=== PATIENT | female | born 1950 | race Caucasian/White ===

== ENCOUNTER → 2016-08-18 | Outpatient (CLI) | payer MEDICARE ==
--- NOTE | 2016-08-18 13:22 | US ---
EXAMINATION TYPE: US carotid duplex BILAT DATE OF EXAM: 08/18/2016 1:12 PM COMPARISON: NONE CLINICAL HISTORY: E78.2 HYPERLIPIDEMIA,R41.3 MEMORY LOSS. Hyperlipidemia, memory changes EXAM MEASUREMENTS: RIGHT: Peak Systolic Velocity (PSV) cm/sec ----- Right CCA: 65.1 ----- Right ICA: 117.4 ----- Right ECA: 113.5 ICA/CCA ratio: 1.8 RIGHT: End Diastole cm/sec ----- Right CCA: 23.2 ----- Right ICA: 37.1 ----- Right ECA: 22.8 LEFT: Peak Systolic Velocity (PSV) cm/sec ----- Left CCA: 85.5 ----- Left ICA: 127.7 ----- Left ECA: 71.1 ICA/CCA ratio: 1.5 LEFT: End Diastole cm/sec ----- Left CCA: 29.3 ----- Left ICA: 38.3 ----- Left ECA: 17.2 VERTEBRALS (direction of flow): Right Vertebral: Antegrade Left Vertebral: Antegrade IMPRESSION: Heterogeneous plaque bilateral bulbs and tortuous bilateral ICA's. No hemodynamically s ignificant stenosis at this time. Criteria for Assigning % of Stenosis / Diameter reduction (Estimation based on the indirect measurements of the internal carotid artery velocities (ICA PSV). 1. Normal (no stenosis)=ICA PSV < 125 cm/s: ratio < 2.0: ICA EDV<40 cm/s. 2. Less than 50% stenosis=ICA PSV < 125 cm/s: ratio < 2.0: ICA EDV<40 cm/s. 3. 50 to 69% stenosis=ICA PSV of 125 to 230 cm/s: ration 2.0 ? 4.0: ICA EDV 40-100 cm/s. 4. Greater than 70% stenosis to near occlusion= ICA PSV > 230 cm/s: ratio > 4.0: ICA EDV > 100 cm/s. 5. Near occlusion= ICA PSV velocities may be low or undetectable: variable ratio and ICA EDV. 6. Total occlusion=unable to detect flow.
== END | disposition home or self-care (01) ==
LOC: RADUSWWP 12:52
PROVIDERS: ATTEND Family Medicine
DX: I65.23 Occlusion and stenosis of bilateral carotid arteries (principal); I77.1 Stricture of artery; E78.2 Mixed hyperlipidemia
CPT/HCPCS: 93880

== ENCOUNTER → 2016-09-11 | Outpatient (CLI) | payer MEDICARE ==
--- NOTE | 2016-09-12 11:12 | MM ---
Reason for exam: screening (asymptomatic). Baseline mammogram. History: Patient is postmenopausal and is nulliparous. Took estrogen for 15 years beginning at age 44. Physical Findings: A clinical breast exam by your physician is recommended on an annual basis and results should be correlated with mammographic findings. MG 3D Screening Mammo W/Cad Bilateral CC and MLO view(s) were taken. Prior study comparison: September 08, 2015, bilateral MG screening mammo w CAD. August 24, 2014, bilateral MG screening mammo w CAD. August 21, 2013, bilateral digital screening mammo w/CAD. There are scattered fibroglandular densities. There is no discrete abnormality. ASSESSMENT: Negative, BI-RAD 1 RECOMMENDATION: Routine screening mammogram of both breasts in 1 year.
== END | disposition home or self-care (01) ==
LOC: RADMAMWWP 10:49
PROVIDERS: ATTEND Family Medicine
DX: Z12.31 Encounter for screening mammogram for malignant neoplasm of breast (principal)
CPT/HCPCS: 77063; G0202

== ENCOUNTER → 2016-12-07 | Outpatient (CLI) | payer MEDICARE ==
[~2016-12-07] MED LIST: REGADENOSON 0.4 MG/5 ML SYRINGE IV ONE
--- NOTE | 2016-12-07 12:26 | NM ---
EXAMINATION TYPE: NM stress Lexiscan cardiolite DATE OF EXAM: 12/07/2016 COMPARISON: NONE HISTORY: Chest pain. TECHNIQUE: After the intravenous administration of 10.44 mCi Tc 99m Sestamibi - Cardiolite resting S PECT images acquired 45 minutes post injection. The patient received 0.4mg Lexiscan, 26.8 mCi Tc 99m Sestamibi - Stress images obtained [address] injection FINDINGS: There is a fixed defect in the inferior wall and apex. There is no convincing inducible isc hemic change. There is hypokinesia of the inferior wall. Ejection fraction is calculated at 64%. IMPRESSION: 1. EVIDENCE OF A PREVIOUS INFERIOR WALL AND APICAL ID. 2. NO CONVINCING INDUCIBLE ISCHEMIC CHANGE. 3. HYPOKINESIA OF THE INFERIOR WALL.
--- NOTE | 2016-12-07 12:26 | EST ---
DATE OF SERVICE: 12/07/2016 AGE: 66Y SEX: F HT: 5'2" WT: 182 lbs. Protocol Dennis: Other: Lexiscan Cardiolite Stage: Dur. of Exercise: *Heart Rate Blood Pressure *Rest: 74 Rest: 137/71 * *Max. Achieved: 95 Maximum BP: 152/77 85% PMHR: 138 100% PMHR: 153 *METS: INDICATIONS: Chest pain. MEDICATIONS: Patient was given Lexiscan injection over a period of 15 seconds. Peak heart rate of 95 was achieved. Maximum blood pressure of 152/77 mmHg was noted. Resting EKG shows normal sinus rhythm with normal ME interval and QRS duration and normal ST-T waves. No ST segment depression suggestive of ischemia is noted. Nuclear study will follow.
== END | disposition home or self-care (01) ==
LOC: RADNMMAIN 08:42
PROVIDERS: ATTEND Family Medicine
DX: R07.89 Other chest pain (principal)
CPT/HCPCS: 93017; 78452; A9500; J2785

== ENCOUNTER → 2017-02-22 | Day surgery (SDC) | payer MEDICARE ==
[2017-02-15 10:54] VITALS: BMI 32.9
[~2017-02-22] MED LIST changes: +ALPRAZolam 0.25 MG TAB PO PRN; +ALPRAZolam 0.5 MG TAB PO PRN; +ASPIRIN 81 MG ONE; +ATORVASTATIN 40 MG TAB PO SCH; +ATORVASTATIN 80 MG TAB PO STA; +CALCIUM CARBONATE PO SCH; +FOLIC ACID 1 MG TAB PO SCH; +HEPARIN SODIUM 1,000 UN/ML (10ML VL) ONE; +HYDROCHLOROTHIAZIDE 25 MG TAB PO SCH; +HYDROcodone/APAP 5-325MG 1 EACH TAB PO PRN; +IOHEXOL 350 MG/ML 125ML BOTTLE INJ ONE; +ISOSORBIDE MONONITRATE ER 30 MG TAB.ER.24H PO SCH; +LEVOTHYROXINE SODIUM 150 MCG PO SCH; +LIDOCAINE 2% INJ 20 MG/ML (20 ML MDV) ONE; +LIDOCAINE 2% INJ 20 MG/ML SQ ONE; +LISINOPRIL 2.5 MG TAB PO SCH; +METOPROLOL TARTRATE 25 MG TAB PO SCH; +NABUMETONE PO SCH; +NAPROXEN 250 MG TAB PO PRN; +NITROGLYCERIN SL TABS 0.4 MG TAB SUBLINGUAL PRN; +NON-FORMULARY DRUG (Aspirin [Adult Low Dose Aspirin Ec] 81 MG) PO SCH; +NON-FORMULARY DRUG (Biotin [Biotin] 5,000 MCG) PO SCH; -REGADENOSON 0.4 MG/5 ML SYRINGE IV ONE; +RX INFO: IV CONTRAST WAS GIVEN 1 EACH MISC MISCELLANE PRN; +SODIUM CHLORIDE 0.9% 1,000 ML IV SCH; +SODIUM CHLORIDE 0.9% 1,000 ML in EMPTY BAG 1 BAG IV ONE; +VERAPAMIL 2.5 MG/ML 2 ML AMP ONE; +VERAPAMIL SYRINGE (5 MG/10 ML) INTRAARTER ONE; +VITAMIN D3 PO SCH; +[UNRECOGNIZED DRUG - OTHER] PO SCH; +[UNRECOGNIZED DRUG - OTHER] PO SCH; +[UNRECOGNIZED DRUG - OTHER] PO SCH; +diphenhydrAMINE 50 MG/ML 1 ML VIAL IVP ONE; +diphenhydrAMINE 50 MG/ML 1 ML VIAL ONE; +fentaNYL (PF) 50 MCG/ML 2 ML AMP IV ONE; +fentaNYL (PF) 50 MCG/ML 2 ML AMP ONE
[2017-02-22 07:00] VITALS: RESP 18
[2017-02-22 08:55] VITALS: TEMP 98
[2017-02-22 14:50] VITALS: BP 142/70; PULSE 82
--- NOTE | 2017-02-22 20:28 | CC ---
CARDIAC CATHETERIZATION REPORT Dear Dr. Luther: I had the pleasure of performing cardiac catheterization on Mrs. Ellis at [facility] on February 22. A full copy procedure note will be forwarded to you. In brief, she was found to have calcified coronary artery with chronically occluded distal right coronary artery with mild disease in the proximal LAD. At this time I will maximize her medical therapy and she will be re-evaluated regarding the need to undergo percutaneous revascularization of the right coronary artery. I will keep you updated on her progress and thank you again for allow me to participate in her care. Please feel free to call for any questions. Sincerely yours, [email or web address] / IJN: [id number] /
--- NOTE | 2017-02-22 20:28 | CC ---
CARDIAC CATHETERIZATION REPORT Mrs. Ellis is a 66-year-old female with a history of hypertension, hyperlipidemia, who has been complaining of progressive dyspnea and episodes of chest discomfort, underwent a stress test that revealed evidence of inferior wall defect and hypokinesis of the same segment. In view of that recommendation made regarding cardiac catheterization. The procedures, risks, and complications were discussed with the patient who is in full understanding and agreement. PROCEDURE: Patient was brought to the labeling specialist in a fasting state after receiving fentanyl and Benadryl and achieving moderate conscious sedation state. Using Xylocaine anesthesia and Seldinger technique a 6-Japanese sheath was introduced in the right radial artery. Selective right and left coronary angiography reports was performed using 5-Japanese 3 and half bend right and left Flavio catheters. Multiple views of the coronary arteries including hemiaxial views were obtained. Following that, a 5-Japanese tight pigtail catheter was introduced into the left ventricle and a 30 degree CORADO view of the left ventricle was obtained. Following that catheter and sheath was removed. Hemostasis was obtained with deployment of Tracelet. Of note, the patient received intraarterial verapamil as well as 4000 units of intravenous heparin. FLUOROSCOPY: There was severe calcification involving the proximal left anterior descending artery as well as the right coronary artery. 1. Left main this is a large-sized vessel bifurcating left circumflex left main artery. Left main coronary artery is without any significant obstructive disease. 2. Left anterior descending artery: This is a large-sized vessel reaching towards the apex with a wrap around apex segment giving rise to a moderate-sized diagonal branch. The left anterior descending artery proximally has a 20% plaque. The rest of the vessel has no high-degree stenosis. 3. Left circumflex: This is a nondominant vessel giving rise to three obtuse marginal branches. The second one is largest in caliber. The left circumflex as well as branches has no evidence of obstructive coronary artery disease. 4. Right coronary artery: This is a dominant vessel, large in caliber bifurcating distally into PDA and posterior lateral segment and branches, heavily calcified in proximal and mid segment. The right coronary artery in the mid segment has a 95% stenosis. In the mid distal segment, this is subtotally occluded with minimal antegrade flow. 5. Collaterals: There is good collaterals from the left anterior descending artery with septal security management specialist to right PDA and PLV. 6. Left ventriculogram: Performed in 30 degree CORADO view and revealed basal inferior wall hypokinesis. Ejection fraction 50%. There was no significant mitral regurgitation. 7. Hemodynamics: There was no gradient across the aortic valve. The left ventricle end-diastolic pressure was 24-28 mmHg. CONCLUSION: 1. Calcified coronary artery. 2. Severe stenosis involving the mid right coronary with a chronic occlusion of the distal right coronary artery. 3. Mild disease in the proximal LAD. 4. Collaterals from the left coronary system toward the right coronary artery. 5. Minimally impaired left ventricular systolic function.. RECOMMENDATION: In view of finding anatomy, I have recommended to continue medical therapy. Patient will be evaluated regarding possible percutaneous revascularization for chronically occluded distal right coronary artery. Those findings and recommendations were discussed with the patient and her family who is in full understanding and agreement. ADRIEL / DARCY: [id number] /
== END | disposition home or self-care (01) ==
LOC: CATHCVL 06:12
PROVIDERS: ATTEND Internal Medicine Interventional Cardiology
DX: I25.10 Atherosclerotic heart disease of native coronary artery without angina pectoris (principal); I25.82 Chronic total occlusion of coronary artery; I25.84 Coronary atherosclerosis due to calcified coronary lesion; I10 Essential (primary) hypertension; Z87.891 Personal history of nicotine dependence; E78.2 Mixed hyperlipidemia; Z79.82 Long term (current) use of aspirin; Z79.1 Long term (current) use of non-steroidal anti-inflammatories (NSAID); Z79.899 Other long term (current) drug therapy; Z88.1 Allergy status to other antibiotic agents; Z88.5 Allergy status to narcotic agent
CPT/HCPCS: 93458; 99152; J2001; J1200; J3010; J1644; Q9967

== ENCOUNTER → 2017-05-07 | Outpatient (CLI) | payer MEDICARE ==
--- NOTE | 2017-05-07 13:23 | XR ---
EXAMINATION TYPE: XR chest 2V DATE OF EXAM: 05/07/2017 COMPARISON: None HISTORY: 66-year-old female cough for 3 months. [id number] TECHNIQUE: Frontal and lateral views FINDINGS: Heart upper limits of normal in size. Mild elongation of the aorta. Strandy atelectasis in the lower lungs. No consolidation or pleural effusion. IMPRESSION: No acute cardiopulmonary process.
--- NOTE | 2017-05-07 13:31 | XR ---
EXAMINATION TYPE: XR hand complete LT DATE OF EXAM: 05/07/2017 COMPARISON: NONE HISTORY: 66 year old with swelling, bruising, and pain. [id number]. TECHNIQUE: 3 views FINDINGS: There appears to be borderline widening of the scapholunate interval. End-stage degenerative change a t the radioscaphoid joint as well as the lunocapitate articulation. Advanced degenerative change at t he first CMC joint as well scattered osteolytic changes throughout the hand. No acute fracture, sublu xation, or dislocation. No marginal erosions or soft tissue calcification seen. Large 8 mm posterior loose body at the carpus. IMPRESSION: 1. 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 2. Additional moderate to advanced osteoarthritic changes throughout the hand.
== END | disposition home or self-care (01) ==
LOC: RADXRYALE 09:35
PROVIDERS: ATTEND Physician Assistant Medical
DX: M19.042 Primary osteoarthritis, left hand (principal); M19.032 Primary osteoarthritis, left wrist; J44.9 Chronic obstructive pulmonary disease, unspecified
CPT/HCPCS: 71020

== ENCOUNTER → 2017-09-12 | Outpatient (CLI) | payer MEDICARE ==
--- NOTE | 2017-09-14 07:24 | MM ---
Reason for exam: screening (asymptomatic). Last mammogram was performed 1 year ago. History: Patient is postmenopausal and is nulliparous. Took estrogen for 15 years beginning at age 44. Physical Findings: A clinical breast exam by your physician is recommended on an annual basis and results should be correlated with mammographic findings. MG 3D Screening Mammo W/Cad Bilateral CC and MLO view(s) were taken. Prior study comparison: September 11, 2016, bilateral MG 3d screening mammo w/cad. September 08, 2015, bilateral MG screening mammo w CAD. There are scattered fibroglandular densities. No significant changes when compared with prior studies. ASSESSMENT: Negative, BI-RAD 1 RECOMMENDATION: Routine screening mammogram of both breasts in 1 year.
== END | disposition home or self-care (01) ==
LOC: RADMAMWWP 11:05
PROVIDERS: ATTEND Family Medicine
DX: Z12.31 Encounter for screening mammogram for malignant neoplasm of breast (principal)
CPT/HCPCS: 77063; 77067

== ENCOUNTER → 2018-02-14 | Outpatient (CLI) | payer MEDICARE ==
--- NOTE | 2018-02-14 23:19 | CTL ---
EXAMINATION TYPE: CT Low Dose Lung DATE OF EXAM ORDERED: 02/14/2018 HISTORY: 67-year-old female personal hx of tobacco use. Lung cancer screening CT DLP: [address] CTDI: 2.14 mGy Automated exposure control for dose reduction was used. SCREENING VISIT: Baseline COMPARISON: None TECHNIQUE: Low dose computed tomography scan was performed through the chest at 1 mm thick sections a nd reconstructed images in the coronal/sagittal plane at 1 mm thick sections. Additional coronal MIP reconstructions performed. CT DIAGNOSTIC QUALITY: Satisfactory FINDINGS: Heart is normal size without pericardial effusion. Coronary vessel calcifications are present. Aorta normal caliber with mild active cardiac arch calcifications and conventional arch vessel branch ing anatomy. No thoracic lymphadenopathy. Moderate diffuse bronchial wall thickening. - 3 mm right middle lobe pulmonary nodule axial image 154. Strandy areas of atelectasis or scarring in the lower lungs. No consolidation or pleural effusion. Tiny hiatal hernia. Visualized upper abdomen shows mild diverticulosis at the splenic flexure. A coup le subcentimeter hypodensities in the liver too small fractured CT characterization, likely cysts. Bones: Moderate endplate spondylosis and degenerative disc disease upper to mid thoracic spine. No os seous destructive process. IMPRESSION: 1. LungRADS 2 - benign; solitary 3 mm pulmonary nodule at baseline. 2. Moderate diffuse bronchial wall thickening suggests bronchitis or chronic asthma. 3. CAD, tiny hiatal hernia, and diverticulosis seen at the splenic flexure. RECOMMENDATION: 1. Continue annual low-dose lung cancer screening CT. 2. Smoking cessation. FOLLOW UP CT CHEST RECOMMENDATION: [address] LUNG RAD: Lung-Rad 2 Benign Appearance or Behavior
== END | disposition home or self-care (01) ==
LOC: RADCTMAIN 15:47
PROVIDERS: ATTEND Family Medicine
DX: Z12.2 Encounter for screening for malignant neoplasm of respiratory organs (principal); R91.1 Solitary pulmonary nodule; I25.10 Atherosclerotic heart disease of native coronary artery without angina pectoris; J98.09 Other diseases of bronchus, not elsewhere classified; K44.9 Diaphragmatic hernia without obstruction or gangrene; J44.9 Chronic obstructive pulmonary disease, unspecified; Z87.891 Personal history of nicotine dependence

== ENCOUNTER → 2018-05-20 | Outpatient (CLI) | payer MEDICARE ==
--- NOTE | 2018-05-22 12:47 | P.ARTDOP ---
Arterial Doppler LOWER EXTREMITY ARTERIAL DOPPLER: DATE OF SERVICE: 05/20/2018 Reason for study: Pain right hip. Doppler waveforms: Multiphasic bilaterally throughout. Pulse volume recording: Normal configuration. Pressure gradients: None. Ankle-brachial indices: Greater than 1 bilaterally. Toe pressures: 96 on the right, 98 on the left Impression: Normal study.
== END | disposition home or self-care (01) ==
LOC: RADUSWWP 12:36
PROVIDERS: ATTEND Family Medicine
DX: M25.551 Pain in right hip (principal); R60.9 Edema, unspecified
CPT/HCPCS: 93922

== ENCOUNTER → 2018-09-16 | Outpatient (CLI) | payer MEDICARE ==
--- NOTE | 2018-09-17 09:07 | MM ---
Reason for exam: screening (asymptomatic). Last mammogram was performed 1 year ago. History: Patient is postmenopausal and is nulliparous. Took estrogen for 15 years beginning at age 44. Physical Findings: A clinical breast exam by your physician is recommended on an annual basis and results should be correlated with mammographic findings. MG 3D Screening Mammo W/Cad Bilateral CC and MLO view(s) were taken. Prior study comparison: September 12, 2017, bilateral MG 3d screening mammo w/cad. September 11, 2016, bilateral MG 3d screening mammo w/cad. The breast tissue is heterogeneously dense. This may lower the sensitivity of mammography. No significant changes when compared with prior studies. ASSESSMENT: Benign, BI-RAD 2 RECOMMENDATION: Routine screening mammogram of both breasts in 1 year.
== END | disposition home or self-care (01) ==
LOC: RADMAMWWP 14:38
PROVIDERS: ATTEND Family Medicine
DX: Z12.31 Encounter for screening mammogram for malignant neoplasm of breast (principal)
CPT/HCPCS: 77063; 77067

== ENCOUNTER → 2019-01-31 | Outpatient (CLI) | payer MEDICARE ==
--- NOTE | 2019-02-01 09:56 | XR ---
EXAMINATION TYPE: XR cervical spine comp DATE OF EXAM: 01/31/2019 CLINICAL HISTORY: pain COMPARISON: NONE TECHNIQUE: Frontal, lateral, oblique, swimmers, and open mouth view of the cervical spine are obtaine d. FINDINGS: The cervical spine is visualized in its entirety from C1 thru the top of T1 level. It is s atisfactory in alignment without evidence of acute fracture or dislocation. The pre-vertebral soft t issue appears within normal limits. Severe multilevel degenerative disc space narrowing and spondylos is extending from C3-4 through C6-7. The C1-C2 articulation is unremarkable on the open mouth view. N eural foraminal encroachment identified at C4-5 C5-6 and C6-7 bilaterally. IMPRESSION: No acute fracture or dislocation is seen in the cervical spine. Severe multilevel degene rative disc disease.
== END | disposition home or self-care (01) ==
LOC: RADXRYALE 15:58
PROVIDERS: ATTEND Family Medicine
DX: M50.31 Other cervical disc degeneration, high cervical region (principal); R20.2 Paresthesia of skin
CPT/HCPCS: 72050

== ENCOUNTER → 2019-02-14 | Outpatient (CLI) | payer MEDICARE ==
--- NOTE | 2019-02-14 20:22 | MR ---
EXAMINATION TYPE: MR cervical spine wo con DATE OF EXAM: 02/14/2019 COMPARISON: None HISTORY: 68-year-old female neck pain, cervicalgia. TECHNIQUE: Multiplanar, multisequence images of the cervical spine were acquired. FINDINGS: No craniocervical junction abnormality, predental space widening, or prevertebral soft tissue swellin g. Reversal of the normal cervical lordosis as seen previously with moderate to advanced disposition deg enerative change particularly at C4-C7 levels with disc height loss, disc desiccation, and disc osteo phyte complex formation. Corresponding ligamentum flavum thickening and multilevel hypertrophic facet and uncovertebral joint arthropathy. Some of these hypertrophic changes are greatest at C7-T1 with increased, now grade 2 anterolisthesis at this level. Similar grade 1 retrolisthesis at C4-C5. At C2-C3, hypertrophic facet arthropathy without significant canal or foraminal stenosis. At C3-C4, hypertrophic facet and uncovertebral joint arthropathy, right greater the left. Changes res ult in moderate to severe right and mild left neural foraminal stenosis without significant spinal ca nal stenosis. At C4-C5, hypertrophic facet and uncovertebral joint arthropathy with grade 1 retrolisthesis, ligamen merary flavum thickening, and disc osteophyte complex. Changes result in moderate to severe focal spinal canal stenosis with AP canal dimension of 5 mm in abutment with slight flattening of both the dorsal and ventral cord, increased from 11/15/2012. There is severe left and moderate right neural foraminal stenosis. At C5-C6, disc osteophyte complex with hypertrophic facet and uncovertebral joint arthropathy. Limita tions and thickening is present. There is overall moderate spinal canal stenosis with abutment of bot h the dorsal and ventral cord, increased from prior exam. There is severe bilateral neuroforaminal st enosis. At C6/C7, discussed by complex with uncovertebral joint and facet degenerative change. Changes result in moderate to severe left and moderate right neuroforaminal stenosis with mild overall narrowing of the spinal canal. At C7-T1, severe hypertrophic facet arthropathy with increased, now grade 2 anterolisthesis. Difficul t to assess the neuroforamen at this level, there is at least a moderate, possibly saphenous near for aminal stenosis on both sides. Additional degenerative disc disease visualized upper thoracic spine with small posterior disc protru sions. Normal signal intensity of the cervical spinal cord. No prevertebral or paravertebral soft tissue abnormality seen. IMPRESSION: 1. Moderate to advanced spondylotic change, progressed from 2013. There is an increased, now grade 2 anterolisthesis at C7-T1 and similar grade 1 retrolisthesis at C4-C5. 2. Overall moderate to severe spinal canal stenosis increased at C4-C5 with abutment and flattening o f both the dorsal and ventral cord. Moderate overall spinal canal stenosis at C5-C6 and mild at C6-C7 . 3. No myelopathic cord signal change. 4. Variable neuroforaminal stenoses as outlined above, moderate and severe at some levels.
== END | disposition home or self-care (01) ==
LOC: RADMRIMAIN 11:48
PROVIDERS: ATTEND Family Medicine
DX: M48.02 Spinal stenosis, cervical region (principal); M47.812 Spondylosis without myelopathy or radiculopathy, cervical region
CPT/HCPCS: 72141

== ENCOUNTER → 2019-02-22 | Outpatient (CLI) | payer MEDICARE ==
--- NOTE | 2019-02-22 12:53 | CTL ---
EXAMINATION TYPE: CT Low Dose Lung DATE OF EXAM ORDERED: 02/22/2019 HISTORY: . Lung cancer screening CT DLP: 81.[address] CTDI: 2.8 mGy Automated exposure control for dose reduction was used. SCREENING VISIT: Subsequent follow-up COMPARISON: 02/14/2018 TECHNIQUE: Low dose computed tomography scan was performed through the chest at 1 mm thick sections a nd reconstructed images in the coronal plane at [address] DIAGNOSTIC QUALITY: Satisfactory FINDINGS: LUNG NODULES: Present, detailed below: A 0.2 cm nodular density appears stable in periphery of the right middle lobe. Series 12 image 165. T his was present previously. There is a very subtle area of pneumonitis within the anterior left apex. Series 12 image 48. Subtle area of pneumonitis is in the lingula within the anterior lateral left lung. Series 12 image 139. LUNGS: COPD: Severity: None Fibrosis: Severity: None Lymph nodes: None Other findings: None RIGHT PLEURAL SPACE: Effusion: None Calcification: None Thickening: None Pneumothorax: None LEFT PLEURAL SPACE: Effusion: None Calcification: None Thickening: None Pneumothorax: None HEART: Heart Size: Normal Coronary calcification: Moderate Pericardial effusion: None OTHER FINDINGS: Upper abdomen: Normal Bony thorax: Normal Supraclavicular region: Normal Other: Ascending thoracic aorta at the level the main pulmonary artery measures 3.2 cm. The main pul monary artery at the bifurcation measures 2.3 cm. IMPRESSION: Benign findings FOLLOW UP CT CHEST RECOMMENDATION: Screening low-dose CT per protocol, low dose screening in one year . CT LUNG RAD: Lung rad 2
== END | disposition home or self-care (01) ==
LOC: RADCTMAIN 11:17
PROVIDERS: ATTEND Family Medicine
DX: Z12.2 Encounter for screening for malignant neoplasm of respiratory organs (principal); Z87.891 Personal history of nicotine dependence

== ENCOUNTER → 2019-02-28 | Outpatient (CLI) | payer MEDICARE ==
--- NOTE | 2019-03-01 15:22 | ECHOF ---
Referral Reason:R06.02 [facility] I519 heart disease MEASUREMENTS -------- HEIGHT: 157.5 cm WEIGHT: 70.8 kg BP: IVSd: 1.0 cm (0.6 - 1.1) LVIDd: 2.7 cm (3.9 - 5.3) LVPWd: 1.1 cm (0.6 - 1.1) IVSs: 1.4 cm LVIDs: 1.6 cm LVPWs: 1.4 cm LAESV Index (A-L): 11.85 ml/m Ao Diam: 2.4 cm (2.0 - 3.7) LA Diam: 1.9 cm (2.7 - 3.8) MV EXCURSION: 12.039 mm (> 18.000) MV EF SLOPE: 121 mm/s (70 - 150) EPSS: 0.8 cm MV E Raghu: 0.61 m/s MV DecT: 268 ms MV A Raghu: 0.87 m/s MV E/A Ratio: 0.70 AR PHT: 201 ms RAP: 5.00 mmHg RVSP: 32.02 mmHg FINDINGS -------- Sinus rhythm. This was a technically good study. The left ventricular size is normal. There is mild concentric left ventricular hypertrophy. Overa ll left ventricular systolic function is normal with, an EF between 60 - 65 %. The diastolic fillin g pattern is normal for the age of the patient 9.07. The right ventricle is normal in size. Normal LA size by volume 22+/-6 ml/m2. The right atrial size is normal. Interatrial and interventricular septum intact. The aortic valve is trileaflet and appears structurally normal. Trace amount of aortic regurgitatio n. The mitral valve is normal. Mild mitral regurgitation is present. The tricuspid valve appears structurally normal. Trace tricuspid regurgitation present. Right tere tricular systolic pressure is normal at < 35 mmHg. There is no pulmonic regurgitation present. The aortic root size is normal. Normal inferior vena cava with normal inspiratory collapse consistent with estimated right atrial pre ssure of 5 mmHg. There is no pericardial effusion. CONCLUSIONS -------- 1. Sinus rhythm. 2. This was a technically good study. 3. The left ventricular size is normal. 4. There is mild concentric left ventricular hypertrophy. 5. Overall left ventricular systolic function is normal with, an EF between 60 - 65 %. 6. The diastolic filling pattern is normal for the age of the patient 9.07 7. The right ventricle is normal in size. 8. Normal LA size by volume 22+/-6 ml/m2. 9. The right atrial size is normal. 10. Interatrial and interventricular septum intact. 11. The aortic valve is trileaflet and appears structurally normal. 12. Trace amount of aortic regurgitation. 13. The mitral valve is normal. 14. Mild mitral regurgitation is present. 15. The tricuspid valve appears structurally normal. 16. Trace tricuspid regurgitation present. 17. Right ventricular systolic pressure is normal at < 35 mmHg. 18. There is no pulmonic regurgitation present. 19. The aortic root size is normal. 20. Normal inferior vena cava with normal inspiratory collapse consistent with estimated right atrial pressure of 5 mmHg. 21. There is no pericardial effusion. MOLD [employer]ARD WORKER: Nicolle Jacob RDCS
== END | disposition home or self-care (01) ==
LOC: RADECHMAIN 12:57
PROVIDERS: ATTEND Family Medicine
DX: I51.7 Cardiomegaly (principal); I34.0 Nonrheumatic mitral (valve) insufficiency
CPT/HCPCS: 93306

== ENCOUNTER → 2020-01-02 | Outpatient (CLI) | payer MEDICARE ==
--- NOTE | 2020-01-05 09:33 | MM ---
Reason for exam: screening (asymptomatic). Last mammogram was performed 1 year and 4 months ago. History: Patient is postmenopausal and is nulliparous. Took estrogen for 15 years beginning at age 44. Physical Findings: A clinical breast exam by your physician is recommended on an annual basis and results should be correlated with mammographic findings. MG 3D Screening Mammo W/Cad Bilateral CC and MLO view(s) were taken. Prior study comparison: September 16, 2018, bilateral MG 3d screening mammo w/cad. September 12, 2017, bilateral MG 3d screening mammo w/cad. The breast tissue is heterogeneously dense. This may lower the sensitivity of mammography. No significant changes when compared with prior studies. ASSESSMENT: Negative, BI-RAD 1 RECOMMENDATION: Routine screening mammogram of both breasts in 1 year.
== END | disposition home or self-care (01) ==
LOC: RADMAMWWP 15:45
PROVIDERS: ATTEND Family Medicine
DX: Z12.31 Encounter for screening mammogram for malignant neoplasm of breast (principal)
CPT/HCPCS: 77063; 77067

== ENCOUNTER → 2020-06-23 | Outpatient (CLI) | payer MEDICARE ==
[2020-06-23 12:22] VITALS: BP 130/78; PULSE 76; RESP 18; TEMP 97.6
--- NOTE | 2020-06-23 13:01 | P.CONS ---
History of Present Illness - Reason for Consult Consult date: 06/23/20 - Chief Complaint Neck and arms pain - History of Present Illness This is a 69-year-old lady with history of neck pain with radiation to the upper extremity down to both hands with tingling in both hands. The patient describes her neck pain as tight in quality and her hands pain as burning in quality. The pain wakes her up at night. She also feels weakness in both arms to the extent that she has difficulty completing her daily activities. She denies any bowel or bladder dysfunction. His any weight loss recently. The patient was referred to us by Dr. Langford for a trial of interventional pain procedures. Past Medical History Past Medical History: COPD, Hyperlipidemia, Hypertension, Musculoskeletal Disorder, Osteoarthritis (OA), Thyroid Disorder Additional Past Medical History / Comment(s): lupus History of Any Multi-Drug Resistant Organisms: None Reported Past Surgical History: Hysterectomy, Joint Replacement Additional Past Surgical History / Comment(s): rene knee replacements, rene. cataracts, right hip replaced & then revised-multiple surgeries Past Anesthesia/Blood Transfusion Reactions: No Reported Reaction Past Psychological History: No Psychological Hx Reported Smoking Status: Former smoker Past Alcohol Use History: None Reported Additional Past Alcohol Use History / Comment(s): started smoking age 17, 1ppd quit 2012 Past Drug Use History: None Reported - Past Family History Mother Family Medical History: No Reported History Medications and Allergies Home Medications Medication Instructions Recorded Confirmed Type Albuterol Sulfate [Proair Hfa] 1 - 2 puff INHALATION Q6HR PRN 02/15/17 06/17/20 History Aspirin [Adult Low Dose Aspirin EC] 81 mg PO DAILY 02/15/17 06/17/20 History Biotin 5,000 mcg PO DAILY 02/15/17 06/17/20 History Calcium Carbonate/Vitamin D3 1 each PO DAILY 02/15/17 06/17/20 History [Calcium 600-Vit D3 200 Tablet] Folic Acid 1 mg PO DAILY 02/15/17 06/17/20 History Glucosam/Tc-Msm1/C/Chavez/Bosw 1 each PO DAILY 02/15/17 06/17/20 History [Glucosamine-Chondroitin Tablet] Kelp 1 each PO DAILY 02/15/17 06/17/20 History Levothyroxine Sodium 150 mcg PO DAILY 02/15/17 06/17/20 History Nabumetone [Relafen] 500 mg PO BID 02/15/17 06/17/20 History Naproxen Sodium [Aleve] 220 mg PO DAILY PRN 02/15/17 06/17/20 History Sinus Congestion Med 1 tab PO DAILY 02/15/17 06/17/20 History Vitamin B Complex With C 1 tab PO DAILY 02/15/17 06/17/20 History hydroCHLOROthiazide 25 mg PO DAILY 02/15/17 06/17/20 History Isosorbide Mononitrate ER [Imdur] 30 mg PO DAILY #90 tab 02/22/17 06/17/20 Rx Metoprolol Tartrate [Lopressor] 25 mg PO BID #180 tablet 02/22/17 06/17/20 Rx Nitroglycerin Sl Tabs [Nitrostat] 0.4 mg SUBLINGUAL Q5M PRN #25 tab 02/22/17 06/17/20 Rx Ascorbic Acid [Vitamin C] 1,000 mg PO DAILY 06/17/20 06/17/20 History Atorvastatin Calcium [Lipitor] 80 mg PO DAILY 06/17/20 06/17/20 History Bumetanide [BUMEX] 4 mg PO DAILY 06/17/20 06/17/20 History Cholecalciferol [Vitamin D3 (25 5,000 unit PO DAILY 06/17/20 06/17/20 History Mcg = 1000 Iu)] Montelukast [Singulair] 10 mg PO DAILY 06/17/20 06/17/20 History Multivitamins, Thera [Multivitamin 1 tab PO DAILY 06/17/20 06/17/20 History (formulary)] Potassium Chloride [Klor-Con 10] 10 meq PO DAILY 06/17/20 06/17/20 History Ranolazine [Ranexa] 500 mg PO BID 06/17/20 06/17/20 History Allergies Allergy/AdvReac Type Severity Reaction Status Date / Time cephalexin [From Keflex] Allergy Rash/Hives Unverified 06/17/20 11:42 codeine Allergy Hallucinati Unverified 06/17/20 11:42 ons ketorolac [From Toradol] Allergy Hallucinati Unverified 06/17/20 11:42 ons morphine AdvReac Hallucinati Verified 06/17/20 11:42 ons Physical Exam Vitals: Vital Signs Temp Pulse Resp BP Pulse Ox 06/23/20 12:19 97.6 F 76 18 130/78 98 - Constitutional General appearance: obese - EENT Eyes: PERRLA - Neurologic Neuro exam of the upper extremities showed absent triceps reflex bilaterally and absent brachial radialis reflex bilaterally. Decreased but symmetrical biceps reflex bilaterally. Decreased muscle strength for hand home care giver to 4 out of 5 and 3 out of 5 for elbow flexion and extension and 5 out of 5 for deltoid abduction bilaterally. Decreased range of motion of the cervical spine mildly for all movements. Positive tenderness in the cervical paravertebral musculature and the trapezius muscles bilaterally down to the upper end of the shoulder blade on the right side Neurologic: CNII-XII intact - Psychiatric Psychiatric: A&O x's 3, appropriate affect, intact judgment & insight Results Results: Cervical spine MRI without IV contrast was done on 04/16/2020 and showed multilevel degenerative changes, disc osteophyte complex at C4 5 level moderately impresses the ventral cord, severe neuroforaminal stenosis bilaterally at C4 5 and C5 6 levels and moderate to severe neural foraminal stenosis bilaterally at C6 7 and on the left at C7-T1. Assessment and Plan Plan: This is a 69-year-old lady with the following diagnoses: Cervical radiculopathy Severe cervical neuro foraminal stenosis "Mild spinal cord compression Coronary artery disease Anticoagulant treatment with aspirin only The patient may benefit from a trial of cervical epidural steroid injection at the C7-T1 level under fluoroscopic guidance. She understands that she has significant changes in the cervical spine and she might need surgery eventually. I thank Dr. Langford for the referral
== END | disposition home or self-care (01) ==
LOC: PNWHC3 12:01
PROVIDERS: ATTEND Anesthesiology
DX: M48.02 Spinal stenosis, cervical region (principal); M54.12 Radiculopathy, cervical region; I25.10 Atherosclerotic heart disease of native coronary artery without angina pectoris; G95.20 Unspecified cord compression; I10 Essential (primary) hypertension; E78.5 Hyperlipidemia, unspecified; M19.90 Unspecified osteoarthritis, unspecified site; E07.9 Disorder of thyroid, unspecified; Z79.01 Long term (current) use of anticoagulants; Z79.82 Long term (current) use of aspirin; Z88.5 Allergy status to narcotic agent; Z88.1 Allergy status to other antibiotic agents; Z79.891 Long term (current) use of opiate analgesic; Z79.899 Other long term (current) drug therapy; Z79.890 Hormone replacement therapy
CPT/HCPCS: 99211

== ENCOUNTER 2020-07-29 09:10 | Day surgery (SDC) | payer MEDICARE ==
[2020-07-28 11:28] VITALS: BMI 23.4
[~2020-07-29 09:10] MED LIST changes: -ALPRAZolam 0.25 MG TAB PO PRN; -ALPRAZolam 0.5 MG TAB PO PRN; -ASPIRIN 81 MG ONE; -ATORVASTATIN 40 MG TAB PO SCH; -ATORVASTATIN 80 MG TAB PO STA; -CALCIUM CARBONATE PO SCH; -FOLIC ACID 1 MG TAB PO SCH; -HEPARIN SODIUM 1,000 UN/ML (10ML VL) ONE; -HYDROCHLOROTHIAZIDE 25 MG TAB PO SCH; -HYDROcodone/APAP 5-325MG 1 EACH TAB PO PRN; -IOHEXOL 350 MG/ML 125ML BOTTLE INJ ONE; -ISOSORBIDE MONONITRATE ER 30 MG TAB.ER.24H PO SCH; +LACTATED RINGERS 1,000 ML IV SCH; -LEVOTHYROXINE SODIUM 150 MCG PO SCH; -LIDOCAINE 2% INJ 20 MG/ML (20 ML MDV) ONE; -LIDOCAINE 2% INJ 20 MG/ML SQ ONE; -LISINOPRIL 2.5 MG TAB PO SCH; -METOPROLOL TARTRATE 25 MG TAB PO SCH; -NABUMETONE PO SCH; -NAPROXEN 250 MG TAB PO PRN; -NITROGLYCERIN SL TABS 0.4 MG TAB SUBLINGUAL PRN; -NON-FORMULARY DRUG (Aspirin [Adult Low Dose Aspirin Ec] 81 MG) PO SCH; -NON-FORMULARY DRUG (Biotin [Biotin] 5,000 MCG) PO SCH; -RX INFO: IV CONTRAST WAS GIVEN 1 EACH MISC MISCELLANE PRN; -SODIUM CHLORIDE 0.9% 1,000 ML IV SCH; -SODIUM CHLORIDE 0.9% 1,000 ML in EMPTY BAG 1 BAG IV ONE; -VERAPAMIL 2.5 MG/ML 2 ML AMP ONE; -VERAPAMIL SYRINGE (5 MG/10 ML) INTRAARTER ONE; -VITAMIN D3 PO SCH; -[UNRECOGNIZED DRUG - OTHER] PO SCH; -[UNRECOGNIZED DRUG - OTHER] PO SCH; -[UNRECOGNIZED DRUG - OTHER] PO SCH; -diphenhydrAMINE 50 MG/ML 1 ML VIAL IVP ONE; -diphenhydrAMINE 50 MG/ML 1 ML VIAL ONE; -fentaNYL (PF) 50 MCG/ML 2 ML AMP IV ONE; -fentaNYL (PF) 50 MCG/ML 2 ML AMP ONE
[2020-07-29 09:47] VITALS: RESP 16; TEMP 97.9
[2020-07-29] MEDS ORDERED: LIDOCAINE 1% (10MG/ML) FOR IV START INTRADERMA ONE (09:47)
[2020-07-29 10:02] LABS: Glucose,Whole Blood 88 mg/dL (75-99)
[2020-07-29] MEDS ORDERED: MIDAZOLAM 2 MG/2 ML VIAL ONE (10:05)
[2020-07-29] MEDS ORDERED: DEXAMETHASONE SOD PHOSPHATE 10 MG/ML 1 ML VIAL ONE (10:05)
[2020-07-29] MEDS ORDERED: fentaNYL (PF) 50 MCG/ML 2 ML AMP ONE (10:05)
[2020-07-29] MEDS ORDERED: IOPAMIDOL M200 10 ML VIAL ONE (10:05)
--- NOTE | 2020-07-29 10:22 | P.PCN ---
Date of Procedure: 07/29/20 Procedure(s) Performed: . PROCEDURE 1. Cervical epidural steroid injection under fluoroscopic guidance, C7-T1 (fluoroscopy images available in the radiology department ) 2. Cervical epidurogram. PREOPERATIVE DIAGNOSIS: 1- Cervical Degenerative Disc Diseases 2- Cervical radiculopathy., 3-cervical foraminal stenosis POSTOPERATIVE DIAGNOSIS: : 1- Cervical Degenerative Disc Diseases , 2- Cervical radiculopathy. 3-,cervical foraminal stenosis ANESTHESIA: Local anesthesia with lidocaine 1 % , and moderate sedation, with Versed 1 mg and Fentanyl 50 mcg. EBL 0 PROCEDURE INDICATION: The patient with neck pain and radiculitis unresponsive to conservative treatment consents for procedure. PROCEDURE DESCRIPTION / TECHNIQUE: The patient was seen and identified in the preoperative area. Risks, benefits, complications, including but not limited to infections ,bleeding , allergic reactions to the medications ,and not complete pain releife, and alternatives were discussed with the patient, the patient agreed to proceed with the procedure and signed the consent. Patient was taken to the OR and time out was completed. The patient was placed in the prone position on the procedure table. A pillow was placed under the patients chest to increase the cervical interlaminar space. The cervical area was prepped and draped in the usual sterile fashion. Vital signs were closely monitored during the procedure. Conscious sedation was used during the procedure to decrease patients anxiety. Using anterior-posterior fluoroscopy, the C7-T1 interlaminar space was identified and the skin over this site was marked and then infiltrated with 1% lidocaine subcutaneously. Subsequently, a 20-gauge 3-1/2-inch Tuohy epidural needle was inserted and advanced toward the epidural space by means of the ``hanging-drop technique and guided by AP and lateral fluoroscopy. The correct needle position in the epidural space was verified with the injection of 2 mL of the water soluble contrast dye Isovue-200 and observing an excellent epidurogram with the epidural spread of the dye, after negative aspiration for blood and CSF and in the absence of paresthesias. Again after negative aspiration, mixture containing 20 mg Dexamethasone and 2 ml of preservative- free normal saline injected and a washout of epidurogram was seen. Needle was withdrawn intact, skin was cleansed, and bandages were applied. Complications= none. Disposition= patient was placed in supine position and transferred to the recovery room area in stable condition and there was no evidence of upper or lower extremity motor or sensory deficit after the procedure patient was discharged from recovery room after discharge criteria met and home discharge instructions was given by the staff and patient will follow with the pain clinic in 2-4 weeks
[2020-07-29] MEDS ORDERED: IV FLUID CONTINUATION 1,000 ML IV ONE (10:30)
[2020-07-29 10:55] VITALS: BP 122/74; PULSE 77
--- NOTE | 2020-07-29 11:12 | FL ---
Fluoroscopy INDICATION: Pain FINDINGS: Fluoroscopy time: 2 seconds. Images obtained: 1. IMPRESSIONS: 1. Documentation of fluoroscopy.
== END 2020-07-29 11:02 | disposition home or self-care (01) ==
LOC: ORPAIN 09:10
PROVIDERS: ATTEND Specialist
DX: M50.10 Cervical disc disorder with radiculopathy, unspecified cervical region (principal); M48.02 Spinal stenosis, cervical region; Z88.5 Allergy status to narcotic agent; Z88.8 Allergy status to other drugs, medicaments and biological substances; Z88.1 Allergy status to other antibiotic agents; Z79.82 Long term (current) use of aspirin
CPT/HCPCS: 62321; J2250; J1100; J3010; Q9966

== ENCOUNTER → 2020-09-01 | Outpatient (CLI) | payer MEDICARE ==
[2020-09-01 13:47] VITALS: BP 129/77; PULSE 80; RESP 18; TEMP 97.9
--- NOTE | 2020-09-01 13:47 | P.PN ---
Subjective Progress Note Date: 09/01/20 This is a follow-up visit for this 70 years old female with a chronic history of severe neck pain, he is diagnosed with cervical radiculopathy cervical foraminal stenosis from cervical degenerative disc disease, status post cervical epidural steroid injection done several weeks ago, she gets excellent pain relief for 2 weeks, currently she is complaining of severe neck pain with radiation to the upper extremity bilaterally associated with some numbness and tingling sensation, the pain is constant and increases with any activity interference with her quality of life Objective - Vital Signs Vital signs: Intake & Output 08/31/20 09/01/20 09/01/20 18:59 06:59 18:59 Weight 77.111 kg - Exam Physical Examinations : -Constitutiona : Cooperative , not in acute distress . -HEENT : nech : supple , no Lymphadenopathy , normal thyroid size . : eyes : no ptosis , no icterus, no photophobia . - neurologic : Cranial nerve II to XII intact , no focal neurological deffecit . -psychatric : alert , oriented X 3 , appropriate affect , intact judgment and insight . -Lymphatic : no Lymphadenopathy . - musculoskeltal : Cervical Spine motor stregnth in the deltoid and biceps, 5/5 right side , 4/5 Left side motor stregnth biceps and the wrist extensors 5/5 right side ,4/5 left side . motor stregnth in the triceps muscle . normal Right side , normal Left side deep tendon reflexes normal at the biceps , normal at Brachioradialis , normal at triceps. cervical facet loading test: Positive Bilaterally Spurling test= positive Right , positive left. Neck distraction test= positive Right , positive left. Kerry sign= positive right, positive left . Assessment and Plan Plan: Assessment and plan=1-cervical radiculopathy 2-cervical degenerative disc disease. 3-cervical foraminal stenosis. Patient could benefit from repeat cervical epidural steroid injection under fluoroscopy guidance at C7-T1 - PQRS measures = - Patient's medications are documented in the chart. -Tobacco use is negative and counseling.Given. -Patient's has not received pneumococcal vaccine. -Advanced care planning discussed, patient not eligible. -Opiate contract not signed. -Pain positive and follow-up visit/procedure is scheduled. -Patient's blood pressure measured [129/77 ] , and documented in the record ,and patient will follow up with the primary care. -Patient's weight was measured and body mass index [ 31.1 ] above the normal limits and counseling was done. and patient instructed to follow-up with the primary care physician. -Patient was not identified as an unhealthy alcohol user Time with Patient: Less than 30
== END ==
LOC: PNWHC3 13:11
PROVIDERS: ATTEND Specialist
DX: M50.10 Cervical disc disorder with radiculopathy, unspecified cervical region (principal); M48.02 Spinal stenosis, cervical region
CPT/HCPCS: 99211

== ENCOUNTER 2020-09-21 13:15 | Day surgery (SDC) | payer MEDICARE ==
[2020-09-17 11:54] VITALS: BMI 31.1
[2020-09-21 13:38] VITALS: RESP 18; TEMP 98.1
[2020-09-21] MEDS ORDERED: LACTATED RINGERS 1,000 ML IV ONE (13:38)
[2020-09-21] MEDS ORDERED: fentaNYL (PF) 50 MCG/ML 2 ML AMP ONE (13:42)
[2020-09-21] MEDS ORDERED: DEXAMETHASONE SOD PHOSPHATE 10 MG/ML 1 ML VIAL ONE (13:42)
[2020-09-21] MEDS ORDERED: IOPAMIDOL M200 10 ML VIAL ONE (13:42)
[2020-09-21] MEDS ORDERED: MIDAZOLAM 2 MG/2 ML VIAL ONE (13:42)
--- NOTE | 2020-09-21 13:56 | P.PCN ---
Date of Procedure: 09/21/20 Description of Procedure: PROCEDURE 1. Cervical epidural steroid injection under fluoroscopic guidance, C7-T1 (fluoroscopy images available in the radiology department ) 2. Cervical epidurogram. PREOPERATIVE DIAGNOSIS: 1- Cervical Degenerative Disc Diseases 2- Cervical radiculopathy., 3-cervical foraminal stenosis POSTOPERATIVE DIAGNOSIS: : 1- Cervical Degenerative Disc Diseases , 2- Cervical radiculopathy. 3-,cervical foraminal stenosis ANESTHESIA: Local anesthesia with lidocaine 1 % , and moderate sedation, with Versed 1 mg and Fentanyl 50 mcg. sedation time 10 minutes EBL 0 PROCEDURE INDICATION: The patient with neck pain and radiculitis unresponsive to conservative treatment consents for procedure. PROCEDURE DESCRIPTION / TECHNIQUE: The patient was seen and identified in the preoperative area. Risks, benefits, complications, including but not limited to infections ,bleeding , allergic reactions to the medications ,and not complete pain releife, and alternatives were discussed with the patient, the patient agreed to proceed with the procedure and signed the consent. Patient was taken to the OR and time out was completed. The patient was placed in the prone position on the procedure table. A pillow was placed under the patients chest to increase the cervical interlaminar space. The cervical area was prepped and draped in the usual sterile fashion. Vital signs were closely monitored during the procedure. Conscious sedation was used during the procedure to decrease patients anxiety. Using anterior-posterior fluoroscopy, the C7-T1 interlaminar space was identified and the skin over this site was marked and then infiltrated with 1% lidocaine subcutaneously. Subsequently, a 20-gauge 3-1/2-inch Tuohy epidural needle was inserted and advanced toward the epidural space by means of the ALEKSANDER technique and guided by AP and lateral fluoroscopy. The correct needle position in the epidural space was verified with the injection of 2 mL of the water soluble contrast dye Isovue-200 and observing an excellent epidurogram with the epidural spread of the dye, after negative aspiration for blood and CSF and in the absence of paresthesias. Again after negative aspiration, mixture containing 10 mg Dexamethasone and 3 ml of preservative-free normal saline injected and a washout of epidurogram was seen. Needle was withdrawn intact, skin was cleansed, and bandages were applied. Complications= none. Disposition= patient was placed in supine position and transferred to the recovery room area in stable condition and there was no evidence of upper or lower extremity motor or sensory deficit after the procedure patient was discharged from recovery room after discharge criteria met and home discharge instructions was given by the staff and patient will follow with the pain clinic in 2-4 weeks
[2020-09-21 14:18] VITALS: BP 128/75; PULSE 79
[2020-09-21] MEDS ORDERED: IV FLUID CONTINUATION 1,000 ML IV ONE (14:18)
--- NOTE | 2020-09-21 14:19 | FL ---
Fluoroscopy INDICATION: Pain FINDINGS: Fluoroscopy time: 9 seconds. Images obtained: 2. IMPRESSIONS: 1. Documentation of fluoroscopy.
== END 2020-09-21 14:32 | disposition home or self-care (01) ==
LOC: ORPAIN 13:15
PROVIDERS: ATTEND Anesthesiology
DX: M50.10 Cervical disc disorder with radiculopathy, unspecified cervical region (principal); M48.02 Spinal stenosis, cervical region
CPT/HCPCS: 62321; J2250; J1100; J3010; Q9966; 99152

== ENCOUNTER → 2020-10-18 | Outpatient (CLI) | payer MEDICARE ==
[2020-10-18 10:57] VITALS: BP 110/68; PULSE 74; RESP 18; TEMP 97.9
--- NOTE | 2020-10-18 11:26 | P.PN ---
Subjective Progress Note Date: 10/18/20 This is follows visit for this 70 years old female with a chronic history of severe neck pain with radiation to the upper extremity, associated with some numbness and tingling sensation, upper extremity she's diagnosed with cervical radiculopathy and cervical foraminal stenosis, cervical degenerative disc disease, status post cervical epidural steroid injections 2, she reported that she get short-term benefit after each injection, and also patient complaining of severe low back pain which is radiated to the lower extremity bilaterally, nontumorous the right side and also patient had some weakness in her right lower extremity started after hip replacement surgery, and she had multiple interventions on her right hip after the surgery, and get her low back pain is constant and increases with any activity interfere with the quality of life, she denies any fever or night sweats she denies any change in the bowel movement or urination Objective - Vital Signs Vital signs: Vital Signs Temp 97.9 F 10/18/20 10:43 Pulse 74 10/18/20 10:43 Resp 18 10/18/20 10:43 BP 110/68 10/18/20 10:43 Pulse Ox 94 L 10/18/20 10:43 - Exam Physical Examinations : -Constitutiona : Cooperative , not in acute distress . -HEENT : nech : supple , no Lymphadenopathy , normal thyroid size . : eyes : no ptosis , no icterus, no photophobia . - neurologic : Cranial nerve II to XII intact , no focal neurological deffecit . -psychatric : alert , oriented X 3 , appropriate affect , intact judgment and insight . -Lymphatic : no Lymphadenopathy . - musculoskeltal : Cervical Spine motor stregnth in the deltoid and biceps, normal right side , normal Left side motor stregnth biceps and the wrist extensors normal right side ,normal left side . motor stregnth in the triceps muscle . normal Right side , normal Left side deep tendon reflexes normal at the biceps , normal at Brachioradialis , normal at triceps. cervical facet loading test: Positive Bilaterally Spurling test= positive Right , positive left. Neck distraction test= positive Right , positive left. Kerry sign= positive right, positive left . Lumber spine moter stegnth lower extremities ,thigh and legs 3/5 Right side , 5/5 Left side lumber facet Loading Test =positive Right , positive Left Range of motion of the lumbar spine Flexion 30 degrees, extension 10 degrees strait leg raising test = positive at 30 degree on the right side and is positive at 60 on the left side Fabere test= positive Right , and positive LT . tenderness over the Sacroiliac joint on the Right , and Left sides MRI of the cervical spine multilevel cervical foraminal stenosis multilevel cervical degenerative disc disease and severe neuroforaminal stenosis at C4 5 and C5 6 Right of the lumbar spine multilevel lumbar degenerative disc disease and multilevel lumbar facet arthropathy Assessment and Plan Plan: Assessment and plan=1-cervical radiculopathy. 2-cervical foraminal stenosis. 3-cervical degenerative disc disease. 4-lumbar degenerative disc disease. 5-lumbar spondylosis with lumbar facet arthropathy. Patient will be scheduled to have a third cervical epidural steroid injection, I explained to the patient if she continued to have severe neck pain dating maybe she needs surgical interventions on her cervical spine, she reported that she is refused to have surgery Future patient could benefit from diagnostic medial branch block lumbar area - PQRS measures = - Patient's medications are documented in the chart. -Tobacco use is negative and counseling.Given. -Patient's has not received pneumococcal vaccine. -Advanced care planning discussed, patient not eligible. -Opiate contract not signed. -Pain positive and follow-up visit/procedure is scheduled. -Patient's blood pressure measured [ 110/68 ] , and documented in the record ,and patient will follow up with the primary care. -Patient's weight was measured and body mass index [30.7 ] above th e,normal limits and counseling was done. and patient instructed to follow-up with the primary care physician. -Patient was not identified as an unhealthy alcohol user Time with Patient: Less than 30
== END ==
LOC: PNWHC3 09:50
PROVIDERS: ATTEND Specialist
DX: M50.10 Cervical disc disorder with radiculopathy, unspecified cervical region (principal); M48.02 Spinal stenosis, cervical region; M51.36 Other intervertebral disc degeneration, lumbar region; M47.816 Spondylosis without myelopathy or radiculopathy, lumbar region; Z87.891 Personal history of nicotine dependence
CPT/HCPCS: 99211

== ENCOUNTER 2020-11-16 12:24 | Day surgery (SDC) | payer MEDICARE ==
[2020-11-11 16:27] VITALS: BMI 30.7
[2020-11-16 12:44] VITALS: TEMP 97.5
[2020-11-16] MEDS ORDERED: DEXAMETHASONE SOD PHOSPHATE 10 MG/ML 1 ML VIAL ONE (13:19)
[2020-11-16] MEDS ORDERED: IOPAMIDOL M200 10 ML VIAL ONE (13:19)
[2020-11-16] MEDS ORDERED: MIDAZOLAM 2 MG/2 ML VIAL ONE (13:19)
[2020-11-16] MEDS ORDERED: fentaNYL (PF) 50 MCG/ML 2 ML AMP ONE (13:19)
--- NOTE | 2020-11-16 13:33 | P.PCN ---
Date of Procedure: 11/16/20 Procedure(s) Performed: PROCEDURE 1. Cervical epidural steroid injection under fluoroscopic guidance, C7-T1 (fluoroscopy images available in the radiology department ) 2. Cervical epidurogram. PREOPERATIVE DIAGNOSIS: 1- Cervical Degenerative Disc Diseases 2- Cervical radiculopathy., 3-cervical foraminal stenosis POSTOPERATIVE DIAGNOSIS: : 1- Cervical Degenerative Disc Diseases , 2- Cervical radiculopathy. 3-,cervical foraminal stenosis ANESTHESIA: Local anesthesia with lidocaine 1 % , and moderate sedation, with Versed 1 mg and Fentanyl 50 mcg. EBL 0 PROCEDURE INDICATION: The patient with neck pain and radiculitis unresponsive to conservative treatment consents for procedure. PROCEDURE DESCRIPTION / TECHNIQUE: The patient was seen and identified in the preoperative area. Risks, benefits, complications, including but not limited to infections ,bleeding , allergic reactions to the medications ,and not complete pain releife, and alternatives were discussed with the patient, the patient agreed to proceed with the procedure and signed the consent. Patient was taken to the OR and time out was completed.The patient was placed in the prone position on the procedure table. A pillow was placed under the patients chest to increase the cervical interlaminar space. The cervical area was prepped and draped in the usual sterile fashion. Vital signs were closely monitored during the procedure. Conscious sedation was used during the procedure to decrease patients anxiety. Using anterior-posterior fluoroscopy, the C7-T1 interlaminar space was identified and the skin over this site was marked and then infiltrated with 1% lidocaine subcutaneously. Subsequently, a 20-gauge 3-1/2-inch Tuohy epidural needle was inserted and advanced toward the epidural space by means of the ``hanging-drop technique and guided by AP and lateral fluoroscopy. The correct needle position in the epidural space was verified with the injection of 2 mL of the water soluble contrast dye Isovue-200 and observing an excellent epidurogram with the epidural spread of the dye, after negative aspiration for blood and CSF and in the absence of paresthesias. Again after negative aspiration, mixture containing 15 mg Dexamethasone and 2 ml of preservative- free normal saline injected and a washout of epidurogram was seen. Needle was withdrawn intact, skin was cleansed, and bandages were applied. Complications= none. Disposition= patient was placed in supine position and transferred to the recovery room area in stable condition and there was no evidence of upper or lower extremity motor or sensory deficit after the procedure patient was discharged from recovery room after discharge criteria met and home discharge instructions was given by the staff and patient will follow with the pain clinic in 2-4 weeks
[2020-11-16] MEDS ORDERED: IV FLUID CONTINUATION 1,000 ML IV ONE (13:38)
[2020-11-16 13:44] VITALS: RESP 16
[2020-11-16 13:56] VITALS: BP 127/68; PULSE 73
--- NOTE | 2020-11-16 14:52 | FL ---
EXAMINATION TYPE: FL guided pain mgmt statistic DATE OF EXAM: 11/16/2020 CLINICAL HISTORY: Neck pain. TECHNIQUE: Fluoroscopy. COMPARISON: None. FINDINGS: Fluoroscopic guidance was provided during pain relief procedure performed by Dr. Santiago . A total of 2 seconds of fluoroscopic time was utilized during the procedure and 1 spot images are acquired. A single image acquired shows needle localization near cervicothoracic junction level. IMPRESSION: As Above.
== END 2020-11-16 14:12 | disposition home or self-care (01) ==
LOC: ORPAIN 12:24
PROVIDERS: ATTEND Specialist
DX: M50.10 Cervical disc disorder with radiculopathy, unspecified cervical region (principal); M48.02 Spinal stenosis, cervical region; Z88.1 Allergy status to other antibiotic agents; Z88.5 Allergy status to narcotic agent; Z91.09 Other allergy status, other than to drugs and biological substances; Z79.82 Long term (current) use of aspirin
CPT/HCPCS: 62321; J2250; J1100; J3010; Q9966; 99152

== ENCOUNTER → 2020-12-13 | Outpatient (CLI) | payer MEDICARE ==
[2020-12-13 11:03] VITALS: BP 130/77; PULSE 73; RESP 18; TEMP 97.9
--- NOTE | 2020-12-13 11:22 | P.PN ---
Subjective Progress Note Date: 12/13/20 This is follows visit for this 70 years old female with a chronic history of severe neck pain with radiation to the upper extremity, associated with some numbness and tingling sensation, upper extremity she's diagnosed with cervical radiculopathy and cervical foraminal stenosis, cervical degenerative disc disease, cervical facet arthropathy, status post cervical epidural steroid injections 3, she reported that her neck pain improved after the injections, currently patient complaining of severe low back pain which is radiated to the lower extremity bilaterally, with radiation to the buttock, a low back pain is constant and increases with any activity interfere with the quality of life, she denies any fever or night sweats she denies any change in the bowel movement or urination Physical Examinations : -Constitutiona : Cooperative , not in acute distress . -HEENT : nech : supple , no Lymphadenopathy , normal thyroid size . : eyes : no ptosis , no icterus, no photophobia . - neurologic : Cranial nerve II to XII intact , no focal neurological deffecit . -psychatric : alert , oriented X 3 , appropriate affect , intact judgment and insight . -Lymphatic : no Lymphadenopathy . - musculoskeltal : Cervical Spine motor stregnth in the deltoid and biceps, normal right side , normal Left side motor stregnth biceps and the wrist extensors normal right side ,normal left side . motor stregnth in the triceps muscle . normal Right side , normal Left side deep tendon reflexes normal at the biceps , normal at Brachioradialis , normal at triceps. cervical facet loading test: Positive Bilaterally Spurling test= positive Right , positive left. Neck distraction test= positive Right , positive left. Kerry sign= positive right, positive left . Lumber spine moter stegnth lower extremities ,thigh and legs 3/5 Right side , 5/5 Left side lumber facet Loading Test =positive Right , positive Left Range of motion of the lumbar spine Flexion 30 degrees, extension 10 degrees strait leg raising test = positive at 30 degree on the right side and is positive at 60 on the left side Fabere test= positive Right , and positive LT . tenderness over the Sacroiliac joint on the Right , and Left sides MRI of the cervical spine multilevel cervical foraminal stenosis multilevel cervical degenerative disc disease and severe neuroforaminal stenosis at C4 5 and C5 6 Right of the lumbar spine multilevel lumbar degenerative disc disease and multilevel lumbar facet arthropathy My own the lumbar spine multilevel lumbar degenerative disc disease and multilevel lumbar facet arthropathy arthropathy Assessment and plan=1-cervical radiculopathy. 2-cervical foraminal stenosis. 3-cervical degenerative disc disease. 4-lumbar degenerative disc disease. 5-lumbar spondylosis with lumbar facet arthropathy. patient could benefit from diagnostic medial branch block lumbar area at L3,L4 ,L5 ( l4-5 ,l5-S1 ) bilaterally - PQRS measures = - Patient's medications are documented in the chart. -Tobacco use is negative and counseling.Given. -Patient's has not received pneumococcal vaccine. -Advanced care planning discussed, patient not eligible. -Opiate contract not signed. -Pain positive and follow-up visit/procedure is scheduled. -Patient's blood pressure measured [ 130/77 ] , and documented in the record ,and patient will follow up with the primary care. -Patient's weight was measured and body mass index [30.7 ] above the,normal limits and counseling was done. and patient instructed to follow-up with the primary care physician. -Patient was not identified as an unhealthy alcohol user Objective - Vital Signs Vital signs: Vital Signs Temp 97.9 F 12/13/20 10:58 Pulse 73 12/13/20 10:58 Resp 18 12/13/20 10:58 BP 130/77 12/13/20 10:58 Pulse Ox 94 L 12/13/20 10:58
== END ==
LOC: PNWHC3 10:20
PROVIDERS: ATTEND Specialist
DX: M50.10 Cervical disc disorder with radiculopathy, unspecified cervical region (principal); M48.02 Spinal stenosis, cervical region; M51.36 Other intervertebral disc degeneration, lumbar region; M47.816 Spondylosis without myelopathy or radiculopathy, lumbar region; Z91.048 Other nonmedicinal substance allergy status; Z88.1 Allergy status to other antibiotic agents; Z88.5 Allergy status to narcotic agent; Z91.040 Latex allergy status; Z88.6 Allergy status to analgesic agent
CPT/HCPCS: 99211

== ENCOUNTER → 2021-01-03 | Outpatient (CLI) | payer MEDICARE ==
--- NOTE | 2021-01-04 09:24 | MM ---
Reason for exam: screening (asymptomatic). Last mammogram was performed 1 year ago. History: Patient is postmenopausal and is nulliparous. Took hormonal contraceptives for 10 years. Took estrogen for 15 years beginning at age 44. Physical Findings: A clinical breast exam by your physician is recommended on an annual basis and results should be correlated with mammographic findings. MG 3D Screening Mammo W/Cad Bilateral CC and MLO view(s) were taken. Prior study comparison: January 02, 2020, bilateral MG 3d screening mammo w/cad. September 16, 2018, bilateral MG 3d screening mammo w/cad. There are scattered fibroglandular densities. ASSESSMENT: Negative, BI-RAD 1 RECOMMENDATION: Routine screening mammogram of both breasts in 1 year.
== END | disposition home or self-care (01) ==
LOC: RADMAMWWP 14:48
PROVIDERS: ATTEND Family Medicine
DX: Z12.31 Encounter for screening mammogram for malignant neoplasm of breast (principal); Z78.0 Asymptomatic menopausal state; Z79.3 Long term (current) use of hormonal contraceptives
CPT/HCPCS: 77063; 77067

== ENCOUNTER → 2021-01-24 | Outpatient (CLI) | payer MEDICARE ==
--- NOTE | 2021-01-24 10:21 | P.PAINPG ---
Subjective Progress Note Date: 01/24/21 This is follows visit for this 70 years old female with a chronic history of severe neck pain with radiation to the upper extremity, associated with some numbness and tingling sensation, upper extremity she's diagnosed with cervical radiculopathy and cervical foraminal stenosis, cervical degenerative disc disease, cervical facet arthropathy, status post cervical epidural steroid injections 3, she reported that her neck pain improved after the injections, currently patient complaining of severe low back pain which is radiated to the lower extremity bilaterally, with radiation to the buttock, a low back pain is constant and increases with any activity interfere with the quality of life, she denies any fever or night sweats she denies any change in the bowel movement or urination. Our plan last visit was to schedule her for bilateral L4-5 and L5-S1 MBB. Here for followup today. Unfortunately her procedure was denied. She is actively participating in PT, doing an HEP, takes Tylenol for pain as needed. Recently had a fall that was said to be related to her low back pain. She took a step outside and fell and landed on her right low back. She had this worked up and there is no fractures. At this point she feels frustrated with her pain and she is exhausted all conservative therapy and would like to proceed with procedure. Physical Examinations : -Constitutiona : Cooperative , not in acute distress . -HEENT : nech : supple , no Lymphadenopathy , normal thyroid size . : eyes : no ptosis , no icterus, no photophobia . - neurologic : Cranial nerve II to XII intact , no focal neurological deffecit . -psychatric : alert , oriented X 3 , appropriate affect , intact judgment and insight . -Lymphatic : no Lymphadenopathy . - musculoskeltal : Cervical Spine motor stregnth in the deltoid and biceps, normal right side , normal Left side motor stregnth biceps and the wrist extensors normal right side ,normal left side . motor stregnth in the triceps muscle . normal Right side , normal Left side deep tendon reflexes normal at the biceps , normal at Brachioradialis , normal at triceps. cervical facet loading test: Positive Bilaterally Spurling test= positive Right , positive left. Neck distraction test= positive Right , positive left. Kerry sign= positive right, positive left . Lumber spine moter stegnth lower extremities ,thigh and legs 3/5 Right side , 5/5 Left side lumber facet Loading Test =positive Right , positive Left Range of motion of the lumbar spine Flexion 30 degrees, extension 10 degrees strait leg raising test = positive at 30 degree on the right side and is positive at 60 on the left side Fabere test= positive Right , and positive LT . tenderness over the Sacroiliac joint on the Right , and Left sides MRI of the cervical spine multilevel cervical foraminal stenosis multilevel cervical degenerative disc disease and severe neuroforaminal stenosis at C4 5 and C5 6 Right of the lumbar spine multilevel lumbar degenerative disc disease and multilevel lumbar facet arthropathy My own the lumbar spine multilevel lumbar degenerative disc disease and multilevel lumbar facet arthropathy arthropathy Assessment and plan=1-cervical radiculopathy. 2-cervical foraminal stenosis. 3-cervical degenerative disc disease. 4-lumbar degenerative disc disease. 5-lumbar spondylosis with lumbar facet arthropathy. Schedule bilateral MBB L4-5 L5-S1. I do believe She would benefit from this as she is exhausted all conservative therapy including on opioid analgesics, home exercise program, and physical therapy. I have spent 25 minutes on patient care today. The time was used to review the medical records including relevant urine studies and prescription history, review of the available imaging, evaluation and examination of the patient, coordination of care with the medical staff and if applicable referring physicians, as well as creation of the medical record. - PQRS measures = - Patient's medications are documented in the chart. -Tobacco use is negative and counseling.Given. -Patient's has not received pneumococcal vaccine. -Advanced care planning discussed, patient not eligible. -Opiate contract not signed. -Pain positive and follow-up visit/procedure is scheduled. -Patient's blood pressure measured [ 130/77 ] , and documented in the record ,and patient will follow up with the primary care. -Patient's weight was measured and body mass index [30.7 ] above the,normal limits and counseling was done. and patient instructed to follow-up with the primary care physician. -Patient was not identified as an unhealthy alcohol user PQRS Measure Charge Sheet PQRS Narrative: Smoking Status Former smoker Pain Intensity [Back] 5 Scale Used Numeric (1 - 10) Hx Alcohol Use (MH) No Home Medications: Ambulatory Orders Albuterol Sulfate [Proair Hfa] 1 - 2 puff INHALATION Q6HR PRN 02/15/17 Aspirin [Adult Low Dose Aspirin EC] 81 mg PO DAILY 02/15/17 Biotin 5,000 mcg PO DAILY 02/15/17 Calcium Carbonate/Vitamin D3 [Calcium 600-Vit D3 5 Mcg (200 Iu)] 2 each PO DAILY 02/15/17 Folic Acid 1 mg PO DAILY 02/15/17 Glucosam/Tc-Msm1/C/Chavez/Bosw [Glucosamine-Chondroitin Tablet] 1 each PO DAILY 02/15/17 Kelp 600 mcg PO DAILY 02/15/17 Levothyroxine Sodium 150 mcg PO DAILY 02/15/17 Sinus Congestion Med 2 tab PO DAILY PRN 02/15/17 Vitamin B Complex With C 1 tab PO DAILY 02/15/17 hydroCHLOROthiazide 25 mg PO DAILY 02/15/17 Isosorbide Mononitrate ER [Imdur] 30 mg PO DAILY #90 tab 02/22/17 Metoprolol Tartrate [Lopressor] 25 mg PO BID #180 tablet 02/22/17 Nitroglycerin Sl Tabs [Nitrostat] 0.4 mg SUBLINGUAL Q5M PRN #25 tab 02/22/17 Ascorbic Acid [Vitamin C] 1,000 mg PO DAILY 06/17/20 Atorvastatin Calcium [Lipitor] 80 mg PO DAILY 06/17/20 Bumetanide [BUMEX] 4 mg PO QAM 06/17/20 Cholecalciferol [Vitamin D3 (25 Mcg = 1000 Iu)] 5,000 unit PO DAILY 06/17/20 Montelukast [Singulair] 10 mg PO DAILY 06/17/20 Multivitamins, Thera [Multivitamin (formulary)] 1 tab PO DAILY 06/17/20 Potassium Chloride [Klor-Con 10] 10 meq PO DAILY 06/17/20 Ferrous Sulfate [Feosol] 325 mg PO DAILY 07/13/20 Acetaminophen [Tylenol Extra Strength] 1,000 mg PO BID 09/17/20 Ascorbic Acid [Vitamin C] 1,000 mg PO DAILY 11/11/20 Gabapentin [Neurontin] 100 mg PO BID 11/11/20 Ranolazine [Ranexa] 500 mg PO BID 11/11/20 Controlled Substance Measures - Controlled Substance Measures Is patient prescribed a controlled substance at discharge?: No
[2021-01-24 10:31] VITALS: BP 106/66; PULSE 74; RESP 18; TEMP 97.9
== END ==
LOC: PNWHC3 09:57
PROVIDERS: ATTEND Anesthesiology
DX: M50.121 Cervical disc disorder at C4-C5 level with radiculopathy (principal); M50.122 Cervical disc disorder at C5-C6 level with radiculopathy; M48.02 Spinal stenosis, cervical region; M51.36 Other intervertebral disc degeneration, lumbar region; M47.816 Spondylosis without myelopathy or radiculopathy, lumbar region; Z87.891 Personal history of nicotine dependence; Z88.5 Allergy status to narcotic agent; Z91.040 Latex allergy status; Z91.048 Other nonmedicinal substance allergy status; Z88.1 Allergy status to other antibiotic agents; Z88.6 Allergy status to analgesic agent
CPT/HCPCS: 99211

== ENCOUNTER 2021-03-04 11:51 | Day surgery (SDC) | payer MEDICARE ==
[2021-03-03 10:23] VITALS: BMI 31.4
[2021-03-04] MEDS ORDERED: LIDOCAINE 1% (10MG/ML) FOR IV START INTRADERMA ONE (12:06)
[2021-03-04] MEDS ORDERED: methylPREDNISolone ACETATE 40 MG/ML 1 ML VIAL ONE (12:23)
[2021-03-04] MEDS ORDERED: ROPIVACAINE 5MG/ML 20ML VIAL ONE (12:23)
[2021-03-04] MEDS ORDERED: MIDAZOLAM 2 MG/2 ML VIAL ONE (12:23)
[2021-03-04] MEDS ORDERED: fentaNYL (PF) 50 MCG/ML 2 ML AMP ONE (12:23)
[2021-03-04 12:24] VITALS: TEMP 96.6
--- NOTE | 2021-03-04 12:42 | P.PCN ---
Date of Procedure: 03/04/21 Procedure(s) Performed: PREOPERATIVE DIAGNOSIS : 1- Lumbar spondylosis with Facet Arthropathy without myelopathy . 2- Lumber degenerative disc disease. POSTOPERATIVE DIAGNOSIS: 1- Lumbar spondylosis with Facet Arthropathy without myelopathy . 2- Lumber degenerative disc disease. PROCEDURE: Diagnostic bilateral L3 , L4 , and L5 medial branch block under fluoroscopy guidance(fluoroscopy images available in the radiology Department ) ( To target the facet joint between Bilateral L4-5 , and L5-S1 )#1 St ANESTHESIA: Monitored anesthesia care ,as per anesthesia department. EBL: Minimal COMPLICATION: None PROCEDURE INDICATION: Chronic low back pain secondary to Facet arthropathy unresponsive to conservative treatment. PROCEDURE DESCRIPTION: the patient was seen and identified in the preop holding area , risks and benefits and possible complications of the procedure and alternative were discussed with the patient, and the patient agreed to proceed with the procedure and signed the consent and vital signs monitored during the procedure and fluoroscopy was used to maximize the benefit and accuracy of the needle placement, and sedation was given to decrease patient anxiety, patient was taken to the procedure room and placed in prone position vital signs monitored in the back prepped with chlorhexidine X3 then under strict sterile technique using a right oblique fluoroscopy ,the junction of the transverse process and the superior articulating process of the right L3 , L4 , and L5 vertebra which corresponding to the fluoroscopy image of the eye of the Iggy dog on the block side for the medial branches and subsequently , after local infiltration of skin and subcu tissuies with Ropivacaine 0.5 % , one mL at each level ,then 22-gauge Quincke-type needles , 3 needle was used , each one of them placed at the junction of the base of the transverse process and the superior articular process at the appropriate level, and the needle was advanced until the periosteum contacted, needle placement confirmed with AP oblique and lateral view and after appropriate needle placement confirmed, and after negative aspiration for heme and CSF and there was no paresthesia 1-1/2 mL of Ropivacaine 0.5% mixed with 20 mg Depo-Medrol , then half mL injected at each level after negative aspiration the needle subsequently removed and the same procedure repeated for the left side at left side at L3 , L4 and L5 levels. At the end of the procedure and the needles removed and a bandage applied after the skin was cleaned the cleaning solution patient taken to recovery room in stable condition and monitors in the recovery room for 20-30 minutes and discharged home in stable condition after discharge criteria met and patient will follow up with the pain clinic in 2-4 weeks
[2021-03-04] MEDS ORDERED: IV FLUID CONTINUATION 1,000 ML IV ONE (12:44)
--- NOTE | 2021-03-04 12:48 | FL ---
EXAMINATION TYPE: FL guided pain mgmt statistic DATE OF EXAM: 03/04/2021 HISTORY: Fluoroscopy time 27 seconds of fluoroscopy provided. IMPRESSION: 1. Fluoroscopy time.
[2021-03-04] MEDS ORDERED: ACETAMINOPHEN TAB 325 MG TAB ONE (12:52)
[2021-03-04] MEDS ORDERED: ACETAMINOPHEN TAB 325 MG TAB PO ONE (12:55)
[2021-03-04 13:05] VITALS: BP 120/71; PULSE 72; RESP 16
== END 2021-03-04 13:30 | disposition home or self-care (01) ==
LOC: ORPAIN 11:51
PROVIDERS: ATTEND Specialist
DX: M47.816 Spondylosis without myelopathy or radiculopathy, lumbar region (principal); G89.29 Other chronic pain
CPT/HCPCS: 64493; 64494; J2250; J1030; J3010; J2795

== ENCOUNTER → 2021-05-11 | Outpatient (CLI) | payer MEDICARE ==
[2021-05-11 10:19] VITALS: BP 115/66; PULSE 79; RESP 18; TEMP 97.6
--- NOTE | 2021-05-11 10:37 | P.PN ---
Subjective Progress Note Date: 05/11/21 Bella is a 70-year-old female presented to clinic today for follow-up appointment. March 04 she had her diagnostic lumbar medial branch block at bilateral L4 5 and L5-S1. Since that procedure she is reporting greater than 90% pain relief for over 2 months. This reduction in pain allowed her to in crease her daily activities and have improved sleep. Her pain is since returned reporting pain in her lower back with radiation into her buttocks bilaterally. Pain increases with activity. Pain is relieved with rest and interventions. She rates her pain today is 7 out of 10 on a 0-to-10 scale. She was also asking about repeating this procedure for her cervical spine. She has had injections in the past that has offered her significant relief and would like to move forward with this when possible. Denies any saddle anesthesia, bowel or bladder dysfunction, or any other red flag symptoms today. Objective - Exam Physical Examinations : -Constitutiona : Cooperative , not in acute distress . -HEENT : nech : supple , no Lymphadenopathy , normal thyroid size . : eyes : no ptosis , no icterus, no photophobia . - neurologic : Cranial nerve II to XII intact , no focal neurological deffecit . -psychatric : alert , oriented X 3 , appropriate affect , intact judgment and insight . -Lymphatic : no Lymphadenopathy . - musculoskeltal : Cervical Spine motor stregnth in the deltoid and biceps, normal right side , normal Left side motor stregnth biceps and the wrist extensors normal right side ,normal left side . motor stregnth in the triceps muscle . normal Right side , normal Left side deep tendon reflexes normal at the biceps , normal at Brachioradialis , normal at triceps. cervical facet loading test: Positive Bilaterally Spurling test= positive Right , positive left. Neck distraction test= positive Right , positive left. Kerry sign= negative bilaterally Lumber spine moter stegnth lower extremities ,thigh and legs 5/5 Right side , 5/5 Left side deep tendon reflexes : normal Knee Jerk , normal ankle Jerk lumber facet Loading Test =positive Right , positive Left Range of motion of the lumbar spine Flexion 30 degrees, extension 10 degrees strait leg raising test = positive at 40 degree Fabere test= positive Right , and positive LT . Sever tenderness over the Sacroiliac joint on the Right , and Left sides Gaenslen test= positive right ,and positive left . Seated flexion test= positive right ,and positive Left . Distraction test= positive bilaterally Sacroiliac compression test= positive bilaterally Assessment and Plan Assessment: Assessment and plan Assessment: Lumbar degenerative disc disease Lumbar spondylosis with facet arthropathy without myelopathy Cervical degenerative disc disease Cervical spondylosis with facet arthropathy without myelopathy Sacroiliac joint dysfunction Plan: Repeat lumbar medial branch block bilaterally L4 5 and L5-S1. If patient has repeat significant pain reduction move forward with radiofrequency ablation at L4 5 and L5-S1 bilaterally In the future consider cervical medial branch blocks of 2 including radiofrequency ablation for cervical spine Dr. Santiago was available by phone for consultation during his visit. I have spent 28 minutes on patient care today. The time was used to review the medical records including relevant urine studies and Prescription history (MAPs), review of the available imaging, evaluation and examination of the patient, coordination of care with the medical staff and if applicable referring physicians, as well as creation of the medical record. - PQRS measures = - Patient's medications are documented in the chart. -Tobacco use is negative -Patient's has not received pneumococcal vaccine. -Advanced care planning discussed, patient not eligible. -Opiate contract at signed. -Pain positive and follow-up visit/procedure is scheduled. -Patient's blood pressure measured 152/75 , and documented in the record ,and patient will follow up with the primary care. -Patient was not identified as an unhealthy alcohol user Time with Patient: Less than 30
== END ==
LOC: PNWHC3 10:00
PROVIDERS: ATTEND Student in an Organized Health Care Education/Training Program
DX: M51.36 Other intervertebral disc degeneration, lumbar region (principal); M47.816 Spondylosis without myelopathy or radiculopathy, lumbar region; M50.30 Other cervical disc degeneration, unspecified cervical region; M47.22 Other spondylosis with radiculopathy, cervical region; M53.3 Sacrococcygeal disorders, not elsewhere classified; Z88.5 Allergy status to narcotic agent; Z88.1 Allergy status to other antibiotic agents; Z91.040 Latex allergy status; Z88.6 Allergy status to analgesic agent; Z91.048 Other nonmedicinal substance allergy status; Z87.891 Personal history of nicotine dependence
CPT/HCPCS: 99211

== ENCOUNTER → 2021-06-22 | Day surgery (SDC) | payer MEDICARE ==
[2021-06-16 09:00] VITALS: BMI 30.2
[~2021-06-22] MED LIST changes: +ALPRAZolam 0.25 MG TAB PO PRN; +ALPRAZolam 0.5 MG TAB PO PRN; +ASPIRIN 325 MG TAB PO ONE; +ASPIRIN 81 MG PO SCH; +ATORVASTATIN 80 MG TAB PO SCH; +HEPARIN SODIUM 1,000 UN/ML (10ML VL) ONE; +HEPARIN SODIUM,PORCINE 10,000 UNIT in SODIUM CHLORIDE 0.9% 1,000 ML IRRIGATION PRN; +HEPARIN SODIUM,PORCINE 2,500 UNIT in SODIUM CHLORIDE 0.9% 250 ML IRRIGATION PRN; +IOPAMIDOL-370 125ML BTL INJ ONE; +ISOSORBIDE MONONITRATE ER 60 MG TAB.ER.24H PO SCH; -LACTATED RINGERS 1,000 ML IV SCH; +LEVOTHYROXINE 75 MCG TAB PO SCH; +LIDOCAINE 1% INJ 10MG/ML (20 ML MDV) ONE; +LIDOCAINE 1% INJ 10MG/ML (20 ML MDV) SQ ONE; +METOPROLOL TARTRATE 25 MG TAB PO SCH; +NITROGLYCERIN SL TABS 0.4 MG TAB SUBLINGUAL PRN; +RANOLAZINE 500 MG TAB.ER.12H PO SCH; +RX INFO: IV CONTRAST WAS GIVEN 1 EACH MISC MISCELLANE PRN; +SODIUM CHLORIDE 0.9% 1,000 ML IV ONE; +SODIUM CHLORIDE 0.9% 1,000 ML IV SCH; +SODIUM CHLORIDE 0.9% 1,000 ML in EMPTY BAG 1 BAG IV SCH; +VERAPAMIL 2.5 MG/ML 2 ML AMP ONE; +fentaNYL (PF) 50 MCG/ML 2 ML AMP IV ONE; +fentaNYL (PF) 50 MCG/ML 2 ML AMP ONE
[2021-06-22 06:51] VITALS: TEMP 98.5
[2021-06-22 10:09] VITALS: RESP 14
[2021-06-22 12:36] VITALS: BP 140/90; PULSE 89
--- NOTE | 2021-06-22 13:20 | CC ---
CARDIAC CATHETERIZATION REPORT Mrs. Ellis is a 70-year-old female with known history of hypertension, hyperlipidemia, history of coronary artery disease who has been complaining of progressive symptoms of exertional chest discomfort. In view of that, recommendation was made regarding cardiac catheterization. The procedure as well as the risks and complications were discussed with the patient who is in full understanding and agreement. PROCEDURE DESCRIPTION: Patient was brought to laboratory technology teacher in a fasting semi-sedated state after receiving fentanyl and Benadryl and achieving moderate conscious state, attempts to cannulate the right radial artery were unsuccessful. At that time, using Xylocaine anesthesia and Seldinger technique, a 6-Burmese sheath was introduced in the right femoral artery. Selective right and left coronary angiography performed using 6-Burmese 4 bend right and left Flavio catheter. Multiple views of the coronary artery including hemiaxial views were obtained. Following that, a 6-Burmese tight pigtail catheter was introduced into the left ventricle. The left ventricular end-diastolic pressure was calculated. Following that, catheter and sheath were removed. Hemostasis was obtained with deployment of an Angio-Seal. There was no immediate complication. Patient is returned to her room in stable condition. There was no immediate complication. FINDINGS: FLUOROSCOPY: There was severe calcification involving all the coronary arteries. CORONARY ANGIOGRAM: LEFT MAIN: This is a large-sized vessel bifurcating into left circumflex, left anterior descending artery, left main coronary artery has no evidence of high-grade stenosis. LEFT ANTERIOR DESCENDING ARTERY: This is a large-sized vessel reaching towards the apex with a wraparound apex segment giving rise to a large diagonal branch in the mid segment. The left anterior descending artery proximally has 20% to 30% plaque that had no evidence of high-grade stenosis. LEFT CIRCUMFLEX: This is a nondominant large-sized vessel giving rise to a large obtuse marginal branch. The left circumflex as well as branches have no evidence of obstructive coronary artery disease. RIGHT CORONARY ARTERY: This vessel is heavily calcified, has a 95% stenosis proximally and distal segment is totally occluded with no significant antegrade flow. COLLATERALS: There is collaterals from the left coronary system toward the right PDA and the right PLV. HEMODYNAMICS: There was no gradient across the aortic valve. The left ventricular end-diastolic pressure was 14-16 mmHg. CONCLUSION: 1. Calcified coronary arteries. 2. Chronic occluded distal right coronary artery with significant disease in the mid right coronary artery in a calcified segment and no significant changes compared to 2017. 3. Mild disease in the proximal LAD. RECOMMENDATIONS: In view of findings and anatomy, I recommend continued medical therapy and patient will be evaluated. If she has persistent symptoms, then I would recommend to proceed with attempt at recanalization of chronic total occlusion. Those findings and recommendations were discussed with the patient and her family, and they are in full understanding and agreement. Duration of the sedation is 28 minutes. ADRIEL / GIOVANNAN: [id number] /
== END | disposition home or self-care (01) ==
LOC: CATHCVL 05:54
PROVIDERS: ATTEND Internal Medicine Interventional Cardiology
DX: I25.10 Atherosclerotic heart disease of native coronary artery without angina pectoris (principal); I25.84 Coronary atherosclerosis due to calcified coronary lesion; I10 Essential (primary) hypertension; I25.82 Chronic total occlusion of coronary artery; R94.39 Abnormal result of other cardiovascular function study; E78.2 Mixed hyperlipidemia; Z20.822 Contact with and (suspected) exposure to COVID-19; E78.00 Pure hypercholesterolemia, unspecified; E78.5 Hyperlipidemia, unspecified; Z90.710 Acquired absence of both cervix and uterus; Z98.49 Cataract extraction status, unspecified eye; Z96.659 Presence of unspecified artificial knee joint; Z82.49 Family history of ischemic heart disease and other diseases of the circulatory system; Z87.891 Personal history of nicotine dependence; Z79.890 Hormone replacement therapy; Z79.82 Long term (current) use of aspirin; Z79.899 Other long term (current) drug therapy; Z88.1 Allergy status to other antibiotic agents; Z88.5 Allergy status to narcotic agent
CPT/HCPCS: 93458; 87635; C1894; C1769; J2001; J3010; Q9967

== ENCOUNTER 2021-07-01 11:16 | Day surgery (SDC) | payer MEDICARE ==
[2021-06-27 10:48] VITALS: BMI 31.1
[~2021-07-01 11:16] MED LIST changes: -ALPRAZolam 0.25 MG TAB PO PRN; -ALPRAZolam 0.5 MG TAB PO PRN; -ASPIRIN 325 MG TAB PO ONE; -ASPIRIN 81 MG PO SCH; -ATORVASTATIN 80 MG TAB PO SCH; -HEPARIN SODIUM 1,000 UN/ML (10ML VL) ONE; -HEPARIN SODIUM,PORCINE 10,000 UNIT in SODIUM CHLORIDE 0.9% 1,000 ML IRRIGATION PRN; -HEPARIN SODIUM,PORCINE 2,500 UNIT in SODIUM CHLORIDE 0.9% 250 ML IRRIGATION PRN; -IOPAMIDOL-370 125ML BTL INJ ONE; -ISOSORBIDE MONONITRATE ER 60 MG TAB.ER.24H PO SCH; +LACTATED RINGERS 1,000 ML IV SCH; -LEVOTHYROXINE 75 MCG TAB PO SCH; -LIDOCAINE 1% INJ 10MG/ML (20 ML MDV) ONE; -LIDOCAINE 1% INJ 10MG/ML (20 ML MDV) SQ ONE; -METOPROLOL TARTRATE 25 MG TAB PO SCH; -NITROGLYCERIN SL TABS 0.4 MG TAB SUBLINGUAL PRN; -RANOLAZINE 500 MG TAB.ER.12H PO SCH; -RX INFO: IV CONTRAST WAS GIVEN 1 EACH MISC MISCELLANE PRN; -SODIUM CHLORIDE 0.9% 1,000 ML IV ONE; -SODIUM CHLORIDE 0.9% 1,000 ML IV SCH; -SODIUM CHLORIDE 0.9% 1,000 ML in EMPTY BAG 1 BAG IV SCH; -VERAPAMIL 2.5 MG/ML 2 ML AMP ONE; -fentaNYL (PF) 50 MCG/ML 2 ML AMP IV ONE; -fentaNYL (PF) 50 MCG/ML 2 ML AMP ONE
[2021-07-01 11:40] VITALS: TEMP 96.6
[2021-07-01] MEDS ORDERED: MIDAZOLAM 2 MG/2 ML VIAL ONE (11:51)
[2021-07-01] MEDS ORDERED: fentaNYL (PF) 50 MCG/ML 2 ML AMP ONE (11:51)
[2021-07-01] MEDS ORDERED: methylPREDNISolone ACETATE 40 MG/ML 1 ML VIAL ONE (11:51)
[2021-07-01] MEDS ORDERED: ROPIVACAINE 5MG/ML 20ML VIAL ONE (11:51)
--- NOTE | 2021-07-01 12:11 | P.PCN ---
Date of Procedure: 07/01/21 Procedure(s) Performed: PREOPERATIVE DIAGNOSIS : 1- Lumbar spondylosis with Facet Arthropathy without myelopathy . 2- Lumber degenerative disc disease. POSTOPERATIVE DIAGNOSIS: 1- Lumbar spondylosis with Facet Arthropathy without myelopathy . 2- Lumber degenerative disc disease. PROCEDURE: Diagnostic bilateral L3 , L4 , and L5 medial branch block under fluoroscopy guidance(fluoroscopy images available in the radiology Department ) ( To target the facet joint between Bilateral L4-5 , and L5-S1 )# 2nd ANESTHESIA: Monitored anesthesia care ,as per anesthesia department. EBL: Minimal COMPLICATION: None PROCEDURE INDICATION: Chronic low back pain secondary to Facet arthropathy unresponsive to conservative treatment. PROCEDURE DESCRIPTION: the patient was seen and identified in the preop holding area , risks and benefits and possible complications of the procedure and alternative were discussed with the patient, and the patient agreed to proceed with the procedure and signed the consent and vital signs monitored during the procedure and fluoroscopy was used to maximize the benefit and accuracy of the needle placement, and sedation was given to decrease patient anxiety, patient was taken to the procedure room and placed in prone position vital signs monitored in the back prepped with chlorhexidine X3 then under strict sterile technique using a right oblique fluoroscopy ,the junction of the transverse process and the superior articulating process of the right L3 , L4 , and L5 vertebra which corresponding to the fluoroscopy image of the eye of the Iggy dog on the block side for the medial branches and subsequently , after local infiltration of skin and subcu tissuies with Ropivacaine 0.5 % , one mL at each level ,then 22-gauge Quincke-type needles , 3 needle was used , each one of them placed at the junction of the base of the transverse process and the superior articular process at the appropriate level, and the needle was advanced until the periosteum contacted, needle placement confirmed with AP oblique and lateral view and after appropriate needle placement confirmed, and after negative aspiration for heme and CSF and there was no paresthesia 1-1/2 mL of Ropivacaine 0.5% mixed with 20 mg Depo-Medrol , then half mL injected at each level after negative aspiration the needle subsequently removed and the same procedure repeated for the left side at left side at L3 , L4 and L5 levels. At the end of the procedure and the needles removed and a bandage applied after the skin was cleaned the cleaning solution patient taken to recovery room in stable condition and monitors in the recovery room for 20-30 minutes and discharged home in stable condition after discharge criteria met and patient will follow up with the pain clinic in 2-4 weeks
[2021-07-01] MEDS ORDERED: IV FLUID CONTINUATION 1,000 ML IV ONE (12:19)
[2021-07-01 12:23] VITALS: PULSE 69
[2021-07-01 12:39] VITALS: BP 129/77; RESP 18
--- NOTE | 2021-07-01 14:32 | FL ---
Fluoroscopy INDICATION: Pain FINDINGS: Fluoroscopy time: 7 seconds. Images obtained: 4. IMPRESSIONS: 1. Documentation of fluoroscopy.
== END 2021-07-01 13:18 | disposition home or self-care (01) ==
LOC: ORPAIN 11:16
PROVIDERS: ATTEND Specialist
DX: M47.816 Spondylosis without myelopathy or radiculopathy, lumbar region (principal)
CPT/HCPCS: 64493; 64494; J2250; J1030; J3010; J2795

== ENCOUNTER → 2021-07-25 | Outpatient (CLI) | payer MEDICARE ==
[2021-07-25 11:48] VITALS: BP 143/71; PULSE 80; RESP 18; TEMP 98.4
--- NOTE | 2021-07-25 11:53 | P.PN ---
Subjective Progress Note Date: 07/25/21 Principal diagnosis: A 70 yr old female with a history of severe and chronic low back pain secondary to lumbar degenerative disc diseases and lumbar spondylosis with facet arthropathy presents today for evaluation status post bilateral facet block of the medial branches L4-L5 to L5-S1 #2. Patient states she experiences 30% pain relief in her lower lumbar spine first 3 days and then had a series of 3 falls at her home thereafter. Pain level is currently at 7/10 in intensity dull and achy in the lower lumbar spine with occasional shooting pain to the right buttock and right lower extremity greater than the left . Pain is provoked by twisting bending and lifting. Pain is alleviated with medications, topicals, injections, physical therapy in the past, home exercise stretching program, use of a cane for ambulation, repositioning and rest. Interventional pain procedures completed include LOR, Facet block/ Medial Branches bilateral L4-L5, L5-S1 #2 Patient is currently on Tylenol OTC, lidocaine cream and Aspercreme Patient denies any side effects of the medication(s), denies excessive drowsiness or sleepiness, denies suicidal ideation and reports that the current pain medication is helping to control the pain and improve activities of daily living. Patient denies any motor or sensory deficits. Patient denies any fever or night sweats, denies any change in the bowel movements or urination. Physical Examination: -Constitutional: Cooperative. Not in acute distress . -HEENT: Neck is supple. No lymphadenopathy. No thyromegaly. Normal thyroid size. Eyes: No ptosis , no icterus, no photophobia. ENT: No auditory deficits. Normal oropharynx. No Thrush. - Respiratory: Chest clear to auscultations bilaterally. No wheezing. No rhonchi. - Cardiovascular: Regular rate and rhythm. S1 / S2 , no S3 , no S4. - Gastrointestinal: Abdomen soft no tenderness. Bowel sounds positive in all four quadrants. No organomegaly. - Genitourinary: Deferred. - Neurologic: Cranial nerve II to XII intact. No focal neurological deficits. - Psychatric: Alert & oriented x 3. Matching mood & appropriate affect. Judgment and insight intact. - Lymphatic: No Lymphadenopathy. - Musculoskeletal: Cervical spine: Muscle bulk/ tone/ strength in the bilateral upper extremities normal. Facet loading test cervical area positive. Lumbar spine: Motor bulk/ tone/ strength lower extremities , thigh and legs : 5/5 Deep tendon reflexes : Normal Knee Jerk. Normal Ankle Jerk . Vertebral body tenderness over the L4 and L5 Lumbar Facet Loading Test positive over the L4-L5 and L5-S1 facets with a jump reflex Straight Leg Raise: positive at 30 degree right side/ left side Nikunj test: positive right side / left side Range of motion: Flexion of the lumbar spine 60 degrees Range of motion: Extension of the lumbar spine <20 degrees Severe tenderness over the Sacroiliac joint: right side / left side Assessment and plan: Chronic low back pain secondary to lumbar degenerative disc disease , lumbar spondylosis with facet arthropathy without myelopathy Recommendation of bilateral RFA of the L4-L5 and L5-S1 Discontinue aspirin 5 days prior to procedure Risks, benefits of procedure discussed and patient verbalized understanding All patient questions answered MAPS reviewed and it was appropriate. I have spent 31 minutes on patient care today. Dr Santiago was available by phone for the evaluation of this patient. The time was used to review the medical records including relevant urine studies and Prescription history (MAPs), review of the available imaging, evaluation and examination of the patient, coordination of care with the medical staff and if applicable referring physicians, as well as creation of the medical record Objective - Vital Signs Vital signs: Vital Signs Temp 98.4 F 07/25/21 11:42 Pulse 80 07/25/21 11:42 Resp 18 07/25/21 11:42 BP 143/71 07/25/21 11:42 Pulse Ox 93 L 07/25/21 11:42 PQRS Measure Charge Sheet Mode of Arrival: Cane - Pain Location Lower Back Non-Pharmacological Interventions: Heat, Home Exercise, Ice, Inactivity, Physical Therapy, Sitting, Stretching Pharmacological Interventions: Block, Epidural, PRN Medication, Topical Medication PQRS Narrative: Smoking Status Former smoker Blood Pressure 143/71 Pain Intensity [Lower Back] 7 Scale Used Numeric (1 - 10) Hx Alcohol Use (MH) No Home Medications: Ambulatory Orders Albuterol Sulfate [Proair Hfa] 1 - 2 puff INHALATION Q6HR PRN 02/15/17 Aspirin [Adult Low Dose Aspirin EC] 81 mg PO DAILY 02/15/17 Biotin [Biotin Disolve] 5,000 mcg PO DAILY 02/15/17 Calcium Carbonate/Vitamin D3 [Calcium 600-Vit D3 5 Mcg (200 Iu)] 2 each PO DAILY 02/15/17 Folic Acid 1 mg PO DAILY 02/15/17 Glucosam/Tc-Msm1/C/Chavez/Bosw [Glucosamine-Chondroitin Tablet] 1 each PO DAILY 02/15/17 Kelp 600 mcg PO DAILY 02/15/17 Levothyroxine Sodium 150 mcg PO QAM 02/15/17 Sinus Congestion Med 2 tab PO DAILY PRN 02/15/17 Vitamin B Complex With C 1 tab PO DAILY 02/15/17 hydroCHLOROthiazide 25 mg PO QAM 02/15/17 Metoprolol Tartrate [Lopressor] 25 mg PO BID #180 tablet 02/22/17 Nitroglycerin Sl Tabs [Nitrostat] 0.4 mg SUBLINGUAL Q5M PRN #25 tab 02/22/17 Ascorbic Acid [Vitamin C] 1,000 mg PO DAILY 06/17/20 Atorvastatin Calcium [Lipitor] 80 mg PO DAILY 06/17/20 Bumetanide [BUMEX] 4 mg PO QAM 06/17/20 Cholecalciferol [Vitamin D3 (25 Mcg = 1000 Iu)] 5,000 unit PO DAILY 06/17/20 Multivitamins, Thera [Multivitamin (formulary)] 1 tab PO DAILY 06/17/20 Potassium Chloride [Klor-Con 10] 10 meq PO QAM 06/17/20 Ferrous Sulfate [Feosol] 325 mg PO DAILY 07/13/20 Acetaminophen [Tylenol Extra Strength] 1,000 mg PO BID 09/17/20 Gabapentin [Neurontin] 100 mg PO BID 11/11/20 Ranolazine [Ranexa] 500 mg PO BID 11/11/20 Isosorbide Mononitrate ER [Imdur] 60 mg PO QAM 06/16/21 Fexofenadine HCl 180 mg PO DAILY 07/21/21
== END ==
LOC: PNWHC3 11:03
PROVIDERS: ATTEND Physician Assistant Medical
DX: M51.36 Other intervertebral disc degeneration, lumbar region (principal); M47.816 Spondylosis without myelopathy or radiculopathy, lumbar region; G89.29 Other chronic pain; Z87.891 Personal history of nicotine dependence; Z91.048 Other nonmedicinal substance allergy status; Z88.1 Allergy status to other antibiotic agents; Z88.5 Allergy status to narcotic agent; Z88.6 Allergy status to analgesic agent; Z91.040 Latex allergy status
CPT/HCPCS: 99211

== ENCOUNTER → 2021-08-25 | Outpatient (CLI) | payer MEDICARE ==
--- NOTE | 2021-08-25 14:14 | P.PN ---
Subjective Progress Note Date: 08/25/21 Principal diagnosis: A 70 yr old female with a history of severe and chronic low back pain secondary to lumbar degenerative disc diseases and lumbar spondylosis with facet arthropathy presents today for evaluation status post bilateral facet block of the medial branches L4-L5, L5-S1 #2. Patient states she experienced 80% pain relief in her lower lumbar spine but had a series of 5 falls at/ around her home thereafter at which she inadvertently described her overall pain relief level at 30%. Pain level has waxed and waned in intensity but is currently at 7/10, dull, achy in the lower lumbar spine with occasional shooting pain to the right buttock and right lower extremity greater than the left . Pain is provoked by twisting bending and lifting. Pain is alleviated with medication Tylenol ES, topical BioFreeze gel, injections, physical therapy over a year ago but will r estart again this month, home exercise stretching program, use of a cane for ambulation, repositioning and rest. Interventional pain procedures completed include LOR, Facet block/ Medial Branches bilateral L4-L5, L5-S1 #2 Patient is currently on Tylenol OTC, lidocaine cream and Aspercreme Patient denies any side effects of the medication(s), denies excessive drowsiness or sleepiness, denies suicidal ideation and reports that the current pain medication is helping to control the pain and improve activities of daily living. Patient denies any motor or sensory deficits. Patient denies any fever or night sweats, denies any change in the bowel movements or urination. Physical Examination: -Constitutional: Cooperative. Not in acute distress . -HEENT: Neck is supple. No lymphadenopathy. No thyromegaly. Normal thyroid size. Eyes: No ptosis , no icterus, no photophobia. ENT: No auditory deficits. Normal oropharynx. No Thrush. - Respiratory: Chest clear to auscultations bilaterally. No wheezing. No rhonchi. - Cardiovascular: Regular rate and rhythm. S1 / S2 , no S3 , no S4. - Gastrointestinal: Abdomen soft no tenderness. Bowel sounds positive in all four quadrants. No organomegaly. - Genitourinary: Deferred. - Neurologic: Cranial nerve II to XII intact. No focal neurological deficits. - Psychatric: Alert & oriented x 3. Matching mood & appropriate affect. Judgment and insight intact. - Lymphatic: No Lymphadenopathy. - Musculoskeletal: Cervical spine: Muscle bulk/ tone/ strength in the bilateral upper extremities normal. Facet loading test cervical area positive. Lumbar spine: Motor bulk/ tone/ strength lower extremities , thigh and legs : 5/5 Deep tendon reflexes : Normal Knee Jerk. Normal Ankle Jerk . Vertebral body tenderness over the L4 and L5 Lumbar Facet Loading Test positive over the L4-L5 and L5-S1 facets with a jump reflex Straight Leg Raise: positive at 30 degree right side/ left side Nikunj test: positive right side / left side Range of motion: Flexion of the lumbar spine 60 degrees Range of motion: Extension of the lumbar spine <20 degrees Severe tenderness over the Sacroiliac joint: right side / left side Assessment and plan: Chronic low back pain secondary to lumbar degenerative disc disease , lumbar spondylosis with facet arthropathy without myelopathy Recommendation of bilateral RFA of the L4-L5 and L5-S1 Discontinue aspirin 5 days prior to procedure. Denies medical history of Diabetes. Risks, benefits of procedure discussed and patient verbalized understanding All patient questions answered MAPS reviewed and it was appropriate. I have spent 31 minutes on patient care today. Dr Santiago was available by phone for the evaluation of this patient. The time was used to review the medic al records including relevant urine studies and Prescription history (MAPs), review of the available imaging, evaluation and examination of the patient, coordination of care with the medical staff and if applicable referring physicians, as well as creation of the medical record PQRS Measure Charge Sheet PQRS Narrative: Smoking Status Former smoker Hx Alcohol Use (MH) No Home Medications: Ambulatory Orders Albuterol Sulfate [Proair Hfa] 1 - 2 puff INHALATION Q6HR PRN 02/15/17 Aspirin [Adult Low Dose Aspirin EC] 81 mg PO DAILY 02/15/17 Biotin [Biotin Disolve] 5,000 mcg PO DAILY 02/15/17 Calcium Carbonate/Vitamin D3 [Calcium 600-Vit D3 5 Mcg (200 Iu)] 2 each PO DAILY 02/15/17 Folic Acid 1 mg PO DAILY 02/15/17 Glucosam/Tc-Msm1/C/Chavez/Bosw [Glucosamine-Chondroitin Tablet] 1 each PO DAILY 02/15/17 Kelp 600 mcg PO DAILY 02/15/17 Levothyroxine Sodium 150 mcg PO QAM 02/15/17 Sinus Congestion Med 2 tab PO DAILY PRN 02/15/17 Vitamin B Complex With C 1 tab PO DAILY 02/15/17 hydroCHLOROthiazide 25 mg PO QAM 02/15/17 Metoprolol Tartrate [Lopressor] 25 mg PO BID #180 tablet 02/22/17 Nitroglycerin Sl Tabs [Nitrostat] 0.4 mg SUBLINGUAL Q5M PRN #25 tab 02/22/17 Ascorbic Acid [Vitamin C] 1,000 mg PO DAILY 06/17/20 Atorvastatin Calcium [Lipitor] 80 mg PO DAILY 06/17/20 Bumetanide [BUMEX] 4 mg PO QAM 06/17/20 Cholecalciferol [Vitamin D3 (25 Mcg = 1000 Iu)] 5,000 unit PO DAILY 06/17/20 Multivitamins, Thera [Multivitamin (formulary)] 1 tab PO DAILY 06/17/20 Potassium Chloride [Klor-Con 10] 10 meq PO QAM 06/17/20 Ferrous Sulfate [Feosol] 325 mg PO DAILY 07/13/20 Acetaminophen [Tylenol Extra Strength] 1,000 mg PO BID 09/17/20 Gabapentin [Neurontin] 100 mg PO BID 11/11/20 Ranolazine [Ranexa] 500 mg PO BID 11/11/20 Isosorbide Mononitrate ER [Imdur] 60 mg PO QAM 06/16/21 Fexofenadine HCl 180 mg PO DAILY 07/21/21
[2021-08-25 16:48] VITALS: BP 130/75; PULSE 66; RESP 18
== END ==
LOC: PNWHC3 13:36
PROVIDERS: ATTEND Physician Assistant Medical
DX: M51.36 Other intervertebral disc degeneration, lumbar region (principal); M47.816 Spondylosis without myelopathy or radiculopathy, lumbar region; G89.29 Other chronic pain; Z87.891 Personal history of nicotine dependence; Z91.048 Other nonmedicinal substance allergy status; Z88.1 Allergy status to other antibiotic agents; Z88.5 Allergy status to narcotic agent; Z91.040 Latex allergy status
CPT/HCPCS: 99211

== ENCOUNTER → 2022-01-05 | Outpatient (CLI) | payer MEDICARE ==
--- NOTE | 2022-01-06 08:44 | MM ---
Reason for Exam: Screening (asymptomatic). Last screening mammogram was performed 12 month(s) ago. Patient History: Menarche at age 10. Patient has no children. Left ovary removed at age 44. Right ovary removed at age 44. Hysterectomy at age 44. Postmenopausal. Estrogen, starting at age 44 for 15 years. Patient used Hormonal Contraceptives for 10 years. Risk Values: Adela 5 year model risk: 2.1%. NCI Lifetime model risk: 5.6%. Prior Study Comparison: 09/16/2018 Bilateral Screening Mammogram, [facility]. 01/02/2020 Bilateral Screening Mammogram, [facility]. 01/03/2021 Bilateral Screening Mammogram, [facility]. Tissue Density: The breast tissue is heterogeneously dense. This may lower the sensitivity of mammography. Findings: Analyzed By CAD. There is no suspicious group of microcalcifications or new suspicious mass in either breast. Overall Assessment: Negative, BI-RAD 1 Management: Screening Mammogram of both breasts in 1 year. A clinical breast exam by your physician is recommended on an annual basis and results should be correlated with mammographic findings. Electronically signed and approved by: Rajiv Chacon D.O.
== END | disposition home or self-care (01) ==
LOC: RADMAMWWP 12:34
PROVIDERS: ATTEND Family Medicine
DX: Z12.31 Encounter for screening mammogram for malignant neoplasm of breast (principal); Z78.0 Asymptomatic menopausal state
CPT/HCPCS: 77063; 77067

== ENCOUNTER 2022-01-13 11:01 | Day surgery (SDC) | payer MEDICARE ==
[~2022-01-13 11:01] MED LIST changes: +LIDOCAINE 1% (10MG/ML) FOR IV START INTRADERMA PRN
[2022-01-13 11:28] VITALS: TEMP 97.7
[2022-01-13] MEDS ORDERED: MIDAZOLAM 2 MG/2 ML VIAL ONE (12:15)
[2022-01-13] MEDS ORDERED: ROPIVACAINE 5MG/ML 20ML VIAL ONE (12:15)
[2022-01-13] MEDS ORDERED: fentaNYL (PF) 50 MCG/ML 2 ML AMP ONE (12:15)
[2022-01-13] MEDS ORDERED: methylPREDNISolone ACETATE 40 MG/ML 1 ML VIAL ONE (12:15)
--- NOTE | 2022-01-13 12:41 | P.PCN ---
Date of Procedure: 01/13/22 Procedure(s) Performed: PREOPERATIVE DIAGNOSIS: 1-Lumbar Spondylosis with Facet Arthropathy without myelopathy. 2- Lumber degenerative disc disease. POSTOPERATIVE DIAGNOSIS: 1- Lumbar Spondylosis with Facet Arthropathy without myelopathy. 2- Lumber degenerative disc disease. PROCEDURES : Bilateral Radiofrequency thermocoagulation, L3 , L4 , and L5 medial branch, with fluoroscopic guidance (fluoroscopy images available in the radiology department) ( to denervate the facet joint at bilateral L4-5 ,and L5-S1 levels ). ANESTHESIA: Monitored anesthesia care as per anesthesia department . EBL: Minimal PROCEDURE INDICATION: The patient with low back pain secondary to lumbar facet arthropathy who had more than 50% relief of her pain with previous diagnostic lumbar medial branch block with bupivacaine. PROCEDURE DESCRIPTION / TECHNIQUE: The patient was seen and identified in the preoperative area. Risks, benefits, complications, including but not limited to risk of infection ,bleeding , allergic reactions to the medications and no complete pain releife , and alternatives were discussed with the patient, the patient agreed to proceed with the procedure and signed the consent. IV was started. Vital signs remained stable throughout the procedure. Patient was taken to the OR and time out was completed. The patient was placed in the prone position on the procedure table. The lumber area was prepped and draped in the usual sterile fashion. . Vital signs were closely monitored during the procedure .IV sedation was used during the procedure to decrease patients anxiety. Using AP and then oblique fluoroscopy, the ``eye of the Iggy dog cor responding to the connection between the superior and transverse articular processes of right L3, L4, and L5 were identified, marked, and localized with 1% lidocaine. Subsequently, a [id number] radiofrequency cannula with a 10- mm active tip was advanced guided by fluoroscopy to each of the``eyes of the Iggy dog at right L3, L4, and L5. Each site then underwent sensory testing at 50 Hz and 0 to 1 volt and motor testing at 2.5 Hz and 0 to 3 volt with local stimulation, but no radicular symptoms down the legs. Thereafter each sites underwent radiofrequency thermocoagulation at 80 degrees celsius for 90 seconds after injecting 0.5 ml of PF Ropivacaine 1ml, then after the thermocoagulation done , 1 ml of the block solution containing Depo-Medrol 20 mg and 3 ml of Ropivacaine 0.5% was injected at the right L3 , L4 , and L5 , levels after negative aspiration of CSF and blood and with no paresthesias. Cannulas were retracted while injecting lidocaine 1% until the needle is out. The same procedure was repeated at the level of Left L3, L4, and L5 levels. At the end of the procedure, the skin was cleansed and bandages were applied. COMPLICATIONS: No acute complications. DISPOSITION / PLANS: The patient was placed in a supine position and transferred to the recovery area in a stable condition for observation and was discharged from the recovery room after meeting discharge criteria. Home discharge instructions given to the patient by the staff. The patient was reexamined prior to discharge. The patient will schedule a follow up in the clinic in 2-4 weeks.
[2022-01-13] MEDS ORDERED: IV FLUID CONTINUATION 1,000 ML IV ONE (12:46)
[2022-01-13 12:49] VITALS: RESP 18
[2022-01-13] MEDS ORDERED: ACETAMINOPHEN TAB 500 MG TAB PO ONE (13:00)
[2022-01-13] MEDS ORDERED: ACETAMINOPHEN TAB 500 MG TAB ONE (13:03)
[2022-01-13 13:06] VITALS: BP 120/75; PULSE 69
--- NOTE | 2022-01-13 14:30 | FL ---
Fluoroscopy INDICATION: Pain FINDINGS: Fluoroscopy time: 25 seconds. Images obtained: 6. IMPRESSIONS: 1. Documentation of fluoroscopy.
== END 2022-01-13 13:25 | disposition home or self-care (01) ==
LOC: ORPAIN 11:01
PROVIDERS: ATTEND Specialist
DX: M47.816 Spondylosis without myelopathy or radiculopathy, lumbar region (principal); M51.36 Other intervertebral disc degeneration, lumbar region; I10 Essential (primary) hypertension; J44.9 Chronic obstructive pulmonary disease, unspecified; E03.9 Hypothyroidism, unspecified; M10.9 Gout, unspecified; M19.90 Unspecified osteoarthritis, unspecified site; M32.9 Systemic lupus erythematosus, unspecified; I45.9 Conduction disorder, unspecified; Z88.6 Allergy status to analgesic agent; Z88.5 Allergy status to narcotic agent; Z88.1 Allergy status to other antibiotic agents; Z91.040 Latex allergy status; Z91.09 Other allergy status, other than to drugs and biological substances; Z88.3 Allergy status to other anti-infective agents; Z79.899 Other long term (current) drug therapy; Z79.82 Long term (current) use of aspirin; Z79.890 Hormone replacement therapy; Z87.891 Personal history of nicotine dependence
CPT/HCPCS: 64635; 64636 ×2; J2250; J1030; J3010; J2795

== ENCOUNTER → 2022-03-02 | Outpatient (CLI) | payer MEDICARE ==
--- NOTE | 2022-03-03 08:48 | XR ---
EXAMINATION TYPE: XR tibia fibula RT DATE OF EXAM: 03/02/2022 COMPARISON: None HISTORY: Fall, pain TECHNIQUE: 2 view right tibia and fibula FINDINGS: Right knee prosthesis is present. No acute fractures or dislocations are evident. Degenerat watson changes are noted at the ankle. There may be some soft tissue swelling at the ankle. Follow up exams can be performed as clinically indicated. IMPRESSION: 1. No acute osseous abnormality left tibia and fibula. 2. There may be some soft tissue swelling at the ankle.
== END | disposition home or self-care (01) ==
LOC: RADXRYALE 16:12
PROVIDERS: ATTEND Family Medicine
DX: M79.661 Pain in right lower leg (principal); W01.10XA Fall on same level from slipping, tripping and stumbling with subsequent striking against unspecified object, initial encounter

== ENCOUNTER 2022-04-13 11:44 | Day surgery (SDC) | payer MEDICARE ==
[2022-03-16 11:46] VITALS: BMI 29.9
[2022-04-13] MEDS ORDERED: LACTATED RINGERS 1,000 ML IV ONE (12:15)
[2022-04-13] MEDS ORDERED: LIDOCAINE 1% (10MG/ML) FOR IV START INTRADERMA ONE (12:15)
[2022-04-13 12:19] VITALS: RESP 16; TEMP 97.6
[2022-04-13] MEDS ORDERED: MIDAZOLAM 2 MG/2 ML VIAL ONE (12:46)
[2022-04-13] MEDS ORDERED: methylPREDNISolone ACETATE 40 MG/ML 1 ML VIAL ONE (12:46)
[2022-04-13] MEDS ORDERED: fentaNYL (PF) 50 MCG/ML 2 ML AMP ONE (12:46)
[2022-04-13] MEDS ORDERED: ROPIVACAINE 5 MG/ML 20 ML AMPULE ONE (12:46)
--- NOTE | 2022-04-13 13:07 | P.PCN ---
Date of Procedure: 04/13/22 Procedure(s) Performed: PREOPERATIVE DIAGNOSIS: 1-Cervical Spondylosis with Facet Arthropathy.without myelopathy. 2-cervical degenerative disc disease POSTOPERATIVE DIAGNOSIS: Same as preoperative diagnosis. PROCEDURES: Diagnostic Right C5 , C6 , C7 medial branch blocks, with fluorosc opic guidance (fluoroscopy images available in radiology department ) ( to target the facet joint at Right C5- 6 , C6-7 ) ANESTHESIA: moderate sedation with Versed 1 mg , and fentanyl 50 g sedation time started 1249 , inished 1302 EBL: Minimal PROCEDURE INDICATION: The patient with neck pain secondary to cervical arthropathy unresponsive to more conservative treatments. PROCEDURE DESCRIPTION / TECHNIQUE: The patient was seen and identified in the preoperative area. Risks, benefits, complications, and alternatives were discussed with the patient, the patient agreed to proceed with the procedure and signed the consent. IV was started. Vital signs remained stable throughout the procedure. Patient was taken to the OR and time out was completed. The patient was placed in the lateral position on the procedure table. . The cervical area was prepped and draped in the usual sterile fashion. Critical pause was taken. Vital signs were closely monitored during the procedure. Conscious sedation was used during the procedure to decrease patients anxiety. Using cross-table lateral fluoroscopy, the centroid of the trapezoid of right C3, C4 , C5 and C6, was identified, marked, and localized with 1% lidocaine 1 ml at each level for skin and Sub Q infiltrations . Subsequently, a 25 G 3 spinal needle was advanced guided by fluoroscopy to the centroid of the trapezoid of Right C5, C6, C7 . Otho tip position was confirmed at the centroid of the trapezoids of Right C5 ,C6 , C7 with anteroposterior fluoroscopy. Subsequently, 1.5 ml of preservative-free Ropivacaine 0.5% mixed with Depo-Medrol 20 mg and half ml of the mixture was injected after negative aspiration for blood and CSF. Otho was then removed intact COMPLICATIONS: No acute complications. DISPOSITION / PLANS: The patient was placed in a supine position and transferred to the recovery area in a stable condition for observation and was discharged from the recovery room after meeting discharge criteria. Home discharge instructions given to the patient by the staff. The patient was reexamined prior to discharge. The patient will schedule a follow up in the clinic in 2-4 weeks.
[2022-04-13] MEDS ORDERED: IV FLUID CONTINUATION 1,000 ML IV ONE (13:10)
[2022-04-13 13:22] VITALS: BP 136/68; PULSE 86
[2022-04-13] MEDS ORDERED: LACTATED RINGERS 1,000 ML IV SCH (13:23)
[2022-04-13] MEDS ORDERED: LIDOCAINE 1% (10MG/ML) FOR IV START INTRADERMA PRN (13:23)
--- NOTE | 2022-04-13 15:46 | FL ---
EXAMINATION TYPE: FL guided pain mgmt statistic DATE OF EXAM: 04/13/2022 FLUOROSCOPY Fluoroscopy time of 31 seconds was used during cervical spine pain intervention procedure. 2 image/s document/s the procedure.
== END 2022-04-13 13:51 | disposition home or self-care (01) ==
LOC: ORPAIN 11:44
PROVIDERS: ATTEND Specialist
DX: M47.812 Spondylosis without myelopathy or radiculopathy, cervical region (principal); M50.322 Other cervical disc degeneration at C5-C6 level
CPT/HCPCS: 64490; 64491; 99152; J2250; J1030; J3010; J2795

== ENCOUNTER → 2022-05-03 | Outpatient (CLI) | payer MEDICARE ==
[2022-05-03 11:04] VITALS: BP 90/49; PULSE 70; RESP 18; TEMP 97.7
--- NOTE | 2022-05-03 14:41 | P.PAINPG ---
PQRS Measure Charge Sheet Comment: A 71 yr old female with a history of severe and chronic neck pain secondary to cervical DDD and spondylosis with facet arthropathy without myelopathy presents today for evaluation s/p R MBB C5-C6, C6-C7. Pt states she experienced 100% pain relief x 10 days s/p procedure. Pain level is currently at 8/10 in intensity, constant, localized in the R neck, nagging/ sharp in character w shooting towards the RUE. Pain is provoked by rotation, hyperextension. Pain is alleviated with PT x 8 wks in 2020, use of a cane for ambulation, heat, medications (Tyl), repositioning and rest. Interventional pain procedures completed include R MBB C5-7 x1, CESIs Patient is currently on Tylenol OTC Patient denies any side effects of the medication(s), denies excessive drowsiness or sleepiness, denies suicidal ideation and reports that the current pain medication is helping to control the pain and improve activities of daily living. Patient denies any motor or sensory deficits. Patient denies any fever or night sweats, denies any change in the bowel movements or urination. Physical Examination: -Constitutional: Cooperative. Not in acute distress . - Neurologic: Cranial nerve II to XII intact. No focal neurological deficits. - Psychatric: Alert & oriented x 3. Matching mood & appropriate affect. Judgment and insight intact. - Musculoskeletal: Cervical spine: Muscle bulk/ tone/ strength in the bilateral upper extremities normal Vertebral body tenderness to palpation over Spurling test positive Distraction test positive Facet loading test positive over R C5-C6, C6-C7 facets Thoracic spine Muscle bulk / tone/ strength in the bilateral paraspinal muscles normal Vertebral body tender to palpation over Facet loading test positive Lumbar spine: Motor bulk/ tone/ strength lower extremities , thigh and legs : 5/5 Deep tendon reflexes : Normal Knee Jerk. Normal Ankle Jerk . Vertebral body tenderness to palpation over Lumbar Facet Loading Test positive Straight Leg Raise: positive at 30 degrees right side/ left side Gaenslen's Test positive Sacral spine : Severe tenderness over the Sacroiliac joint: right side / left side Range of motion: Flexion of the lumbar spine <60 degrees Range of motion: Extension of the lumbar spine <20 degrees Gaenslen's Test positive Nikunj test: positive right side / left side Thigh Thrust Test Sacral Thrust Test Assessment and plan: Chronic neck pain secondary to cervical degenerative disc disease, spondylosis with facet arthropathy without myelopathy Recommendation of R MBB C5-C6, C6-C7 #2. May need a series of injections, up until RFA, for optimal pain relief. Risks, benefits of procedure discussed and pt verbalized understanding. Admits to anticoagulant use or medical history of diabetes. Protocol for discontinuation/ continuation of medications kimberly procedure discussed. All patient questions answered I have spent less than 30 minutes on patient care today. Dr Santiago was available by phone for the evaluation of this patient. The time was used to review the medical records including relevant urine studies and Prescription history (MAPs), review of the available imaging, evaluation and examination of the patient, coordination of care with the medical staff and if applicable referring physicians, as well as creation of the medical record PQRS Narrative: Smoking Status Former smoker Hx Alcohol Use (MH) No Home Medications: Ambulatory Orders Albuterol Sulfate [Proair Hfa] 1 - 2 puff INHALATION Q6HR PRN 02/15/17 Aspirin [Adult Low Dose Aspirin EC] 81 mg PO DAILY 02/15/17 Biotin [Biotin Disolve] 5,000 mcg PO DAILY 02/15/17 Calcium Carbonate/Vitamin D3 [Calcium 600-Vit D3 5 Mcg (200 Iu)] 2 each PO DAILY 02/15/17 Folic Acid 1 mg PO DAILY 02/15/17 Glucosam/Tc-Msm1/C/Chavez/Bosw [Glucosamine-Chondroitin Tablet] 1 each PO DAILY 02/15/17 Kelp 600 mcg PO DAILY 02/15/17 Levothyroxine Sodium 150 mcg PO QAM 02/15/17 Sinus Congestion Med 2 tab PO BID 02/15/17 Vitamin B Complex With C 1 tab PO DAILY 02/15/17 hydroCHLOROthiazide 25 mg PO BID 02/15/17 Metoprolol Tartrate [Lopressor] 25 mg PO BID #180 tablet 02/22/17 Ascorbic Acid [Vitamin C] 1,000 mg PO DAILY 06/17/20 Atorvastatin Calcium [Lipitor] 80 mg PO DAILY 06/17/20 Bumetanide [BUMEX] 2 mg PO BID 06/17/20 Cholecalciferol [Vitamin D3 (25 Mcg = 1000 Iu)] 5,000 unit PO DAILY 06/17/20 Multivitamins, Thera [Multivitamin (formulary)] 1 tab PO DAILY 06/17/20 Potassium Chloride [Klor-Con 10] 10 meq PO QAM 06/17/20 Ferrous Sulfate [Feosol] 325 mg PO DAILY 07/13/20 Acetaminophen [Tylenol Extra Strength] 1,000 mg PO BID 09/17/20 Gabapentin [Neurontin] 100 mg PO BID 11/11/20 Ranolazine [Ranexa] 500 mg PO BID 11/11/20 Isosorbide Mononitrate ER [Imdur] 30 mg PO BID 06/16/21 Fexofenadine HCl 180 mg PO DAILY 07/21/21 Fluticasone Nasal [place] [Flonase Nasal [place]] 2 spray EA NOSTRIL DAILY 01/12/22 amLODIPine [Norvasc] 5 mg PO DAILY 01/12/22 hydrALAZINE HCL [Apresoline] 25 mg PO BID 01/12/22 Sulfamethoxazole/Trimethoprim [Bactrim DS 800-160 mg] 1 each PO BID 03/16/22 Controlled Substance Measures - Controlled Substance Measures Is patient prescribed a controlled substance at discharge?: No
== END ==
LOC: PNWHC3 10:27
PROVIDERS: ATTEND Specialist
DX: M47.812 Spondylosis without myelopathy or radiculopathy, cervical region (principal); M50.30 Other cervical disc degeneration, unspecified cervical region; G89.29 Other chronic pain; Z79.01 Long term (current) use of anticoagulants; E11.9 Type 2 diabetes mellitus without complications; Z79.84 Long term (current) use of oral hypoglycemic drugs; Z91.048 Other nonmedicinal substance allergy status; Z88.1 Allergy status to other antibiotic agents; Z88.5 Allergy status to narcotic agent; Z91.040 Latex allergy status; Z88.6 Allergy status to analgesic agent
CPT/HCPCS: 99211

== ENCOUNTER 2022-06-16 11:14 | Day surgery (SDC) | payer MEDICARE ==
[~2022-06-16 11:14] MED LIST changes: -LIDOCAINE 1% (10MG/ML) FOR IV START INTRADERMA PRN
[2022-06-16 12:18] VITALS: TEMP 97.9
[2022-06-16] MEDS ORDERED: MIDAZOLAM 2 MG/2 ML VIAL ONE (13:09)
[2022-06-16] MEDS ORDERED: fentaNYL (PF) 50 MCG/ML 2 ML AMP ONE (13:09)
[2022-06-16] MEDS ORDERED: ROPIVACAINE 5 MG/ML 20 ML AMPULE ONE (13:09)
[2022-06-16] MEDS ORDERED: DEXAMETHASONE SOD PHOSPHATE 10 MG/ML 1 ML VIAL ONE (13:09)
--- NOTE | 2022-06-16 13:26 | P.PCN ---
Date of Procedure: 06/16/22 Surgeon: Nikki Brooks Pathology: none sent Condition: stable Disposition: PACU Description of Procedure: PREOPERATIVE DIAGNOSIS: Cervical Spondylosis with Facet Arthropathy.without myelopathy POSTOPERATIVE DIAGNOSIS: Cervical Spondylosis Facet Arthropathy. Without myelopathy PROCEDURES: Diagnostic right medial branchs block with fluoroscopic guidance for levels C5, C6, and C7 ANESTHESIA: Local with 1% lidocaine; IV sedation by the anesthesia Department EBL: Minimal PROCEDURE INDICATION: The patient with neck pain secondary to cervical arthropathy unresponsive to more conservative treatments. PROCEDURE DESCRIPTION / TECHNIQUE: The patient was seen and identified in the preoperative area. Risks, benefits, complications, and alternatives were discussed with the patient, the patient agreed to proceed with the procedure and signed the consent. IV was started. Vital signs remained stable throughout the procedure. Patient was taken to the OR and time out was completed. The patient was placed in the supine position on the procedure table. . The cervical area was prepped with chloraprep and draped in the usual sterile fashion. Critical pause was taken. Vital signs were closely monitored during the procedure. Conscious sedation was used during the procedure to decrease patients anxiety. Using cross-table lateral fluoroscopy, the centers of the trapezoid of C5, C6, and the superior articular process of C7 were identified, marked, and localized with 1% lidocaine 1 ml at each level for skin and Sub Q infiltrations . Subsequently, a 25 G 3.5 inch spinal needle was advanced guided by fluoroscopy to the target points mentioned above. Subsequently, 3 ml of preservative-free Ropivacaine 0.5% mixed with Dexamethasone 10 mg and half ml of the mixture was injected at each level after negative aspiration for blood and CSF. Mcgrath were then removed intact . COMPLICATIONS: No acute complications. COMMENTS: The patient had significant pain relief after the first medial branch block for the same levels and also lasted for 2-3 weeks as she states. DISPOSITION / PLANS: The patient was placed in a supine position and transferred to the recovery area in a stable condition for observation and was discharged from the recovery room after meeting discharge criteria. Home discharge instructions given to the patient by the staff. The patient was reexamined prior to discharge. The patient will schedule a follow up in the clinic in 2-4 weeks.
[2022-06-16] MEDS ORDERED: IV FLUID CONTINUATION 1,000 ML IV ONE (13:34)
--- NOTE | 2022-06-16 13:40 | FL ---
Intraoperative/procedural fluoroscopic services were provided for cervical facet block. Total fluoros copy time is 5 seconds with a total of 2 submitted images to PACS. Please see the operative note for further details.
[2022-06-16 13:52] VITALS: BP 116/65; PULSE 89; RESP 16
== END 2022-06-16 14:10 | disposition home or self-care (01) ==
LOC: ORPAIN 11:14
PROVIDERS: ATTEND Anesthesiology
DX: M47.812 Spondylosis without myelopathy or radiculopathy, cervical region (principal); I10 Essential (primary) hypertension; M10.9 Gout, unspecified; M32.9 Systemic lupus erythematosus, unspecified; Z91.048 Other nonmedicinal substance allergy status; Z91.040 Latex allergy status; Z88.6 Allergy status to analgesic agent; Z88.5 Allergy status to narcotic agent; F17.210 Nicotine dependence, cigarettes, uncomplicated; E78.5 Hyperlipidemia, unspecified; J44.9 Chronic obstructive pulmonary disease, unspecified; M19.90 Unspecified osteoarthritis, unspecified site; Z79.82 Long term (current) use of aspirin; Z79.899 Other long term (current) drug therapy; Z79.890 Hormone replacement therapy
CPT/HCPCS: 64490; 64491; J2250; J1100; J3010; J2795

== ENCOUNTER → 2022-06-21 | Outpatient (CLI) | payer MEDICARE ==
--- NOTE | 2022-06-21 14:44 | XR ---
EXAMINATION TYPE: XR thoracic spine complete DATE OF EXAM: 06/21/2022 COMPARISON: None HISTORY: Thoracic pain TECHNIQUE: 2 view thoracic spine FINDINGS: Vertebral body heights appear preserved. Mild disc space narrowing in the upper thoracic sp ine is present. There is some mid thoracic scoliosis. Are 12 thoracic type vertebral bodies. The pedi cles are intact. IMPRESSION: 1. No acute osseous abnormalities thoracic spine
--- NOTE | 2022-06-21 14:52 | XR ---
EXAMINATION TYPE: XR ribs RT w pa chest xray DATE OF EXAM: 06/21/2022 COMPARISON: None HISTORY: Pain TECHNIQUE: 2 view right RIBS examined with a supplemental chest FINDINGS: On an oblique view a posterior lateral right fourth rib fractures evident. No pneumothorax is evident. No additional displaced fractures are evident. There may be a lateral sixth rib fracture present IMPRESSION: 1. Fourth, and possibly 6th, posterolateral right rib fractures
== END | disposition home or self-care (01) ==
LOC: RADXRYALE 14:17
PROVIDERS: ATTEND Physician Assistant Medical
DX: S22.41XA Multiple fractures of ribs, right side, initial encounter for closed fracture (principal); R07.89 Other chest pain; M54.6 Pain in thoracic spine; W01.0XXA Fall on same level from slipping, tripping and stumbling without subsequent striking against object, initial encounter
CPT/HCPCS: 72072

== ENCOUNTER → 2022-07-05 | Outpatient (CLI) | payer MEDICARE ==
[2022-07-05 14:37] VITALS: BP 107/57; PULSE 74; RESP 74; TEMP 98.1
--- NOTE | 2022-07-05 15:08 | P.PAINPG ---
PQRS Measure Charge Sheet Comment: A 71 yr old female with a history of severe and chronic neck pain secondary to cervical DDD and spondylosis with facet arthropathy without myelopathy presents today for evaluation s/p R facet block of the medial branches C5-C6, C6-C7 #2. Pt states she experienced 95% pain relief x 1 day s/p procedure. Pain level is provoked at 6 /10 in intensity, constant, localized in the R cervical spine, sharp in character w shooting towards the R shoulder and RUE. Pain is provoked by lifting, rotation. Pain is alleviated with PT in 2020, home exercises, heat, ice, medications (Tyl ES), use of a cane for ambulation, repositioning and rest. Interventional pain procedures completed include R MBB C5-C7 x1 Patient is currently on Tylenol ES Patient denies any side effects of the medication(s), denies excessive drowsiness or sleepiness, denies suicidal ideation and reports that the current pain medication is helping to control the pain and improve activities of daily living. Patient denies any motor or sensory deficits. Patient denies any fever or night sweats, denies any change in the bowel movements or urination. Physical Examination: -Constitutional: Cooperative. Not in acute distress . - Neurologic: Cranial nerve II to XII intact. No focal neurological deficits. - Psychatric: Alert & oriented x 3. Matching mood & appropriate affect. Judgment and insight intact. - Musculoskeletal: Cervical spine: Muscle bulk/ tone/ strength in the bilateral upper extremities normal Vertebral body tenderness to palpation over Spurling test positive Distraction test positive Facet loading test positive TTP over R C5-C6, C6-C7 facets Thoracic spine Muscle bulk / tone/ strength in the bilateral paraspinal muscles normal Vertebral body tender to palpation over Facet loading test positive Lumbar spine: Motor bulk/ tone/ strength lower extremities , thigh and legs : 5/5 Deep tendon reflexes : Normal Knee Jerk. Normal Ankle Jerk . Vertebral body tenderness to palpation over Lumbar Facet Loading Test positive Straight Leg Raise: positive at 30 degrees right side/ left side Gaenslen's Test positive Sacral spine : Severe tenderness over the Sacroiliac joint: right side / left side Range of motion: Flexion of the lumbar spine <60 degrees Range of motion: Extension of the lumbar spine <20 degrees Gaenslen's Test positive Nikunj test: positive right side / left side Thigh Thrust Test Sacral Thrust Test Assessment and plan: Chronic neck pain secondary to cervical DDD, spondylosis with facet arthropathy without myelopathy Recommendation of R RFA C5-C6, C6-C7. Pt exhibited sufficient and substantial pain relief w prior procedures. Risks, benefits of procedure discussed and pt verbalized understanding. Admits anticoagulant use or medical history of diabetes. Protocol for discontinuation/ continuation of medications kimberly procedure discussed. All patient questions answered I have spent less than 30 minutes on patient care today. Dr Santiago was available by phone for the evaluation of this patient. The time was used to review the medical records including relevant urine studies and Prescription h istory (MAPs), review of the available imaging, evaluation and examination of the patient, coordination of care with the medical staff and if applicable referring physicians, as well as creation of the medical record PQRS Narrative: Smoking Status Former smoker Hx Alcohol Use (MH) No Home Medications: Ambulatory Orders Albuterol Sulfate [Proair Hfa] 1 - 2 puff INHALATION Q6HR PRN 02/15/17 Aspirin [Adult Low Dose Aspirin EC] 81 mg PO DAILY 02/15/17 Biotin [Biotin Disolve] 5,000 mcg PO DAILY 02/15/17 Calcium Carbonate/Vitamin D3 [Calcium 600-Vit D3 5 Mcg (200 Iu)] 2 each PO DAILY 02/15/17 Folic Acid 1 mg PO DAILY 02/15/17 Glucosam/Tc-Msm1/C/Chavez/Bosw [Glucosamine-Chondroitin Tablet] 1 each PO DAILY 02/15/17 Kelp 600 mcg PO DAILY 02/15/17 Levothyroxine Sodium 150 mcg PO MOTUWETHFRSA 02/15/17 Sinus Congestion Med 2 tab PO BID 02/15/17 Vitamin B Complex With C 1 tab PO DAILY 02/15/17 hydroCHLOROthiazide 25 mg PO DAILY 02/15/17 Metoprolol Tartrate [Lopressor] 25 mg PO BID #180 tablet 02/22/17 Ascorbic Acid [Vitamin C] 1,000 mg PO DAILY 06/17/20 Atorvastatin Calcium [Lipitor] 80 mg PO DAILY 06/17/20 Bumetanide [BUMEX] 2 mg PO BID 06/17/20 Cholecalciferol [Vitamin D3 (25 Mcg = 1000 Iu)] 5,000 unit PO DAILY 06/17/20 Multivitamins, Thera [Multivitamin (formulary)] 1 tab PO DAILY 06/17/20 Potassium Chloride [Klor-Con 10] 10 meq PO QAM 06/17/20 Ferrous Sulfate [Feosol] 325 mg PO DAILY 07/13/20 Acetaminophen [Tylenol Extra Strength] 1,000 mg PO BID 09/17/20 Gabapentin [Neurontin] 100 mg PO BID 11/11/20 Ranolazine [Ranexa] 500 mg PO BID 11/11/20 Isosorbide Mononitrate ER [Imdur] 30 mg PO DAILY 06/16/21 Fexofenadine HCl 180 mg PO DAILY 07/21/21 Fluticasone Nasal [place] [Flonase Nasal [place]] 2 spray EA NOSTRIL DAILY 01/12/22 amLODIPine [Norvasc] 5 mg PO DAILY 01/12/22 hydrALAZINE HCL [Apresoline] 25 mg PO BID 01/12/22 Controlled Substance Measures - Controlled Substance Measures Is patient prescribed a controlled substance at discharge?: No
== END ==
LOC: PNWHC3 10:20
PROVIDERS: ATTEND Specialist
DX: M47.812 Spondylosis without myelopathy or radiculopathy, cervical region (principal); G89.29 Other chronic pain; M50.30 Other cervical disc degeneration, unspecified cervical region; Z79.82 Long term (current) use of aspirin; Z87.891 Personal history of nicotine dependence; Z91.048 Other nonmedicinal substance allergy status; Z88.1 Allergy status to other antibiotic agents; Z88.5 Allergy status to narcotic agent; Z91.040 Latex allergy status; Z88.6 Allergy status to analgesic agent
CPT/HCPCS: 99211

== ENCOUNTER 2022-09-01 12:35 | Day surgery (SDC) | payer MEDICARE ==
[2022-08-15 11:06] VITALS: BMI 29.9
[2022-09-01 13:11] VITALS: TEMP 97.8
[2022-09-01] MEDS ORDERED: DEXAMETHASONE SOD PHOSPHATE 10 MG/ML 1 ML VIAL ONE (13:27)
[2022-09-01] MEDS ORDERED: MIDAZOLAM 2 MG/2 ML VIAL ONE (13:27)
[2022-09-01] MEDS ORDERED: ROPIVACAINE 5 MG/ML 20 ML AMPULE ONE (13:27)
[2022-09-01] MEDS ORDERED: fentaNYL (PF) 50 MCG/ML 2 ML AMP ONE (13:27)
--- NOTE | 2022-09-01 14:00 | P.PCN ---
Date of Procedure: 09/01/22 Surgeon: Nikki Brooks Pathology: none sent Condition: stable Disposition: PACU Description of Procedure: PREOPERATIVE DIAGNOSIS: Cervical spondylosis with Facet Arthropathy without myelopathy. POSTOPERATIVE DIAGNOSIS: Cervical spondylosis with Facet Arthropathy without myelopathy. PROCEDURES: Right Radiofrequency thermocoagulation, C5, C6, and C7 medial branch with Fluroscopy [place] ANESTHESIA: Local with 1% lidocaine; IV sedation with fentanyl and Versed by the anesthesia Department. EBL: Minimal PROCEDURE INDICATION: The patient with neck pain secondary to cervical arthropathy who had more than 50% relief of her pain with previous diagnostic cervical medial branch block. Of note the patient has bruising on the right shoulder from previous fall a few days ago. PROCEDURE DESCRIPTION / TECHNIQUE: The patient was seen and identified in the preoperative area. Risks, benefits, complications, and alternatives were discussed with the patient, the patient agreed to proceed with the procedure and signed the consent. IV was started. Vital signs remained stable throughout the procedure. Patient was taken to the OR and time out was completed. The patient was placed in the prone position on the procedure table. A pillow was placed under the patients chest to increase the cervical interlaminar space. The cervical area was prepped and draped in the usual sterile fashion. Critical pause was taken. Vital signs were closely monitored during the procedure. Conscious sedation was used during the procedure to decrease patients anxiety. Using cross-table lateral fluoroscopy, the center of the trapezoid-shaped cervical pillars of C5,C6, and the superior articular process of C7were identified, marked, and localized with 1% lidocaine. Subsequently, a 20 -yv radiofrequency cannula with a 10-mm active tip was advanced guided by fluoroscopy to the target points mentioned above. . Each site then underwent motor testing at 2 Hz and 0 to 3 volt with local stimulation, but no radicular symptoms down the arm. I then injected 1 ml of lidocaine 1% in each needle. Thereafter C5,C6,O5mptfd underwent radiofrequency thermocoagulation at 80 degrees celsius for 90 seconds . After thermocoagulation was done, 1 ml of the block solution containing Dexamethasone 10 mg and 2 mL of preservative-free ropivacaine was injected at the C5,C6,C7 levels after negative aspiration of CSF and blood and with no paresthesias. Cannulas were retracted. Skin was cleansed and bandages were applied. COMPLICATIONS: No acute complications. COMMENTS: A copy of needle placement was saved to the C-arm machine at the radiology department. DISPOSITION / PLANS: The patient was placed in a supine position and transferred to the recovery area in a stable condition for observati
[2022-09-01] MEDS ORDERED: IV FLUID CONTINUATION 650 ML IV ONE (14:08)
--- NOTE | 2022-09-01 14:10 | FL ---
Intraoperative/procedural fluoroscopic services were provided for radiofrequency FB cervical. Total f luoroscopy time is 25 seconds with a total of 3 submitted images to PACS. Total DAP 0.04887. Please s ee the operative note for further details.
[2022-09-01 15:01] VITALS: BP 116/76; PULSE 76; RESP 20
== END 2022-09-01 14:55 | disposition home or self-care (01) ==
LOC: ORPAIN 12:35
PROVIDERS: ATTEND Anesthesiology
DX: M47.812 Spondylosis without myelopathy or radiculopathy, cervical region (principal); I10 Essential (primary) hypertension; E78.5 Hyperlipidemia, unspecified; J44.9 Chronic obstructive pulmonary disease, unspecified; E03.9 Hypothyroidism, unspecified; Z88.5 Allergy status to narcotic agent; Z91.040 Latex allergy status; Z88.6 Allergy status to analgesic agent; Z87.891 Personal history of nicotine dependence; Z79.890 Hormone replacement therapy; Z79.84 Long term (current) use of oral hypoglycemic drugs; Z79.899 Other long term (current) drug therapy
CPT/HCPCS: 64633; 64634

== ENCOUNTER → 2022-09-21 | Outpatient (CLI) | payer MEDICARE ==
[2022-09-21 10:51] VITALS: BP 102/69; PULSE 71; RESP 18; TEMP 98.1
--- NOTE | 2022-09-21 10:53 | P.PN ---
Subjective Progress Note Date: 09/21/22 A 71 yr old female with a history of severe and chronic neck and low back pain secondary to cervical lumbar degenerative disc diseases and lumbar spondylosis with facet arthropathy presents today for evaluation s/p RFA Right C5-6 C6-7. Pt states she experienced 95% pain relief s/p procedure. SHE is complaining of neck pain on the top of the cervical spine and also she is complaining of some numbness and tingling sensation in the upper extremity mostly on the right upper extremity. Pain is provoked by rotation, hyperextension and lifting. Pain is alleviated with mediations (Tylenol ES), heat, injections, PT one year ago, use of a cane for ambulation, sitting, repositioning and rest. Interventional pain procedures completed include BL RFA L3-L5, CESIs C7-T1 x 2 RFA right C56, C67 Patient is currently on Tylenol ES Patient denies any side effects of the medication(s), denies excessive drowsiness or sleepiness, denies suicidal ideation and reports that the current pain medication is helping to control the pain and improve activities of daily living. Patient denies any motor or sensory deficits. Patient denies any fever or night sweats, denies any change in the bowel movements or urination. Physical Examination: -Constitutional: Cooperative. Not in acute distress . - Neurologic: Cranial nerve II to XII intact. No focal neurological deficits. - Psychatric: Alert & oriented x 3. Matching mood & appropriate affect. Judgment and insight intact. - Musculoskeletal: Cervical spine: Muscle bulk/ tone/ strength in the bilateral upper extremities normal Vertebral body tenderness to palpation over Spurling test positive Distraction test positive Facet loading test positive over R C5-C6, C6-C7 w jump reflex upon palpation Thoracic spine Muscle bulk / tone/ strength in the bilateral paraspinal muscles normal Vertebral body tender to palpation over Facet loading test positive Lumbar spine: Motor bulk/ tone/ strength lower extremities , thigh and legs : 5/5 Deep tendon reflexes : Normal Knee Jerk. Normal Ankle Jerk . Vertebral body tenderness to palpation over Lumbar Facet Loading Test positive Straight Leg Raise: positive at 30 degrees right side/ left side Gaenslen's Test positive Sacral spine : Severe tenderness over the Sacroiliac joint: right side / left side Range of motion: Flexion of the lumbar spine <60 degrees Range of motion: Extension of the lumbar spine <20 degrees Gaenslen's Test positive Chase's Test positive Nikunj test: positive right side / left side Thigh Thrust Test Sacral Thrust Test Imaging: MRI without contrat of the cervial spine from 04/16/20 multileveled degenerative disc disease and multilevel stenosis and multilevel facet joint arthropathy Assessment and plan: Cervical radiculopathy, cervical degenerative disc disease, cervical foraminal stenosis, cervical spondylosis and cervical facet arthropathy Status post RFA medial branch cervical area on the right side Description could benefit from cervical epidural steroid injection at C6 7 levels right paramedian approach. PQRS Narrative: Smoking Status Former smoker Hx Alcohol Use (MH) No Home Medications: Ambulatory Orders Albuterol Sulfate [Proair Hfa] 1 - 2 puff INHALATION Q6HR PRN 02/15/17 Aspirin [Adult Low Dose Aspirin EC] 81 mg PO DAILY 02/15/17 Biotin [Biotin Disolve] 5,000 mcg PO DAILY 02/15/17 Calcium Carbonate/Vitamin D3 [Calcium 600-Vit D3 5 Mcg (200 Iu)] 2 each PO DAILY 02/15/17 Folic Acid 1 mg PO DAILY 02/15/17 Glucosam/Tc-Msm1/C/[place]/Bosw [Glucosamine-Chondroitin Tablet] 1 each PO DAILY 02/15/17 Kelp 600 mcg PO DAILY 02/15/17 Levothyroxine Sodium 150 mcg PO QAM 02/15/17 Sinus Congestion Med 2 tab PO DAILY PRN 02/15/17 Vitamin B Complex With C 1 tab PO DAILY 02/15/17 hydroCHLOROthiazide 25 mg PO QAM 02/15/17 Metoprolol Tartrate [Lopressor] 25 mg PO BID #180 tablet 02/22/17 Ascorbic Acid [Vitamin C] 1,000 mg PO DAILY 06/17/20 Atorvastatin Calcium [Lipitor] 80 mg PO DAILY 06/17/20 Bumetanide [BUMEX] 2 mg PO BID 06/17/20 Cholecalciferol [Vitamin D3 (25 Mcg = 1000 Iu)] 5,000 unit PO DAILY 06/17/20 Multivitamins, Thera [Multivitamin (formulary)] 1 tab PO DAILY 06/17/20 Potassium Chloride [Klor-Con 10] 10 meq PO QAM 06/17/20 Ferrous Sulfate [Feosol] 325 mg PO DAILY 07/13/20 Acetaminophen [Tylenol Extra Strength] 1,000 mg PO BID 09/17/20 Gabapentin [Neurontin] 100 mg PO BID 11/11/20 Ranolazine [Ranexa] 500 mg PO BID 11/11/20 Isosorbide Mononitrate ER [Imdur] 30 mg PO BID 06/16/21 Fexofenadine HCl 180 mg PO DAILY 07/21/21 Fluticasone Nasal [place] [Flonase Nasal [place]] 2 spray EA NOSTRIL DAILY 01/12/22 amLODIPine [Norvasc] 5 mg PO DAILY 01/12/22 hydrALAZINE HCL [Apresoline] 25 mg PO BID 01/12/22 - Controlled Substance Measures Is patient prescribed a controlled substance at discharge?: No Objective - Vital Signs Vital signs: Intake & Output 09/20/22 09/21/22 09/21/22 18:59 06:59 18:59 Weight 64.41 kg
== END ==
LOC: PNWHC3 10:19
PROVIDERS: ATTEND Specialist
DX: M50.10 Cervical disc disorder with radiculopathy, unspecified cervical region (principal); M47.22 Other spondylosis with radiculopathy, cervical region; M48.02 Spinal stenosis, cervical region; Z87.891 Personal history of nicotine dependence; Z79.82 Long term (current) use of aspirin; Z91.048 Other nonmedicinal substance allergy status; Z88.1 Allergy status to other antibiotic agents; Z88.5 Allergy status to narcotic agent; Z91.040 Latex allergy status
CPT/HCPCS: 99211

== ENCOUNTER 2022-10-17 12:03 | Day surgery (SDC) | payer MEDICARE ==
[2022-10-17] MEDS ORDERED: IOPAMIDOL M200 10 ML VIAL ONE (12:30)
[2022-10-17] MEDS ORDERED: DEXAMETHASONE SOD PHOSPHATE 10 MG/ML 1 ML VIAL ONE (12:30)
[2022-10-17] MEDS ORDERED: MIDAZOLAM 2 MG/2 ML VIAL ONE (12:30)
[2022-10-17 12:31] VITALS: RESP 16; TEMP 99
--- NOTE | 2022-10-17 12:38 | P.PCN ---
Date of Procedure: 10/17/22 Operative Findings: PROCEDURE 1. Cervical epidural steroid injection under fluoroscopic guidance, C7-T1 2. Cervical epidurogram. PREOPERATIVE DIAGNOSIS: Cervical radiculopathy POSTOPERATIVE DIAGNOSIS: Cervical radiculopathy Imaging: Fluoroscopy was used, images where saved to the medical record ANESTHESIA: Medication Administered by: Nurse Sedation Type: Moderate sedation Sedation Supervision start time: 123 Sedation Supervision end time: 1237 PROCEDURE DESCRIPTION / TECHNIQUE: The patient was seen and identified in the preoperative area. Risks, benefits, and alternatives were discused with the patient and the patient has consented to the procedure. Risks of the procedure include potential for bleeding, infection, nerve damage, and incomplete pain relief were discussed with the patient. All questions were answered for the patient. Romero's exam is negative Patient was taken to the OR and time out was completed. The patient was placed in the prone position on the procedure table. A pillow was placed under the patients chest to increase the cervical interlaminar space. The cervical area was prepped and draped in the usual sterile fashion. Vital signs were closely monitored during the procedure. Using anterior-posterior fluoroscopy, the C7-T1 interlaminar space was identified and the skin over this site was marked and then infiltrated with 1% lidocaine subcutaneously. Subsequently, a 20-gauge 3-1/2-inch Tuohy epidural needle was inserted and advanced toward the epidural space by means of the [id number] technique and guided by AP and lateral fluoroscopy. The correct needle position in the epidural space was verified with the injection of 1 mL of the water soluble contrast dye Isovue-180 and observing an excellent epidurogram with the epidural spread of the dye, after negative aspiration for blood and CSF and in the absence of paresthesias. Again after negative aspiration, a mixture containing 10 mg Dexamethasone and 2 ml of preservative-free normal saline injected and a washout of epidurogram was seen. Needle was withdrawn intact, skin was cleansed, and bandages were applied. Complications: none. Disposition: patient was placed in supine position and transferred to the recovery room area in stable condition and there was no evidence of upper or lower extremity motor or sensory deficit after the procedure patient was discharged from recovery room after discharge criteria met and home discharge instructions was given by the staff and patient will follow with the pain as directed.
[2022-10-17] MEDS ORDERED: IV FLUID CONTINUATION 1,000 ML IV ONE (12:43)
--- NOTE | 2022-10-17 12:56 | FL ---
Intraoperative/procedural fluoroscopic services were provided. Total fluoroscopy time is 5 seconds wi th a total of 2 submitted images to PACS. Please see the operative/procedural note for further detail s. DAP: [phone]
[2022-10-17 13:00] VITALS: BP 105/63; PULSE 70
== END 2022-10-17 13:15 | disposition home or self-care (01) ==
LOC: ORPAIN 12:03
PROVIDERS: ATTEND Hospitalist
DX: M54.12 Radiculopathy, cervical region (principal); Z88.5 Allergy status to narcotic agent; Z91.048 Other nonmedicinal substance allergy status; Z91.040 Latex allergy status; Z88.8 Allergy status to other drugs, medicaments and biological substances
CPT/HCPCS: 62321; J2250; J1100; Q9966

== ENCOUNTER → 2023-01-01 | Outpatient (CLI) | payer MEDICARE ==
[2023-01-01 14:31] VITALS: BP 120/72; PULSE 97; RESP 16
--- NOTE | 2023-01-01 14:42 | P.PAINPG ---
PQRS Measure Charge Sheet Comment: A 71 yr old female with a history of severe and chronic neck and low back pain secondary to cervical lumbar degenerative disc diseases and lumbar spondylosis with facet arthropathy presents today for evaluation s/p OSMAR C7-T1. Pt states she experienced 80% pain relief x 6 wks s/p procedure. She is complaining of neck pain on the top of the cervical spine , 9/10 in intensity, constant, sharp w numbness and tingling sensation in the upper extremity mostly the RUE. Pain is provoked by rotation, hyperextension and lifting. Pain is alleviated with mediations (Tylenol ES), heat, injections, PT one year ago, physician guided exercises and stretches 2-3 times weekly since 2021, use of a cane for ambulation, sitting, repositioning and rest. Oswestry axial pain score of 18. Interventional pain procedures completed include BL RFA L3-L5, CESIs C7-T1 x 2, R RFA C4-C6 Patient is currently on Tylenol ES Patient denies any side effects of the medication(s), denies excessive drowsiness or sleepiness, denies suicidal ideation and reports that the current pain medication is helping to control the pain and improve activities of daily living. Patient denies any motor or sensory deficits. Patient denies any fever or night sweats, denies any change in the bowel movements or urination. Physical Examination: -Constitutional: Cooperative. Not in acute distress . - Neurologic: Cranial nerve II to XII intact. No focal neurological deficits. - Psychatric: Alert & oriented x 3. Matching mood & appropriate affect. Judgment and insight intact. - Musculoskeletal: Cervical spine: Muscle bulk/ tone/ strength in the bilateral upper extremities normal Vertebral body tenderness to palpation over C7 Spurling test positive Distraction test positive Facet loading test positive Thoracic spine Muscle bulk / tone/ strength in the bilateral paraspinal muscles normal Vertebral body tender to palpation over Facet loading test positive Lumbar spine: Motor bulk/ tone/ strength lower extremities , thigh and legs : 5/5 Deep tendon reflexes : Normal Knee Jerk. Normal Ankle Jerk . Vertebral body tenderness to palpation over Lumbar Facet Loading Test positive Straight Leg Raise: positive at 30 degrees right side/ left side Gaenslen's Test positive Sacral spine : Severe tenderness over the Sacroiliac joint: right side / left side Range of motion: Flexion of the lumbar spine <60 degrees Range of motion: Extension of the lumbar spine <20 degrees Gaenslen's Test positive Chase's Test positive Nikunj test: positive right side / left side Thigh Thrust Test Sacral Thrust Test Imaging: MRI without contrast of the cervical spine from 04/16/20 multileveled degenerative disc disease and multilevel stenosis and multilevel facet joint arthropathy Assessment and plan: Cervical radiculopathy, cervical DDD, cervical foraminal stenosis, cervical spondylosis and cervical facet arthropathy Recommendation of OSMAR C7-T1 levels R paramedian approach. Risks, benefits of procedure discussed and pt verbalized understanding. Protocol for discontinuation/ continuation of medications kimberly procedure discussed. All questions answered. PQRS Narrative: Smoking Status Former smoker Hx Alcohol Use (MH) No Home Medications: Ambulatory Orders Albuterol Sulfate [Proair Hfa] 1 - 2 puff INHALATION Q6HR PRN 02/15/17 Aspirin [Adult Low Dose Aspirin EC] 81 mg PO QAM 02/15/17 Biotin [Biotin Disolve] 5,000 mcg PO QAM 02/15/17 Folic Acid 1 mg PO QAM 02/15/17 Glucosam/Tc-Msm1/C/Chavez/Bosw [Glucosamine-Chondroitin Tablet] 1 each PO QAM 02/15/17 Kelp 600 mcg PO QAM 02/15/17 Levothyroxine Sodium 150 mcg PO MOTUWETHFRSA 02/15/17 Sinus Congestion Med 2 tab PO BID 02/15/17 Vitamin B Complex With C 1 tab PO QAM 02/15/17 hydroCHLOROthiazide 25 mg PO QAM 02/15/17 Metoprolol Tartrate [Lopressor] 25 mg PO BID #180 tablet 02/22/17 Ascorbic Acid [Vitamin C] 1,000 mg PO QAM 06/17/20 Atorvastatin Calcium [Lipitor] 80 mg PO QAM 06/17/20 Bumetanide [BUMEX] 2 mg PO BID 06/17/20 Cholecalciferol [Vitamin D3 (25 Mcg = 1000 Iu)] 5,000 unit PO QAM 06/17/20 Multivitamins, Thera [Multivitamin (formulary)] 1 tab PO QAM 06/17/20 Ferrous Sulfate [Feosol] 325 mg PO QAM 07/13/20 Acetaminophen [Tylenol Extra Strength] 1,000 mg PO BID PRN 09/17/20 Gabapentin [Neurontin] 100 mg PO BID 11/11/20 Ranolazine [Ranexa] 500 mg PO BID 11/11/20 Isosorbide Mononitrate ER [Imdur] 30 mg PO QAM 06/16/21 Fexofenadine HCl 180 mg PO QAM 07/21/21 Fluticasone Nasal Gilman [Flonase Nasal Gilman] 2 spray EA NOSTRIL QAM 01/12/22 amLODIPine [Norvasc] 5 mg PO QAM 01/12/22 hydrALAZINE HCL [Apresoline] 25 mg PO BID 01/12/22 Calcium Carbonate/Vitamin D3 [Calcium 600 mg-D3 10 Mcg (400 Iu)] 1 tab PO QAM 10/13/22 Controlled Substance Measures - Controlled Substance Measures Is patient prescribed a controlled substance at discharge?: No
== END ==
LOC: PNWHC3 13:51
PROVIDERS: ATTEND Specialist
DX: M50.323 Other cervical disc degeneration at C6-C7 level (principal); M48.02 Spinal stenosis, cervical region; M47.12 Other spondylosis with myelopathy, cervical region; M47.22 Other spondylosis with radiculopathy, cervical region; G89.29 Other chronic pain; Z87.891 Personal history of nicotine dependence; Z91.048 Other nonmedicinal substance allergy status; Z88.5 Allergy status to narcotic agent; Z91.040 Latex allergy status; Z88.6 Allergy status to analgesic agent; Z79.82 Long term (current) use of aspirin
CPT/HCPCS: 99211

== ENCOUNTER → 2023-01-16 | Day surgery (SDC) | payer MEDICARE ==
[~2023-01-16] MED LIST changes: +DEXAMETHASONE SOD PHOSPHATE 10 MG/ML 1 ML VIAL ONE; +IOPAMIDOL M200 10 ML VIAL ONE
[2023-01-16 12:29] VITALS: RESP 16; TEMP 98
--- NOTE | 2023-01-16 12:50 | P.PCN ---
Date of Procedure: 01/16/23 Procedure(s) Performed: . PROCEDURE 1. Cervical epidural steroid injection under fluoroscopic guidance, C7-T1 (fluoroscopy images available in the radiology department ) 2. Cervical epidurogram. PREOPERATIVE DIAGNOSIS: 1- Cervical Degenerative Disc Diseases 2- Cervical radiculopathy., 3-cervical spondylosis with cervical Facet arthropathy without myelopathy.4-cervical spinal stenosis POSTOPERATIVE DIAGNOSIS: : 1- Cervical Degenerative Disc Diseases , 2- Cervical radiculopathy. 3-,cervical spondylosis with cervical Facet arthropathy without myelopathy. 4-cervical spinal stenosis ANESTHESIA: Local anesthesia with lidocaine 1% 3 ml only EBL 0 PROCEDURE INDICATION: The patient with neck pain and radiculitis unresponsive to conservative treatment consents for procedure. PROCEDURE DESCRIPTION / TECHNIQUE: The patient was seen and identified in the preoperative area. Risks, benefits, complications, including but not limited to infections ,bleeding , allergic reactions to the medications ,and not complete pain releife, and alternatives were discussed with the patient, the patient agreed to proceed with the procedure and signed the consent. Patient was taken to the OR and time out was completed. The patient was placed in the prone position on the procedure table. A pillow was placed under the patients chest to increase the cervical interlaminar space. The cervical area was prepped and draped in the usual sterile fashion. Vital signs were closely monitored during the procedure. Using anterior-posterior fluoroscopy, the C7-T1 interlaminar space was identified and the skin over this site was marked and then infiltrated with 1% lidocaine subcutaneously. Subsequently, a 20-gauge 3-1/2-inch Tuohy epidural needle was inserted and advanced toward the epidural space by means of the ``hanging-drop technique and guided by AP and lateral fluoroscopy. The correct needle position in the epidural space was verified with the injection of 2 mL of the water soluble contrast dye Isovue-200 and observing an excellent epidurogram with the epidural spread of the dye, after negative aspiration for blood and CSF and in the absence of paresthesias. then, mixture containing 15 mg Dexamethasone and 2 ml of preservative-free normal saline injected and a washout of epidurogram was seen. Needle was withdrawn intact, skin was cleansed, and bandages were applied. Complications= none. Disposition= patient was placed in supine position and transferred to the recovery room area in stable condition and there was no evidence of upper or lower extremity motor or sensory deficit after the procedure patient was discharged from recovery room after discharge criteria met and home discharge instructions was given by the staff and patient will follow with the pain clinic in 2-4 weeks
[2023-01-16 13:04] VITALS: BP 128/82; PULSE 94
--- NOTE | 2023-01-16 17:54 | FL ---
Intraoperative/procedural fluoroscopic services were provided. Total fluoroscopy time is 5.9 seconds with a total of 1 submitted images to PACS. Please see the operative/procedural note for further deta ils. DAP: [id number] mGym2
== END ==
LOC: ORPAIN 11:35
PROVIDERS: ATTEND Specialist
DX: M47.22 Other spondylosis with radiculopathy, cervical region (principal); M50.13 Cervical disc disorder with radiculopathy, cervicothoracic region; M48.03 Spinal stenosis, cervicothoracic region; Z79.82 Long term (current) use of aspirin
CPT/HCPCS: 62321; J1100; Q9966

== ENCOUNTER 2023-02-12 01:19 | Observation (INO) | payer MEDICARE ==
--- NOTE | 2023-02-12 02:01 | ED ---
Fall HPI - General Chief Complaint: Fall Stated Complaint: Fall, hip injury Time Seen by Provider: 02/12/23 01:23 Source: patient, RN notes reviewed, old records reviewed Mode of arrival: ambulatory Limitations: no limitations - History of Present Illness Initial Comments: This is a 72-year-old female to the emergency department for evaluation. Patient had a slip and fall tripped and fell on her left hip complaining of severe left hip pain and inability to ambulate currently. Patient has no other complaints aside from severe left hip pain and back pain. Patient is having difficulty walking on her left leg secondary to severe pain. 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 Place Fall Occurred: home Loss of Consciousness: none Prolonged Down Time?: no Symptoms Prior to Fall: none Location - Extremities: Left: Thigh Severity scale (1-10): 10 Quality: sharp Context: tripped/slipped Associated Symptoms: denies - Related Data Home Medications Medication Instructions Recorded Confirmed Albuterol Sulfate [Proair Hfa] 1 - 2 puff INHALATION RT-Q6H PRN 02/15/17 02/12/23 Aspirin [Adult Low Dose Aspirin EC] 81 mg PO DAILY 02/15/17 02/12/23 Biotin [Biotin Disolve] 5,000 mcg PO DAILY 02/15/17 02/12/23 Folic Acid 1 mg PO DAILY 02/15/17 02/12/23 Glucosam/Tc-Msm1/C/Chavez/Bosw 1 tab PO DAILY 02/15/17 02/12/23 [Glucosamine-Chondroitin Tablet] Kelp 1 tab PO DAILY 02/15/17 02/12/23 Levothyroxine Sodium 150 mcg PO DAILY 02/15/17 02/12/23 Vitamin B Complex With C 1 tab PO DAILY 02/15/17 02/12/23 hydroCHLOROthiazide 25 mg PO DAILY 02/15/17 02/12/23 Ascorbic Acid [Vitamin C] 1,000 mg PO DAILY 06/17/20 02/12/23 Bumetanide [BUMEX] 2 mg PO DAILY 06/17/20 02/12/23 Cholecalciferol [Vitamin D3 (25 125 mcg PO DAILY 06/17/20 02/12/23 Mcg = 1000 Iu)] Multivitamins, Thera [Multivitamin 1 tab PO DAILY 06/17/20 02/12/23 (formulary)] Ferrous Sulfate [Feosol] 325 mg PO DAILY 07/13/20 02/12/23 Acetaminophen [Tylenol Extra 1,000 mg PO BID PRN 09/17/20 02/12/23 Strength] Isosorbide Mononitrate ER [Imdur] 30 mg PO BID 06/16/21 02/12/23 Fexofenadine HCl 180 mg PO DAILY 07/21/21 02/12/23 Fluticasone Nasal [place] [Flonase 2 spr EA NOSTRIL DAILY 01/12/22 02/12/23 Nasal [place]] amLODIPine [Norvasc] 5 mg PO DAILY 01/12/22 02/12/23 hydrALAZINE HCL [Apresoline] 25 mg PO BID 01/12/22 02/12/23 Calcium Carbonate/Vitamin D3 1 cap PO DAILY 10/13/22 02/12/23 [Calcium 600 mg-D3 10 Mcg (400 Iu)] Potassium Chloride 10 meq PO DAILY 01/10/23 02/12/23 Atorvastatin [Lipitor] 80 mg PO HS 02/12/23 02/12/23 Ranolazine [Ranexa] 1,000 mg PO BID 02/12/23 02/12/23 Previous Rx's Medication Instructions Recorded Metoprolol Tartrate [Lopressor] 25 mg PO BID #180 tablet 02/22/17 Acetaminophen Tab [Tylenol] 650 mg PO Q6HR PRN tab 02/14/23 Collagenase [Santyl Ointment] 1 applic TOPICAL DAILY each 02/14/23 Gabapentin [Neurontin] 100 mg PO BID #6 cap 02/14/23 Melatonin 3 mg PO HS PRN tab 02/14/23 bisacodyL [Dulcolax] 5 mg PO DAILY PRN tab 02/14/23 polyethylene glycoL 3350 [Miralax] 17 gm PO DAILY packet 02/14/23 Allergies Allergy/AdvReac Type Severity Reaction Status Date / Time adhesive Allergy skin peels Verified 02/12/23 07:48 cephalexin [From Keflex] Allergy Rash/Hives Verified 02/12/23 07:48 latex Allergy skin peels Verified 02/12/23 07:48 codeine AdvReac Hallucinati Verified 02/12/23 07:48 ons ketorolac [From Toradol] AdvReac Hallucinati Verified 02/12/23 07:48 ons morphine AdvReac Hallucinati Verified 02/12/23 07:48 ons Review of Systems ROS Statement: Those systems with pertinent positive or pertinent negative responses have been documented in the HPI. ROS Other: All systems not noted in ROS Statement are negative. Past Medical History Past Medical History: COPD, Hyperlipidemia, Hypertension, Osteoarthritis (OA), Skin Disorder, Thyroid Disorder Additional Past Medical History / Comment(s): Lupus, Gout, rashes from Lupus when flared up. fluid retention per pt.,. FELL BEGINNING OF FEB-NO INJURY History of Any Multi-Drug Resistant Organisms: MRSA Date of last positivie culture/infection: 2022 MDRO Source:: lower extremities Past Surgical History: Hysterectomy, Joint Replacement, Orthopedic Surgery Additional Past Surgical History / Comment(s): Bilateral knee replacements, bilateral cataract surgery, right hip replacement with revision - multiple surge reid, bilateral wrist carpal tunnel surgery, pain clinic procedures. Past Anesthesia/Blood Transfusion Reactions: No Reported Reaction Additional Past Anesthesia/Blood Transfusion Reaction / Comment(s): Pt has never had a blood transfusion. Past Psychological History: No Psychological Hx Reported Smoking Status: Former smoker Past Alcohol Use History: None Reported Past Drug Use History: None Reported - Past Family History Mother Family Medical History: Hypertension General Exam General appearance: alert, in no apparent distress Head exam: Present: atraumatic, normocephalic, normal inspection Eye exam: Present: normal appearance, PERRL, EOMI. Absent: scleral icterus, conjunctival injection, periorbital swelling ENT exam: Present: normal exam, mucous membranes moist Neck exam: Present: normal inspection. Absent: tenderness, meningismus, lymp hadenopathy Respiratory exam: Present: normal lung sounds bilaterally. Absent: respiratory distress, wheezes, rales, rhonchi, stridor Cardiovascular Exam: Present: regular rate, normal rhythm, normal heart sounds. Absent: systolic murmur, diastolic murmur, rubs, gallop, clicks GI/Abdominal exam: Present: soft, normal bowel sounds. Absent: distended, tenderness, guarding, rebound, rigid Extremities exam: Present: normal inspection, full ROM, normal capillary refill. Absent: tenderness, pedal edema, joint swelling, calf tenderness Back exam: Present: normal inspection Neurological exam: Present: alert, oriented X3, CN II-XII intact Psychiatric exam: Present: normal affect, normal mood Skin exam: Present: warm, dry, intact, normal color. Absent: rash Course Vital Signs 02/12/23 02/12/23 02/12/23 01:22 03:57 06:00 Temperature 98.9 F Pulse Rate 108 H 102 H 75 Pulse Rate [ Pulse Oximetery ] Respiratory 18 16 16 Rate Blood Pressure 142/68 131/71 135/68 Blood Pressure [Left Arm] O2 Sat by Pulse 98 96 96 Oximetry 02/12/23 02/12/23 02/12/23 07:00 07:03 07:44 Temperature 98.1 F 98.2 F Pulse Rate 97 Pulse Rate [ 113 H Pulse Oximetery ] Respiratory 16 20 Rate Blood Pressure 140/90 145/70 Blood Pressure 145/79 [Left Arm] O2 Sat by Pulse 95 94 L Oximetry 02/12/23 08:15 Temperature Pulse Rate Pulse Rate [ 113 H Pulse Oximetery ] Respiratory 20 Rate Blood Pressure Blood Pressure [Left Arm] O2 Sat by Pulse Oximetry - Reevaluation(s) Reevaluation #1: 02/12/23 02:27 Medical records reviewed Reevaluation #2: 02/12/23 06:23 Patient is unable to ambulate here in the ER with severe left hip pain, This prompted computed tomography scan of the left hip Patient's pain remains uncontrolled Reevaluation #3: 02/12/23 06:23 Patient informed results questions answered Patient states she is unable to ambulate unable to be discharged Reevaluation #4: 02/12/23 02:27 Was pt. sent in by a medical professional or institution (, PA, DIVE MASTER, urgent care, hospital, or correction...) When possible be specific @ -no Did you speak to anyone other than the patient for history (EMS, parent, family, police, friend...)? What history was obtained from this source @ -no Did you review nursing and triage notes (agree or disagree)? Why? @ -agree Are old charts reviewed (outside hosp., previous admission, EMS record, old EKG, old radiological studies, urgent care reports/EKG's, correction records)? Report findings @ -yes Differential Diagnosis (chest pain, altered mental status, abdominal pain women, abdominal pain men, vaginal bleeding, weakness, fever, dyspnea, syncope, headache, dizziness, GI bleed, back pain, seizure, CVA, palpatations, mental health, musculoskeletal)? @ -prior EKG interpreted by me (3pts min.). @ -yes X-rays interpreted by me (1pt min.). @ -yes CT interpreted by me (1pt min.). @ -yes U/S interpreted by me (1pt. min.). @ -no What testing was considered but not performed or refused? (CT, X-rays, U/S, labs)? Why? @ -none What meds were considered but not given or refused? Why? @ -none Did you discuss the management of the patient with other professionals (professionals i.e. DrAlysia, PA, DIVE MASTER, lab, RT, psych nurse, vp digital marketing social media and crm, actuarial clerk, teacher, recreation officer, case monitor)? Give summary @ -no Was smoking cessation discussed for >3mins.? @ -no Was critical care preformed (if so, how long)? @ -no Were there social determinants of health that impacted care today? How? (Homelessness, low income, unemployed, alcoholism, drug addiction, transport ation, low edu. Level, literacy, decrease access to med. care, fdc, rehab)? @ -none Was there de-escalation of care discussed even if they declined (Discuss DNR or withdrawal of care, Hospice)? DNR status @ -no What co-morbidities impacted this encounter? (DM, HTN, Smoking, COPD, CAD, Cancer, CVA, ARF, Chemo, Hep., AIDS, mental health diagnosis, sleep apnea, morbid obesity)? @ -none Was patient admitted / discharged? Hospital course, mention meds given and route, prescriptions, significant lab abnormalities, going to OR and other pertinent info. @ - 72 female to the emergency department status post fall fall with left hip injury left hip pain. Left hip contusion and hematoma. Patient be admitted for debility and pain control Admitted Undiagnosed new problem with uncertain prognosis? @ -no Drug Therapy requiring intensive monitoring for toxicity (Heparin, Nitro, Insulin, Cardizem)? @ -no Were any procedures done? @ -no Diagnosis/symptom? @ -Fall, left hip injury, left hip pain and contusion debility Acute, or Chronic, or Acute on Chronic? @ -Acute Uncomplicated (without systemic symptoms) or Complicated (systemic symptoms)? @ -Complicated Side effects of treatment? @ -no Exacerbation, Progression, or Severe Exacerbation? @ -exacerbation Poses a threat to life or bodily function? How? (Chest pain, [place], ME, pneumonia, PE, COPD, DKA, ARF, appy, cholecystitis, CVA, Diverticulitis, Homicidal, Suicidal, threat to staff... and all critical care pts) @ -yes fall with debility - Consultations Consultation #1: Spoke with tyler who agrees to admit this patient Medical Decision Making - Medical Decision Making 72 female to the emergency department status post fall fall with left hip injury left hip pain. Left hip contusion and hematoma. Patient be admitted for debility and pain control - Lab Data Result diagrams: 02/14/23 05:46 02/14/23 05:46 Lab Results 02/12/23 02/12/23 02/12/23 Range/Units 05:20 05:20 05:20 WBC 10.7 H (3.8-10.6) k/uL RBC 3.16 L (3.80-5.40) m/uL Hgb 9.9 L (11.4-16.0) gm/dL Hct 29.8 L (34.0-46.0) % MCV 94.4 (80.0-100.0) fL MCH 31.4 (25.0-35.0) pg MCHC 33.3 (31.0-37.0) g/dL RDW 14.0 (11.5-15.5) % Plt Count 721 H (150-450) k/uL MPV 7.4 Neutrophils % 77 % Lymphocytes % 13 % Monocytes % 6 % Eosinophils % 1 % Basophils % 0 % Neutrophils # 8.3 H (1.3-7.7) k/uL Lymphocytes # 1.4 (1.0-4.8) k/uL Monocytes # 0.7 (0-1.0) k/uL Eosinophils # 0.1 (0-0.7) k/uL Basophils # 0.0 (0-0.2) k/uL PT 10.3 (9.0-12.0) sec INR 1.0 (<1.2) APTT 24.3 (22.0-30.0) sec Sodium 131 L (137-145) mmol/L Potassium 4.1 (3.5-5.1) mmol/L Chloride 101 (98-107) mmol/L Carbon Dioxide 24 (22-30) mmol/L Anion Gap 6 mmol/L BUN 61 H (7-17) mg/dL Creatinine 1.98 H (0.52-1.04) mg/dL Est GFR (CKD-EPI)AfAm 28 (>60 ml/min/1.73 sqM) Est GFR (CKD-EPI)NonAf 25 (>60 ml/min/1.73 sqM) Glucose 109 H (74-99) mg/dL Calcium 7.9 L (8.4-10.2) mg/dL Phosphorus 5.1 H (2.5-4.5) mg/dL Magnesium 1.8 (1.6-2.3) mg/dL Iron (50-170) UG/DL TIBC (228-460) UG/DL % Saturation (12.00-45.00) Transferrin (204.0-354.0) mg/dL Ferritin (10.0-291.0) ng/mL Total Bilirubin 0.5 (0.2-1.3) mg/dL AST 55 H (14-36) U/L ALT 31 (4-34) U/L Alkaline Phosphatase 79 (38-126) U/L Troponin I (0.000-0.034) ng/mL Total Protein 5.2 L (6.3-8.2) g/dL Albumin 2.5 L (3.5-5.0) g/dL Globulin g/dL Albumin/Globulin Ratio Urine Color Urine Appearance (Clear) Urine pH (5.0-8.0) Ur Specific [place] (1.001-1.035) Urine Protein (Negative) Urine Glucose (UA) (Negative) Urine Ketones (Negative) Urine Blood (Negative) Urine Nitrite (Negative) Urine Bilirubin (Negative) Urine Urobilinogen (<2.0) mg/dL Ur Leukocyte Esterase (Negative) Urine RBC (0-5) /hpf Urine WBC (0-5) /hpf Ur Squamous Epith Cells (0-4) /hpf Urine Bacteria (None) /hpf Hyaline Casts (0-2) /lpf Urine Mucus (None) /hpf Coronavirus (PCR) (Not Detectd) 08/28/23 08/28/23 08/28/23 Range/Units 05:20 05:30 10:30 WBC (3.8-10.6) k/uL RBC (3.80-5.40) m/uL Hgb (11.4-16.0) gm/dL Hct (34.0-46.0) % MCV (80.0-100.0) fL MCH (25.0-35.0) pg MCHC (31.0-37.0) g/dL RDW (11.5-15.5) % Plt Count (150-450) k/uL MPV Neutrophils % % Lymphocytes % % Monocytes % % Eosinophils % % Basophils % % Neutrophils # (1.3-7.7) k/uL Lymphocytes # (1.0-4.8) k/uL Monocytes # (0-1.0) k/uL Eosinophils # (0-0.7) k/uL Basophils # (0-0.2) k/uL PT (9.0-12.0) sec INR (<1.2) APTT (22.0-30.0) sec Sodium (137-145) mmol/L Potassium (3.5-5.1) mmol/L Chloride (98-107) mmol/L Carbon Dioxide (22-30) mmol/L Anion Gap mmol/L BUN (7-17) mg/dL Creatinine (0.52-1.04) mg/dL Est GFR (CKD-EPI)AfAm (>60 ml/min/1.73 sqM) Est GFR (CKD-EPI)NonAf (>60 ml/min/1.73 sqM) Glucose (74-99) mg/dL Calcium (8.4-10.2) mg/dL Phosphorus (2.5-4.5) mg/dL Magnesium (1.6-2.3) mg/dL Iron 31 L (50-170) UG/DL TIBC 181 L (228-460) UG/DL % Saturation 17.13 (12.00-45.00) Transferrin 129.0 L (204.0-354.0) mg/dL Ferritin 544.0 H (10.0-291.0) ng/mL Total Bilirubin (0.2-1.3) mg/dL AST (14-36) U/L ALT (4-34) U/L Alkaline Phosphatase (38-126) U/L Troponin I 0.026 (0.000-0.034) ng/mL Total Protein (6.3-8.2) g/dL Albumin (3.5-5.0) g/dL Globulin g/dL Albumin/Globulin Ratio Urine Color Urine Appearance (Clear) Urine pH (5.0-8.0) Ur Specific [place] (1.001-1.035) Urine Protein (Negative) Urine Glucose (UA) (Negative) Urine Ketones (Negative) Urine Blood (Negative) Urine Nitrite (Negative) Urine Bilirubin (Negative) Urine Urobilinogen (<2.0) mg/dL Ur Leukocyte Esterase (Negative) Urine RBC (0-5) /hpf Urine WBC (0-5) /hpf Ur Squamous Epith Cells (0-4) /hpf Urine Bacteria (None) /hpf Hyaline Casts (0-2) /lpf Urine Mucus (None) /hpf Coronavirus (PCR) Not Detected (Not Detectd) 02/12/23 02/13/23 02/13/23 Range/Units 16:31 05:36 05:36 WBC 7.9 (3.8-10.6) k/uL RBC 2.73 L (3.80-5.40) m/uL Hgb 8.5 L (11.4-16.0) gm/dL Hct 26.0 L (34.0-46.0) % MCV 95.3 (80.0-100.0) fL MCH 31.2 (25.0-35.0) pg MCHC 32.8 (31.0-37.0) g/dL RDW 14.2 (11.5-15.5) % Plt Count 591 H (150-450) k/uL MPV 7.4 Neutrophils % 74 % Lymphocytes % 14 % Monocytes % 7 % Eosinophils % 3 % Basophils % 0 % Neutrophils # 5.8 (1.3-7.7) k/uL Lymphocytes # 1.1 (1.0-4.8) k/uL Monocytes # 0.6 (0-1.0) k/uL Eosinophils # 0.2 (0-0.7) k/uL Basophils # 0.0 (0-0.2) k/uL PT (9.0-12.0) sec INR (<1.2) APTT (22.0-30.0) sec Sodium 132 L (137-145) mmol/L Potassium 3.8 (3.5-5.1) mmol/L Chloride 103 (98-107) mmol/L Carbon Dioxide 23 (22-30) mmol/L Anion Gap 6 mmol/L BUN 56 H (7-17) mg/dL Creatinine 1.70 H (0.52-1.04) mg/dL Est GFR (CKD-EPI)AfAm 34 (>60 ml/min/1.73 sqM) Est GFR (CKD-EPI)NonAf 30 (>60 ml/min/1.73 sqM) Glucose 78 (74-99) mg/dL Calcium 7.9 L (8.4-10.2) mg/dL Phosphorus 4.1 (2.5-4.5) mg/dL Magnesium 1.9 (1.6-2.3) mg/dL Iron (50-170) UG/DL TIBC (228-460) UG/DL % Saturation (12.00-45.00) Transferrin (204.0-354.0) mg/dL Ferritin (10.0-291.0) ng/mL Total Bilirubin 0.5 (0.2-1.3) mg/dL AST 39 H (14-36) U/L ALT 28 (4-34) U/L Alkaline Phosphatase 80 (38-126) U/L Troponin I (0.000-0.034) ng/mL Total Protein 4.6 L (6.3-8.2) g/dL Albumin 2.2 L (3.5-5.0) g/dL Globulin 2.4 g/dL Albumin/Globulin Ratio 0.9 Urine Color Yellow Urine Appearance Slightly Cloudy H (Clear) Urine pH 5.5 (5.0-8.0) Ur Specific [place] 1.016 (1.001-1.035) Urine Protein 2+ H (Negative) Urine Glucose (UA) Negative (Negative) Urine Ketones Negative (Negative) Urine Blood Large (Negative) Urine Nitrite Negative (Negative) Urine Bilirubin Negative (Negative) Urine Urobilinogen <2.0 (<2.0) mg/dL Ur Leukocyte Esterase Large (Negative) Urine RBC 81 H (0-5) /hpf Urine WBC 52 H (0-5) /hpf Ur Squamous Epith Cells 1 (0-4) /hpf Urine Bacteria Occasional H (None) /hpf Hyaline Casts 41 H (0-2) /lpf Urine Mucus Rare H (None) /hpf Coronavirus (PCR) (Not Detectd) - Radiology Data Radiology results: report reviewed (Chest x-ray pelvis x-ray left hip x-ray after the computed tomography scan negative for acute medical injury but do show significant developing hematoma, right thigh), image reviewed Disposition Clinical Impression: Pre-syncope, Fall, Left hip pain, Contusion of hip, left, Debility Disposition: ADMITTED IP TO THIS HOSP Condition: Fair Is patient prescribed a controlled substance at d/c from ED?: No Time of Disposition: 06:00
--- NOTE | 2023-02-12 04:17 | XR ---
EXAMINATION TYPE: XR chest 1V DATE OF EXAM: 02/12/2023 COMPARISON: 06/21/2022 HISTORY: 72 [id number] female with pain after fall TECHNIQUE: Single frontal view of the chest is obtained. FINDINGS: Heart borderline in size. Hyperinflation. Interstitial prominence. No consolidation, pneumothorax, or pleural effusion is seen. There appears to be a old healed left posterior third rib fracture deformi ty. Present on the prior study as well. IMPRESSION: Borderline heart size. Possible underlying COPD. Old healed left posterior third rib fracture deformi ty. No acute process seen.
--- NOTE | 2023-02-12 04:19 | XR ---
EXAMINATION TYPE: XR Hip 2 views LT and AP Pelvis DATE OF EXAM: 02/12/2023 Comparison: Abdominal radiograph 11/30/2015 Clinical History: 72-year-old female with pain after fall Findings: Partially visualized perforation and constrained left hip total arthroplasty. There is osteopenia. Mi ld degenerative changes left hip. No acute fracture is seen. Impression: 1. Limited by the degree of osteopenia. There is mild degenerative change at the left hip. No displac ed fractures seen. 2. Partially visualized revision and constrained right hip total arthroplasty.
[2023-02-12] MEDS ORDERED: SODIUM CHLORIDE 0.9% 1,000 ML IV STA (04:45)
[2023-02-12] MEDS ORDERED: HYDROmorphone 1 MG/ML 1 ML SYRINGE IVP STA (04:46)
--- NOTE | 2023-02-12 05:25 | CT ---
EXAMINATION TYPE: CT hip LT wo con DATE OF EXAM: 02/12/2023 COMPARISON: Radiograph same day HISTORY: 72-year-old female with fall and pain TECHNIQUE: Contiguous axial scanning of the left hip without IV contrast. Coronal and sagittal recons tructions performed. CT DLP: 796 mGycm Automated exposure control for dose reduction was used. FINDINGS: Correlate for fluid overload state given the appearance of generalized anasarca change. More extensive edema within the subcutaneous tissues along the left hip and proximal thigh. Some of t his could represent bruising in the setting of injury. Small oil cyst calcifications are noted in the left gluteal fat. Osteopenia. There is mild degenerative change at the left hip. The left SI joint and left side of the sacrum appe ars intact. No pelvic or left hip fracture is seen IMPRESSION: 1. ALLOWING FOR THE OSTEOPENIA, NO LEFT-SIDED PELVIC OR LEFT HIP FRACTURE IS SEEN. MILD LEFT HIP OA. 2. GIVEN THE APPEARANCE OF GENERALIZED ANASARCA CHANGE, CORRELATE FOR FLUID OVERLOAD STATE. 3. MORE CONFLUENT SUBCUTANEOUS EDEMA ALONG THE LEFT HIP AND VISUALIZED LEFT THIGH. IN THE SETTING OF INJURY, THERE COULD BE SOME SUPERIMPOSED SOFT TISSUE BRUISING HERE.
[2023-02-12 06:00] LABS: Basophils % (A) 0 %; Eosinophils # (A) 0.1 k/uL (0-0.7); Eosinophils % (A) 1 %; HCT 29.8 % (34.0-46.0); HGB 9.9 gm/dL (11.4-16.0); Lymphocytes # (A) 1.4 k/uL (1.0-4.8); Lymphocytes % (A) 13 %; MCH 31.4 pg (25.0-35.0); MCHC 33.3 g/dL (31.0-37.0); MCV 94.4 fL (80.0-100.0); Mean Platelet Volume 7.4; Monocytes # (A) 0.7 k/uL (0-1.0); Monocytes % (A) 6 %; Neutrophils # (A) 8.3 k/uL (1.3-7.7); Neutrophils % (A) 77 %; Platelet Count 721 k/uL (150-450); RBC 3.16 m/uL (3.80-5.40); WBC 10.7 k/uL (3.8-10.6)
[2023-02-12 06:07] LABS: Partial Thromboplastin Time 24.3 sec (22.0-30.0); Prothrombin Time 10.3 sec (9.0-12.0)
[2023-02-12 06:16] LABS: ALT 31 U/L (4-34); AST 55 U/L (14-36); African American GFR (CKD) 28 (>60 ml/min/1.73 sqM); Albumin 2.5 g/dL (3.5-5.0); Alkaline Phosphatase 79 U/L (38-126); Anion Gap 6 mmol/L; Blood Urea Nitrogen 61 mg/dL (7-17); Calcium 7.9 mg/dL (8.4-10.2); Carbon Dioxide 24 mmol/L (22-30); Chloride 101 mmol/L (98-107); Glucose 109 mg/dL (74-99); Magnesium 1.8 mg/dL (1.6-2.3); Non-African American GFR(CKD) 25 (>60 ml/min/1.73 sqM); Phosphorus 5.1 mg/dL (2.5-4.5); Potassium 4.1 mmol/L (3.5-5.1); Sodium 131 mmol/L (137-145); Total Bilirubin 0.5 mg/dL (0.2-1.3); Total Protein 5.2 g/dL (6.3-8.2)
[2023-02-12] MEDS ORDERED: NALOXONE 0.4 MG/ML 1 ML VIAL IV PRN (06:18)
[2023-02-12] MEDS ORDERED: ONDANSETRON 4 MG/2 ML VIAL IVP PRN (06:18)
[2023-02-12] MEDS ORDERED: HYDROmorphone 1 MG/ML 1 ML SYRINGE IVP PRN (06:18)
[2023-02-12] MEDS ORDERED: SODIUM CHLORIDE 0.9% 1,000 ML IV SCH (06:30)
--- NOTE | 2023-02-12 12:57 | CT ---
EXAMINATION TYPE: CT brain wo con DATE OF EXAM: 02/12/2023 COMPARISON: None HISTORY: ams CT DLP: [address] of the brain was performed. The ventricles, basal cisterns and sulci overlying the cerebral convexities demonstrate mild enlargem ent. There is no evidence for intracranial hemorrhage or sulcal effacement. There is decreased attenuation about the periventricular white matter and deep white matter of both c erebral hemispheres, compatible with chronic small vessel ischemia. Differential diagnosis does inclu de demyelination. No mass effects are seen.No midline shift. Osseous calvarium is intact. If symptoms persist consider MRI. IMPRESSION: 1. Age related atrophic and chronic small vessel ischemic change without acute intracranial process s een at this time.
[2023-02-12] MEDS ORDERED: traMADol 50 MG TAB PO PRN (13:59)
--- NOTE | 2023-02-12 14:14 | P.CNOR ---
History of Present Illness - [facility] Consult date: 02/12/23 History of present illness: The patient is a 72-year-old female who presented to the emergency department yesterday after sustaining a slip and fall. She had severe left hip pain and presented to the ER for further evaluation. X-rays of the left hip revealed no acute fracture or dislocation and a CT was performed that also confirmed no fracture. The patient was admitted for further evaluation and care due to inability to ambulate and weakness. She does have a history of bilateral knee replacements by Dr. Baez and 2 previous right hip surgeries. Review of Systems Constitutional: Denies chills, Denies fatigue, Denies fever Cardiovascular: Denies shortness of breath Respiratory: Denies cough Gastrointestinal: Denies diarrhea, Denies nausea, Denies vomiting Musculoskeletal: left: hip stiffness, hip swelling, knee pain Past Medical History Past Medical History: COPD, Hyperlipidemia, Hypertension, Osteoarthritis (OA), Skin Disorder, Thyroid Disorder Additional Past Medical History / Comment(s): Lupus, Gout, rashes from Lupus when flared up. fluid retention per pt.,. Chronic neck/back pain receiving injections History of Any Multi-Drug Resistant Organisms: MRSA Year Discovered:: 2022 MDRO Source:: lower extremities Past Surgical History: Hysterectomy, Joint Replacement, Orthopedic Surgery Additional Past Surgical History / Comment(s): Bilateral knee replacements, bilateral cataract surgery, right hip replacement with revision - multiple surgeries, bilateral wrist carpal tunnel surgery, pain clinic procedures. Past Anesthesia/Blood Transfusion Reactions: No Reported Reaction Additional Past Anesthesia/Blood Transfusion Reaction / Comm: Pt has never had a blood transfusion. Past Psychological History: No Psychological Hx Reported Smoking Status: Former smoker Past Alcohol Use History: None Reported Past Drug Use History: None Reported - Past Family History Mother Family Medical History: Hypertension Medications and Allergies Home Medications Medication Instructions Recorded Confirmed Type Albuterol Sulfate [Proair Hfa] 1 - 2 puff INHALATION RT-Q6H PRN 02/15/17 02/12/23 History Aspirin [Adult Low Dose Aspirin EC] 81 mg PO DAILY 02/15/17 02/12/23 History Biotin [Biotin Disolve] 5,000 mcg PO DAILY 02/15/17 02/12/23 History Folic Acid 1 mg PO DAILY 02/15/17 02/12/23 History Glucosam/Tc-Msm1/C/Chavez/Bosw 1 tab PO DAILY 02/15/17 02/12/23 History [Glucosamine-Chondroitin Tablet] Kelp 1 tab PO DAILY 02/15/17 02/12/23 History Levothyroxine Sodium 150 mcg PO DAILY 02/15/17 02/12/23 History Sinus Congestion Med 2 tab PO BID PRN 02/15/17 02/12/23 History Vitamin B Complex With C 1 tab PO DAILY 02/15/17 02/12/23 History hydroCHLOROthiazide 25 mg PO DAILY 02/15/17 02/12/23 History Metoprolol Tartrate [Lopressor] 25 mg PO BID #180 tablet 02/22/17 02/12/23 Rx Ascorbic Acid [Vitamin C] 1,000 mg PO DAILY 06/17/20 02/12/23 History Bumetanide [BUMEX] 2 mg PO DAILY 06/17/20 02/12/23 History Cholecalciferol [Vitamin D3 (25 125 mcg PO DAILY 06/17/20 02/12/23 History Mcg = 1000 Iu)] Multivitamins, Thera [Multivitamin 1 tab PO DAILY 06/17/20 02/12/23 History (formulary)] Ferrous Sulfate [Feosol] 325 mg PO DAILY 07/13/20 02/12/23 History Acetaminophen [Tylenol Extra 1,000 mg PO BID PRN 09/17/20 02/12/23 History Strength] Gabapentin [Neurontin] 100 mg PO BID 11/11/20 02/12/23 History Isosorbide Mononitrate ER [Imdur] 30 mg PO BID 06/16/21 02/12/23 History Fexofenadine HCl 180 mg PO DAILY 07/21/21 02/12/23 History Fluticasone Nasal [place] [Flonase 2 spr EA NOSTRIL DAILY 01/12/22 02/12/23 History Nasal [place]] amLODIPine [Norvasc] 5 mg PO DAILY 01/12/22 02/12/23 History hydrALAZINE HCL [Apresoline] 25 mg PO BID 01/12/22 02/12/23 History Calcium Carbonate/Vitamin D3 1 cap PO DAILY 10/13/22 02/12/23 History [Calcium 600 mg-D3 10 Mcg (400 Iu)] Potassium Chloride 10 meq PO DAILY 01/10/23 02/12/23 History Amoxic-Pot Clav 875-125Mg 1 tab PO BID 02/12/23 02/12/23 History [Augmentin 875-125] Atorvastatin [Lipitor] 80 mg PO HS 02/12/23 02/12/23 History Ranolazine [Ranexa] 1,000 mg PO BID 02/12/23 02/12/23 History Allergies Allergy/AdvReac Type Severity Reaction Status Date / Time adhesive Allergy skin peels Verified 02/12/23 07:48 cephalexin [From Keflex] Allergy Rash/Hives Verified 02/12/23 07:48 latex Allergy skin peels Verified 02/12/23 07:48 codeine AdvReac Hallucinati Verified 02/12/23 07:48 ons ketorolac [From Toradol] AdvReac Hallucinati Verified 02/12/23 07:48 ons morphine AdvReac Hallucinati Verified 02/12/23 07:48 ons Physical Examination The patient is a 72 year old female that is no acute distress. She is alert and oriented x3. The patient's head is normocephalic and atraumatic. Exam of the cervical spine reveals no pain upon palpation or range of motion. Exam of the bilateral upper extremities reveal no obvious deformities or pain upon range of motion. Exam of the bilateral lower extremities reveals no pain upon palpation. No pain upon palpation to the left lateral hip. There is no pain upon l ogrolling but severe pain on internal and external rotation of the left hip at 90 degrees hip flexion. Bilateral calves are soft and nontender. Bilateral lower leg cellulitis that is resolving. Patient has good foot and ankle motion bilaterally. Neurological and circulatory status is intact. Results X-ray and CT of the left hip reveal no acute fracture and osteoarthritis is present. - Labs Labs: Abnormal Lab Results - Last 24 Hours (Table) 02/12/23 02/12/23 Range/Units 05:20 05:20 WBC 10.7 H (3.8-10.6) k/uL RBC 3.16 L (3.80-5.40) m/uL Hgb 9.9 L (11.4-16.0) gm/dL Hct 29.8 L (34.0-46.0) % Plt Count 721 H (150-450) k/uL Neutrophils # 8.3 H (1.3-7.7) k/uL Sodium 131 L (137-145) mmol/L BUN 61 H (7-17) mg/dL Creatinine 1.98 H (0.52-1.04) mg/dL Glucose 109 H (74-99) mg/dL Calcium 7.9 L (8.4-10.2) mg/dL Phosphorus 5.1 H (2.5-4.5) mg/dL AST 55 H (14-36) U/L Total Protein 5.2 L (6.3-8.2) g/dL Albumin 2.5 L (3.5-5.0) g/dL H & H 02/12/23 Range/Units 05:20 Hgb 9.9 L (11.4-16.0) gm/dL Hct 29.8 L (34.0-46.0) % Coagulation 02/12/23 Range/Units 05:20 INR 1.0 (<1.2) Result Diagrams: 02/13/23 05:36 02/13/23 05:36 Assessment and Plan (1) Fall Current Visit: Yes Status: Acute Code(s): W19.XXXA - UNSPECIFIED FALL, INITIAL ENCOUNTER SNOMED Code(s): 7401766 (2) Left hip pain Current Visit: Yes Status: Acute Code(s): M25.552 - PAIN IN LEFT HIP SNOMED Code(s): 63660908 (3) Contusion of hip, left Current Visit: Yes Status: Acute Code(s): S70.02XA - CONTUSION OF LEFT HIP, INITIAL ENCOUNTER SNOMED Code(s): 16938837 Plan: The clinical and diagnostic findings were discussed with the patient and a fam jose friend at the bedside. X-rays and CT were reviewed with Dr. Cancino. No surgical intervention is needed at this time. She will continue weightbearing as tolerated with a walker. PT and OT have been ordered. Continue pain control as needed. Orthopedics will sign off at this time if pain continues or worsens we would be happy to reassess the patient.
[2023-02-12] MEDS ORDERED: ACETAMINOPHEN TAB 325 MG TAB PO PRN (15:43)
[2023-02-12] MEDS ORDERED: MORPHINE SULFATE 4 MG/ML SYRINGE IVP PRN (15:43)
[2023-02-12] MEDS ORDERED: MELATONIN 3 MG TABLET PO PRN (15:43)
[2023-02-12] MEDS ORDERED: bisacodyL 5 MG TABLET.DR PO PRN (15:43)
[2023-02-12] MEDS ORDERED: [UNRECOGNIZED DRUG - OTHER] PO PRN (15:45)
--- NOTE | 2023-02-12 15:48 | P.HPIM ---
History of Present Illness H&P Date: 02/12/23 Patient is a 72-year-old female who presented to the ER after a slip and fall complaining of left hip pain. On arrival to the ER she underwent an extensive evaluation. Her initial vital signs showed tachycardia with pulse of 108. Initial laboratory analysis was remarkable for white blood cell count of 10.7, hemoglobin 9.9, platelets 721, sodium 131, BUN 61, creatinine 1.98, calcium 7.9, phosphorus 5.1. Chest x-ray showed no acute process. Hip x-ray was limited due to the degree of osteopenia. CT of the left hip showed no left sided pelvic or hip fracture but did demonstrate extensive edema in the subcutaneous tissue along the left hip and proximal thigh. She was admitted for pain control. Patient seen and examined at bedside. She states that she was cleaning the house and tripped and fell. Now having pain in left hip which is making it very difficult to walk. Typically uses a cane at home. She has been falling more frequently. No recent illness. No chest pain, having some mild SOB after the fall. She reports that she is unsure why she is on augmentin. She keeps falling asleep during our conversation, likely due to dilaidud. Staff called Dr. Luther office requesting last notes, for reason for augmenting and they were able to tell us that Bella was recently at [facility] and left [facility] she was worried about her with dementia being at home alone for her 6 day hospita stay as they have no kids at home to help. DRecords reviewed for [facility] and she was initially admitted for cellulitis and plantar wounds on her feet. She developed a GI bleed while in the hospital. Vital signs reviewed General: nontoxic, no distress, appears at stated age Derm: warm, dry Eyes: EOMI, no lid lag, anicteric sclera, pupils equal round reactive to light ENT: Nose and ears atraumatic, no thrush, no pharyngeal erythema Cardiovascular: S1S2 reg, no murmur, positive posterior tibial pulse bilateral, no edema, capillary refill less than 2 seconds Lungs: clear to auscultation bilateral, no rhonchi, no rales, no wheeze, no accessory muscle use Abdominal: soft, nontender to palpation, no guarding, no appreciable organomegaly, normal bowel sounds Ext: no gross muscle atrophy, muscle strength 5 out of 5 in upper extremities, muslce stength 3/5 in b/l LE, no contractures Neuro: CN II-XII grossly intact, light touch intact all 4 extremities, finger to nose within normal limits, Psych: Alert, oriented, appropriate affect Assessment/Plan: Intractable left hip pain. Toxic metabolic encephalopathy -Orthopedic surgery consultation -Pain control -PT and OT -Patient's confusion may be related to Dilaudid. Continue to monitor closely. - Well check on given patients confusion and primary care office's reporting of husbands Dementia-- case discussed at length with social work. Recent hospital stay with left lower external cellulitis and GI bleed -Follow CBC -No signs of active bleeding at this time. - no signs of infection on leg, hold augmentin Anemia Thrombocytosis - for CBC - check iron studies Hyponatremia BILLY on CKD stage III -May be related to Bumex -Follow basic metabolic profile - avoid additional nephrotoxic agents Chronic: HTN HLD Lupus Hypothyroidism Imaging: As per HPI Data Review: As per HPI The patient is placed in observation with an anticipated less than 2 midnight stay for evaluation of Intractable left hip pain after fall. Surrogate decision-maker: DVT prophylaxis: SCDs Discussed with: Patient, nursing, social work Anticipated discharge date: in 24-[address]:home vs SNF This dictation was prepared using [employer] voice recognition software. Though every attempt is made to correct errors during dictation some may still exist. This dictation was prepared using [employer] voice recognition software. Though every attempt is made to correct errors during dictation some may still exist. Past Medical History Past Medical History: COPD, Hyperlipidemia, Hypertension, Osteoarthritis (OA), Skin Disorder, Thyroid Disorder Additional Past Medical History / Comment(s): Lupus, Gout, rashes from Lupus when flared up. fluid retention per pt.,. Chronic neck/back pain receiving injections History of Any Multi-Drug Resistant Organisms: MRSA Date of last positivie culture/infection: 2022 MDRO Source:: lower extremities Past Surgical History: Hysterectomy, Joint Replacement, Orthopedic Surgery Additional Past Surgical History / Comment(s): Bilateral knee replacements, bilateral cataract surgery, right hip replacement with revision - multiple surgeries, bilateral wrist carpal tunnel surgery, pain clinic procedures. Past Anesthesia/Blood Transfusion Reactions: No Reported Reaction Additional Past Anesthesia/Blood Transfusion Reaction / Comment(s): Pt has never had a blood transfusion. Past Psychological History: No Psychological Hx Reported Smoking Status: Former smoker Past Alcohol Use History: None Reported Past Drug Use History: None Reported - Past Family History Mother Family Medical History: Hypertension Medications and Allergies Home Medications Medication Instructions Recorded Confirmed Type Albuterol Sulfate [Proair Hfa] 1 - 2 puff INHALATION RT-Q6H PRN 02/15/17 02/12/23 History Aspirin [Adult Low Dose Aspirin EC] 81 mg PO DAILY 02/15/17 02/12/23 History Biotin [Biotin Disolve] 5,000 mcg PO DAILY 02/15/17 02/12/23 History Folic Acid 1 mg PO DAILY 02/15/17 02/12/23 History Glucosam/Tc-Msm1/C/Chavez/Bosw 1 tab PO DAILY 02/15/17 02/12/23 History [Glucosamine-Chondroitin Tablet] Kelp 1 tab PO DAILY 02/15/17 02/12/23 History Levothyroxine Sodium 150 mcg PO DAILY 02/15/17 02/12/23 History Sinus Congestion Med 2 tab PO BID PRN 02/15/17 02/12/23 History Vitamin B Complex With C 1 tab PO DAILY 02/15/17 02/12/23 History hydroCHLOROthiazide 25 mg PO DAILY 02/15/17 02/12/23 History Metoprolol Tartrate [Lopressor] 25 mg PO BID #180 tablet 02/22/17 02/12/23 Rx Ascorbic Acid [Vitamin C] 1,000 mg PO DAILY 06/17/20 02/12/23 History Bumetanide [BUMEX] 2 mg PO DAILY 06/17/20 02/12/23 History Cholecalciferol [Vitamin D3 (25 125 mcg PO DAILY 06/17/20 02/12/23 History Mcg = 1000 Iu)] Multivitamins, Thera [Multivitamin 1 tab PO DAILY 06/17/20 02/12/23 History (formulary)] Ferrous Sulfate [Feosol] 325 mg PO DAILY 07/13/20 02/12/23 History Acetaminophen [Tylenol Extra 1,000 mg PO BID PRN 09/17/20 02/12/23 History Strength] Gabapentin [Neurontin] 100 mg PO BID 11/11/20 02/12/23 History Isosorbide Mononitrate ER [Imdur] 30 mg PO BID 06/16/21 02/12/23 History Fexofenadine HCl 180 mg PO DAILY 07/21/21 02/12/23 History Fluticasone Nasal [place] [Flonase 2 spr EA NOSTRIL DAILY 01/12/22 02/12/23 History Nasal [place]] amLODIPine [Norvasc] 5 mg PO DAILY 01/12/22 02/12/23 History hydrALAZINE HCL [Apresoline] 25 mg PO BID 01/12/22 02/12/23 History Calcium Carbonate/Vitamin D3 1 cap PO DAILY 10/13/22 02/12/23 History [Calcium 600 mg-D3 10 Mcg (400 Iu)] Potassium Chloride 10 meq PO DAILY 01/10/23 02/12/23 History Amoxic-Pot Clav 875-125Mg 1 tab PO BID 02/12/23 02/12/23 History [Augmentin 875-125] Atorvastatin [Lipitor] 80 mg PO HS 02/12/23 02/12/23 History Ranolazine [Ranexa] 1,000 mg PO BID 02/12/23 02/12/23 History Allergies Allergy/AdvReac Type Severity Reaction Status Date / Time adhesive Allergy skin peels Verified 02/12/23 07:48 cephalexin [From Keflex] Allergy Rash/Hives Verified 02/12/23 07:48 latex Allergy skin peels Verified 02/12/23 07:48 codeine AdvReac Hallucinati Verified 02/12/23 07:48 ons ketorolac [From Toradol] AdvReac Hallucinati Verified 02/12/23 07:48 ons morphine AdvReac Hallucinati Verified 02/12/23 07:48 ons Physical Exam Osteopathic Statement: *. No significant issues noted on an osteopathic structural exam other than those noted in the History and Physical/Consult. Vitals: Vital Signs Temp Pulse Resp BP Pulse Ox 02/12/23 07:44 98.2 F 97 20 145/70 94 L 02/12/23 07:03 140/90 02/12/23 06:00 75 16 135/68 96 02/12/23 03:57 102 H 16 131/71 96 02/12/23 01:22 98.9 F 108 H 18 142/68 98 Intake and Output 02/11/23 02/12/23 02/12/23 22:59 06:59 14:59 Other: Weight 63.503 kg Results CBC & Chem 7: 02/12/23 05:20 02/12/23 05:20 Labs: Abnormal Lab Results - Last 24 Hours (Table) 02/12/23 02/12/23 Range/Units 05:20 05:20 WBC 10.7 H (3.8-10.6) k/uL RBC 3.16 L (3.80-5.40) m/uL Hgb 9.9 L (11.4-16.0) gm/dL Hct 29.8 L (34.0-46.0) % Plt Count 721 H (150-450) k/uL Neutrophils # 8.3 H (1.3-7.7) k/uL Sodium 131 L (137-145) mmol/L BUN 61 H (7-17) mg/dL Creatinine 1.98 H (0.52-1.04) mg/dL Glucose 109 H (74-99) mg/dL Calcium 7.9 L (8.4-10.2) mg/dL Phosphorus 5.1 H (2.5-4.5) mg/dL AST 55 H (14-36) U/L Total Protein 5.2 L (6.3-8.2) g/dL Albumin 2.5 L (3.5-5.0) g/dL
[2023-02-12 17:14] LABS: Appearance,Urine Slightly Cloudy (Clear); Bilirubin,Urine Negative (Negative); Blood,Urine Large (Negative); Color,Urine Yellow; Glucose,Urine (UA) Negative (Negative); Ketones,Urine Negative (Negative); PH, Urine 5.5 (5.0-8.0); Protein,Urine 2+ (Negative); Specific Gravity,Urine 1.016 (1.001-1.035)
[2023-02-12 17:15] LABS: Leukocyte Esterase,Urine Large (Negative); Nitrite,Urine Negative (Negative); Urobilinogen,Urine <2.0 mg/dL (<2.0)
[2023-02-12 17:23] LABS: Bacteria,Urine Occasional /hpf; Hyaline Casts,Urine 41 /lpf (0-2); Mucus,Urine Rare /hpf; RBC,Urine 81 /hpf (0-5); Squamous Epithelial Cell,Urine 1 /hpf (0-4); WBC,Urine 52 /hpf (0-5)
[2023-02-12] MEDS: hydrALAZINE HCL 25 MG TAB PO SCH (20:59)
[2023-02-12] MEDS: ISOSORBIDE MONONITRATE ER 30 MG TAB.ER.24H PO SCH (20:59)
[2023-02-12] MEDS: METOPROLOL TARTRATE 25 MG TAB PO SCH (20:59)
[2023-02-12] MEDS: ATORVASTATIN 80 MG TAB PO SCH (20:59)
[2023-02-12] MEDS: GABAPENTIN 100 MG CAP PO SCH (20:59)
[2023-02-13 04:27] LABS: % Iron Saturation 17.13 (12.00-45.00)
[2023-02-13] MEDS: LEVOTHYROXINE 75 MCG TAB PO SCH (05:46)
[2023-02-13 06:13] LABS: Basophils % (A) 0 %; Eosinophils # (A) 0.2 k/uL (0-0.7); Eosinophils % (A) 3 %; HGB 8.5 gm/dL (11.4-16.0); Lymphocytes # (A) 1.1 k/uL (1.0-4.8); Lymphocytes % (A) 14 %; MCH 31.2 pg (25.0-35.0); MCHC 32.8 g/dL (31.0-37.0); MCV 95.3 fL (80.0-100.0); Mean Platelet Volume 7.4; Monocytes # (A) 0.6 k/uL (0-1.0); Monocytes % (A) 7 %; Neutrophils # (A) 5.8 k/uL (1.3-7.7); Neutrophils % (A) 74 %; Platelet Count 591 k/uL (150-450); RBC 2.73 m/uL (3.80-5.40); RDW 14.2 % (11.5-15.5); WBC 7.9 k/uL (3.8-10.6)
[2023-02-13 06:24] LABS: ALT 28 U/L (4-34); AST 39 U/L (14-36); African American GFR (CKD) 34 (>60 ml/min/1.73 sqM); Albumin 2.2 g/dL (3.5-5.0); Albumin/Globulin Ratio 0.9; Alkaline Phosphatase 80 U/L (38-126); Anion Gap 6 mmol/L; Blood Urea Nitrogen 56 mg/dL (7-17); Calcium 7.9 mg/dL (8.4-10.2); Carbon Dioxide 23 mmol/L (22-30); Chloride 103 mmol/L (98-107); Globulin 2.4 g/dL; Glucose 78 mg/dL (74-99); Magnesium 1.9 mg/dL (1.6-2.3); Non-African American GFR(CKD) 30 (>60 ml/min/1.73 sqM); Phosphorus 4.1 mg/dL (2.5-4.5); Potassium 3.8 mmol/L (3.5-5.1); Sodium 132 mmol/L (137-145); Total Bilirubin 0.5 mg/dL (0.2-1.3); Total Protein 4.6 g/dL (6.3-8.2)
[2023-02-13] MEDS: FLUTICASONE 50MCG/SPRAY NASAL 16GM EA NOSTRIL SCH (08:17)
[2023-02-13] MEDS: hydroCHLOROthiazide 25 MG TAB PO SCH (08:17)
[2023-02-13] MEDS: FOLIC ACID 1 MG TAB PO SCH (08:18)
[2023-02-13] MEDS: hydrALAZINE HCL 25 MG TAB PO SCH ×2 (08:18→21:50)
[2023-02-13] MEDS: GABAPENTIN 100 MG CAP PO SCH ×2 (08:18→21:50)
[2023-02-13] MEDS: ISOSORBIDE MONONITRATE ER 30 MG TAB.ER.24H PO SCH ×2 (08:18→21:50)
[2023-02-13] MEDS: ASPIRIN 81 MG PO SCH (08:18)
[2023-02-13] MEDS: BUMETANIDE 1 MG TAB PO SCH (08:18)
[2023-02-13] MEDS: LORATADINE 10 MG TAB PO SCH (08:18)
[2023-02-13] MEDS: METOPROLOL TARTRATE 25 MG TAB PO SCH ×2 (08:18→21:50)
[2023-02-13] MEDS: FERROUS SULFATE 325 MG TAB PO SCH (08:18)
[2023-02-13] MEDS: MULTIVITAMINS, THERA 1 EACH TAB PO SCH (08:18)
[2023-02-13] MEDS: amLODIPine 5 MG TAB PO SCH (08:18)
[2023-02-13] MEDS ORDERED: ASCORBIC ACID PO SCH (09:00)
[2023-02-13] MEDS ORDERED: VITAMIN B COMPLEX PO SCH (09:00)
[2023-02-13] MEDS: polyethylene glycoL 3350 17 GM POWD.PACK PO SCH (10:28)
--- NOTE | 2023-02-13 14:54 | P.PN ---
Subjective Progress Note Date: 02/13/23 (delayed charting seen at 0915) Patient is a 72-year-old female who presented to the ER after a slip and fall complaining of left hip pain. On arrival to the ER she underwent an extensive evaluation. Her initial vital signs showed tachycardia with pulse of 108. Initial laboratory analysis was remarkable for white blood cell count of 10.7, hemoglobin 9.9, platelets 721, sodium 131, BUN 61, creatinine 1.98, calcium 7.9, phosphorus 5.1. Chest x-ray showed no acute process. Hip x-ray was limited due to the degree of osteopenia. CT of the left hip showed no left sided pelvic or hip fracture but did demonstrate extensive edema in the subcutaneous tissue along the left hip and proximal thigh. She was admitted for pain control. She was seen by orthopedic surgery who felt that her presentation was consistent with a left hip contusion and they did not recommend any further orthopedic intervention. She was seen by physical and occupational therapy who felt that she would benefit from subacute rehab. She did have a 1 g drop in hemoglobin, and on review from recent hospitalization from [facility] she had developed a GI bleed but left AMA prior to diagnostic scopes being completed. Patient seen and examined at bedside. She complains of constipation. She denies any chest pain, shortness of breath, nausea, vomiting. She states her appetite is intact. Vital signs reviewed General: nontoxic, no distress, appears at stated age Cardiovascular: S1S2 reg, no murmur, positive posterior tibial pulse bilateral, Lungs: CTA bilateral, no rhonchi, no rales , no accessory muscle use Abdominal: soft, nontender to palpation, no guarding, no appreciable orga nomegaly Ext: no gross muscle atrophy, edema left hip, b/l ankle edema, no contractures Neuro: CN II-XI grossly intact, no focal neuro deficits Psych: Alert, oriented, appropriate affect Assessment/Plan: Intractable left hip pain, due to contusion left hip Toxic metabolic encephalopathy - ortho consult reviewed: weightbearing as tolerated with walker, ortho will sign off -Speech consult for cognition -Pain control -PT and OT recs- d/w therapy and they recommend rehab Anemia, worsening Recent hospital stay with left lower external cellulitis and GI bleed Thrombocytosis -Follow CBC, decreasing HgB but no signs of GI bleed. - repeat CBC in AM - Iron studies reviewed and does not appear to have iron deficiency - no signs of infection on leg, hold augmentin Constipation - miralax 17 g daily and dulcolax 5 mg as needed for constipation. Hyponatremia , due to fluid overload state BILLY on CKD stage III -continue bumex 2 mg daily -Follow basic metabolic profile - avoid additional nephrotoxic agents Chronic: HTN HLD Lupus Hypothyroidism Transition patient to inpatient status due to continued renal dysfunction and anemia without clear source of bleeding requiring further monitoring to ensure that patient does not have a deleterious outcome. Imaging: None new Data Review: Labs reviewed and remarkable for hemoglobin 8.5 (down from 9.9), platelet count 591, sodium 132, BUN 56, creatinine 1.7 Vitals reviewed patient afebrile for the last 24 hours. Heart rate 102, respirations 16, blood pressure 134/68, O2 sat 94% on room air DVT prophylaxis: SCDs Anticipated discharge date: Pending Clinical Course Anticipated discharge place: Pending Clinical Course This dictation was prepared using [employer] voice recognition software. Though every attempt is made to correct errors during dictation some may still exist. Objective - Vital Signs Vital signs: Vital Signs Temp 98.2 F 02/13/23 14:36 Pulse 102 H 02/13/23 14:36 Resp 16 02/13/23 14:36 BP 109/50 02/13/23 14:36 Pulse Ox 98 02/13/23 14:36 FiO2 Intake & Output 02/12/23 02/13/23 02/13/23 18:59 06:59 18:59 Output Total 250 58 Balance -250 -58 Weight 63.503 kg Output: Urine 250 Post Void Residual 58 Other: Voiding Method External Catheter Bedside Commode Bedside Commode # Voids 0 2 - Labs CBC & Chem 7: 02/13/23 05:36 02/13/23 05:36 Labs: Abnormal Lab Results - Last 24 Hours (Table) 02/12/23 02/12/23 02/13/23 Range/Units 05:30 16:31 05:36 RBC 2.73 L (3.80-5.40) m/uL Hgb 8.5 L (11.4-16.0) gm/dL Hct 26.0 L (34.0-46.0) % Plt Count 591 H (150-450) k/uL Sodium (137-145) mmol/L BUN (7-17) mg/dL Creatinine (0.52-1.04) mg/dL Calcium (8.4-10.2) mg/dL Iron 31 L (50-170) UG/DL TIBC 181 L (228-460) UG/DL Transferrin 129.0 L (204.0-354.0) mg/dL Ferritin 544.0 H (10.0-291.0) ng/mL AST (14-36) U/L Total Protein (6.3-8.2) g/dL Albumin (3.5-5.0) g/dL Urine Appearance Slightly Cloudy H (Clear) Urine Protein 2+ H (Negative) Urine RBC 81 H (0-5) /hpf Urine WBC 52 H (0-5) /hpf Urine Bacteria Occasional H (None) /hpf Hyaline Casts 41 H (0-2) /lpf Urine Mucus Rare H (None) /hpf 02/13/23 Range/Units 05:36 RBC (3.80-5.40) m/uL Hgb (11.4-16.0) gm/dL Hct (34.0-46.0) % Plt Count (150-450) k/uL Sodium 132 L (137-145) mmol/L BUN 56 H (7-17) mg/dL Creatinine 1.70 H (0.52-1.04) mg/dL Calcium 7.9 L (8.4-10.2) mg/dL Iron (50-170) UG/DL TIBC (228-460) UG/DL Transferrin (204.0-354.0) mg/dL Ferritin (10.0-291.0) ng/mL AST 39 H (14-36) U/L Total Protein 4.6 L (6.3-8.2) g/dL Albumin 2.2 L (3.5-5.0) g/dL Urine Appearance (Clear) Urine Protein (Negative) Urine RBC (0-5) /hpf Urine WBC (0-5) /hpf Urine Bacteria (None) /hpf Hyaline Casts (0-2) /lpf Urine Mucus (None) /hpf
[2023-02-13] MEDS: ATORVASTATIN 80 MG TAB PO SCH (21:50)
[2023-02-14] MEDS: LEVOTHYROXINE 75 MCG TAB PO SCH (06:12)
[2023-02-14 06:33] LABS: HCT 26.5 % (34.0-46.0); HGB 8.6 gm/dL (11.4-16.0); MCH 31.2 pg (25.0-35.0); MCHC 32.6 g/dL (31.0-37.0); MCV 95.8 fL (80.0-100.0); Mean Platelet Volume 7.5; Platelet Count 572 k/uL (150-450); RBC 2.76 m/uL (3.80-5.40); RDW 14.3 % (11.5-15.5); WBC 6.3 k/uL (3.8-10.6)
[2023-02-14 07:51] LABS: African American GFR (CKD) 39 (>60 ml/min/1.73 sqM); Anion Gap 5 mmol/L; Blood Urea Nitrogen 56 mg/dL (7-17); Calcium 7.9 mg/dL (8.4-10.2); Carbon Dioxide 26 mmol/L (22-30); Chloride 102 mmol/L (98-107); Glucose 89 mg/dL (74-99); Non-African American GFR(CKD) 34 (>60 ml/min/1.73 sqM); Sodium 133 mmol/L (137-145)
[2023-02-14 08:47] VITALS: BP 126/66; PULSE 98; RESP 16; TEMP 98.3
[2023-02-14] MEDS: GABAPENTIN 100 MG CAP PO SCH (09:19)
[2023-02-14] MEDS: BUMETANIDE 1 MG TAB PO SCH (09:19)
[2023-02-14] MEDS: amLODIPine 5 MG TAB PO SCH (09:19)
[2023-02-14] MEDS: FLUTICASONE 50MCG/SPRAY NASAL 16GM EA NOSTRIL SCH (09:19)
[2023-02-14] MEDS: MULTIVITAMINS, THERA 1 EACH TAB PO SCH (09:20)
[2023-02-14] MEDS: FOLIC ACID 1 MG TAB PO SCH (09:20)
[2023-02-14] MEDS: hydroCHLOROthiazide 25 MG TAB PO SCH (09:20)
[2023-02-14] MEDS: polyethylene glycoL 3350 17 GM POWD.PACK PO SCH (09:20)
[2023-02-14] MEDS: LORATADINE 10 MG TAB PO SCH (09:20)
[2023-02-14] MEDS: hydrALAZINE HCL 25 MG TAB PO SCH (09:20)
[2023-02-14] MEDS: ASPIRIN 81 MG PO SCH (09:20)
[2023-02-14] MEDS: ISOSORBIDE MONONITRATE ER 30 MG TAB.ER.24H PO SCH (09:20)
[2023-02-14] MEDS: FERROUS SULFATE 325 MG TAB PO SCH (09:20)
[2023-02-14] MEDS: METOPROLOL TARTRATE 25 MG TAB PO SCH (09:20)
--- NOTE | 2023-02-14 10:29 | P.CONS ---
History of Present Illness - Reason for Consult Consult date: 02/14/23 wound care - History of Present Illness This is a 72-year-old patient known to the wound care center with a nonhealing ulceration to the right lateral posterior lower leg. The D the ulceration was acquired was 10/30/2022. It is a full thickness without exposed support structures wound related to trauma. The wound measures approximately 3.5 x 2.5 x 1.5. That layer exposed exposed. No tunneling or undermining noted. A large amount of serous drainage noted. Granulation seen within the wound bed with small amount of slough and necrotic tissue. Patient has been utilizing Santyl to the site. Review Of Systems: Constitutional: No fever, no chills, no night sweats. No weight change. No weakness, fatigue or lethargy. No daytime sleepiness. Integumentary:reports wounds, no lesions. No rash or pruritus. No unusual bruising. No change in hair or nails. Physical exam: General Appearance: Alert, cooperative, no distress, appears stated age. Skin: See HPI all other Skin color, texture, tugor normal, no rashes or lesions. Neurologic: Alert oriented x3 Assessment: 1. Non-pressure ulceration with fat layer exposure to right lower extremity 2. Laceration without foreign-body to right lower extremity Plan: 1.Apply Santyl, saline moistened gauze, dry gauze, rolled gauze and secure with paper tape. Change daily. Patient will return to the wound care center next Sunday, February 21 at 9:15 Thank you for the consultation any questions this contact the wound care center DNP note has been reviewed and discussed with Dr. Jesus and the impression and plan of care has been directed as dictated. Past Medical History Past Medical History: COPD, Hyperlipidemia, Hypertension, Osteoarthritis (OA), Skin Disorder, Thyroid Disorder Additional Past Medical History / Comment(s): Lupus, Gout, rashes from Lupus when flared up. fluid retention per pt.,. Chronic neck/back pain receiving injections History of Any Multi-Drug Resistant Organisms: MRSA Year Discovered:: 2022 MDRO Source:: lower extremities Past Surgical History: Hysterectomy, Joint Replacement, Orthopedic Surgery Additional Past Surgical History / Comment(s): Bilateral knee replacements, bilateral cataract surgery, right hip replacement with revision - multiple surgeries, bilateral wrist carpal tunnel surgery, pain clinic procedures. Past Anesthesia/Blood Transfusion Reactions: No Reported Reaction Additional Past Anesthesia/Blood Transfusion Reaction / Comm: Pt has never had a blood transfusion. Past Psychological History: No Psychological Hx Reported Smoking Status: Former smoker Past Alcohol Use History: None Reported Past Drug Use History: None Reported - Past Family History Mother Family Medical History: Hypertension Medications and Allergies Home Medications Medication Instructions Recorded Confirmed Type Albuterol Sulfate [Proair Hfa] 1 - 2 puff INHALATION RT-Q6H PRN 02/15/17 02/12/23 History Aspirin [Adult Low Dose Aspirin EC] 81 mg PO DAILY 02/15/17 02/12/23 History Biotin [Biotin Disolve] 5,000 mcg PO DAILY 02/15/17 02/12/23 History Folic Acid 1 mg PO DAILY 02/15/17 02/12/23 History Glucosam/Tc-Msm1/C/Chavez/Bosw 1 tab PO DAILY 02/15/17 02/12/23 History [Glucosamine-Chondroitin Tablet] Kelp 1 tab PO DAILY 02/15/17 02/12/23 History Levothyroxine Sodium 150 mcg PO DAILY 02/15/17 02/12/23 History Sinus Congestion Med 2 tab PO BID PRN 02/15/17 02/12/23 History Vitamin B Complex With C 1 tab PO DAILY 02/15/17 02/12/23 History hydroCHLOROthiazide 25 mg PO DAILY 02/15/17 02/12/23 History Metoprolol Tartrate [Lopressor] 25 mg PO BID #180 tablet 02/22/17 02/12/23 Rx Ascorbic Acid [Vitamin C] 1,000 mg PO DAILY 06/17/20 02/12/23 History Bumetanide [BUMEX] 2 mg PO DAILY 06/17/20 02/12/23 History Cholecalciferol [Vitamin D3 (25 125 mcg PO DAILY 06/17/20 02/12/23 History Mcg = 1000 Iu)] Multivitamins, Thera [Multivitamin 1 tab PO DAILY 06/17/20 02/12/23 History (formulary)] Ferrous Sulfate [Feosol] 325 mg PO DAILY 07/13/20 02/12/23 History Acetaminophen [Tylenol Extra 1,000 mg PO BID PRN 09/17/20 02/12/23 History Strength] Gabapentin [Neurontin] 100 mg PO BID 11/11/20 02/12/23 History Isosorbide Mononitrate ER [Imdur] 30 mg PO BID 06/16/21 02/12/23 History Fexofenadine HCl 180 mg PO DAILY 07/21/21 02/12/23 History Fluticasone Nasal [place] [Flonase 2 spr EA NOSTRIL DAILY 01/12/22 02/12/23 History Nasal [place]] amLODIPine [Norvasc] 5 mg PO DAILY 01/12/22 02/12/23 History hydrALAZINE HCL [Apresoline] 25 mg PO BID 01/12/22 02/12/23 History Calcium Carbonate/Vitamin D3 1 cap PO DAILY 10/13/22 02/12/23 History [Calcium 600 mg-D3 10 Mcg (400 Iu)] Potassium Chloride 10 meq PO DAILY 01/10/23 02/12/23 History Amoxic-Pot Clav 875-125Mg 1 tab PO BID 02/12/23 02/12/23 History [Augmentin 875-125] Atorvastatin [Lipitor] 80 mg PO HS 02/12/23 02/12/23 History Ranolazine [Ranexa] 1,000 mg PO BID 02/12/23 02/12/23 History Allergies Allergy/AdvReac Type Severity Reaction Status Date / Time adhesive Allergy skin peels Verified 02/12/23 07:48 cephalexin [From Keflex] Allergy Rash/Hives Verified 02/12/23 07:48 latex Allergy skin peels Verified 02/12/23 07:48 codeine AdvReac Hallucinati Verified 02/12/23 07:48 ons ketorolac [From Toradol] AdvReac Hallucinati Verified 02/12/23 07:48 ons morphine AdvReac Hallucinati Verified 02/12/23 07:48 ons Physical Exam Vitals: Vital Signs Temp Pulse Resp BP Pulse Ox 02/14/23 07:00 98.3 F 98 16 126/66 97 02/14/23 01:15 97.3 F L 83 14 105/62 95 02/13/23 18:47 98.5 F 104 H 16 132/67 96 02/13/23 14:36 98.2 F 102 H 16 109/50 98 Intake and Output 02/13/23 02/14/23 02/14/23 22:59 06:59 14:59 Other: Voiding Method Bedside Commode # Voids 1 0 # Bowel Movements 1 Results CBC & Chem 7: 02/14/23 05:46 02/14/23 05:46 Labs: Abnormal Lab Results - Last 24 Hours (Table) 02/14/23 02/14/23 Range/Units 05:46 05:46 RBC 2.76 L (3.80-5.40) m/uL Hgb 8.6 L (11.4-16.0) gm/dL Hct 26.5 L (34.0-46.0) % Plt Count 572 H (150-450) k/uL Sodium 133 L (137-145) mmol/L BUN 56 H (7-17) mg/dL Creatinine 1.51 H (0.52-1.04) mg/dL Calcium 7.9 L (8.4-10.2) mg/dL Assessment and Plan (1) 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
[2023-02-14] MEDS ORDERED: COLLAGENASE 250 UNIT/GM OINTMENT 30 GM TUBE TOPICAL SCH (10:30)
--- NOTE | 2023-02-14 13:59 | P.PN ---
Subjective Progress Note Date: 02/14/23 (delayed charting seen at 0930) Patient is a 72-year-old female who presented to the ER after a slip and fall complaining of left hip pain. On arrival to the ER she underwent an extensive evaluation. Her initial vital signs showed tachycardia with pulse of 108. Initial laboratory analysis was remarkable for white blood cell count of 10.7, hemoglobin 9.9, platelets 721, sodium 131, BUN 61, creatinine 1.98, calcium 7.9, phosphorus 5.1. Chest x-ray showed no acute process. Hip x-ray was limited due to the degree of osteopenia. CT of the left hip showed no left sided pelvic or hip fracture but did demonstrate extensive edema in the subcutaneous tissue along the left hip and proximal thigh. She was admitted for pain control. She was seen by orthopedic surgery who felt that her presentation was consistent with a left hip contusion and they did not recommend any further orthopedic intervention. She was seen by physical and occupational therapy who felt that she would benefit from subacute rehab. She did have a 1 g drop in hemoglobin, and on review from recent hospitalization from [facility] she had developed a GI bleed but left AMA prior to diagnostic scopes being completed. Patient seen and examined at bedside. Still having significant left hip pain and weakness, feeling better than yesterday. No chest pain, no significant shortness of breath. Vital signs reviewed General: nontoxic, no distress, appears at stated age Cardiovascular: S1S2 reg, no murmur, positive posterior tibial pulse bilateral, Lungs: CTA bilateral, no rhonchi, no rales , no accessory muscle use Abdominal: soft, nontender to palpation, no guarding, no appreciable orga nomegaly Ext: no gross muscle atrophy, edema left hip, b/l LE pitting edema, necrotic ulceration noted right LE, no contractures Neuro: CN II-XI grossly intact, no focal neuro deficits Psych: Alert, oriented, appropriate affect Assessment/Plan: Intractable left hip pain, due to contusion left hip Toxic encephalopathy, due to dilaudid -Await speech recommendations -Pain control -PT and OT recs- d/w therapy and they recommend rehab Anemia, Stable Recent hospital stay with left lower external cellulitis and GI bleed Thrombocytosis - repeat CBC in AM - Iron studies reviewed and does not appear to have iron deficiency - no signs of infection on leg, hold augmentin Constipation - miralax 17 g daily and dulcolax 5 mg as needed for constipation. Hyponatremia , due to fluid overload state BILLY on CKD stage III -continue bumex 2 mg daily -Follow basic metabolic profile - avoid additional nephrotoxic agents Unstagable ulcer Right Calf - consult wound care Chronic: HTN HLD Lupus Hypothyroidism Transition patient to inpatient status due to continued renal dysfunction and anemia without clear source of bleeding requiring further monitoring to ensure that patient does not have a deleterious outcome. Imaging: None new Data Review: Plan was reviewed temperature 98.3, 98 respirations 16, blood pressure 126/60 patient afebrile for last 24 hours Reviewed remarkable for hemoglobin 8.6, platelets 572, sodium 133, BUN 56, creatinine 1.5 DVT prophylaxis: SCDs Anticipated discharge date: Pending Clinical Course Anticipated discharge place: Pending Clinical Course This dictation was prepared using [employer] voice recognition software. Though every attempt is made to correct errors during dictation some may still exist. Objective - Vital Signs Vital signs: Vital Signs Temp 98.3 F 02/14/23 07:00 Pulse 98 02/14/23 07:00 Resp 16 02/14/23 07:00 BP 126/66 02/14/23 07:00 Pulse Ox 97 02/14/23 07:00 FiO2 Intake & Output 02/13/23 02/14/23 02/14/23 18:59 06:59 18:59 Output Total 58 Balance -58 Output: Post Void Residual 58 Other: Voiding Method Bedside Commode Bedside Commode # Voids 2 0 # Bowel Movements 1 - Labs CBC & Chem 7: 02/14/23 05:46 02/14/23 05:46 Labs: Abnormal Lab Results - Last 24 Hours (Table) 02/14/23 02/14/23 Range/Units 05:46 05:46 RBC 2.76 L (3.80-5.40) m/uL Hgb 8.6 L (11.4-16.0) gm/dL Hct 26.5 L (34.0-46.0) % Plt Count 572 H (150-450) k/uL Sodium 133 L (137-145) mmol/L BUN 56 H (7-17) mg/dL Creatinine 1.51 H (0.52-1.04) mg/dL Calcium 7.9 L (8.4-10.2) mg/dL
--- NOTE | 2023-02-14 15:13 | P.DS ---
Providers Date of admission: 02/13/23 12:17 Expected date of discharge: 02/14/23 Attending physician: Jorge A Kerr MD Consults: 02/12/23 09:25 Consult Physician Routine Consulting Provider: Rachana Cancino Consult Reason/Comments: left hip pain after fall, ? hematoma Do you want consulting provider notified?: Yes Primary care physician: Robbie Luther Hospital Course: Discharge Diagnosis: Intractable left hip pain, due to contusion left hip Toxic encephalopathy, due to dilaudid Anemia, Stable Recent hospital stay with left lower external cellulitis and GI bleed Thrombocytosis Constipation Hyponatremia , due to fluid overload state BILLY on CKD stage III Unstagable ulcer Right Calf HTN HLD Lupus Hypothyroidism Hospital Course: Patient is a 72-year-old female who presented to the ER after a slip and fall complaining of left hip pain. On arrival to the ER she underwent an extensive evaluation. Her initial vital signs showed tachycardia with pulse of 108. Initial laboratory analysis was remarkable for white blood cell count of 10.7, hemoglobin 9.9, platelets 721, sodium 131, BUN 61, creatinine 1.98, calcium 7.9, phosphorus 5.1. Chest x-ray showed no acute process. Hip x-ray was limited due to the degree of osteopenia. CT of the left hip showed no left sided pelvic or hip fracture but did demonstrate extensive edema in the subcutaneous tissue along the left hip and proximal thigh. She was admitted for pain control. She was seen by orthopedic surgery who felt that her presentation was consistent with a left hip contusion and they did not recommend any further orthopedic intervention. She was seen by physical and occupational therapy who felt that she would benefit from subacute rehab. She did have a 1 g drop in hemoglobin, and on review from recent hospitalization from [facility] she had developed a GI bleed but left AMA prior to diagnostic scopes being complete d. She was monitored overnight and did have a 1 g drop in hemoglobin after receiving IV fluids. Her hemoglobin then stabilized. She had bowel movements with no signs of acute GI bleeding. Her renal function improved. She was eating and drinking well. She was found to have an ulcer on her leg and was seen by wound care who recommended Santyl treatment and follow-up. She was determined stable for discharge to residential facility. Follow-up: Wound care clinic, Santyl to necrotic leg wound, CBC and basic metabolic profile and 3-4 days. Monitor stools for GI bleed. For physical exam see progress note same date, A total of 32 minutes of time were spent preparing this complex discharge summary. Patient was discharged on 02/14/23. This dictation was prepared using [employer] voice recognition software. Though every attempt is made to correct errors during dictation some may still exist. Plan - Discharge Summary Discharge Rx Participant: No New Discharge Prescriptions: New bisacodyL [Dulcolax] 5 mg PO DAILY PRN tab PRN Reason: Constipation Melatonin 3 mg PO HS PRN tab PRN Reason: Insomnia polyethylene glycoL 3350 [Miralax] 17 gm PO DAILY packet Collagenase [Santyl Ointment] 1 applic TOPICAL DAILY each Acetaminophen Tab [Tylenol] 650 mg PO Q6HR PRN tab PRN Reason: Mild Pain Or Fever > 100.5 Continue hydroCHLOROthiazide 25 mg PO DAILY Glucosam/Tc-Msm1/C/[place]/Bosw [Glucosamine-Chondroitin Tablet] 1 tab PO DAILY Biotin [Biotin Disolve] 5,000 mcg PO DAILY Aspirin [Adult Low Dose Aspirin EC] 81 mg PO DAILY Levothyroxine Sodium 150 mcg PO DAILY Kelp 1 tab PO DAILY Folic Acid 1 mg PO DAILY Albuterol Sulfate [Proair Hfa] 1 - 2 puff INHALATION RT-Q6H PRN PRN Reason: Dyspnea Vitamin B Complex With C 1 tab PO DAILY Metoprolol Tartrate [Lopressor] 25 mg PO BID #180 tablet Bumetanide [BUMEX] 2 mg PO DAILY Cholecalciferol [Vitamin D3 (25 Mcg = 1000 Iu)] 125 mcg PO DAILY Ascorbic Acid [Vitamin C] 1,000 mg PO DAILY Multivitamins, Thera [Multivitamin (formulary)] 1 tab PO DAILY Ferrous Sulfate [Feosol] 325 mg PO DAILY Acetaminophen [Tylenol Extra Strength] 1,000 mg PO BID PRN PRN Reason: Pain Fexofenadine HCl 180 mg PO DAILY Calcium Carbonate/Vitamin D3 [Calcium 600 mg-D3 10 Mcg (400 Iu)] 1 cap PO DAILY Potassium Chloride 10 meq PO DAILY Atorvastatin [Lipitor] 80 mg PO HS Ranolazine [Ranexa] 1,000 mg PO BID Gabapentin [Neurontin] 100 mg PO BID #6 cap Isosorbide Mononitrate ER [Imdur] 30 mg PO BID hydrALAZINE HCL [Apresoline] 25 mg PO BID amLODIPine [Norvasc] 5 mg PO DAILY Fluticasone Nasal [place] [Flonase Nasal [place]] 2 spr EA NOSTRIL DAILY Discontinued Sinus Congestion Med 2 tab PO BID PRN PRN Reason: Congestion Amoxic-Pot Clav 875-125Mg [Augmentin 875-125] 1 tab PO BID Discharge Medication List Albuterol Sulfate [Proair Hfa] 1 - 2 puff INHALATION RT-Q6H PRN 02/15/17 [History] Aspirin [Adult Low Dose Aspirin EC] 81 mg PO DAILY 02/15/17 [History] Biotin [Biotin Disolve] 5,000 mcg PO DAILY 02/15/17 [History] Folic Acid 1 mg PO DAILY 02/15/17 [History] Glucosam/Tc-Msm1/C/[place]/Bosw [Glucosamine-Chondroitin Tablet] 1 tab PO DAILY 02/15/17 [History] Kelp 1 tab PO DAILY 02/15/17 [History] Levothyroxine Sodium 150 mcg PO DAILY 02/15/17 [History] Vitamin B Complex With C 1 tab PO DAILY 02/15/17 [History] hydroCHLOROthiazide 25 mg PO DAILY 02/15/17 [History] Metoprolol Tartrate [Lopressor] 25 mg PO BID #180 tablet 02/22/17 [Rx] Ascorbic Acid [Vitamin C] 1,000 mg PO DAILY 06/17/20 [History] Bumetanide [BUMEX] 2 mg PO DAILY 06/17/20 [History] Cholecalciferol [Vitamin D3 (25 Mcg = 1000 Iu)] 125 mcg PO DAILY 06/17/20 [History] Multivitamins, Thera [Multivitamin (formulary)] 1 tab PO DAILY 06/17/20 [History] Ferrous Sulfate [Feosol] 325 mg PO DAILY 07/13/20 [History] Acetaminophen [Tylenol Extra Strength] 1,000 mg PO BID PRN 09/17/20 [History] Isosorbide Mononitrate ER [Imdur] 30 mg PO BID 06/16/21 [History] Fexofenadine HCl 180 mg PO DAILY 07/21/21 [History] Fluticasone Nasal [place] [Flonase Nasal [place]] 2 spr EA NOSTRIL DAILY 01/12/22 [History] amLODIPine [Norvasc] 5 mg PO DAILY 01/12/22 [History] hydrALAZINE HCL [Apresoline] 25 mg PO BID 01/12/22 [History] Calcium Carbonate/Vitamin D3 [Calcium 600 mg-D3 10 Mcg (400 Iu)] 1 cap PO DAILY 10/13/22 [History] Potassium Chloride 10 meq PO DAILY 01/10/23 [History] Atorvastatin [Lipitor] 80 mg PO HS 02/12/23 [History] Ranolazine [Ranexa] 1,000 mg PO BID 02/12/23 [History] Acetaminophen Tab [Tylenol] 650 mg PO Q6HR PRN tab 02/14/23 [Rx] Collagenase [Santyl Ointment] 1 applic TOPICAL DAILY each 02/14/23 [Rx] Gabapentin [Neurontin] 100 mg PO BID #6 cap 02/14/23 [Rx] Melatonin 3 mg PO HS PRN tab 02/14/23 [Rx] bisacodyL [Dulcolax] 5 mg PO DAILY PRN tab 02/14/23 [Rx] polyethylene glycoL 3350 [Miralax] 17 gm PO DAILY packet 02/14/23 [Rx] Follow up Appointment(s)/Referral(s): [facility] [NON-STAFF] - 02/21/23 9:15 am Robbie Luther DO [Primary Care Provider] - 1-2 days Activity/Diet/Wound Care/Special Instructions: Activity: As tolerated with walker Fall Precautions Diet: Regular Wound Care: Santyl Daily to right lower extremity Special Instructions: CBC and basic metabolic profile and 3-4 days. Monitor stools for GI bleed. Discharge Disposition: TRANSFER TO SNF/ECF
== END 2023-02-14 16:24 ==
LOC: EC 01:19 → 6NMEDSUR 06:18 → INTOOBSV 02-13 12:17 → OBSVTOIN 02-13 12:17 → UNDODISIN 02-14 16:24
PROVIDERS: ADMIT Internal Medicine; ATTEND Internal Medicine
DX: S70.02XA Contusion of left hip, initial encounter (principal); W01.0XXA Fall on same level from slipping, tripping and stumbling without subsequent striking against object, initial encounter; L97.212 Non-pressure chronic ulcer of right calf with fat layer exposed; G92.8 Other toxic encephalopathy; R53.81 Other malaise; J44.9 Chronic obstructive pulmonary disease, unspecified; E78.5 Hyperlipidemia, unspecified; M54.9 Dorsalgia, unspecified; M54.2 Cervicalgia; G89.29 Other chronic pain; K92.2 Gastrointestinal hemorrhage, unspecified; D75.839 Thrombocytosis, unspecified; E87.1 Hypo-osmolality and hyponatremia; N17.9 Acute kidney failure, unspecified; I12.9 Hypertensive chronic kidney disease with stage 1 through stage 4 chronic kidney disease, or unspecified chronic kidney disease; N18.30 Chronic kidney disease, stage 3 unspecified; D63.1 Anemia in chronic kidney disease; M32.9 Systemic lupus erythematosus, unspecified; E03.9 Hypothyroidism, unspecified; K59.00 Constipation, unspecified; Z20.822 Contact with and (suspected) exposure to COVID-19; Z87.891 Personal history of nicotine dependence; Z79.890 Hormone replacement therapy; Z79.899 Other long term (current) drug therapy; Z88.1 Allergy status to other antibiotic agents; Z88.5 Allergy status to narcotic agent; Z88.6 Allergy status to analgesic agent
CPT/HCPCS: 96374; 99285; 36415; 97162; 97535; 97166; 92523; 80053 ×2; 80048; 82728; 83540; 83550; 83735 ×2; 84100 ×2; 84484; 85025 ×2; 85027; 85610; 85730; 81001; 87635; 73502; 71045; 70450; 73700; G0378 ×3; J1170; 96361

== ENCOUNTER → 2023-05-07 | Outpatient (CLI) | payer MEDICARE ==
--- NOTE | 2023-05-07 11:33 | XR ---
EXAMINATION TYPE: XR shoulder complete RT DATE OF EXAM: 05/07/2023 CLINICAL HISTORY: pain TECHNIQUE: Three views of the right shoulder are obtained. COMPARISON: None FINDINGS: There is no acute fracture/dislocation evident. The acromioclavicular and glenohumeral fadi int spaces appear within normal limits. The visualized ribs are intact and unremarkable. IMPRESSION: 1. There is no acute fracture or dislocation. ICD 10 NO FRACTURE, INITIAL EVALUATION
== END | disposition home or self-care (01) ==
LOC: RADXRYALE 11:18
PROVIDERS: ATTEND Family Medicine
DX: M79.621 Pain in right upper arm (principal); M25.511 Pain in right shoulder

== ENCOUNTER 2023-07-06 14:01 | Observation (INO) | payer MEDICARE ==
[2023-07-06 16:29] LABS: Basophils % (A) 0 %; Eosinophils # (A) 0.2 k/uL (0-0.7); Eosinophils % (A) 3 %; HCT 26.5 % (34.0-46.0); HGB 8.7 gm/dL (11.4-16.0); Lymphocytes % (A) 15 %; MCH 31.2 pg (25.0-35.0); MCV 94.7 fL (80.0-100.0); Mean Platelet Volume 7.3; Monocytes # (A) 0.5 k/uL (0-1.0); Monocytes % (A) 7 %; Neutrophils # (A) 4.9 k/uL (1.3-7.7); Neutrophils % (A) 72 %; Platelet Count 316 k/uL (150-450); RDW 14.6 % (11.5-15.5); WBC 6.8 k/uL (3.8-10.6)
[2023-07-06 16:55] LABS: ALT 21 U/L (4-34); AST 27 U/L (14-36); African American GFR (CKD) 45 (>60 ml/min/1.73 sqM); Albumin 3.4 g/dL (3.5-5.0); Alkaline Phosphatase 91 U/L (38-126); Anion Gap 4 mmol/L; Blood Urea Nitrogen 25 mg/dL (7-17); Calcium 8.9 mg/dL (8.4-10.2); Carbon Dioxide 30 mmol/L (22-30); Chloride 108 mmol/L (98-107); Glucose 98 mg/dL (74-99); Non-African American GFR(CKD) 39 (>60 ml/min/1.73 sqM); Potassium 4.3 mmol/L (3.5-5.1); Sodium 142 mmol/L (137-145); Total Bilirubin 0.5 mg/dL (0.2-1.3); Total Protein 6.5 g/dL (6.3-8.2)
[2023-07-06 17:07] LABS: NT-Pro-B-Type Natriuretic Pept 4110 pg/mL
[2023-07-06 17:14] LABS: C Reactive Protein 2.5 mg/dL (<1.0)
[2023-07-06] MEDS ORDERED: CLINDAMYCIN 600 MG in DEXTROSE 5% IN WATER 50 ML IVPB STA ×2 (18:08)
[2023-07-06] MEDS ORDERED: NALOXONE 0.4 MG/ML 1 ML VIAL IV PRN (18:15)
--- NOTE | 2023-07-06 18:15 | ED ---
Skin/Abscess/FB HPI - General Chief complaint: Skin/Abscess/Foreign Body Stated complaint: Both Legs edema Time Seen by Provider: 07/06/23 15:30 Source: patient, EMS Mode of arrival: EMS - History of Present Illness Initial comments: 72-year-old female with past medical history of lymphedema presents to the emergency department with lower extremity wounds. She states that she was managed in the lymphedema clinic at [facility] up until a month ago. She was supposed to switch over to visiting nurses however the referral was never processed. Patient had dressings that were placed on her legs at her last wound care appointment and states that she did not take them off for the entire month. Her lower extremity started to ache and itch and therefore she took them off last night. She found him to be extremely red with multiple fluid-filled blisters. She denies any fevers. No shortness of breath. No recent antibiotic use. He does take diuretics and has been taking them as directed. No other alleviating, precipitating or modifying factors - Related Data Home Medications Medication Instructions Recorded Confirmed Albuterol Sulfate [Proair Hfa] 1 - 2 puff INHALATION RT-Q6H PRN 02/15/17 07/06/23 Aspirin [Adult Low Dose Aspirin EC] 81 mg PO DAILY 02/15/17 07/06/23 Biotin [Biotin Disolve] 5,000 mcg PO DAILY 02/15/17 07/06/23 Folic Acid 1 mg PO DAILY 02/15/17 07/06/23 Glucosam/Tc-Msm1/C/Chavez/Bosw 1 tab PO DAILY 02/15/17 07/06/23 [Glucosamine-Chondroitin Tablet] Kelp 1 tab PO DAILY 02/15/17 07/06/23 Levothyroxine Sodium 150 mcg PO DAILY 02/15/17 07/06/23 Vitamin B Complex With C 1 tab PO DAILY 02/15/17 07/06/23 hydroCHLOROthiazide 25 mg PO DAILY 02/15/17 07/06/23 Ascorbic Acid [Vitamin C] 1,000 mg PO DAILY 06/17/20 07/06/23 Bumetanide [BUMEX] 2 mg PO BID 06/17/20 07/06/23 Cholecalciferol [Vitamin D3 (25 125 mcg PO DAILY 06/17/20 07/06/23 Mcg = 1000 Iu)] Multivitamins, Thera [Multivitamin 1 tab PO DAILY 06/17/20 07/06/23 (formulary)] Ferrous Sulfate [Feosol] 325 mg PO DAILY 07/13/20 07/06/23 Acetaminophen [Tylenol Extra 1,000 mg PO BID PRN 09/17/20 07/06/23 Strength] Fexofenadine HCl 180 mg PO DAILY 07/21/21 07/06/23 Fluticasone Nasal [place] [Flonase 1 spr EA NOSTRIL DAILY 01/12/22 07/06/23 Nasal [place]] amLODIPine [Norvasc] 5 mg PO DAILY 01/12/22 07/06/23 hydrALAZINE HCL [Apresoline] 25 mg PO BID 01/12/22 07/06/23 Potassium Chloride 10 meq PO DAILY 01/10/23 07/06/23 Atorvastatin [Lipitor] 80 mg PO HS 02/12/23 07/06/23 Calcium 1200mg W/Vitamin D 1 tab PO DAILY 07/06/23 07/06/23 Isosorbide Mononitrate ER [Imdur] 60 mg PO DAILY 07/06/23 07/06/23 Ranolazine [Ranexa] 500 mg PO BID 07/06/23 07/06/23 Sinus Congestion(Unknown-Otc) 2 tab PO DAILY PRN 07/06/23 07/06/23 lisinopriL [Zestril] 5 mg PO DAILY 07/06/23 07/06/23 Previous Rx's Medication Instructions Recorded Metoprolol Tartrate [Lopressor] 25 mg PO BID #180 tablet 02/22/17 Gabapentin [Neurontin] 100 mg PO BID #6 cap 02/14/23 Allergies Allergy/AdvReac Type Severity Reaction Status Date / Time adhesive Allergy skin peels Verified 07/06/23 17:56 cephalexin [From Keflex] Allergy Rash/Hives Verified 07/06/23 17:56 latex Allergy skin peels Verified 07/06/23 17:56 codeine AdvReac Hallucinati Verified 07/06/23 17:56 ons ketorolac [From Toradol] AdvReac Hallucinati Verified 07/06/23 17:56 ons morphine AdvReac Hallucinati Verified 07/06/23 17:56 ons Review of Systems ROS Statement: Those systems with pertinent positive or pertinent negative responses have been documented in the HPI. ROS Other: All systems not noted in ROS Statement are negative. Past Medical History Past Medical History: COPD, Hyperlipidemia, Hypertension, Osteoarthritis (OA), Skin Disorder, Thyroid Disorder Additional Past Medical History / Comment(s): Lupus, Gout, rashes from Lupus when flared up. fluid retention per pt.,. FELL BEGINNING OF FEB-NO INJURY History of Any Multi-Drug Resistant Organisms: MRSA Date of last positivie culture/infection: 2022 MDRO Source:: lower extremities Past Surgical History: Hysterectomy, Joint Replacement, Orthopedic Surgery Additional Past Surgical History / Comment(s): Bilateral knee replacements, bilateral cataract surgery, right hip replacement with revision - multiple surgeries, bilateral wrist carpal tunnel surgery, pain clinic procedures. Past Anesthesia/Blood Transfusion Reactions: No Reported Reaction Additional Past Anesthesia/Blood Transfusion Reaction / Comment(s): Pt has never had a blood transfusion. Past Psychological History: No Psychological Hx Reported Smoking Status: Former smoker Past Alcohol Use History: None Reported Past Drug Use History: None Reported - Past Family History Mother Family Medical History: Hypertension Course Vital Signs 07/06/23 07/06/23 17:01 19:10 Temperature 97.8 F Pulse Rate 85 85 Respiratory 19 19 Rate Blood Pressure 115/67 123/69 O2 Sat by Pulse 94 L 97 Oximetry Medical Decision Making - Medical Decision Making Was pt. sent in by a medical professional or institution (JANE Blank, VISCOSE CELLAR WORKER, urgent care, hospital, or fpc...) When possible be specific @ -No Did you speak to anyone other than the patient for history (EMS, parent, family, police, friend...)? What history was obtained from this source @ -No Did you review nursing and triage notes (agree or disagree)? Why? @ -I reviewed and agree with nursing and triage notes Were old charts reviewed (outside hosp., previous admission, EMS record, old EKG, old radiological studies, urgent care reports/EKG's, fpc records)? Report findings @ -No old charts were reviewed Differential Diagnosis (chest pain, altered mental status, abdominal pain women, abdominal pain men, vaginal bleeding, weakness, fever, dyspnea, syncope, headache, dizziness, GI bleed, back pain, seizure, CVA, palpatations, mental health, musculoskeletal)? @ -not applicable EKG interpreted by me (3pts min.). @ -As above X-rays interpreted by me (1pt min.). @ -None done CT interpreted by me (1pt min.). @ -None done U/S interpreted by me (1pt. min.). @ -None done What testing was considered but not performed or refused? (CT, X-rays, U/S, labs)? Why? @ -None What meds were considered but not given or refused? Why? @ -None Did you discuss the management of the patient with other professionals (professionals i.e. , PA, VISCOSE CELLAR WORKER, lab, RT, psych nurse, social service agency director, consulting services associate, teacher, home lending officer, case picker)? Give summary @ -No Was smoking cessation discussed for >3mins.? @ -No Was critical care preformed (if so, how long)? @ -No Were there social determinants of health that impacted care today? How? ( Homelessness, low income, unemployed, alcoholism, drug addiction, transportation, low edu. Level, literacy, decrease access to med. care, halfway, rehab)? @ -No Was there de-escalation of care discussed even if they declined (Discuss DNR or withdrawal of care, Hospice)? DNR status @ -No What co-morbidities impacted this encounter? (DM, HTN, Smoking, COPD, CAD, Cancer, CVA, ARF, Chemo, Hep., AIDS, mental health diagnosis, sleep apnea, morbid obesity)? @ -None Was patient admitted / discharged? Hospital course, mention meds given and route, prescriptions, significant lab abnormalities, going to OR and other pertinent info. @ -Upon arrival patient was placed into the hallway. Thorough history and physical exam was performed. Patient's bilateral wounds are weeping. Concern for infection. IV is established laboratory studies were conducted. I did talk to case management. Patient is unable to get home care until referral is sent and recommendations are given in regards to lower extremity dressings. We did attempt to call the lymphedema clinic however they are closed. The quickest way to obtain wound care for the patient would be to admit overnight and have Dr. Fletcher evaluate the patient to discuss wound care treatment. Once his recommendations have been formed, they can be sent over to the visiting nurses. Visiting nurses at this time will be able to start a case on the patient. I did give the patient also clindamycin. She was agreeable to admission. Spoke with Dr. Lemons who agreed to admission. Undiagnosed new problem with uncertain prognosis? @ -No Drug Therapy requiring intensive monitoring for toxicity (Heparin, Nitro, Insulin, Cardizem)? @ -No Were any procedures done? @ -No Diagnosis/symptom? @ -default Acute, or Chronic, or Acute on Chronic? @ -default Uncomplicated (without systemic symptoms) or Complicated (systemic symptoms)? @ -default Side effects of treatment? @ -No Exacerbation, Progression, or Severe Exacerbation? @ -No Poses a threat to life or bodily function? How? (Chest pain, [place], [place], pneumonia, PE, COPD, DKA, ARF, appy, cholecystitis, CVA, Diverticulitis, Homicidal, Suicidal, threat to staff... and all critical care pts) @ -No - Lab Data Result diagrams: 07/06/23 15:50 07/06/23 15:50 Lab Results 07/06/23 07/06/23 07/06/23 Range/Units 15:50 15:50 15:50 WBC 6.8 (3.8-10.6) k/uL RBC 2.80 L (3.80-5.40) m/uL Hgb 8.7 L (11.4-16.0) gm/dL Hct 26.5 L (34.0-46.0) % MCV 94.7 (80.0-100.0) fL MCH 31.2 (25.0-35.0) pg MCHC 33.0 (31.0-37.0) g/dL RDW 14.6 (11.5-15.5) % Plt Count 316 (150-450) k/uL MPV 7.3 Neutrophils % 72 % Lymphocytes % 15 % Monocytes % 7 % Eosinophils % 3 % Basophils % 0 % Neutrophils # 4.9 (1.3-7.7) k/uL Lymphocytes # 1.0 (1.0-4.8) k/uL Monocytes # 0.5 (0-1.0) k/uL Eosinophils # 0.2 (0-0.7) k/uL Basophils # 0.0 (0-0.2) k/uL Sodium 142 (137-145) mmol/L Potassium 4.3 (3.5-5.1) mmol/L Chloride 108 H (98-107) mmol/L Carbon Dioxide 30 (22-30) mmol/L Anion Gap 4 mmol/L BUN 25 H (7-17) mg/dL Creatinine 1.34 H (0.52-1.04) mg/dL Est GFR (CKD-EPI)AfAm 45 (>60 ml/min/1.73 sqM) Est GFR (CKD-EPI)NonAf 39 (>60 ml/min/1.73 sqM) Glucose 98 (74-99) mg/dL Plasma Lactic Acid Ulises 0.7 (0.7-2.0) mmol/L Calcium 8.9 (8.4-10.2) mg/dL Total Bilirubin 0.5 (0.2-1.3) mg/dL AST 27 (14-36) U/L ALT 21 (4-34) U/L Alkaline Phosphatase 91 (38-126) U/L C-Reactive Protein 2.5 H (<1.0) mg/dL NT-Pro-B Natriuret Pep 4110 pg/mL Total Protein 6.5 (6.3-8.2) g/dL Albumin 3.4 L (3.5-5.0) g/dL Disposition Clinical Impression: Lymphedema, Cellulitis Disposition: ADMITTED IP TO THIS HOSP Condition: Stable Is patient prescribed a controlled substance at d/c from ED?: No Time of Disposition: 18:15 Decision to Admit Reason: Admit from EC Decision Date: 07/06/23 Decision Time: 18:15
[2023-07-06] MEDS ORDERED: ALBUTEROL NEBULIZED 2.5 MG/3 ML INHALATION PRN (20:34)
[2023-07-06] MEDS ORDERED: ACETAMINOPHEN TAB 500 MG TAB PO PRN (20:34)
[2023-07-06] MEDS ORDERED: HYDROCORTISONE 1% OINT 28.35 GM TUBE TOPICAL PRN (20:37)
[2023-07-06] MEDS ORDERED: hydrOXYzine HCL 25 MG TAB PO PRN (20:37)
[2023-07-06] MEDS: GABAPENTIN 100 MG CAP PO SCH (21:16)
[2023-07-06] MEDS: ATORVASTATIN 80 MG TAB PO SCH (21:16)
[2023-07-06] MEDS: BUMETANIDE 1 MG TAB PO SCH (21:16)
[2023-07-06] MEDS: hydrALAZINE HCL 25 MG TAB PO SCH (21:16)
[2023-07-06] MEDS: METOPROLOL TARTRATE 25 MG TAB PO SCH (21:16)
[2023-07-06] MEDS: RANOLAZINE 500 MG TAB.ER.12H PO SCH (21:16)
--- NOTE | 2023-07-06 22:57 | P.HPIM ---
History of Present Illness H&P Date: 07/06/23 Patient is a 72-year-old female with a PMH of chronic lower extremity lymphedema, hypothyroidism, hypertension, hyperlipidemia, chronic kidney disease, SLE, who presents to the emergency room for lower extremity wounds and blisters. The patient reports that she was previously following at a lymphedema clinic where they had placed dressings roughly 3 weeks ago. She was supposed to switch to visiting nurses but there was an issue with the referral. She never took the dressings off and they began to itch and hurt over the past few days which prompted her to take off the dressings when she noticed multiple fluid filled blisters on both her legs. She reports intermittent 6 out of 10 bilateral lower extremity pain at the site of the blisters. Denies experiencing chest discomfort, shortness of breath, fever, chills, cough. Laboratory evaluation in the emergency room revealed hemoglobin 8.7 (at baseline), BUN 25, creatinine 1.34 (better than baseline), and proBNP 4110. ED documentation reviewed and case discussed with ED provider. Review of systems: Pertinent positives and negatives as discussed in HPI, a complete review of systems was performed and all other systems are negative. Physical examination: Vital signs reviewed General: non toxic, no distress, appears at stated age, normal weight Derm: Bilateral lower extremity erythema with large multiple fluid filled blisters, warm Head: atraumatic, normocephalic, symmetric Eyes: EOMI, no lid lag, anicteric sclera, pupils equal round reactive to light ENT: Nose and ears atraumatic Neck: No cervical lymphadenopathy, trachea midline, supple Mouth: no lip lesion, mucus membranes moist Cardiovascular: S1S2 reg, no murmur, positive dorsalis pedis pulse bilateral, no edema Lungs: CTA bilateral, no rhonchi, no rales, no accessory muscle use Abdominal: soft, nontender to palpation, no guarding Ext: muscle strength 5 out of 5 in all 4 extremities grossly, no gross muscle atrophy, no contractures, Neuro: CN II-XI grossly intact, no gross focal neuro deficits Psych: Alert, oriented, appropriate affect Assessment: Bilateral lower extremity cellulitis Chronic conditions: Hypothyroidism, hypertension, hyperlipidemia, chronic kidney disease, SLE Imaging: None performed Data Review: Laboratory evaluation in the emergency room revealed hemoglobin 8.7 (at baseline), BUN 25, creatinine 1.34 (better than baseline), and proBNP 4110. Plan: Continue clindamycin Infectious disease consulted Follow-up blood cultures DVT prophylaxis: Lovenox Subq The patient is admitted with an anticipated less than 2 midnight stay for evaluation of rene LE cellulitis CODE STATUS: Full Code Discussed with: Patient Anticipated discharge place: Home Past Medical History Past Medical History: COPD, Hyperlipidemia, Hypertension, Osteoarthritis (OA), Skin Disorder, Thyroid Disorder Additional Past Medical History / Comment(s): Lupus, Gout, rashes from Lupus when flared up. fluid retention per pt, multiple falls with multiple concussions-sometimes forgetful. History of Any Multi-Drug Resistant Organisms: MRSA Date of last positivie culture/infection: 2022 MDRO Source:: lower extremities Past Surgical History: Hysterectomy, Joint Replacement, Orthopedic Surgery Additional Past Surgical History / Comment(s): Bilateral knee replacements, bilateral cataract surgery, right hip replacement with revision - multiple surgeries, bilateral wrist carpal tunnel surgery, pain clinic procedures. Past Anesthesia/Blood Transfusion Reactions: No Reported Reaction Additional Past Anesthesia/Blood Transfusion Reaction / Comment(s): Pt has never had a blood transfusion. Past Psychological History: No Psychological Hx Reported Additional Psychological History / Comment(s): Pt resides with spouse. Smoking Status: Former smoker Past Alcohol Use History: None Reported Additional Past Alcohol Use History / Comment(s): Started smoking at age 17, 1ppd, quit in 2012. Past Drug Use History: None Reported - Past Family History Mother Family Medical History: Hypertension Medications and Allergies Home Medications Medication Instructions Recorded Confirmed Type Albuterol Sulfate [Proair Hfa] 1 - 2 puff INHALATION RT-Q6H PRN 02/15/17 07/06/23 History Aspirin [Adult Low Dose Aspirin EC] 81 mg PO DAILY 02/15/17 07/06/23 History Biotin [Biotin Disolve] 5,000 mcg PO DAILY 02/15/17 07/06/23 History Folic Acid 1 mg PO DAILY 02/15/17 07/06/23 History Glucosam/Tc-Msm1/C/Chavez/Bosw 1 tab PO DAILY 02/15/17 07/06/23 History [Glucosamine-Chondroitin Tablet] Kelp 1 tab PO DAILY 02/15/17 07/06/23 History Levothyroxine Sodium 150 mcg PO DAILY 02/15/17 07/06/23 History Vitamin B Complex With C 1 tab PO DAILY 02/15/17 07/06/23 History hydroCHLOROthiazide 25 mg PO DAILY 02/15/17 07/06/23 History Metoprolol Tartrate [Lopressor] 25 mg PO BID #180 tablet 02/22/17 07/06/23 Rx Ascorbic Acid [Vitamin C] 1,000 mg PO DAILY 06/17/20 07/06/23 History Bumetanide [BUMEX] 2 mg PO BID 06/17/20 07/06/23 History Cholecalciferol [Vitamin D3 (25 125 mcg PO DAILY 06/17/20 07/06/23 History Mcg = 1000 Iu)] Multivitamins, Thera [Multivitamin 1 tab PO DAILY 06/17/20 07/06/23 History (formulary)] Ferrous Sulfate [Feosol] 325 mg PO DAILY 07/13/20 07/06/23 History Acetaminophen [Tylenol Extra 1,000 mg PO BID PRN 09/17/20 07/06/23 History Strength] Fexofenadine HCl 180 mg PO DAILY 07/21/21 07/06/23 History Fluticasone Nasal [place] [Flonase 1 spr EA NOSTRIL DAILY 01/12/22 07/06/23 History Nasal [place]] amLODIPine [Norvasc] 5 mg PO DAILY 01/12/22 07/06/23 History hydrALAZINE HCL [Apresoline] 25 mg PO BID 01/12/22 07/06/23 History Potassium Chloride 10 meq PO DAILY 01/10/23 07/06/23 History Atorvastatin [Lipitor] 80 mg PO HS 02/12/23 07/06/23 History Gabapentin [Neurontin] 100 mg PO BID #6 cap 02/14/23 07/06/23 Rx Calcium 1200mg W/Vitamin D 1 tab PO DAILY 07/06/23 07/06/23 History Isosorbide Mononitrate ER [Imdur] 60 mg PO DAILY 07/06/23 07/06/23 History Ranolazine [Ranexa] 500 mg PO BID 07/06/23 07/06/23 History Sinus Congestion(Unknown-Otc) 2 tab PO DAILY PRN 07/06/23 07/06/23 History lisinopriL [Zestril] 5 mg PO DAILY 07/06/23 07/06/23 History Allergies Allergy/AdvReac Type Severity Reaction Status Date / Time adhesive Allergy skin peels Verified 07/06/23 17:56 cephalexin [From Keflex] Allergy Rash/Hives Verified 07/06/23 17:56 latex Allergy skin peels Verified 07/06/23 17:56 codeine AdvReac Hallucinati Verified 07/06/23 17:56 ons ketorolac [From Toradol] AdvReac Hallucinati Verified 07/06/23 17:56 ons morphine AdvReac Hallucinati Verified 07/06/23 17:56 ons Physical Exam Vitals: Vital Signs Temp Pulse Pulse Resp BP BP Pulse Ox 07/06/23 20:49 98.1 F 98 18 116/66 90 L 07/06/23 19:10 97.8 F 85 19 123/69 97 07/06/23 17:01 85 19 115/67 94 L Intake and Output 07/06/23 07/06/23 07/06/23 06:59 14:59 22:59 Other: Voiding Method Toilet # Voids 0 Weight 63.503 kg 63.503 kg Results CBC & Chem 7: 07/06/23 15:50 07/06/23 15:50 Labs: Abnormal Lab Results - Last 24 Hours (Table) 07/06/23 07/06/23 Range/Units 15:50 15:50 RBC 2.80 L (3.80-5.40) m/uL Hgb 8.7 L (11.4-16.0) gm/dL Hct 26.5 L (34.0-46.0) % Chloride 108 H (98-107) mmol/L BUN 25 H (7-17) mg/dL Creatinine 1.34 H (0.52-1.04) mg/dL C-Reactive Protein 2.5 H (<1.0) mg/dL Albumin 3.4 L (3.5-5.0) g/dL
[2023-07-06] MEDS: CLINDAMYCIN 600 MG in DEXTROSE 5% IN WATER 50 ML IVPB SCH ×2 (23:18)
[2023-07-07 04:07] LABS: Erythrocyte Sedimentation Rate 32 mm/Hr (0-30)
[2023-07-07] MEDS: LEVOTHYROXINE 75 MCG TAB PO SCH (05:42)
[2023-07-07] MEDS: CLINDAMYCIN 600 MG in DEXTROSE 5% IN WATER 50 ML IVPB SCH ×4 (05:42→12:19)
[2023-07-07] MEDS ORDERED: ENOXAPARIN 40 MG/0.4 ML SYRINGE SQ SCH (09:00)
[2023-07-07] MEDS ORDERED: NON FORMULARY DRUG (Glucosam/Chon-Msm1/C/Mang/Bosw [Glucosamine-Chondroitin Tablet] 1 EACH PO SCH (09:00)
[2023-07-07] MEDS ORDERED: NON FORMULARY DRUG (Biotin [Biotin Disolve] 5,000 MCG Tab.Rapdis) PO SCH (09:00)
[2023-07-07] MEDS: amLODIPine 5 MG TAB PO SCH (09:27)
[2023-07-07] MEDS: GABAPENTIN 100 MG CAP PO SCH ×2 (09:27→20:25)
[2023-07-07] MEDS: CALCIUM CARB-VIT D 500 MG-5 MCG TAB PO SCH (09:27)
[2023-07-07] MEDS: MULTIVITAMINS, THERA 1 EACH TAB PO SCH (09:27)
[2023-07-07] MEDS: hydrALAZINE HCL 25 MG TAB PO SCH ×2 (09:27→20:25)
[2023-07-07] MEDS: ASPIRIN 81 MG PO SCH (09:27)
[2023-07-07] MEDS: CHOLECALCIFEROL 125 MCG (5000 IU) TABLET PO SCH (09:27)
[2023-07-07] MEDS: LORATADINE 10 MG TAB PO SCH (09:27)
[2023-07-07] MEDS: POTASSIUM CHLORIDE ER 10 MEQ TAB.ER.PRT PO SCH (09:27)
[2023-07-07] MEDS: ASCORBIC ACID 500 MG TAB PO SCH (09:27)
[2023-07-07] MEDS: ISOSORBIDE MONONITRATE ER 60 MG TAB.ER.24H PO SCH (09:27)
[2023-07-07] MEDS: METOPROLOL TARTRATE 25 MG TAB PO SCH ×2 (09:27→20:25)
[2023-07-07] MEDS: lisinopriL 5 MG TAB PO SCH (09:27)
[2023-07-07] MEDS: RANOLAZINE 500 MG TAB.ER.12H PO SCH ×2 (09:27→20:25)
[2023-07-07] MEDS: FERROUS SULFATE 325 MG TAB PO SCH (09:27)
[2023-07-07] MEDS: FLUTICASONE 50MCG/SPRAY NASAL 16GM EA NOSTRIL SCH (09:27)
[2023-07-07] MEDS: BUMETANIDE 1 MG TAB PO SCH ×2 (09:27→15:26)
[2023-07-07] MEDS: FOLIC ACID 1 MG TAB PO SCH (09:27)
[2023-07-07] MEDS: hydroCHLOROthiazide 25 MG TAB PO SCH (09:28)
--- NOTE | 2023-07-07 11:03 | P.PN ---
Subjective Progress Note Date: 07/07/23 No new complaints. Pt reports blisters and swelling are improving in her LEs. Gen: In NAD, non-toxic HEENT: normocephalic, atraumatic, hearing acuity is intant, mucous membranes moist CVS: perfusing all extremities well, no pitting edema, Respiratory: symmetric chest expansion, no accessory muscle use, GI: soft, NTTP, ND, : no suprapubic tenderness, no CVA tenderness MSK/Derm: no cyanosis, fluid-filled blisters with erythema in her bilateral lower extremities Neuro: CN II-XII intact, no motor weakness, Psych: cooperative, euthymic mood, judgment and insight is intact Hospital course: Patient is a 72-year-old female with a PMH of chronic lower extremity lymphedema, hypothyroidism, hypertension, hyperlipidemia, chronic kidney disease, SLE, who presented to the emergency room for lower extremity wounds and blisters. Laboratory evaluation in the emergency room revealed hemoglobin 8.7 (at baseline), BUN 25, creatinine 1.34 (better than baseline), and proBNP 4110. Assessment/plan: Bilateral lower extremity cellulitis -Continue clindamycin -Infectious disease consulted -Follow-up blood cultures Hypothyroidism Hypertension Hyperlipidemia Chronic kidney disease SLE -Home medications reviewed and reconciled DVT prophylaxis: Lovenox Subq The patient is admitted with an anticipated less than 2 midnight stay for evaluation of rene LE cellulitis CODE STATUS: Full Code Discussed with: Patient Anticipated discharge place: Home Objective - Vital Signs Vital signs: Vital Signs Temp 97.9 F 07/07/23 07:00 Pulse 50 L 07/07/23 07:00 Resp 16 07/07/23 07:00 BP 114/51 07/07/23 07:00 Pulse Ox 97 07/07/23 07:00 FiO2 Intake & Output 07/06/23 07/07/23 07/07/23 18:59 06:59 18:59 Weight 63.503 kg 63.503 kg Other: Voiding Method Toilet # Voids 0 - Labs CBC & Chem 7: 07/06/23 15:50 07/06/23 15:50 Labs: Abnormal Lab Results - Last 24 Hours (Table) 07/06/23 07/06/23 Range/Units 15:50 15:50 RBC 2.80 L (3.80-5.40) m/uL Hgb 8.7 L (11.4-16.0) gm/dL Hct 26.5 L (34.0-46.0) % ESR 32 H (0-30) mm/Hr Chloride 108 H (98-107) mmol/L BUN 25 H (7-17) mg/dL Creatinine 1.34 H (0.52-1.04) mg/dL C-Reactive Protein 2.5 H (<1.0) mg/dL Albumin 3.4 L (3.5-5.0) g/dL
[2023-07-07 12:36] LABS: BUN/Creat Ratio 15.12 Ratio (12.00-20.00); Blood Urea Nitrogen 25.7 mg/dL (9.0-27.0); Calcium 8.5 mg/dL (8.7-10.3); Carbon Dioxide 28.6 mmol/L (21.6-31.8); Chloride 106 mmol/L (96-109); Glucose 85 mg/dL (70-110); Potassium 4.4 mmol/L (3.5-5.5); Sodium 144 mmol/L (135-145)
[2023-07-07 12:52] LABS: Basophils # (A) 0.02 X 10*3/uL (0.00-0.10); Basophils % (A) 0.4 %; Eosinophils # (A) 0.24 X 10*3/uL (0.04-0.35); Eosinophils % (A) 4.9 %; HCT 24.2 % (37.2-46.3); HGB 7.5 g/dL (12.0-15.0); Lymphocytes # (A) 1.62 X 10*3/uL (0.90-5.00); Lymphocytes % (A) 32.8 %; MCH 30.6 pg (27.0-32.0); MCV 98.8 FL (80.0-97.0); Monocytes # (A) 0.63 X 10*3/uL (0.20-1.00); Monocytes % (A) 12.8 %; NRBC Per 100 WBC 0 X 10*3/uL (0.00-0.01); Neutrophils # (A) 2.42 X 10*3/uL (1.80-7.70); Neutrophils % (A) 48.9 %; Platelet Count 250 X 10*3/uL (140-440); RBC 2.45 X 10*6/uL (4.10-5.20); RDW 14.7 % (11.5-14.5); WBC 4.94 X 10*3/uL (4.50-10.00)
[2023-07-07] MEDS: AMPICILLIN-SULBACTAM 3 GM in SODIUM CHLORIDE 0.9% 100 ML IVPB SCH (17:32)
[2023-07-07] MEDS: ATORVASTATIN 80 MG TAB PO SCH (20:25)
--- NOTE | 2023-07-08 04:02 | P.CONS ---
History of Present Illness - Reason for Consult Consult date: 07/07/23 Wound care recommendation Requesting physician: Kaylee Crane - Chief Complaint Bilateral extremity swelling and redness x days - History of Present Illness This is a telehealth visit Patient is a 72-year-old female with a past medical history significant for hypertension hyperlipidemia COPD osteoarthritis patient also have history of bilateral lower extremity venous stasis ulcer and cellulitis along with lymphedema and apparently the patient was following up in the outpatient setting with the lymphedema clinic and recently did have a dressing that stayed for a long time and after removal of the dressing the patient did have bilateral lower extremity redness blisters itching and some discomfort for the patient present to the hospital patient denies high-grade fever or any chills and no fever has been recorded on presentation to the hospital patient wa s mildly tachycardic but not hypotensive or hypoxic patient denies having any headache or URI symptoms no chest pain shortness of breath or cough no nausea no vomiting no abdominal pain or diarrhea did have mild dull aching pain to the bilateral lower extremity with associated swelling redness and blister formation some of them have opened up leading to some clear fluid, patient did have a white count of 6.8 creatinine is 1.3 4 repeat is 1.7 with a reported allergy to cephalexin with the rash patient was started on clindamycin infectious he was consulted for further management of wound antibiotic therapy Review of Systems Positive point and negatives has been mentioned in the HPI, complete review of systems was performed and all other systems are negative Past Medical History Past Medical History: COPD, Hyperlipidemia, Hypertension, Osteoarthritis (OA), Skin Disorder, Thyroid Disorder Additional Past Medical History / Comment(s): Lupus, Gout, rashes from Lupus when flared up. fluid retention per pt.,. FELL BEGINNING OF FEB-NO INJURY History of Any Multi-Drug Resistant Organisms: MRSA Year Discovered:: 2022 MDRO Source:: lower extremities Past Surgical History: Hysterectomy, Joint Replacement, Orthopedic Surgery Additional Past Surgical History / Comment(s): Bilateral knee replacements, bilateral cataract surgery, right hip replacement with revision - multiple surgeries, bilateral wrist carpal tunnel surgery, pain clinic procedures. Past Anesthesia/Blood Transfusion Reactions: No Reported Reaction Additional Past Anesthesia/Blood Transfusion Reaction / Comm: Pt has never had a blood transfusion. Past Psychological History: No Psychological Hx Reported Smoking Status: Former smoker Past Alcohol Use History: None Reported Past Drug Use History: None Reported - Past Family History Mother Family Medical History: Hypertension Medications and Allergies Home Medications Medication Instructions Recorded Confirmed Type Albuterol Sulfate [Proair Hfa] 1 - 2 puff INHALATION RT-Q6H PRN 02/15/17 History Aspirin [Adult Low Dose Aspirin EC] 81 mg PO DAILY 02/15/17 07/06/23 History Biotin [Biotin Disolve] 5,000 mcg PO DAILY 02/15/17 07/06/23 History Folic Acid 1 mg PO DAILY 02/15/17 07/06/23 History Glucosam/Tc-Msm1/C/Chavez/Bosw 1 tab PO DAILY 02/15/17 07/06/23 History [Glucosamine-Chondroitin Tablet] Kelp 1 tab PO DAILY 02/15/17 07/06/23 History Levothyroxine Sodium 150 mcg PO DAILY 02/15/17 07/06/23 History Vitamin B Complex With C 1 tab PO DAILY 02/15/17 07/06/23 History hydroCHLOROthiazide 25 mg PO DAILY 02/15/17 07/06/23 History Metoprolol Tartrate [Lopressor] 25 mg PO BID #180 tablet 02/22/17 07/06/23 Rx Ascorbic Acid [Vitamin C] 1,000 mg PO DAILY 06/17/20 07/06/23 History Bumetanide [BUMEX] 2 mg PO BID 06/17/20 07/06/23 History Cholecalciferol [Vitamin D3 (25 125 mcg PO DAILY 06/17/20 07/06/23 History Mcg = 1000 Iu)] Multivitamins, Thera [Multivitamin 1 tab PO DAILY 06/17/20 07/06/23 History (formulary)] Ferrous Sulfate [Feosol] 325 mg PO DAILY 07/13/20 07/06/23 History Acetaminophen [Tylenol Extra 1,000 mg PO BID PRN 09/17/20 07/06/23 History Strength] Fexofenadine HCl 180 mg PO DAILY 07/21/21 07/06/23 History Fluticasone Nasal [place] [Flonase 1 spr EA NOSTRIL DAILY 01/12/22 07/06/23 History Nasal [place]] amLODIPine [Norvasc] 5 mg PO DAILY 01/12/22 07/06/23 History hydrALAZINE HCL [Apresoline] 25 mg PO BID 01/12/22 07/06/23 History Potassium Chloride 10 meq PO DAILY 01/10/23 07/06/23 History Atorvastatin [Lipitor] 80 mg PO HS 02/12/23 07/06/23 History Gabapentin [Neurontin] 100 mg PO BID #6 cap 02/14/23 07/06/23 Rx Calcium 1200mg W/Vitamin D 1 tab PO DAILY 07/06/23 07/06/23 History Isosorbide Mononitrate ER [Imdur] 60 mg PO DAILY 07/06/23 07/06/23 History Ranolazine [Ranexa] 500 mg PO BID 07/06/23 07/06/23 History Sinus Congestion(Unknown-Otc) 2 tab PO DAILY PRN 07/06/23 07/06/23 History lisinopriL [Zestril] 5 mg PO DAILY 07/06/23 07/06/23 History Amoxic-Pot Clav 875-125Mg 1 tab PO BID 10 Days #20 tab 07/09/23 Rx [Augmentin 875-125] Allergies Allergy/AdvReac Type Severity Reaction Status Date / Time adhesive Allergy skin peels Verified 07/06/23 17:56 cephalexin [From Keflex] Allergy Rash/Hives Verified 07/06/23 17:56 latex Allergy skin peels Verified 07/06/23 17:56 codeine AdvReac Hallucinati Verified 07/06/23 17:56 ons ketorolac [From Toradol] AdvReac Hallucinati Verified 07/06/23 17:56 ons morphine AdvReac Hallucinati Verified 07/06/23 17:56 ons Physical Exam Vitals: Vital Signs Temp Pulse Pulse Resp BP BP Pulse Ox 07/07/23 14:58 98.2 F 84 16 112/74 96 07/07/23 07:00 97.9 F 50 L 16 114/51 97 07/07/23 02:23 98.0 F 84 15 125/52 98 07/06/23 20:49 98.1 F 98 18 116/66 90 L 07/06/23 19:10 97.8 F 85 19 123/69 97 07/06/23 17:01 85 19 115/67 94 L Intake and Output 07/07/23 07/07/23 07/07/23 06:59 14:59 22:59 Other: # Voids 0 1 # Bowel Movements 0 Elderly female lying in bed in no distress Respiratory system unlabored breathing decreased breath sound the base Heart S1-S2 regular Abdominal soft no tenderness Extremities bilateral lower extremity with diffuse swelling redness and the patient did have some superficial ulceration from ruptured blister and did have some an open blister Exam completed with the help of [employer] 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 Results CBC & Chem 7: 07/09/23 05:32 07/09/23 05:32 Labs: Abnormal Lab Results - Last 24 Hours (Table) 07/06/23 07/06/23 07/07/23 Range/Units 15:50 15:50 05:38 RBC 2.45 L (4.10-5.20) X 10*6/uL Hgb 7.5 L (12.0-15.0) g/dL Hct 24.2 L (37.2-46.3) % MCV 98.8 H (80.0-97.0) FL MCHC 31.0 L (32.0-37.0) g/dL RDW 14.7 H (11.5-14.5) % ESR 32 H (0-30) mm/Hr Chloride 108 H (98-107) mmol/L BUN 25 H (7-17) mg/dL Creatinine 1.34 H (0.52-1.04) mg/dL Est GFR (CKD-EPI) (>=60) Calcium (8.7-10.3) mg/dL C-Reactive Protein 2.5 H (<1.0) mg/dL Albumin 3.4 L (3.5-5.0) g/dL 07/07/23 Range/Units 05:38 RBC (4.10-5.20) X 10*6/uL Hgb (12.0-15.0) g/dL Hct (37.2-46.3) % MCV (80.0-97.0) FL MCHC (32.0-37.0) g/dL RDW (11.5-14.5) % ESR (0-30) mm/Hr Chloride (98-107) mmol/L BUN (7-17) mg/dL Creatinine 1.7 H (0.52-1.04) mg/dL Est GFR (CKD-EPI) 31 L (>=60) Calcium 8.5 L (8.7-10.3) mg/dL C-Reactive Protein (<1.0) mg/dL Albumin (3.5-5.0) g/dL Assessment and Plan (1) Bilateral leg ulcer Status: Acute Code(s): L97.919 - NON-PRS CHRONIC ULC UNSP PRT OF R LOW LEG W UNSP SEVERITY; L97.929 - NON-PRS CHRONIC ULC UNSP PRT OF L LOW LEG W UNSP SEVERITY SNOMED Code(s): 94189911 (2) Bilateral lower leg cellulitis Status: Acute Code(s): L03.116 - CELLULITIS OF LEFT LOWER LIMB; L03.115 - CELLULITIS OF RIGHT LOWER LIMB SNOMED Code(s): 698033209 Plan: 1patient with bilateral lower extremity venous stasis ulcer did have some blisters and possible component of cellulitis likely from gram-positive skin julianna 2-patient did have a cephalexin allergy with a rash however has taken amoxicillin after that without any problem 3-we will apply dry Aquacel silver dressing to the open area of bilateral lower extremity and apply ABD to the blister followed by Atilio wrap from just above the toe to below the knee change daily 4-discontinue clindamycin and we will start the patient on Unasyn and see clinical response We will follow on clinical condition and cultures to further adjust medication if needed Thank you for this consultation we will follow the patient along with you Dictation was produced using [employer] dictation software. please excuse any grammatical, word or spelling errors. Time with Patient: Greater than 30
[2023-07-08] MEDS: LEVOTHYROXINE 75 MCG TAB PO SCH (05:24)
[2023-07-08] MEDS: AMPICILLIN-SULBACTAM 3 GM in SODIUM CHLORIDE 0.9% 100 ML IVPB SCH ×2 (05:25→17:40)
[2023-07-08] MEDS: ENOXAPARIN 30 MG/0.3 ML SYRINGE SQ SCH (08:22)
[2023-07-08] MEDS: BUMETANIDE 1 MG TAB PO SCH ×2 (08:23→15:52)
[2023-07-08] MEDS: ASCORBIC ACID 500 MG TAB PO SCH (08:23)
[2023-07-08] MEDS: CHOLECALCIFEROL 125 MCG (5000 IU) TABLET PO SCH (08:23)
[2023-07-08] MEDS: METOPROLOL TARTRATE 25 MG TAB PO SCH ×2 (08:23→20:00)
[2023-07-08] MEDS: ISOSORBIDE MONONITRATE ER 60 MG TAB.ER.24H PO SCH (08:23)
[2023-07-08] MEDS: CALCIUM CARB-VIT D 500 MG-5 MCG TAB PO SCH (08:23)
[2023-07-08] MEDS: MULTIVITAMINS, THERA 1 EACH TAB PO SCH (08:23)
[2023-07-08] MEDS: hydroCHLOROthiazide 25 MG TAB PO SCH (08:23)
[2023-07-08] MEDS: RANOLAZINE 500 MG TAB.ER.12H PO SCH ×2 (08:23→20:00)
[2023-07-08] MEDS: FOLIC ACID 1 MG TAB PO SCH (08:23)
[2023-07-08] MEDS: GABAPENTIN 100 MG CAP PO SCH ×2 (08:23→20:00)
[2023-07-08] MEDS: amLODIPine 5 MG TAB PO SCH (08:23)
[2023-07-08] MEDS: ASPIRIN 81 MG PO SCH (08:23)
[2023-07-08] MEDS: lisinopriL 5 MG TAB PO SCH (08:23)
[2023-07-08] MEDS: POTASSIUM CHLORIDE ER 10 MEQ TAB.ER.PRT PO SCH (08:24)
[2023-07-08] MEDS: FERROUS SULFATE 325 MG TAB PO SCH (08:24)
[2023-07-08] MEDS: LORATADINE 10 MG TAB PO SCH (08:24)
[2023-07-08] MEDS: hydrALAZINE HCL 25 MG TAB PO SCH ×2 (08:24→20:00)
[2023-07-08] MEDS: FLUTICASONE 50MCG/SPRAY NASAL 16GM EA NOSTRIL SCH (08:29)
--- NOTE | 2023-07-08 09:43 | P.PN ---
Subjective Progress Note Date: 07/08/23 No new complaints. LEs are wrapped this morning. Pt switched to unasyn, reports improvement overall. Gen: In NAD, non-toxic HEENT: normocephalic, atraumatic, hearing acuity is intant, mucous membranes mo ist CVS: perfusing all extremities well, no pitting edema, Respiratory: symmetric chest expansion, no accessory muscle use, GI: soft, NTTP, ND, : no suprapubic tenderness, no CVA tenderness MSK/Derm: no cyanosis, fluid-filled blisters with erythema in her bilateral lower extremities Neuro: CN II-XII intact, no motor weakness, Psych: cooperative, euthymic mood, judgment and insight is intact Hospital course: Patient is a 72-year-old female with a PMH of chronic lower extremity lymphedem a, hypothyroidism, hypertension, hyperlipidemia, chronic kidney disease, SLE, who presented to the emergency room for lower extremity wounds and blisters. Laboratory evaluation in the emergency room revealed hemoglobin 8.7 (at baseline), BUN 25, creatinine 1.34 (better than baseline), and proBNP 4110. Assessment/plan: Bilateral lower extremity cellulitis -Continue unasyn -Infectious disease consulted -Follow-up blood cultures Hypothyroidism Hypertension Hyperlipidemia Chronic kidney disease SLE -Home medications reviewed and reconciled DVT prophylaxis: Lovenox Subq The patient is admitted with an anticipated less than 2 midnight stay for evaluation of rene LE cellulitis CODE STATUS: Full Code Discussed with: Patient Anticipated discharge place: Home Objective - Vital Signs Vital signs: Vital Signs Temp 98.1 F 07/08/23 07:00 Pulse 98 07/08/23 07:00 Resp 16 07/08/23 07:00 BP 146/68 07/08/23 07:00 Pulse Ox 99 07/08/23 08:25 FiO2 2 07/08/23 08:25 Intake & Output 07/07/23 07/08/23 07/08/23 18:59 06:59 18:59 Other: # Voids 1 2 # Bowel Movements 0 - Labs CBC & Chem 7: 07/07/23 05:38 07/07/23 05:38 Labs: Abnormal Lab Results - Last 24 Hours (Table) 07/07/23 07/07/23 Range/Units 05:38 05:38 RBC 2.45 L (4.10-5.20) X 10*6/uL Hgb 7.5 L (12.0-15.0) g/dL Hct 24.2 L (37.2-46.3) % MCV 98.8 H (80.0-97.0) FL MCHC 31.0 L (32.0-37.0) g/dL RDW 14.7 H (11.5-14.5) % Creatinine 1.7 H (0.6-1.5) mg/dL Est GFR (CKD-EPI) 31 L (>=60) Calcium 8.5 L (8.7-10.3) mg/dL Microbiology - Last 24 Hours (Table) 07/06/23 16:00 Blood Culture - Preliminary Blood
[2023-07-08] MEDS: ATORVASTATIN 80 MG TAB PO SCH (20:00)
--- NOTE | 2023-07-09 02:17 | P.PN ---
Subjective Progress Note Date: 07/08/23 Principal diagnosis: Reason for follow-up is bilateral lower extremity ulcer and cellulitis This is a telehealth visit Patient is a 72-year-old female with a past medical history significant for hypertension hyperlipidemia COPD osteoarthritis patient also have history of bilateral lower extremity venous stasis ulcer and cellulitis, presented to hospital with worsening swelling redness to bilateral lower extremity. On today's evaluation that is 07/08/2023 the patient continues to be afebrile, the patient is breathing comfortably on 2 L nasal cannula oxygen patient denies having any chest pain occasional cough no sputum production, the pt denies nausea vomiting no abdominal pain no diarrhea, denies pain to bilateral lower extremity. No new labs were obtained today cultures are currently pending Objective - Vital Signs Vital signs: Vital Signs Temp 98.1 F 07/08/23 07:00 Pulse 98 07/08/23 07:00 Resp 16 07/08/23 07:00 BP 146/68 07/08/23 07:00 Pulse Ox 99 07/08/23 08:25 FiO2 2 07/08/23 08:25 Intake & Output 07/07/23 07/08/23 07/08/23 18:59 06:59 18:59 Other: # Voids 1 2 # Bowel Movements 0 - Exam Elderly female lying in bed in no distress Bilateral legs wounds are currently dressed no drainage on the dressing - Labs CBC & Chem 7: 07/07/23 05:38 07/07/23 05:38 Labs: Abnormal Lab Results - Last 24 Hours (Table) 07/07/23 07/07/23 Range/Units 05:38 05:38 RBC 2.45 L (4.10-5.20) X 10*6/uL Hgb 7.5 L (12.0-15.0) g/dL Hct 24.2 L (37.2-46.3) % MCV 98.8 H (80.0-97.0) FL MCHC 31.0 L (32.0-37.0) g/dL RDW 14.7 H (11.5-14.5) % Creatinine 1.7 H (0.6-1.5) mg/dL Est GFR (CKD-EPI) 31 L (>=60) Calcium 8.5 L (8.7-10.3) mg/dL Microbiology - Last 24 Hours (Table) 07/06/23 16:00 Blood Culture - Preliminary Blood Assessment and Plan (1) Bilateral leg ulcer Current Visit: Yes Status: Acute Code(s): L97.919 - NON-PRS CHRONIC ULC UNSP PRT OF R LOW LEG W UNSP SEVERITY; L97.929 - NON-PRS CHRONIC ULC UNSP PRT OF L LOW LEG W UNSP SEVERITY SNOMED Code(s): 69630344 (2) Bilateral lower leg cellulitis Current Visit: Yes Status: Acute Code(s): L03.116 - CELLULITIS OF LEFT LOWER LIMB; L03.115 - CELLULITIS OF RIGHT LOWER LIMB SNOMED Code(s): 553448729 Plan: 1patient with bilateral lower extremity venous stasis ulcer did have some blisters and possible component of cellulitis likely from gram-positive skin julianna 2-patient did have a cephalexin allergy with a rash however has taken amoxicillin after that without any problem 3-we will apply dry Aquacel silver dressing to the open area of bilateral lower extremity and apply ABD to the blister followed by Atilio wrap from just above the toe to below the knee change daily 4-patient to continue Unasyn and will reevaluate the legs wound tomorrow at the time of dressing changes Dictation was produced using [employer] dictation software. please excuse any grammatical, word or spelling errors. Time with Patient: Less than 30
[2023-07-09] MEDS: LEVOTHYROXINE 75 MCG TAB PO SCH (06:01)
[2023-07-09] MEDS: AMPICILLIN-SULBACTAM 3 GM in SODIUM CHLORIDE 0.9% 100 ML IVPB SCH (06:02)
[2023-07-09 08:30] VITALS: BP 163/72; PULSE 90; RESP 16; TEMP 97.4
[2023-07-09 09:07] LABS: Basophils # (A) 0.03 X 10*3/uL (0.00-0.10); Basophils % (A) 0.5 %; Eosinophils # (A) 0.25 X 10*3/uL (0.04-0.35); Eosinophils % (A) 4.4 %; HCT 24.7 % (37.2-46.3); HGB 8.1 g/dL (12.0-15.0); Lymphocytes # (A) 1.51 X 10*3/uL (0.90-5.00); Lymphocytes % (A) 26.4 %; MCH 31.3 pg (27.0-32.0); MCHC 32.8 g/dL (32.0-37.0); MCV 95.4 FL (80.0-97.0); Mean Platelet Volume 9.8 FL (9.5-12.2); Monocytes % (A) 10.5 %; NRBC Per 100 WBC 0 X 10*3/uL (0.00-0.01); Neutrophils # (A) 3.31 X 10*3/uL (1.80-7.70); Platelet Count 254 X 10*3/uL (140-440); RBC 2.59 X 10*6/uL (4.10-5.20); RDW 14.6 % (11.5-14.5); WBC 5.71 X 10*3/uL (4.50-10.00)
[2023-07-09] MEDS: lisinopriL 5 MG TAB PO SCH (09:07)
[2023-07-09] MEDS: amLODIPine 5 MG TAB PO SCH (09:07)
[2023-07-09] MEDS: ASCORBIC ACID 500 MG TAB PO SCH (09:07)
[2023-07-09] MEDS: FERROUS SULFATE 325 MG TAB PO SCH (09:07)
[2023-07-09] MEDS: ASPIRIN 81 MG PO SCH (09:07)
[2023-07-09] MEDS: MULTIVITAMINS, THERA 1 EACH TAB PO SCH (09:08)
[2023-07-09] MEDS: ISOSORBIDE MONONITRATE ER 60 MG TAB.ER.24H PO SCH (09:08)
[2023-07-09] MEDS: ENOXAPARIN 30 MG/0.3 ML SYRINGE SQ SCH (09:08)
[2023-07-09] MEDS: RANOLAZINE 500 MG TAB.ER.12H PO SCH (09:08)
[2023-07-09] MEDS: LORATADINE 10 MG TAB PO SCH (09:08)
[2023-07-09] MEDS: METOPROLOL TARTRATE 25 MG TAB PO SCH (09:08)
[2023-07-09] MEDS: hydroCHLOROthiazide 25 MG TAB PO SCH (09:08)
[2023-07-09] MEDS: CHOLECALCIFEROL 125 MCG (5000 IU) TABLET PO SCH (09:08)
[2023-07-09] MEDS: GABAPENTIN 100 MG CAP PO SCH (09:08)
[2023-07-09] MEDS: POTASSIUM CHLORIDE ER 10 MEQ TAB.ER.PRT PO SCH (09:08)
[2023-07-09] MEDS: BUMETANIDE 1 MG TAB PO SCH (09:08)
[2023-07-09] MEDS: CALCIUM CARB-VIT D 500 MG-5 MCG TAB PO SCH (09:08)
[2023-07-09] MEDS: FOLIC ACID 1 MG TAB PO SCH (09:08)
[2023-07-09] MEDS: hydrALAZINE HCL 25 MG TAB PO SCH (09:08)
[2023-07-09] MEDS: FLUTICASONE 50MCG/SPRAY NASAL 16GM EA NOSTRIL SCH (09:09)
[2023-07-09 09:11] LABS: BUN/Creat Ratio 14.76 Ratio (12.00-20.00); Blood Urea Nitrogen 25.1 mg/dL (9.0-27.0); Calcium 8.9 mg/dL (8.7-10.3); Carbon Dioxide 32.6 mmol/L (21.6-31.8); Chloride 101 mmol/L (96-109); Glucose 96 mg/dL (70-110); Magnesium 2.1 mg/dL (1.5-2.4); Sodium 143 mmol/L (135-145)
--- NOTE | 2023-07-09 12:07 | P.DS ---
Providers Date of admission: 07/06/23 18:16 Expected date of discharge: 07/09/23 Attending physician: Estrella Wu MD Consults: 07/06/23 18:09 Consult Physician Urgent Consulting Provider: Melissa Fletcher Consult Reason/Comments: wound care recommendations Do you want consulting provider notified?: Yes [facility] Course: Bilateral lower extremity cellulitis Hypothyroidism Hypertension Hyperlipidemia Chronic kidney disease SLE Gen: In NAD, non-toxic HEENT: normocephalic, atraumatic, hearing acuity is intant, mucous membranes moist CVS: perfusing all extremities well, no pitting edema, Respiratory: symmetric chest expansion, no accessory muscle use, GI: soft, NTTP, ND, : no suprapubic tenderness, no CVA tenderness MSK/Derm: no cyanosis, fluid-filled blisters with erythema in her bilateral lower extremities Neuro: CN II-XII intact, no motor weakness, Psych: cooperative, euthymic mood, judgment and insight is intact Hospital course: Patient is a 72-year-old female with a PMH of chronic lower extremity lymphedema, hypothyroidism, hypertension, hyperlipidemia, chronic kidney disease, SLE, who presented to the emergency room for lower extremity wounds and blisters. Laboratory evaluation in the emergency room revealed hemoglobin 8.7 (at baseline), BUN 25, creatinine 1.34 (better than baseline), and proBNP 4110. Pt was admitted and started on IV clindamycin. ID was consulted and evaluated the patient. They recommended switching to unasyn for infx, and continuing wound care with bandaging and wraps. Pts swelling and erythema improved with this. Pt was switched to augmentin and prescribed a 10 day course for completion. I spent 32 minutes coordinating this discharge on 07/09 Patient Condition at Discharge: Good Plan - Discharge Summary New Discharge Prescriptions: New Amoxic-Pot Clav 875-125Mg [Augmentin 875-125] 1 tab PO BID 10 Days #20 tab Continue hydroCHLOROthiazide 25 mg PO DAILY Glucosam/Tc-Msm1/C/[place]/Bosw [Glucosamine-Chondroitin Tablet] 1 tab PO DAILY Biotin [Biotin Disolve] 5,000 mcg PO DAILY Aspirin [Adult Low Dose Aspirin EC] 81 mg PO DAILY Levothyroxine Sodium 150 mcg PO DAILY Kelp 1 tab PO DAILY Folic Acid 1 mg PO DAILY Albuterol Sulfate [Proair Hfa] 1 - 2 puff INHALATION RT-Q6H PRN PRN Reason: Shortness Of Breath Vitamin B Complex With C 1 tab PO DAILY Metoprolol Tartrate [Lopressor] 25 mg PO BID #180 tablet Bumetanide [BUMEX] 2 mg PO BID Cholecalciferol [Vitamin D3 (25 Mcg = 1000 Iu)] 125 mcg PO DAILY Ascorbic Acid [Vitamin C] 1,000 mg PO DAILY Multivitamins, Thera [Multivitamin (formulary)] 1 tab PO DAILY Ferrous Sulfate [Feosol] 325 mg PO DAILY Acetaminophen [Tylenol Extra Strength] 1,000 mg PO BID PRN PRN Reason: Pain Fexofenadine HCl 180 mg PO DAILY Potassium Chloride 10 meq PO DAILY Atorvastatin [Lipitor] 80 mg PO HS Gabapentin [Neurontin] 100 mg PO BID #6 cap lisinopriL [Zestril] 5 mg PO DAILY Calcium 1200mg W/Vitamin D 1 tab PO DAILY hydrALAZINE HCL [Apresoline] 25 mg PO BID amLODIPine [Norvasc] 5 mg PO DAILY Fluticasone Nasal [place] [Flonase Nasal [place]] 1 spr EA NOSTRIL DAILY Sinus Congestion(Unknown-Otc) 2 tab PO DAILY PRN PRN Reason: Congestion Ranolazine [Ranexa] 500 mg PO BID Isosorbide Mononitrate ER [Imdur] 60 mg PO DAILY Discharge Medication List Albuterol Sulfate [Proair Hfa] 1 - 2 puff INHALATION RT-Q6H PRN 02/15/17 [History] Aspirin [Adult Low Dose Aspirin EC] 81 mg PO DAILY 02/15/17 [History] Biotin [Biotin Disolve] 5,000 mcg PO DAILY 02/15/17 [History] Folic Acid 1 mg PO DAILY 02/15/17 [History] Glucosam/Tc-Msm1/C/[place]/Bosw [Glucosamine-Chondroitin Tablet] 1 tab PO DAILY 02/15/17 [History] Kelp 1 tab PO DAILY 02/15/17 [History] Levothyroxine Sodium 150 mcg PO DAILY 02/15/17 [History] Vitamin B Complex With C 1 tab PO DAILY 02/15/17 [History] hydroCHLOROthiazide 25 mg PO DAILY 02/15/17 [History] Metoprolol Tartrate [Lopressor] 25 mg PO BID #180 tablet 02/22/17 [Rx] Ascorbic Acid [Vitamin C] 1,000 mg PO DAILY 06/17/20 [History] Bumetanide [BUMEX] 2 mg PO BID 06/17/20 [History] Cholecalciferol [Vitamin D3 (25 Mcg = 1000 Iu)] 125 mcg PO DAILY 06/17/20 [History] Multivitamins, Thera [Multivitamin (formulary)] 1 tab PO DAILY 06/17/20 [History] Ferrous Sulfate [Feosol] 325 mg PO DAILY 07/13/20 [History] Acetaminophen [Tylenol Extra Strength] 1,000 mg PO BID PRN 09/17/20 [History] Fexofenadine HCl 180 mg PO DAILY 07/21/21 [History] Fluticasone Nasal [place] [Flonase Nasal [place]] 1 spr EA NOSTRIL DAILY 01/12/22 [History] amLODIPine [Norvasc] 5 mg PO DAILY 01/12/22 [History] hydrALAZINE HCL [Apresoline] 25 mg PO BID 01/12/22 [History] Potassium Chloride 10 meq PO DAILY 01/10/23 [History] Atorvastatin [Lipitor] 80 mg PO HS 02/12/23 [History] Gabapentin [Neurontin] 100 mg PO BID #6 cap 02/14/23 [Rx] Calcium 1200mg W/Vitamin D 1 tab PO DAILY 07/06/23 [History] Isosorbide Mononitrate ER [Imdur] 60 mg PO DAILY 07/06/23 [History] Ranolazine [Ranexa] 500 mg PO BID 07/06/23 [History] Sinus Congestion(Unknown-Otc) 2 tab PO DAILY PRN 07/06/23 [History] lisinopriL [Zestril] 5 mg PO DAILY 07/06/23 [History] Amoxic-Pot Clav 875-125Mg [Augmentin 875-125] 1 tab PO BID 10 Days #20 tab 07/09/23 [Rx] Follow up Appointment(s)/Referral(s): Edison Rowley MD [REFERRING] - 1-2 days Robbie Luther DO [Primary Care Provider] - 1-2 days [facility] Visiting Nurse, [NON-STAFF] - 1-2 days Patient Instructions/Handouts: Cellulitis (GEN) Activity/Diet/Wound Care/Special Instructions: PLEASE contact case management regarding Home Care referral Discharge Disposition: HOME WITH HOME HEALTH SERVICES
--- NOTE | 2023-07-09 23:50 | P.PN ---
Subjective Progress Note Date: 07/09/23 Principal diagnosis: Reason for follow-up is bilateral lower extremity ulcer and cellulitis This is a telehealth visit Patient is a 72-year-old female with a past medical history significant for hypertension hyperlipidemia COPD osteoarthritis patient also have history of bilateral lower extremity venous stasis ulcer and cellulitis, presented to hospital with worsening swelling redness to bilateral lower extremity. On today's evaluation that is 07/09/2023 the patient remains to be afebrile, patient is breathing comfortably on room air without need for supplemental o xygen, the patient denies having any chest pain no significant cough or sputum production no nausea vomiting no abdominal pain and no diarrhea, the pain discomfort to the lower extremity has improved White count of 5.71, creatinine is 1.7 blood cultures so far negative Objective - Vital Signs Vital signs: Vital Signs Temp 97.4 F L 07/09/23 07:00 Pulse 90 07/09/23 07:00 Resp 16 07/09/23 07:00 BP 163/72 07/09/23 07:00 Pulse Ox 93 L 07/09/23 07:00 FiO2 2 07/08/23 08:25 Intake & Output 07/08/23 07/09/23 07/09/23 18:59 06:59 18:59 Other: # Voids 2 2 # Bowel Movements 0 1 - Exam Elderly female lying in bed in no distress Unlabored breathing Nursing staff who change the dressing mention overall redness has improved and no purulent drainage - Labs CBC & Chem 7: 07/09/23 05:32 07/09/23 05:32 Labs: Microbiology - Last 24 Hours (Table) 07/06/23 16:00 Blood Culture - Preliminary Blood Assessment and Plan (1) Bilateral leg ulcer Status: Acute Code(s): L97.919 - NON-PRS CHRONIC ULC UNSP PRT OF R LOW LEG W UNSP SEVERITY; L97.929 - NON-PRS CHRONIC ULC UNSP PRT OF L LOW LEG W UNSP SEVERITY SNOMED Code(s): 83958416 (2) Bilateral lower leg cellulitis Status: Acute Code(s): L03.116 - CELLULITIS OF LEFT LOWER LIMB; L03.115 - CELLULITIS OF RIGHT LOWER LIMB SNOMED Code(s): 521967080 Plan: 1patient with bilateral lower extremity venous stasis ulcer did have some blisters and possible component of cellulitis likely from gram-positive skin julianna 2-patient did have a cephalexin allergy with a rash however has taken amoxicillin after that without any problem 3-we will apply dry Aquacel silver dressing to the open area of bilateral lower extremity and apply ABD to the blister followed by Atilio wrap from just above the toe to below the knee change daily 4-patient to finish therapy with oral Augmentin x 7 to 10 days discussed with the admitting team working on discharge Dictation was produced using [employer] dictation software. please excuse any grammatical, word or spelling errors. Time with Patient: Less than 30
== END 2023-07-09 14:10 | disposition home health service (06) ==
LOC: EC 14:01 → 6NMEDSUR 18:16
PROVIDERS: ADMIT Internal Medicine; ATTEND Internal Medicine
DX: L03.115 Cellulitis of right lower limb (principal); L03.116 Cellulitis of left lower limb; J44.9 Chronic obstructive pulmonary disease, unspecified; E78.5 Hyperlipidemia, unspecified; M32.9 Systemic lupus erythematosus, unspecified; E03.9 Hypothyroidism, unspecified; I12.9 Hypertensive chronic kidney disease with stage 1 through stage 4 chronic kidney disease, or unspecified chronic kidney disease; N18.9 Chronic kidney disease, unspecified; Z87.891 Personal history of nicotine dependence; Z79.82 Long term (current) use of aspirin; Z79.890 Hormone replacement therapy; Z79.899 Other long term (current) drug therapy; Z88.1 Allergy status to other antibiotic agents; Z88.5 Allergy status to narcotic agent; Z88.6 Allergy status to analgesic agent; Z91.040 Latex allergy status
CPT/HCPCS: 96365; 96366 ×3; 96367; 96372 ×3; 96376; 99284; 36415; 94760; 83880; 80053; 80048 ×2; 85652; 83605; 83735; 85025 ×3; 86140; 87040; G0378 ×4; J1650 ×3; J0295 ×3; J0736 ×2

== ENCOUNTER → 2023-08-23 | Outpatient (CLI) | payer MEDICARE ==
--- NOTE | 2023-08-23 18:09 | MR ---
EXAMINATION TYPE: MR cervical spine wo con DATE OF EXAM: 08/23/2023 COMPARISON: 02/14/2019 HISTORY: 73-year-old female G99.2 Neck pain that radiates down both arms, soreness, 4 concussions fro m falls. pt moving repeats done TECHNIQUE: Multiplanar, multisequence images of the cervical spine were acquired without contrast. FINDINGS: No craniocervical junction anomaly, predental space widening, or prevertebral soft tissue swelling. Prominent reversal of the normal cervical lordosis is redemonstrated with moderate to advanced multil evel degenerative disc disease with desiccated and narrowed disc and multiple discussed complexes. Ligamentum flavum thickening particularly in the mid and lower cervical spine. There is degenerative grade 1 retrolisthesis redemonstrated at C4-C5 and C5-C6 and prominent anteroli sthesis, nearly grade 2 at C7-T1. Trace grade 1 anterolisthesis T1-T2. Sclerotic Modic type III endplate changes present particularly at C4-C5. Mild heterogeneous marrow si gnal similar to prior. No suspicious bone marrow replacement. There is moderate overall focal spinal canal stenosis at C4-C5 secondary to disc osteophyte complex a nd ligamentum flavum thickening. This abuts and flattens the ventral cord. Mild to moderate spinal canal stenosis at C5-C6 with abutment of the ventral cord. At C6/C7, mild spinal canal stenosis. Patchy artifact projects over the cord but no definite myelopathic cord signal change is identified. Multilevel hypertrophic facet and uncovertebral joint arthropathy. At C3-C4 on the right, at least moderate neural foraminal stenosis. At C4-C5, at least moderate bilateral foraminal stenosis, possible moderate to severe on the left. At C5-C6, possible moderate to severe bilateral neuroforaminal stenoses. At C6/C7, mild bilateral neural foraminal stenoses. At C7-T1, at least moderate bilateral foraminal stenoses. Motion artifact limits evaluation. IMPRESSION: 1. Similar reversal of the normal cervical lordosis with moderate to advanced multilevel degenerative disc disease. Degenerative grade 1 spondylolisthesis C4-C5, C5-C6, and T1-T2. Nearly grade 2 anterol isthesis at C7-T1. 2. Additional hypertrophic facet and uncovertebral joint arthropathy throughout, also fairly similar to 2019. 3. Changes resulting in similar moderate focal spinal canal stenosis at C4-C5 with abutment and heather ening of the ventral cord. Mild to moderate spinal canal stenosis at C5-C6 and mild at C6-C7. 4. Variable neuroforaminal stenoses as outlined above. Note motion artifact limiting detailed assessm ent.
== END | disposition home or self-care (01) ==
LOC: RADMRIMAIN 09:34
PROVIDERS: ATTEND Psychiatry & Neurology Neurology
DX: M99.71 Connective tissue and disc stenosis of intervertebral foramina of cervical region (principal); M43.13 Spondylolisthesis, cervicothoracic region; M48.02 Spinal stenosis, cervical region; G99.2 Myelopathy in diseases classified elsewhere; M50.30 Other cervical disc degeneration, unspecified cervical region; M47.812 Spondylosis without myelopathy or radiculopathy, cervical region
CPT/HCPCS: 72141

== ENCOUNTER → 2023-11-27 | Outpatient (CLI) | payer MEDICARE ==
--- NOTE | 2023-11-27 10:18 | XR ---
EXAMINATION TYPE: XR chest 2V DATE OF EXAM: 11/27/2023 COMPARISON: 02/12/2023 HISTORY: Shortness of breath TECHNIQUE: Frontal and lateral views of the chest are obtained. FINDINGS: Scattered senescent parenchymal changes noted. Hyperinflation compatible with COPD. No evidence for infiltrate. No evidence for atelectasis. Heart size is stable. Mediastinal structures are stable and grossly unremarkable. No evidence for hilar prominence. Degenerative changes dorsal spine. IMPRESSION: 1. No evidence for acute pulmonary disease.
== END | disposition home or self-care (01) ==
LOC: RADXRYALE 10:01
PROVIDERS: ATTEND Family Medicine
DX: R05.9 Cough, unspecified (principal)
CPT/HCPCS: 71046

== ENCOUNTER → 2023-12-19 | Outpatient (CLI) | payer MEDICARE ==
--- NOTE | 2023-12-19 12:20 | CT ---
EXAMINATION TYPE: CT cervical spine wo con CT DLP: 270 mGycm, Automated exposure control for dose reduction was used. DATE OF EXAM: 12/19/2023 10:50 AM COMPARISON: MR cervical spine 08/23/2023. CLINICAL INDICATION:Female, 73 years old with history of M50.121 C DISC DISORDER M54.2 CERVICALGIA; P HH, chronic neck pain TECHNIQUE: Axial CT images from the skull base to the inferior aspect of T2 we obtained without intra venous contrast. Coronal and sagittal reformatted images were also reviewed. FINDINGS: Fracture: None. Osseous structures: Unremarkable Vertebral alignment: Overall stable appearance of trace grade 1 anterolisthesis of C2 on C3, grade 2 anterolisthesis of C3 on C4, and grade 1 anterolisthesis of C7 on T1 . Similar reversal of normal cer vical lordosis. Spinal canal/Neural Foramina: Prominent posterior disc osteophyte complex at C4-C5 resulting in mild central canal stenosis. Posterior disc osteophyte complexes at C5-C6 and C6-C7 resulting in mild cent ral canal stenosis. Facet joint and uncovertebral joint arthropathy scattered throughout the cervical spine with varying degrees of neural foraminal stenosis. This is pronounced with severe right neurof oraminal stenosis at C3-C4. Moderate neuroforaminal stenosis on the right at C4-C5 and severe on the left at C4-C5. Severe bilateral neuroforaminal stenosis at C5-C6. Severe neural foraminal stenosis on the left at C6-C7 Neck soft tissues: Prevertebral soft tissues are within normal limits. Other: The airway is patent. The lung apices are clear. Bilateral carotid bulb calcifications with ri ght greater the left. IMPRESSION: 1. No evidence of cervical spine fracture. 2. Similar moderate to advanced multilevel degenerative disc disease and facet arthropathy as describ ed above. 3. Stable vertebral alignment as described above.
== END | disposition home or self-care (01) ==
LOC: RADCTMAIN 10:17
PROVIDERS: ATTEND Orthopaedic Surgery Orthopaedic Surgery of the Spine
DX: M47.22 Other spondylosis with radiculopathy, cervical region (principal); M50.121 Cervical disc disorder at C4-C5 level with radiculopathy; M50.122 Cervical disc disorder at C5-C6 level with radiculopathy; M50.123 Cervical disc disorder at C6-C7 level with radiculopathy; M50.021 Cervical disc disorder at C4-C5 level with myelopathy; M50.022 Cervical disc disorder at C5-C6 level with myelopathy; M50.023 Cervical disc disorder at C6-C7 level with myelopathy; M47.12 Other spondylosis with myelopathy, cervical region; M43.12 Spondylolisthesis, cervical region; M25.78 Osteophyte, vertebrae; M47.26 Other spondylosis with radiculopathy, lumbar region; E66.3 Overweight; M48.02 Spinal stenosis, cervical region; R29.2 Abnormal reflex; R26.89 Other abnormalities of gait and mobility; M51.16 Intervertebral disc disorders with radiculopathy, lumbar region; M41.86 Other forms of scoliosis, lumbar region; M48.062 Spinal stenosis, lumbar region with neurogenic claudication; M25.551 Pain in right hip
CPT/HCPCS: 72125

== ENCOUNTER → 2023-12-25 | Outpatient (CLI) | payer MEDICARE ==
[2023-12-25 17:38] LABS: BUN/Creat Ratio 19.59 Ratio (12.00-20.00); Blood Urea Nitrogen 33.3 mg/dL (9.0-27.0); Chloride 101 mmol/L (96-109); Glucose 103 mg/dL (70-110); Phosphorus 4.1 mg/dL (2.4-5.1); Potassium 5.2 mmol/L (3.5-5.5); Sodium 141 mmol/L (135-145)
[2023-12-25 17:39] LABS: Albumin 4.1 g/dL (3.8-4.9); Calcium 9.1 mg/dL (8.7-10.3); Carbon Dioxide 30.4 mmol/L (21.6-31.8)
[2023-12-25 18:51] LABS: Appearance,Urine Clear (Clear); Bilirubin,Urine Negative (Negative); Blood,Urine Negative (Negative); Color,Urine Yellow (Yellow); Ketones,Urine Negative (Negative); Nitrite,Urine Negative (Negative); Specific Gravity,Urine 1.009 (1.001-1.030); Urobilinogen,Urine 0.2 E.U./DL
== END | disposition home or self-care (01) ==
LOC: LABWHC1 11:39
PROVIDERS: ATTEND Internal Medicine
DX: N17.9 Acute kidney failure, unspecified (principal)
CPT/HCPCS: 36415; 80069; 81003; 82043; 82570

== ENCOUNTER 2024-01-30 07:30 | Inpatient (IN) | payer MEDICARE ==
[2024-01-30] MEDS ORDERED: ONDANSETRON 4 MG/2 ML VIAL ONE (09:14)
[2024-01-30] MEDS ORDERED: HYDROmorphone (PF) 1 MG/ML ONE (10:58)
[2024-01-30] MEDS ORDERED: PROPOFOL 10 MG/ML 20 ML VIAL IV ONE (10:58)
[2024-01-30] MEDS ORDERED: MIDAZOLAM 2 MG/2 ML VIAL ONE (10:58)
[2024-01-30] MEDS ORDERED: LIDOCAINE 1% INJ 10MG/ML (20 ML MDV) ONE (10:58)
[2024-01-30] MEDS ORDERED: ceFAZolin 1 GM/50 ML BAG (PMX) ONE (10:58)
[2024-01-30] MEDS ORDERED: SUCCINYLCHOLINE CHLORIDE 200 MG/10 ML VIAL IV ONE (10:58)
[2024-01-30] MEDS ORDERED: DEXAMETHASONE SOD PHOSPHATE 10 MG/ML 1 ML VIAL ONE (10:58)
[2024-01-30] MEDS ORDERED: ROCURONIUM 10 MG/ML (5 ML VIAL) IV ONE (10:58)
[2024-01-30] MEDS ORDERED: fentaNYL (PF) 50 MCG/ML 2 ML AMP ONE (10:58)
[2024-01-30] MEDS ORDERED: PHENYLEPHRINE 10 MG/ML VIAL ONE (10:58)
[2024-01-30] MEDS ORDERED: ePHEDrine 50 MG/ML 1 ML VIAL ONE (10:58)
[2024-01-30] MEDS ORDERED: CYCLOBENZAPRINE 10 MG TAB ONE (18:50)
[2024-01-31] MEDS ORDERED: CYCLOBENZAPRINE 5 MG TAB ONE (04:10)
[2024-01-31] MEDS ORDERED: LEVOTHYROXINE 50 MCG TAB ONE (06:03)
[2024-01-31] MEDS ORDERED: LEVOTHYROXINE 100 MCG TAB ONE (06:03)
[2024-01-31] MEDS ORDERED: ATORVASTATIN 80 MG TAB ONE ×2 (09:03)
[2024-01-31] MEDS ORDERED: POTASSIUM CHLORIDE ER 10 MEQ TAB.ER.PRT PO ONE ×2 (09:04)
[2024-01-31] MEDS ORDERED: hydrALAZINE HCL 25 MG TAB ONE ×2 (09:04→21:21)
[2024-01-31] MEDS ORDERED: ISOSORBIDE MONONITRATE ER 30 MG TAB.ER.24H PO ONE ×2 (09:05→21:21)
[2024-01-31] MEDS ORDERED: METOPROLOL TARTRATE 25 MG TAB ONE ×2 (18:50)
[2024-02-01] MEDS ORDERED: LEVOTHYROXINE 75 MCG TAB ONE (06:44)
[2024-02-01] MEDS ORDERED: METOPROLOL TARTRATE 25 MG TAB ONE ×4 (08:18→21:54)
[2024-02-01] MEDS ORDERED: HYDROcodone/APAP 5-325MG 1 EACH TAB ONE ×2 (08:18)
[2024-02-01] MEDS ORDERED: ISOSORBIDE MONONITRATE ER 30 MG TAB.ER.24H PO ONE ×2 (08:18→21:55)
[2024-02-01] MEDS ORDERED: ATORVASTATIN 80 MG TAB ONE ×2 (08:18)
[2024-02-01] MEDS ORDERED: BUMETANIDE 1 MG TAB ONE ×2 (08:19→21:55)
[2024-02-01] MEDS ORDERED: RANOLAZINE 500 MG TAB.ER.12H PO ONE ×2 (08:19→21:55)
[2024-02-01] MEDS ORDERED: hydrALAZINE HCL 25 MG TAB ONE ×2 (08:19→21:55)
[2024-02-01] MEDS ORDERED: DILTIAZEM ORAL 60 MG TAB ONE ×3 (10:54→21:55)
[2024-02-01] MEDS ORDERED: DILTIAZEM ORAL 30 MG TAB ONE ×2 (13:52→21:55)
[2024-02-01] MEDS ORDERED: ACETAMINOPHEN TAB 325 MG TAB ONE ×2 (22:17)
[2024-02-02] MEDS ORDERED: DILTIAZEM ORAL 30 MG TAB ONE ×2 (06:14→13:02)
[2024-02-02] MEDS ORDERED: ISOSORBIDE MONONITRATE ER 30 MG TAB.ER.24H PO ONE (08:32)
[2024-02-02] MEDS ORDERED: ATORVASTATIN 80 MG TAB ONE ×4 (08:32→08:35)
[2024-02-02] MEDS ORDERED: METOPROLOL TARTRATE 25 MG TAB ONE ×2 (08:32)
[2024-02-02] MEDS ORDERED: BUMETANIDE 1 MG TAB ONE (08:33)
[2024-02-02] MEDS ORDERED: RANOLAZINE 500 MG TAB.ER.12H PO ONE (08:33)
[2024-02-02] MEDS ORDERED: LEVOTHYROXINE 75 MCG TAB ONE (08:33)
[2024-02-02] MEDS ORDERED: hydrALAZINE HCL 25 MG TAB ONE (08:33)
[2024-02-02] MEDS ORDERED: DILTIAZEM ORAL 60 MG TAB ONE (13:03)
--- NOTE | 2024-02-08 15:54 | OP ---
OPERATIVE REPORT DATE OF SERVICE : 01/30/2024 PREOPERATIVE DIAGNOSES: 1. Cervical myelopathy. 2. Severe cervical stenosis. 3. Severe degenerative disk disease. 4. Cervical kyphosis. 5. Disk herniations, C3-4, C4-5, C5-6, C6-7. 6. Upper extremity and lower extremity weakness. 7. Radiculopathy, bilateral upper extremities, worse on the right than left. 8. Neck pain. POSTOPERATIVE DIAGNOSES: 1. Cervical myelopathy. 2. Severe cervical stenosis. 3. Severe degenerative disk disease. 4. Cervical kyphosis. 5. Disk herniations, C3-4, C4-5, C5-6, C6-7. 6. Upper extremity and lower extremity weakness. 7. Radiculopathy, bilateral upper extremities, worse on the right than the left. 8. Neck pain. PROCEDURES: 1. Anterior cervical decompression with diskectomy and fusion, C3-4, C4-5, C5-6, C6-7. 2. Placement of interbody allograft bone graft, C3-4, C4-5, C5-6, C6-7. 3. Application of anterior cervical plate C3, 4, 5, 6, 7. ASSISTANT COMMUNITY DIRECTOR: JANE Darling, who was present throughout the entirety of the case for assistance during positioning, dissection, exposure, visualization, decompression, diskectomy, placement of allograft, hardware and closure. COMPLICATION: None apparent. ESTIMATED BLOOD LOSS: Approximately 200 mL. SPECIMENS: None. COMPONENTS IMPLANTED: VIKOS interbody allograft bone graft x4 along with a K2M [place] anterior cervical plate with screws x2 at C3, C4, C5, C6 and C7. ANESTHESIA: General. DISPOSITION: To recovery room in a stable condition. OPERATIVE INDICATIONS: The patient is a 73-year-old female who has been having significant issues with her neck and upper extremities. She reports frequent falls and gait disturbance as well as weakness in her bilateral upper extremities, worse on the right than the left. The patient has been having neck pain and some difficulty with her balance and coordination. The patient was found to have evidence of significant cervical spine changes with severe stenosis and disk degeneration with cervical kyphosis. She has been through conservative treatment, however, failed conservative management. We discussed the possibility of further intervention with surgical intervention. We discussed the risks, complications, alternatives, and benefits of surgery including, but not limited to the risk of bleeding, risk of infection, risk of need for further surgery, risk of decreased loss of motion, loss of function, malunion, nonunion, hardware failure, nerve damage, hoarseness, dysphagia, heart attack, , as well as possibly that surgery may not alleviate her symptoms and she may need further surgery specifically for her cervical spine. The patient elected to proceed with surgical intervention and signed informed consent. OPERATIVE SUMMARY: After obtaining informed consent, preoperative medical evaluation and clearance, the patient was identified in the preop holding area, and surgical site was marked, she was given prophylactic IV antibiotics, brought to the operating room where she was transferred to the operating room table in supine position, being careful to pad any bony prominences and pressure points, with her airway and C-spine in good alignment and position, she was intubated by Anesthesia in standard fashion without any complications. Once the airway and C-spine were secured, her arms were padded and gently tucked to the side with pad behind her shoulders and beyond her head with her neck in neutral alignment and position. The neck was then prepped and draped in normal standard fashion, with appropriate keystone protocol, appropriate time-out was completed and we proceeded with the surgery. The local wound area was infiltrated with local anesthetic. Incision made sharply through skin, subcutaneous tissue, and her right side of her cervical spine and paramedian incision at the anterior border of the sternocleidomastoid. Dissection was taken down through the platysma and with carotid approach down to the anterior surface of the vertebral bodies. There was obvious large osteophytes at each of levels. Intraoperative imaging was done which showed a metallic marker at the level of C3-4 and I proceeded to dissect out at C3-4, C4-5, C5-6 and C6- 7. Large osteophytes were found at each level and they had to be removed, diskectomy and decompression done similarly at each level. An 11 blade scalpel used to establish an annulotomy, and diskectomy was performed with a combination of pituitary rongeurs, curettes, and high-speed bur in a blunt nerve hook. There was obvious posterior osteophytic spurring and significant disk degeneration at each level. The posterior longitudinal ligament was removed as well to provide further decompression, I was able to get excellent central and bilateral foraminal decompression. I was careful to try to perform and prepare the endplates to get reconstructive pattern to get the neck more toward neutral alignment. With the diskectomy completed, and good decompression completed at each level, I was able to then measure for the appropriate size spacer, and the appropriate size interbody allograft bone graft was prepared, coated with allograft and bone putty and malleted in position with good fit and fill of the anterior surface flush to the anterior surface of the vertebral bodies. This was done 1st at C3-4 and then at C4-5, and C5-6 and C6-7 similarly, I was able to get excellent decompression at each level with no evidence of any dural tear or leak. Good hemostasis maintained. Once the bone grafts are in place, I was then able to prepare for placement of a plate. Plate was measured, contoured and positioned at the midline, I was able to establish 2 screws at each level at C3, C4, C5, C6, and C7. Each of them had adequate purchase and excellent alignment and position. I was able to get near neutral alignment through her cervical spine. The plate was checked and found to have good structural stability. The wound was irrigated, suctioned dry. There was no evidence of any dural tear or leak. The images were taken which showed good alignment and position of the hardware from C3-C7. We were able to proceed with closure. The wound was copiously irrigated, suctioned dried, as it had been periodically throughout the case. The platysma was closed with 3-0 Vicryl. Subcutaneous tissue closed with 3- 0 Vicryl, and subcuticular tissue closed with 4-0 Vicryl. Wound was clean, dried, and further closed with glue and dressed with Optifoam dressing. The drapes were broken down appropriately. The patient was placed in a hard cervical collar which she will need to wear constantly high until appropriately healed. She was awoken up by anesthesia, extubated, transferred back to her rsparks and brought to recovery room in good stable condition. She will be able to be admitted for pain control, antibiotic prophylaxis, medical management monitoring and mobilization, with her regular falls at home and her lack of help at home, she will likely need rehab or nursing home post hospitalization. MMODL / IJN: [id number] /
--- NOTE | 2024-02-29 11:18 | CA ---
Transthoracic Echo Report Name: Bella Ellis Age: 73 Gender: O : 1950 Exam Date: 02/01/2024 07:42 Exam Location: [place] [facility] Ht (in): 62 Wt (lb): 135 Ordering Physician: Attending/Referring Phys: Embryology Teacher Audelia Castaneda RDCS Procedure CPT: Indications: Cardiac Hx: Technical Quality: Fair Contrast 1: Total Dose (mL): Contrast 2: Total Dose (mL): MEASUREMENTS (Male / Female) Normal Values 2D ECHO LV Diastolic Diameter PLAX 4.0 cm 4.2 - 5.9 / 3.9 - 5.3 cm LV Systolic Diameter PLAX 2.8 cm IVS Diastolic Thickness 1.1 cm 0.6 - 1.0 / 0.6 - 0.9 cm LVPW Diastolic Thickness 1.1 cm 0.6 - 1.0 / 0.6 - 0.9 cm LV Relative Wall Thickness 0.5 RV Internal Dim ED PLAX 2.7 cm LA Systolic Diameter LX 3.2 cm 3.0 - 4.0 / 2.7 - 3.8 cm LV Diastolic Volume MOD BP 38.4 cm??? 67 - 155 / 56 - 104 cm??? LV Systolic Volume MOD BP 12.4 cm??? 22 - 58 / 19 - 49 cm??? LV Ejection Fraction MOD BP 67.7 % >= 55 % LV Cardiac Index MOD BP 1607.9 cm???/min???m??? LV Diastolic Volume MOD 4C 37.5 cm??? LV Systolic Volume MOD 4C 10.8 cm??? LV Ejection Fraction MOD 4C 71.1 % LV Cardiac Index MOD 4C 1649.2 cm???/min???m??? LV Diastolic Length 4C 6.7 cm LV Systolic Length 4C 5.1 cm LV Diastolic Volume MOD 2C 40.5 cm??? LV Systolic Volume MOD 2C 13.9 cm??? LV Ejection Fraction MOD 2C 65.7 % LV Cardiac Index MOD 2C 1648.8 cm???/min???m??? LV Diastolic Length 2C 6.7 cm LV Systolic Length 2C 5.5 cm LA Volume 31.2 cm??? 18 - 58 / 22 - 52 cm??? LA Volume Index 18.9 cm???/m??? 16 - 28 cm???/m??? M-MODE Aortic Root Diameter MM 2.3 cm AV Cusp Separation MM 1.8 cm DOPPLER MV Area PHT 4.1 cm??? Mitral E Point Velocity 108.0 cm/s Mitral A Point Velocity 123.2 cm/s Mitral E to A Ratio 0.9 MV Deceleration Time 185.9 ms TR Peak Velocity 309.5 cm/s TR Peak Gradient 38.3 mmHg Right Ventricular Systolic Press 42.9 mmHg FINDINGS Left Ventricle Left ventricular ejection fraction is estimated at 55-60 %. Left ventricular cavity size normal. Mild left ventricular hypertrophy. Normal left ventricular wall motion. Right Ventricle Normal right ventricular size and function. Mild pulmonary hypertension. Right Atrium Normal right atrial size. No right atrial thrombus or mass seen. Left Atrium Normal left atrial size. No left atrial thrombus or mass present. Mitral Valve Structurally normal mitral valve. No mitral stenosis, regurgitation or prolapse. Mitral annular calcification. Aortic Valve Trileaflet aortic valve. Thickened aortic valve without stenosis. Tricuspid Valve Structurally normal tricuspid valve. Mild tricuspid regurgitation. Pulmonic Valve Structurally normal pulmonic valve. No pulmonic regurgitation. Pericardium No pericardial or pleural effusion. Aorta Normal size aortic root and proximal ascending aorta. CONCLUSIONS Left ventricular ejection fraction is estimated at 55-60 %. No obvious regional wall motion abnormality Mild left ventricular hypertrophy. Normal RV size and function No significant valvular dysfunction RVSP estimated at 40 mmHg Previewed by: Dr Goran Simmons (Electronically Signed) Final Date: 01 February 2024 11:26
== END 2024-02-02 14:53 | DRG 473 ==
LOC: EDSTATUS 07:30 → 3SCARD 17:38
PROVIDERS: ADMIT Orthopaedic Surgery Orthopaedic Surgery of the Spine; ATTEND Orthopaedic Surgery Orthopaedic Surgery of the Spine
PROC: 0RG20K0 Fusion of 2 or more Cervical Vertebral Joints with Nonautologous Tissue Substitute, Anterior Approach, Anterior Column, Open Approach (ICD-10-PCS; 2024-01-30)
PROC: 01N10ZZ Release Cervical Nerve, Open Approach (ICD-10-PCS; 2024-01-30)
PROC: 00NW0ZZ Release Cervical Spinal Cord, Open Approach (ICD-10-PCS; 2024-01-30)
PROC: 0RG20A0 Fusion of 2 or more Cervical Vertebral Joints with Interbody Fusion Device, Anterior Approach, Anterior Column, Open Approach (ICD-10-PCS; principal; 2024-01-30 10:45)
PROC: 3E033RZ Introduction of Antiarrhythmic into Peripheral Vein, Percutaneous Approach (ICD-10-PCS; 2024-02-01)
DX: M50.01 Cervical disc disorder with myelopathy, high cervical region (principal); J44.9 Chronic obstructive pulmonary disease, unspecified; M46.02 Spinal enthesopathy, cervical region; N18.32 Chronic kidney disease, stage 3b; I25.118 Atherosclerotic heart disease of native coronary artery with other forms of angina pectoris; I48.0 Paroxysmal atrial fibrillation; I25.82 Chronic total occlusion of coronary artery; M50.11 Cervical disc disorder with radiculopathy, high cervical region; E03.9 Hypothyroidism, unspecified; I12.9 Hypertensive chronic kidney disease with stage 1 through stage 4 chronic kidney disease, or unspecified chronic kidney disease; I25.10 Atherosclerotic heart disease of native coronary artery without angina pectoris; M48.02 Spinal stenosis, cervical region; E78.2 Mixed hyperlipidemia; R60.0 Localized edema; R26.9 Unspecified abnormalities of gait and mobility; R29.6 Repeated falls; W18.30XA Fall on same level, unspecified, initial encounter; Y92.231 Patient bathroom in hospital as the place of occurrence of the external cause; Z96.653 Presence of artificial knee joint, bilateral; Z96.641 Presence of right artificial hip joint; Z79.890 Hormone replacement therapy; Z79.82 Long term (current) use of aspirin; Z79.51 Long term (current) use of inhaled steroids; Z91.81 History of falling; Z87.891 Personal history of nicotine dependence; Z91.048 Other nonmedicinal substance allergy status; Z88.1 Allergy status to other antibiotic agents; Z91.040 Latex allergy status; Z88.5 Allergy status to narcotic agent; Z79.899 Other long term (current) drug therapy
CPT/HCPCS: 93005

== ENCOUNTER 2024-09-08 12:00 | Inpatient (IN) | payer MEDICARE ==
[2024-09-08] MEDS: IPRATROPIUM-ALBUTEROL 3 ML NEB INHALATION STA (12:23)
[2024-09-08 12:28] LABS: Glucose,Whole Blood 129 mg/dL (70-110)
[2024-09-08 12:42] LABS: Basophils % (A) 0 %; Eosinophils % (A) 0 %; HCT 27.5 % (34.0-46.0); HGB 9.1 gm/dL (11.4-16.0); Lymphocytes # (A) 0.5 k/uL (1.0-4.8); Lymphocytes % (A) 5 %; MCH 31.4 pg (25.0-35.0); MCHC 32.9 g/dL (31.0-37.0); MCV 95.5 fL (80.0-100.0); Mean Platelet Volume 7.9; Monocytes # (A) 0.5 k/uL (0-1.0); Monocytes % (A) 5 %; Neutrophils # (A) 8.7 k/uL (1.3-7.7); Neutrophils % (A) 89 %; Platelet Count 260 k/uL (150-450); RBC 2.88 m/uL (3.80-5.40); RDW 12.9 % (11.5-15.5); WBC 9.8 k/uL (3.8-10.6)
[2024-09-08 12:44] LABS: VBG PH 7.46 (7.31-7.41)
--- NOTE | 2024-09-08 12:45 | XR ---
EXAMINATION TYPE: XR chest 1V portable DATE OF EXAM: 09/08/2024 COMPARISON: Chest x-ray November 27, 2023 CLINICAL INDICATION: Female, 74 years old with history of cough; TECHNIQUE: Single frontal view of the chest is obtained. FINDINGS: Demineralization of osseous structures redemonstrated. New surgical change in the cervical spine is noted. Cardiac silhouette size is stable and upper limits of normal. Diminished inspiration with new bilateral lower lung increased opacities. IMPRESSION: Diminished inspiration with new bibasilar acute infiltrate and/or atelectasis. [facility], , 09/08/2024 12:42 PM
[2024-09-08] MEDS: LACTATED RINGERS 1,000 ML IV ONE ×2 (12:48→13:40)
[2024-09-08] MEDS: LACTATED RINGERS 1,000 ML IV SCH (12:51)
[2024-09-08 12:56] LABS: Lactic Acid, Venous 0.9 mmol/L (0.7-2.0); Partial Thromboplastin Time 30.1 sec (22.0-30.0); Prothrombin Time 10.9 sec (10.0-12.5)
[2024-09-08 12:58] LABS: ALT 52 U/L (4-34); AST 47 U/L (14-36); African American GFR (CKD) 42 (>60 ml/min/1.73 sqM); Albumin 3.1 g/dL (3.5-5.0); Alcohol <10 mg/dL; Alkaline Phosphatase 98 U/L (38-126); Blood Urea Nitrogen 62 mg/dL (7-17); Calcium 8.7 mg/dL (8.4-10.2); Chloride 98 mmol/L (98-107); Glucose 115 mg/dL (74-99); Non-African American GFR(CKD) 36 (>60 ml/min/1.73 sqM); Potassium 3.8 mmol/L (3.5-5.1); Sodium 142 mmol/L (137-145); Total Bilirubin 0.8 mg/dL (0.2-1.3); Total Protein 6.1 g/dL (6.3-8.2)
[2024-09-08] MEDS: methylPREDNISolone SOD SUCCI 125 MG/2 ML VIAL IV STA (12:58)
[2024-09-08] MEDS: MAGNESIUM SULFATE-D5W PMX 1 GM in DEXTROSE/WATER 1 100ML.BAG IVPB ONE (12:58)
[2024-09-08] MEDS ORDERED: PNEUMONIA PROTOCOL UTILIZED 1 EACH MISC PO PRN (12:59)
[2024-09-08 13:03] LABS: Anion Gap 8 mmol/L
[2024-09-08 13:09] LABS: Carbon Dioxide 36 mmol/L (22-30)
--- NOTE | 2024-09-08 13:11 | CT ---
EXAMINATION TYPE: CT brain wo con CT DLP: 1178.4 mGycm, Automated exposure control for dose reduction was used. DATE OF EXAM: 09/08/2024 1:04 PM COMPARISON: CT brain CT scan 02/22/2024, CT brain 02/12/2023 CLINICAL INDICATION:Female, 74 years old with history of Altered mental status, TECHNIQUE: Brain: Multiple axial CT images of the brain were obtained without IV contrast. . Coronal and sagitta l reformats reviewed. FINDINGS: Brain: Extra-axial spaces: No abnormal extra-axial fluid collections. Ventricular system: Dilatation in proportion to cerebral atrophy. Cerebral parenchyma: Cerebral atrophy. No acute intraparenchymal hemorrhage or mass effect. The robb -white junction is well differentiated. Confluent hypoattenuating areas are seen within the periventr icular and subcortical white matter. Cerebellum: Unremarkable. Mass effect: No evidence of midline shift. Intracranial vasculature: Atherosclerotic calcifications of the intracranial vessels. Soft tissues: Normal. Calvarium/osseous structures: No depressed skull fracture. Paranasal sinuses and mastoid air cells: Clear Visualized orbits: Bilateral aphakia IMPRESSION: 1. No acute intracranial process. 2. Nonspecific white matter changes, likely secondary to chronic small vessel ischemic disease. [facility], , 09/08/2024 1:09 PM
[2024-09-08 13:20] LABS: Influenza A Detected (Not Detectd); Influenza B Not Detected (Not Detectd); RSV Not Detected (Not Detectd)
--- NOTE | 2024-09-08 13:24 | ED ---
General Adult HPI - General Chief complaint: Altered Mental Status Stated complaint: AMS Time Seen by Provider: 09/08/24 12:10 Source: EMS, RN notes reviewed, old records reviewed Mode of arrival: EMS Limitations: altered mental status - History of Present Illness Initial comments: Patient is a 74-year-old female who presents emergency department for altered mental status and shortness of breath. Apparently patient is ANO x 2 at baseline. Is ANO x 0-1 per nursing staff at her facility, [facility]. Patient has a history of COPD, hypertension, hyperlipidemia. Per half-way, patient is not on oxygen at home. Patient was being given a breathing treatments morning she became less responsive. Diagnosed with influenza A over the weekend and is on day 2 or 3 of Tamiflu. Oxygen apparently was in the 80s at [facility] which is why she was placed on oxygen on the way here. Presents for further evaluation. Patient is overall poor historian. She will open her eyes, respond when I call her name. She denies any pain when I ask her cough. She is not oriented to place or time. Presents for further evaluation at this time. - Related Data Home Medications Medication Instructions Recorded Confirmed Levothyroxine Sodium 150 mcg PO DAILY@0500 02/15/17 09/08/24 Ascorbic Acid [Vitamin C] 1,000 mg PO DAILY 06/17/20 09/08/24 Cholecalciferol [Vitamin D3 (25 125 mcg PO HS 06/17/20 09/08/24 Mcg = 1000 Iu)] Multivitamins, Thera [Multivitamin 1 tab PO HS 06/17/20 09/08/24 (formulary)] Ferrous Sulfate [Feosol] 325 mg PO DAILY 07/13/20 09/08/24 hydrALAZINE HCL [Apresoline] 25 mg PO BID 01/12/22 09/08/24 Atorvastatin [Lipitor] 80 mg PO HS 02/12/23 09/08/24 Acetaminophen Tab [Tylenol] 650 mg PO Q6H PRN 09/08/24 09/08/24 Acetaminophen [Tylenol 8 Hour] 650 mg PO Q6H PRN 09/08/24 09/08/24 Albuterol Sulfate [Ventolin HFA] 2 puff INHALATION RT-Q6H PRN 09/08/24 09/08/24 Aspirin 81 mg PO HS 09/08/24 09/08/24 Bumetanide [Bumex] 1 mg PO BID@0700,1600 09/08/24 09/08/24 Calcium Carbonate/Vitamin D3 1 tab PO DAILY 09/08/24 09/08/24 [Calcium 600 mg-Vit D3 5 mcg (200 unit)] Cold And Hot External Patch 5% 1 applic TOPICAL BID@0700,1900 09/08/24 09/08/24 Cyclobenzaprine [Flexeril] 10 mg PO Q8H PRN 09/08/24 09/08/24 Folic Acid 0.8 mg PO HS 09/08/24 09/08/24 Ipratropium-Albuterol Nebulize 3 ml INHALATION RT-Q4H PRN 09/08/24 09/08/24 [Duoneb 0.5 mg-3 mg/3 ml Soln] Isosorbide Mononitrate ER [Imdur] 30 mg PO BID 09/08/24 09/08/24 Naloxone HCl 0.4 mg IM ONCE PRN 09/08/24 09/08/24 Naloxone HCl [Narcan] 4 mg NASAL ONCE PRN 09/08/24 09/08/24 Nutritional Juice 1 dose PO DAILY@0730 09/08/24 09/08/24 Oseltamivir [Tamiflu] 30 mg PO Q2D 09/08/24 09/08/24 Promethazine [Phenergan] 25 mg PO Q6H PRN 09/08/24 09/08/24 Ranolazine [Ranexa] 1,000 mg PO Q12HR@0700,1900 09/08/24 09/08/24 Sennosides [Senokot] 17.2 mg PO DAILY 09/08/24 09/08/24 Vitamin B Complex 1 cap PO HS 09/08/24 09/08/24 guaiFENesin [Mucinex] 600 mg PO BID PRN 09/08/24 09/08/24 polyethylene glycoL 3350 [Miralax] 17 gm PO DAILY 09/08/24 09/08/24 rOPINIRole HCL [Requip] 0.5 mg PO BID 09/08/24 09/08/24 traMADol HCL 75 mg PO Q4H PRN 09/08/24 09/08/24 Previous Rx's Medication Instructions Recorded Metoprolol Tartrate [Lopressor] 25 mg PO BID #180 tablet 02/22/17 Gabapentin [Neurontin] 100 mg PO BID #6 cap 02/14/23 Allergies Allergy/AdvReac Type Severity Reaction Status Date / Time adhesive Allergy skin peels Verified 09/08/24 12:50 cephalexin [From Keflex] Allergy Rash/Hives Verified 09/08/24 12:50 latex Allergy skin peels Verified 09/08/24 12:50 codeine AdvReac Hallucinati Verified 09/08/24 12:50 ons ketorolac [From Toradol] AdvReac Hallucinati Verified 09/08/24 12:50 ons morphine AdvReac Hallucinati Verified 09/08/24 12:50 ons Review of Systems ROS Statement: Those systems with pertinent positive or pertinent negative responses have been documented in the HPI. ROS Other: All systems not noted in ROS Statement are negative. Past Medical History Past Medical History: COPD, Hyperlipidemia, Hypertension, Osteoarthritis (OA), Skin Disorder, Thyroid Disorder Additional Past Medical History / Comment(s): Lupus, Gout, rashes from Lupus when flared up. fluid retention per pt.,. FELL BEGINNING OF FEB-NO INJURY History of Any Multi-Drug Resistant Organisms: MRSA Date of last positivie culture/infection: 2022 MDRO Source:: lower extremities Past Surgical History: Hysterectomy, Joint Replacement, Orthopedic Surgery Additional Past Surgical History / Comment(s): Bilateral knee replacements, bilateral cataract surgery, right hip replacement with revision - multiple surgeries, bilateral wrist carpal tunnel surgery, pain clinic procedures. Past Anesthesia/Blood Transfusion Reactions: No Reported Reaction Additional Past Anesthesia/Blood Transfusion Reaction / Comment(s): Pt has never had a blood transfusion. Past Psychological History: No Psychological Hx Reported Smoking Status: Former smoker Past Alcohol Use History: None Reported Past Drug Use History: None Reported - Past Family History Mother Family Medical History: Hypertension General Exam - General Exam Comments Initial Comments: General: Coarse breath sounds bilaterally. HEAD: Normal with no signs of head trauma. EYES: PERRLA, EOMI, conjunctiva normal, no discharge. Pupils are 3 mm and equal bilaterally. ENT: Hearing grossly intact, normal oropharynx. Dry mucous membranes. RESPIRATORY: Coarse breath sounds bilaterally with bilateral end expiratory wheezing. Hypoxic on room air. Improved on 3 L nasal cannula oxygen and 91% or so. No significant increased work of breathing. C/V: Regular rate and rhythm. S1 and S2 auscultated, no edema, peripheral pulses 2+ and intact throughout ABD: Abd is soft, nontender, nondistended EXT: Normal range of motion, no obvious deformity SKIN: No rashes or lesions observed on exposed skin. NEURO: Alert and oriented x 1-2. Baseline is alert and oriented x 2. No obvious focal deficits. Limitations: altered mental status Course Vital Signs 09/08/24 09/08/24 09/08/24 12:09 12:26 12:33 Temperature 98.4 F Pulse Rate 72 96 84 Respiratory 24 Rate Blood Pressure 133/70 O2 Sat by Pulse 95 Oximetry 09/08/24 09/08/24 09/08/24 13:02 15:49 15:50 Temperature Pulse Rate 74 77 80 Respiratory 24 18 Rate Blood Pressure 126/73 151/79 O2 Sat by Pulse 90 L 96 Oximetry 09/08/24 15:59 Temperature Pulse Rate 78 Respiratory Rate Blood Pressure O2 Sat by Pulse Oximetry Medical Decision Making - Medical Decision Making Was pt. sent in by a medical professional or institution (, PA, CREDENTIALER, urgent care, hospital, or half-way...) When possible be specific @ -Sent from [facility]. Did you speak to anyone other than the patient for history (EMS, parent, family, police, friend...)? What history was obtained from this source @ -No Did you review nursing and triage notes (agree or disagree)? Why? @ -I reviewed and agree with nursing and triage notes Were old charts reviewed (outside hosp., previous admission, EMS record, old EKG, old radiological studies, urgent care reports/EKG's, half-way records)? Report findings @ -Reviewed charts from [facility] including medication list. Has been on Tamiflu for 2 days since September 06. Differential Diagnosis (chest pain, altered mental status, abdominal pain women, abdominal pain men, vaginal bleeding, weakness, fever, dyspnea, syncope, headache, dizziness, GI bleed, back pain, seizure, CVA, palpatations, mental health, musculoskeletal)? @ -Differential Dyspnea: Coronary syndrome, arrhythmia, tamponade, asthma, COPD, pulmonary embolism, pneumonia, pneumothorax, pulmonary effusion, anaphylaxis, diabetic ketoacidosis, flailed chest, pulmonary contusion, diaphragmatic rupture, anemia, neuromuscular, this is not meant to be an all-inclusive list. EKG interpreted by me (3pts min.). @ -As above X-rays interpreted by me (1pt min.). @ -Chest x-ray reveals bilateral lower lobe suspected infiltrates. CT interpreted by me (1pt min.). @ -CT brain revealed no obvious acute intracranial process. U/S interpreted by me (1pt. min.). @ -None done What testing was considered but not performed or refused? (CT, X-rays, U/S, labs)? Why? @ -None What meds were considered but not given or refused? Why? @ -None Did you discuss the management of the patient with other professionals (professionals i.e. , PA, CREDENTIALER, lab, RT, psych nurse, social media director, reduction furnace operator, teacher, police officer crime prevention, case finisher)? Give summary @ -Confirmed with [facility] that patient is DNR and they are faxing over the paperwork. Discussed with admitting provider, Dr. Bowers who accepted the admission. Was smoking cessation discussed for >3mins.? @ -No Was critical care preformed (if so, how long)? @ -Yes, 36 minutes Were there social determinants of health that impacted care today? How? (Homelessness, low income, unemployed, alcoholism, drug addiction, transportation, low edu. Level, literacy, decrease access to med. care, fpc, rehab)? @ -No Was there de-escalation of care discussed even if they declined (Discuss DNR or withdrawal of care, Hospice)? DNR status @ -No What co-morbidities impacted this encounter? (DM, HTN, Smoking, COPD, CAD, Cancer, CVA, ARF, Chemo, Hep., AIDS, mental health diagnosis, sleep apnea, morbid obesity)? @ -COPD, dementia Was patient admitted / discharged? Hospital course, mention meds given and route, prescriptions, significant lab abnormalities, going to OR and other pertinent info. @ -Patient presents for difficulty in breathing, altered mental status. Appears to be near her baseline as it is alert and oriented x 2 but she is alert and oriented x 1 currently. Diffuse wheezing in bilateral lung headley. Patient appears dehydrated as well. Multiple IVs will be obtained. Blood culture sent. Patient be started on multiple breathing treatments with IV fluids. Initiated on 1 L of lactated Ringer's and placed on maintenance infusion. Patient also given IV magnesium. Vitals remarkable for hypoxia on room air and no documentation of patient requiring oxygen at baseline. Therefore was placed on 3 L nasal cannula which should keep patient's oxygen level between 90 to 92%. Imaging returned remarkable for bilateral pneumonia in the lower lung headley on chest x-ray. CT brain unremarkable. Labs show patient still testing positive for influenza A, stable BUN and creatinine in the setting of CKD, as well as a chronic anemia which appears stable. VBG shows slight elevation in pCO2 however it is not significantly elevated. On reevaluation, patient is more awake and alert at this time. She was started on IV Levaquin, Flagyl, and additional 1 L fluid bolus of lactated ringer. Confirmed with nursing facility that patient is DNR and they are faxing over paperwork which shows that the patient is DNR. Patient will be admitted to the hospital for hypoxic respiratory failure. Consult placed to pulmonology. I spoke with the admitting provider, [facility] Dr. Bowers who covers for Dr. Gagnon who accepted the admission. Undiagnosed new problem with uncertain prognosis? @ -No Drug Therapy requiring intensive monitoring for toxicity (Heparin, Nitro, Insulin, Cardizem)? @ -No Were any procedures done? @ -No Diagnosis/symptom? @ -Hypoxic respiratory failure, COPD, pneumonia, influenza A infection Acute, or Chronic, or Acute on Chronic? @ -Acute Uncomplicated (without systemic symptoms) or Complicated (systemic symptoms)? @ -Complicated Side effects of treatment? @ -No Exacerbation, Progression, or Severe Exacerbation? @ -No Poses a threat to life or bodily function? How? (Chest pain, [place], ND, pneumonia, PE, COPD, DKA, ARF, appy, cholecystitis, CVA, Diverticulitis, Homicidal, Suicidal, threat to staff... and all critical care pts) @ -Yes - Lab Data Result diagrams: 09/08/24 12:30 09/08/24 12:30 Lab Results 09/08/24 09/08/24 09/08/24 Range/Units 12:27 12:30 12:30 WBC 9.8 (3.8-10.6) k/uL RBC 2.88 L (3.80-5.40) m/uL Hgb 9.1 L (11.4-16.0) gm/dL Hct 27.5 L (34.0-46.0) % MCV 95.5 (80.0-100.0) fL MCH 31.4 (25.0-35.0) pg MCHC 32.9 (31.0-37.0) g/dL RDW 12.9 (11.5-15.5) % Plt Count 260 (150-450) k/uL MPV 7.9 Neutrophils % 89 % Lymphocytes % 5 % Monocytes % 5 % Eosinophils % 0 % Basophils % 0 % Neutrophils # 8.7 H (1.3-7.7) k/uL Lymphocytes # 0.5 L (1.0-4.8) k/uL Monocytes # 0.5 (0-1.0) k/uL Eosinophils # 0.0 (0-0.7) k/uL Basophils # 0.0 (0-0.2) k/uL PT 10.9 (10.0-12.5) sec INR 1.0 (<1.2) APTT 30.1 H (22.0-30.0) sec VBG pH (7.31-7.41) VBG pCO2 (37-51) mmHg VBG HCO3 (24-28) mmol/L Sodium (137-145) mmol/L Potassium (3.5-5.1) mmol/L Chloride (98-107) mmol/L Carbon Dioxide (22-30) mmol/L Anion Gap mmol/L BUN (7-17) mg/dL Creatinine (0.52-1.04) mg/dL Est GFR (CKD-EPI)AfAm (>60 ml/min/1.73 sqM) Est GFR (CKD-EPI)NonAf (>60 ml/min/1.73 sqM) Glucose (74-99) mg/dL POC Glucose (mg/dL) 129 H (70-110) mg/dL POC Glu Logistics Tech ID Tanya Gibson Plasma Lactic Acid Ulises (0.7-2.0) mmol/L Calcium (8.4-10.2) mg/dL Total Bilirubin (0.2-1.3) mg/dL AST (14-36) U/L ALT (4-34) U/L Alkaline Phosphatase (38-126) U/L Ammonia (<30) umol/L Total Protein (6.3-8.2) g/dL Albumin (3.5-5.0) g/dL Urine Color Urine Appearance (Clear) Urine pH (5.0-8.0) Ur Specific [place] (1.001-1.035) Urine Protein (Negative) Urine Glucose (UA) (Negative) Urine Ketones (Negative) Urine Blood (Negative) Urine Nitrite (Negative) Urine Bilirubin (Negative) Urine Urobilinogen (<2.0) mg/dL Ur Leukocyte Esterase (Negative) Urine RBC (0-5) /hpf Urine WBC (0-5) /hpf Ur Squamous Epith Cells (0-4) /hpf Urine Bacteria (None) /hpf Urine Mucus (None) /hpf Urine Opiates Screen (NotDetected) Ur Oxycodone Screen (NotDetected) Urine Methadone Screen (NotDetected) Ur Barbiturates Screen (NotDetected) U Tricyclic Antidepress (NotDetected) Ur Phencyclidine Scrn (NotDetected) Ur Amphetamines Screen (NotDetected) U Methamphetamines Scrn (NotDetected) U Benzodiazepines Scrn (NotDetected) Urine Cocaine Screen (NotDetected) U Marijuana (THC) Screen (NotDetected) Serum Alcohol mg/dL Influenza Type A (PCR) (Not Detectd) Influenza Type B (PCR) (Not Detectd) RSV (PCR) (Not Detectd) SARS-CoV-2 (PCR) (Not Detectd) 09/08/24 09/08/24 09/08/24 Range/Units 12:30 12:30 12:30 WBC (3.8-10.6) k/uL RBC (3.80-5.40) m/uL Hgb (11.4-16.0) gm/dL Hct (34.0-46.0) % MCV (80.0-100.0) fL MCH (25.0-35.0) pg MCHC (31.0-37.0) g/dL RDW (11.5-15.5) % Plt Count (150-450) k/uL MPV Neutrophils % % Lymphocytes % % Monocytes % % Eosinophils % % Basophils % % Neutrophils # (1.3-7.7) k/uL Lymphocytes # (1.0-4.8) k/uL Monocytes # (0-1.0) k/uL Eosinophils # (0-0.7) k/uL Basophils # (0-0.2) k/uL PT (10.0-12.5) sec INR (<1.2) APTT (22.0-30.0) sec VBG pH 7.46 H (7.31-7.41) VBG pCO2 54 H (37-51) mmHg VBG HCO3 38 H (24-28) mmol/L Sodium 142 (137-145) mmol/L Potassium 3.8 (3.5-5.1) mmol/L Chloride 98 (98-107) mmol/L Carbon Dioxide 36 H (22-30) mmol/L Anion Gap 8 mmol/L BUN 62 H (7-17) mg/dL Creatinine 1.42 H (0.52-1.04) mg/dL Est GFR (CKD-EPI)AfAm 42 (>60 ml/min/1.73 sqM) Est GFR (CKD-EPI)NonAf 36 (>60 ml/min/1.73 sqM) Glucose 115 H (74-99) mg/dL POC Glucose (mg/dL) (70-110) mg/dL POC Glu Logistics Tech ID Plasma Lactic Acid Ulises 0.9 (0.7-2.0) mmol/L Calcium 8.7 (8.4-10.2) mg/dL Total Bilirubin 0.8 (0.2-1.3) mg/dL AST 47 H (14-36) U/L ALT 52 H (4-34) U/L Alkaline Phosphatase 98 (38-126) U/L Ammonia 10 (<30) umol/L Total Protein 6.1 L (6.3-8.2) g/dL Albumin 3.1 L (3.5-5.0) g/dL Urine Color Urine Appearance (Clear) Urine pH (5.0-8.0) Ur Specific [place] (1.001-1.035) Urine Protein (Negative) Urine Glucose (UA) (Negative) Urine Ketones (Negative) Urine Blood (Negative) Urine Nitrite (Negative) Urine Bilirubin (Negative) Urine Urobilinogen (<2.0) mg/dL Ur Leukocyte Esterase (Negative) Urine RBC (0-5) /hpf Urine WBC (0-5) /hpf Ur Squamous Epith Cells (0-4) /hpf Urine Bacteria (None) /hpf Urine Mucus (None) /hpf Urine Opiates Screen (NotDetected) Ur Oxycodone Screen (NotDetected) Urine Methadone Screen (NotDetected) Ur Barbiturates Screen (NotDetected) U Tricyclic Antidepress (NotDetected) Ur Phencyclidine Scrn (NotDetected) Ur Amphetamines Screen (NotDetected) U Methamphetamines Scrn (NotDetected) U Benzodiazepines Scrn (NotDetected) Urine Cocaine Screen (NotDetected) U Marijuana (THC) Screen (NotDetected) Serum Alcohol <10 mg/dL Influenza Type A (PCR) (Not Detectd) Influenza Type B (PCR) (Not Detectd) RSV (PCR) (Not Detectd) SARS-CoV-2 (PCR) (Not Detectd) 09/08/24 09/08/24 Range/Units 12:38 13:27 WBC (3.8-10.6) k/uL RBC (3.80-5.40) m/uL Hgb (11.4-16.0) gm/dL Hct (34.0-46.0) % MCV (80.0-100.0) fL MCH (25.0-35.0) pg MCHC (31.0-37.0) g/dL RDW (11.5-15.5) % Plt Count (150-450) k/uL MPV Neutrophils % % Lymphocytes % % Monocytes % % Eosinophils % % Basophils % % Neutrophils # (1.3-7.7) k/uL Lymphocytes # (1.0-4.8) k/uL Monocytes # (0-1.0) k/uL Eosinophils # (0-0.7) k/uL Basophils # (0-0.2) k/uL PT (10.0-12.5) sec INR (<1.2) APTT (22.0-30.0) sec VBG pH (7.31-7.41) VBG pCO2 (37-51) mmHg VBG HCO3 (24-28) mmol/L Sodium (137-145) mmol/L Potassium (3.5-5.1) mmol/L Chloride (98-107) mmol/L Carbon Dioxide (22-30) mmol/L Anion Gap mmol/L BUN (7-17) mg/dL Creatinine (0.52-1.04) mg/dL Est GFR (CKD-EPI)AfAm (>60 ml/min/1.73 sqM) Est GFR (CKD-EPI)NonAf (>60 ml/min/1.73 sqM) Glucose (74-99) mg/dL POC Glucose (mg/dL) (70-110) mg/dL POC Glu Logistics Tech ID Plasma Lactic Acid Ulises (0.7-2.0) mmol/L Calcium (8.4-10.2) mg/dL Total Bilirubin (0.2-1.3) mg/dL AST (14-36) U/L ALT (4-34) U/L Alkaline Phosphatase (38-126) U/L Ammonia (<30) umol/L Total Protein (6.3-8.2) g/dL Albumin (3.5-5.0) g/dL Urine Color Yellow Urine Appearance Cloudy H (Clear) Urine pH 5.0 (5.0-8.0) Ur Specific [place] 1.016 (1.001-1.035) Urine Protein 1+ H (Negative) Urine Glucose (UA) Negative (Negative) Urine Ketones Negative (Negative) Urine Blood Trace H (Negative) Urine Nitrite Negative (Negative) Urine Bilirubin Negative (Negative) Urine Urobilinogen <2.0 (<2.0) mg/dL Ur Leukocyte Esterase Negative (Negative) Urine RBC 10 H (0-5) /hpf Urine WBC 3 (0-5) /hpf Ur Squamous Epith Cells <1 (0-4) /hpf Urine Bacteria Few H (None) /hpf Urine Mucus Rare H (None) /hpf Urine Opiates Screen Not Detected (NotDetected) Ur Oxycodone Screen Not Detected (NotDetected) Urine Methadone Screen Not Detected (NotDetected) Ur Barbiturates Screen Not Detected (NotDetected) U Tricyclic Antidepress Detected H (NotDetected) Ur Phencyclidine Scrn Not Detected (NotDetected) Ur Amphetamines Screen Not Detected (NotDetected) U Methamphetamines Scrn Not Detected (NotDetected) U Benzodiazepines Scrn Not Detected (NotDetected) Urine Cocaine Screen Not Detected (NotDetected) U Marijuana (THC) Screen Not Detected (NotDetected) Serum Alcohol mg/dL Influenza Type A (PCR) Detected A (Not Detectd) Influenza Type B (PCR) Not Detected (Not Detectd) RSV (PCR) Not Detected (Not Detectd) SARS-CoV-2 (PCR) Not Detected (Not Detectd) - EKG Data -: EKG Interpreted by Me EKG Comments: 12-lead Electrocardiogram Interpretation Note EKG was reviewed and interpreted by myself. 12-lead ECG performed at 1339 is interpreted by me as revealing normal sinus rhythm at a rate of 79 beats per minute. [place] is normal. VA interval is 146 ms, QRS durations 111 ms, QTc is 442 ms.. There were no ST or T wave abnormalities to suggest myocardial ischemia or injury. R wave progression across the precordium was satisfactory. By my interpretation this EKG is non-diagnostic for acute ischemia. Critical Care Time Critical Care Time: Yes Total Critical Care Time: 36 Disposition Clinical Impression: Altered mental status, Influenza A, COPD (chronic obstructive pulmonary disease), Hypoxic respiratory failure, Pneumonia, DNR (do not resuscitate) Disposition: ADMITTED IP TO THIS HOSP Condition: Serious Time of Disposition: 14:06
[2024-09-08 13:46] LABS: Appearance,Urine Cloudy (Clear); Bacteria,Urine Few /hpf; Bilirubin,Urine Negative (Negative); Blood,Urine Trace (Negative); Color,Urine Yellow; Glucose,Urine (UA) Negative (Negative); Ketones,Urine Negative (Negative); Leukocyte Esterase,Urine Negative (Negative); Mucus,Urine Rare /hpf; Nitrite,Urine Negative (Negative); Protein,Urine 1+ (Negative); RBC,Urine 10 /hpf (0-5); Specific Gravity,Urine 1.016 (1.001-1.035); Squamous Epithelial Cell,Urine <1 /hpf (0-4); Urobilinogen,Urine <2.0 mg/dL (<2.0); WBC,Urine 3 /hpf (0-5)
[2024-09-08] MEDS: LEVOFLOXACIN 750MG-D5W PMX 750 MG in DEXTROSE/WATER 1 150ML.BAG IVPB STA (13:46)
[2024-09-08 13:48] LABS: Cocaine Screen,Urine Not Detected (NotDetected); Phencyclidine Screen,Urine Not Detected (NotDetected); Urn Cannabinoid Scrn Not Detected (NotDetected)
[2024-09-08 13:49] LABS: Amphetamine Screen,Urine Not Detected (NotDetected); Barbiturate Screen,Urine Not Detected (NotDetected); Benzodiazepines Screen,Urine Not Detected (NotDetected); Methadone Screen, Urine Not Detected (NotDetected); Opiate Screen,Urine Not Detected (NotDetected); Oxycodone Screen, Urine Not Detected (NotDetected); Tricyclic Antidepressant,Urine Detected (NotDetected)
[2024-09-08] MEDS ORDERED: ACETAMINOPHEN TAB 325 MG TAB PO PRN ×2 (14:01→17:20)
[2024-09-08] MEDS ORDERED: NALOXONE 0.4 MG/ML 1 ML VIAL IV PRN (14:01)
[2024-09-08] MEDS ORDERED: ONDANSETRON 4 MG/2 ML VIAL IVP PRN (14:01)
[2024-09-08] MEDS: OSELTAMIVIR 30 MG CAP PO SCH (15:21)
[2024-09-08] MEDS: IPRATROPIUM-ALBUTEROL 3 ML NEB INHALATION PRN (15:48)
[2024-09-08] MEDS: metroNIDAZOLE-NS PMX 500 MG in SALINE 1 100ML.BAG IVPB SCH (16:01)
[2024-09-08] MEDS ORDERED: IPRATROPIUM-ALBUTEROL 3 ML NEB INHALATION PRN (16:36)
[2024-09-08] MEDS ORDERED: SENNOSIDES 8.6 MG TAB PO PRN (18:55)
[2024-09-08] MEDS ORDERED: ALBUTEROL NEBULIZED 2.5 MG/3 ML INHALATION PRN (18:55)
[2024-09-08] MEDS ORDERED: guaiFENesin 600 MG TABLET.ER PO PRN (18:55)
--- NOTE | 2024-09-08 18:58 | P.HPIM ---
History of Present Illness This is a pleasant 74 years old female who presents from assisted. Patient currently nonverbal, not waking up to verbal or tactile stimuli Information were obtained from her friend and her advocate at bedside Ms. Andrew with the phone number of [phone] Patient had 2 falls in August 02 associated with hip fracture and problems hence she went to rehab. She has been complaining from pain in her right hip for a while since then and has been taking several pain medication and narcotics. Her friend and advocate thinks excessive pain medication contributed to her presentation. Patient has been confused over the last 4 to 5 days since last Sunday. She sleeps a lot she is weak and she was getting worse so she was transferred to the hospital Patient hemodynamically stable and afebrile Labs showing hemoglobin 9.1, WBC elevated slightly above baseline but still within the reference range, creatinine at baseline of 1.4, baseline 1.3-1.7, INR is within the reference range Urinalysis no suspicion of infection Influenza test is positive while COVID test is negative pH is 7.4 and pCO2 is 24 CT of the brain is negative for acute process Chest x-ray showing new bibasilar infiltrate versus atelectasis Urine drug screen is positive for TCA serum alcohol is less than 10 EKG showing sinus rhythm with PVC Review of Systems ROS unobtainable: due to mental status Past Medical History Past Medical History: COPD, Hyperlipidemia, Hypertension, Osteoarthritis (OA), Skin Disorder, Thyroid Disorder Additional Past Medical History / Comment(s): Lupus, Gout, rashes from Lupus when flared up. fluid retention per pt.,. FELL BEGINNING OF FEB-NO INJURY History of Any Multi-Drug Resistant Organisms: MRSA Date of last positivie culture/infection: 2022 MDRO Source:: lower extremities Past Surgical History: Hysterectomy, Joint Replacement, Orthopedic Surgery Additional Past Surgical History / Comment(s): Bilateral knee replacements, bilateral cataract surgery, right hip replacement with revision - multiple surgeries, bilateral wrist carpal tunnel surgery, pain clinic procedures. Past Anesthesia/Blood Transfusion Reactions: No Reported Reaction Additional Past Anesthesia/Blood Transfusion Reaction / Comment(s): Pt has never had a blood transfusion. Past Psychological History: No Psychological Hx Reported Smoking Status: Former smoker Past Alcohol Use History: None Reported Past Drug Use History: None Reported - Past Family History Mother Family Medical History: Hypertension Medications and Allergies Home Medications Medication Instructions Recorded Confirmed Type Levothyroxine Sodium 150 mcg PO DAILY@0500 02/15/17 09/08/24 History Metoprolol Tartrate [Lopressor] 25 mg PO BID #180 tablet 02/22/17 09/08/24 Rx Ascorbic Acid [Vitamin C] 1,000 mg PO DAILY 06/17/20 09/08/24 History Cholecalciferol [Vitamin D3 (25 125 mcg PO HS 06/17/20 09/08/24 History Mcg = 1000 Iu)] Multivitamins, Thera [Multivitamin 1 tab PO HS 06/17/20 09/08/24 History (formulary)] Ferrous Sulfate [Feosol] 325 mg PO DAILY 07/13/20 09/08/24 History hydrALAZINE HCL [Apresoline] 25 mg PO BID 01/12/22 09/08/24 History Atorvastatin [Lipitor] 80 mg PO HS 02/12/23 09/08/24 History Gabapentin [Neurontin] 100 mg PO BID #6 cap 02/14/23 09/08/24 Rx Acetaminophen Tab [Tylenol] 650 mg PO Q6H PRN 09/08/24 09/08/24 History Acetaminophen [Tylenol 8 Hour] 650 mg PO Q6H PRN 09/08/24 09/08/24 History Albuterol Sulfate [Ventolin HFA] 2 puff INHALATION RT-Q6H PRN 09/08/24 09/08/24 History Aspirin 81 mg PO HS 09/08/24 09/08/24 History Bumetanide [Bumex] 1 mg PO BID@0700,1600 09/08/24 09/08/24 History Calcium Carbonate/Vitamin D3 1 tab PO DAILY 09/08/24 09/08/24 History [Calcium 600 mg-Vit D3 5 mcg (200 unit)] Cold And Hot External Patch 5% 1 applic TOPICAL BID@0700,1900 09/08/24 09/08/24 History Cyclobenzaprine [Flexeril] 10 mg PO Q8H PRN 09/08/24 09/08/24 History Folic Acid 0.8 mg PO HS 09/08/24 09/08/24 History Ipratropium-Albuterol Nebulize 3 ml INHALATION RT-Q4H PRN 09/08/24 09/08/24 History [Duoneb 0.5 mg-3 mg/3 ml Soln] Isosorbide Mononitrate ER [Imdur] 30 mg PO BID 09/08/24 09/08/24 History Naloxone HCl 0.4 mg IM ONCE PRN 09/08/24 09/08/24 History Naloxone HCl [Narcan] 4 mg NASAL ONCE PRN 09/08/24 09/08/24 History Nutritional Juice 1 dose PO DAILY@0730 09/08/24 09/08/24 History Oseltamivir [Tamiflu] 30 mg PO Q2D 09/08/24 09/08/24 History Promethazine [Phenergan] 25 mg PO Q6H PRN 09/08/24 09/08/24 History Ranolazine [Ranexa] 1,000 mg PO Q12HR@0700,1900 09/08/24 09/08/24 History Sennosides [Senokot] 17.2 mg PO DAILY 09/08/24 09/08/24 History Vitamin B Complex 1 cap PO HS 09/08/24 09/08/24 History guaiFENesin [Mucinex] 600 mg PO BID PRN 09/08/24 09/08/24 History polyethylene glycoL 3350 [Miralax] 17 gm PO DAILY 09/08/24 09/08/24 History rOPINIRole HCL [Requip] 0.5 mg PO BID 09/08/24 09/08/24 History traMADol HCL 75 mg PO Q4H PRN 09/08/24 09/08/24 History Allergies Allergy/AdvReac Type Severity Reaction Status Date / Time adhesive Allergy skin peels Verified 09/08/24 12:50 cephalexin [From Keflex] Allergy Rash/Hives Verified 09/08/24 12:50 latex Allergy skin peels Verified 09/08/24 12:50 codeine AdvReac Hallucinati Verified 09/08/24 12:50 ons ketorolac [From Toradol] AdvReac Hallucinati Verified 09/08/24 12:50 ons morphine AdvReac Hallucinati Verified 09/08/24 12:50 ons Physical Exam Vitals: Vital Signs Temp Pulse Resp BP Pulse Ox 09/08/24 15:59 78 09/08/24 15:50 80 09/08/24 15:49 77 18 151/79 96 09/08/24 13:02 74 24 126/73 90 L 09/08/24 12:33 84 09/08/24 12:26 96 09/08/24 12:09 98.4 F 72 24 133/70 95 Intake and Output 09/08/24 09/08/24 09/08/24 06:59 14:59 22:59 Other: Weight 58.967 kg -Mild on dual GENERAL: The patient is obtund, can not provide information, not in any acute distress. Well developed, well nourished. HEENT: Pupils are round and equally reacting to light. EOMI. No scleral icterus. No conjunctival pallor. Normocephalic, atraumatic. No pharyngeal erythema. No thyromegaly. CARDIOVASCULAR: S1 and S2 present. No murmurs, rubs, or gallops. PULMONARY: Chest is clear to auscultation, no wheezing , no crackles. ABDOMEN: Soft, nontender, nondistended, normoactive bowel sounds. No palpable organomegaly. MUSCULOSKELETAL: No joint swelling or deformity. EXTREMITIES: No cyanosis, clubbing, or pedal edema. NEUROLOGICAL: Gross neurological examination did not reveal any focal deficits. SKIN: No rashes. no petechiae. Results CBC & Chem 7: 09/08/24 12:30 09/08/24 12:30 Labs: Abnormal Lab Results - Last 24 Hours (Table) 09/08/24 09/08/24 09/08/24 Range/Units 12:27 12:30 12:30 RBC 2.88 L (3.80-5.40) m/uL Hgb 9.1 L (11.4-16.0) gm/dL Hct 27.5 L (34.0-46.0) % Neutrophils # 8.7 H (1.3-7.7) k/uL Lymphocytes # 0.5 L (1.0-4.8) k/uL APTT 30.1 H (22.0-30.0) sec VBG pH (7.31-7.41) VBG pCO2 (37-51) mmHg VBG HCO3 (24-28) mmol/L Carbon Dioxide (22-30) mmol/L BUN (7-17) mg/dL Creatinine (0.52-1.04) mg/dL Glucose (74-99) mg/dL POC Glucose (mg/dL) 129 H (70-110) mg/dL AST (14-36) U/L ALT (4-34) U/L Total Protein (6.3-8.2) g/dL Albumin (3.5-5.0) g/dL Urine Appearance (Clear) Urine Protein (Negative) Urine Blood (Negative) Urine RBC (0-5) /hpf Urine Bacteria (None) /hpf Urine Mucus (None) /hpf U Tricyclic Antidepress (NotDetected) Influenza Type A (PCR) (Not Detectd) 09/08/24 09/08/24 09/08/24 Range/Units 12:30 12:30 12:38 RBC (3.80-5.40) m/uL Hgb (11.4-16.0) gm/dL Hct (34.0-46.0) % Neutrophils # (1.3-7.7) k/uL Lymphocytes # (1.0-4.8) k/uL APTT (22.0-30.0) sec VBG pH 7.46 H (7.31-7.41) VBG pCO2 54 H (37-51) mmHg VBG HCO3 38 H (24-28) mmol/L Carbon Dioxide 36 H (22-30) mmol/L BUN 62 H (7-17) mg/dL Creatinine 1.42 H (0.52-1.04) mg/dL Glucose 115 H (74-99) mg/dL POC Glucose (mg/dL) (70-110) mg/dL AST 47 H (14-36) U/L ALT 52 H (4-34) U/L Total Protein 6.1 L (6.3-8.2) g/dL Albumin 3.1 L (3.5-5.0) g/dL Urine Appearance (Clear) Urine Protein (Negative) Urine Blood (Negative) Urine RBC (0-5) /hpf Urine Bacteria (None) /hpf Urine Mucus (None) /hpf U Tricyclic Antidepress (NotDetected) Influenza Type A (PCR) Detected A (Not Detectd) 09/08/24 Range/Units 13:27 RBC (3.80-5.40) m/uL Hgb (11.4-16.0) gm/dL Hct (34.0-46.0) % Neutrophils # (1.3-7.7) k/uL Lymphocytes # (1.0-4.8) k/uL APTT (22.0-30.0) sec VBG pH (7.31-7.41) VBG pCO2 (37-51) mmHg VBG HCO3 (24-28) mmol/L Carbon Dioxide (22-30) mmol/L BUN (7-17) mg/dL Creatinine (0.52-1.04) mg/dL Glucose (74-99) mg/dL POC Glucose (mg/dL) (70-110) mg/dL AST (14-36) U/L ALT (4-34) U/L Total Protein (6.3-8.2) g/dL Albumin (3.5-5.0) g/dL Urine Appearance Cloudy H (Clear) Urine Protein 1+ H (Negative) Urine Blood Trace H (Negative) Urine RBC 10 H (0-5) /hpf Urine Bacteria Few H (None) /hpf Urine Mucus Rare H (None) /hpf U Tricyclic Antidepress Detected H (NotDetected) Influenza Type A (PCR) (Not Detectd) Assessment and Plan Assessment: Altered mental status most likely metabolic/toxic encephalopathy Possible bibasilar pneumonia Acute hypoxic respiratory failure Influenza A Dementia Chronic kidney disease stage III Plan: Patient was started on antibiotic Levaquin and Flagyl Also past started on IV Solu-Medrol She is on Ringer lactate at 75 mL/h Continue with Tamiflu Pulmonary team consult Will consult infectious disease team Follow-up culture results Labs and medication were reviewed.. Continue same treatment. Continue with symptomatic treatment. Resume home medication. Monitor labs and vitals. DVT and GI prophylaxis. Further recommendations as per clinical course of the patient DVT prophylaxis: Subcutaneous heparin GI Prophylaxis: Pepcid Prognosis is guarded CODE STATUS: DNR, confirmed with her advocate and friend
[2024-09-08] MEDS: IPRATROPIUM-ALBUTEROL 3 ML NEB INHALATION SCH (19:24)
[2024-09-08] MEDS ORDERED: IPRATROPIUM-ALBUTEROL 3 ML NEB INHALATION SCH (20:00)
[2024-09-08] MEDS: FAMOTIDINE 20 MG/2 ML VIAL IV SCH (20:48)
[2024-09-08] MEDS: HEPARIN SODIUM,PORCINE 5,000 UNIT/ML 1 ML VIAL SQ SCH (20:48)
[2024-09-08] MEDS: hydrALAZINE HCL 25 MG TAB PO SCH (20:48)
[2024-09-08] MEDS: ISOSORBIDE MONONITRATE ER 30 MG TAB.ER.24H PO SCH (20:48)
[2024-09-08] MEDS: ASPIRIN 81 MG PO SCH (20:48)
[2024-09-08] MEDS: ATORVASTATIN 80 MG TAB PO SCH (20:49)
[2024-09-08] MEDS: METOPROLOL TARTRATE 25 MG TAB PO SCH (20:49)
[2024-09-09] MEDS: methylPREDNISolone SOD SUCCI 40 MG/ML 1 ML VIAL IV SCH (00:31)
[2024-09-09] MEDS: DILTIAZEM DRIP BOLUS FROM BAG 1 MG SOLN IV ONE (04:24)
[2024-09-09] MEDS: DILTIAZEM 125 MG in SODIUM CHLORIDE 0.9% 100 ML IV SCH (04:24)
--- NOTE | 2024-09-09 06:19 | XR ---
EXAMINATION TYPE: XR chest 1V portable DATE OF EXAM: 09/09/2024 CLINICAL INDICATION: Female, 74 years old with history of pneumonia, progress study. TECHNIQUE: Single AP portable supine view of the chest is obtained. COMPARISON: Chest x-ray from one day earlier FINDINGS: Demineralization of osseous structures redemonstrated. New surgical change in the cervical spine is partially imaged. Cardiac silhouette size is stable and upper limits of normal. Persistent bilateral lower lung increased opacities. IMPRESSION: Persistent bilateral lower lung acute infiltrates and/or atelectasis. [facility], , 09/09/2024 6:17 AM
--- NOTE | 2024-09-09 07:14 | P.PN ---
Subjective This is a pleasant 74 years old female who presents from [facility]. Patient currently nonverbal, not waking up to verbal or tactile stimuli Information were obtained from her friend and her advocate at bedside Ms. Andrew with the phone number of [phone] Patient had 2 falls in August 02 associated with hip fracture and problems hence she went to rehab. She has been complaining from pain in her right hip for a while since then and has been taking several pain medication and narcotics. Her friend and advocate thinks excessive pain medication contributed to her presentation. Patient has been confused over the last 4 to 5 days since last Sunday. She sleeps a lot she is weak and she was getting worse so she was transferred to the hospital Patient hemodynamically stable and afebrile Labs showing hemoglobin 9.1, WBC elevated slightly above baseline but still within the reference range, creatinine at baseline of 1.4, baseline 1.3-1.7, INR is within the reference range Urinalysis no suspicion of infection Influenza test is positive while COVID test is negative pH is 7.4 and pCO2 is 24 CT of the brain is negative for acute process Chest x-ray showing new bibasilar infiltrate versus atelectasis Urine drug screen is positive for TCA serum alcohol is less than 10 EKG showing sinus rhythm with PVC 09/09 Patient is more awake and alert today, she is still pleasantly confused, she can recognize the hospital once reminded. But she is still disoriented to time and person. She follows command and she has little insight into her illness. She complained from little shortness of breath and coughing but no chest pain No abdominal pain or vomiting. She has some dark greenish stool, occult blood test was requested No specific urinary complaint. No headache or dizziness or weakness or numbness. No skin rashes or pressure ulcer Patient developed A-fib and RVR overnight with heart rate 154 and currently 125 while she is on Cardizem drip She is already on metoprolol 25 mg will increase the dose to 50 mg She is currently on aspirin and subcutaneous heparin Also she is on antibiotic with Levaquin and Flagyl and Tamiflu We will discontinue Ringer lactate. Continue on Bumex 1 mg twice daily Active Medications Generic Name Dose Route Start Last Admin Trade Name Freq PRN Reason Stop Dose Admin Acetaminophen 650 mg 09/08/24 18:55 Acetaminophen Tab 325 Mg Tab PO Q6H PRN Fever and/ or Pain Albuterol Sulfate 2.4 mg 09/08/24 18:55 Albuterol Nebulized 2.5 Mg/3 Ml INHALATION RT-Q6H PRN Shortness Of Breath Albuterol/Ipratropium 3 ml 09/08/24 16:36 Ipratropium-Albuterol 3 Ml Neb INHALATION RT-Q2H PRN Shortness Of Breath Or Wheezing Albuterol/Ipratropium 3 ml 09/08/24 20:00 09/08/24 19:24 Ipratropium-Albuterol 3 Ml Neb INHALATION 3 ml RT-QID YOHAN Administration Aspirin 81 mg 09/08/24 21:00 09/08/24 20:48 Aspirin 81 Mg PO 81 mg HS YOHAN Administration Atorvastatin Calcium 80 mg 09/08/24 21:00 09/08/24 20:49 Atorvastatin 80 Mg Tab PO 80 mg HS YOHAN Administration Bumetanide 1 mg 09/09/24 07:00 Bumetanide 1 Mg Tab PO BID@0700,1600 YOHAN Famotidine 10 mg 09/08/24 21:00 09/08/24 20:48 Famotidine 20 Mg/2 Ml Vial IV 10 mg Q12HR YOHAN Administration Guaifenesin 600 mg 09/08/24 18:55 Guaifenesin 600 Mg Tablet.Er PO BID PRN Congestion Heparin Sodium (Porcine) 5,000 unit 09/08/24 21:00 09/08/24 20:48 Heparin Sodium,Porcine 5,000 Unit/Ml 1 Ml Vial SQ 5,000 unit Q12HR YOHAN Administration Hydralazine HCl 25 mg 09/08/24 21:00 09/08/24 20:48 Hydralazine Hcl 25 Mg Tab PO 25 mg BID YOHAN Administration Metronidazole 500 mg/ IV 100 mls @ 100 mls/hr 09/08/24 16:00 09/09/24 00:31 Solution IVPB 100 mls/hr Q8HR YOHAN Administration Protocol Diltiazem HCl 125 mg/ Sodium 125 mls @ 10 mls/hr 09/09/24 04:15 09/09/24 04:24 Chloride IV 10 mg/hr .[id number] YOHAN 10 mls/hr Administration 10 MG/HR Isosorbide Mononitrate 30 mg 09/08/24 21:00 09/08/24 20:48 Isosorbide Mononitrate Er 30 Mg Tab.Er.24h PO 30 mg BID [facility] Administration Levofloxacin 750 mg 09/09/24 09:00 Levofloxacin 750 Mg Tab PO 09/12/24 09:01 DAILY [facility] Protocol Levothyroxine Sodium 150 mcg 09/09/24 05:00 Levothyroxine 75 Mcg Tab PO DAILY@0500 [facility] Methylprednisolone Sodium Succinate 40 mg 09/09/24 00:00 09/09/24 00:31 Methylprednisolone Sod Succi 40 Mg/Ml 1 Ml Vial IV 40 mg Q8HR [facility] Administration Metoprolol Tartrate 50 mg 09/09/24 07:15 Metoprolol Tartrate 25 Mg Tab PO BID [facility] Miscellaneous Information 1 each 09/08/24 12:59 Pneumonia Protocol Utilized 1 Each Misc PO ONCE PRN Per Protocol Naloxone HCl 0.2 mg 09/08/24 14:01 Naloxone 0.4 Mg/Ml 1 Ml Vial IV Q2M PRN Opioid Reversal Ondansetron HCl 4 mg 09/08/24 14:01 Ondansetron 4 Mg/2 Ml Vial IVP Q8HR PRN Nausea And Vomiting Oseltamivir Phosphate 30 mg 09/08/24 14:15 09/08/24 16:02 Oseltamivir 30 Mg Cap PO 09/12/24 09:01 30 mg Q24HR [facility] Administration Protocol Senna 17.2 mg 09/08/24 18:55 Sennosides 8.6 Mg Tab PO DAILY PRN Constipation Objective - Vital Signs Vital signs: Vital Signs Temp 98.6 F 09/09/24 04:08 Pulse 125 H 09/09/24 04:50 Resp 16 09/09/24 04:50 BP 131/79 09/09/24 04:50 Pulse Ox 92 L 09/09/24 04:50 FiO2 Intake & Output 09/08/24 09/09/24 09/09/24 18:59 06:59 18:59 Weight 58.967 kg - Exam -GENERAL: The patient is alert and oriented x0-1, which looks her baseline of dementia, not in any acute distress. Well developed, well nourished. HEENT: Pupils are round and equally reacting to light. EOMI. No scleral icterus. No conjunctival pallor. Normocephalic, atraumatic. No pharyngeal erythema. No thyromegaly. CARDIOVASCULAR: S1 and S2 present. No murmurs, rubs, or gallops. -PULMONARY: Chest is clear to auscultation, no wheezing , bilateral basal crackles. ABDOMEN: Soft, nontender, nondistended, normoactive bowel sounds. No palpable organomegaly. MUSCULOSKELETAL: No joint swelling or deformity. EXTREMITIES: No cyanosis, clubbing, or pedal edema. NEUROLOGICAL: Gross neurological examination did not reveal any focal deficits. SKIN: No rashes. no petechiae. - Labs CBC & Chem 7: 09/08/24 12:30 09/08/24 12:30 Labs: Abnormal Lab Results - Last 24 Hours (Table) 09/08/24 09/08/24 09/08/24 Range/Units 12:27 12:30 12:30 RBC 2.88 L (3.80-5.40) m/uL Hgb 9.1 L (11.4-16.0) gm/dL Hct 27.5 L (34.0-46.0) % Neutrophils # 8.7 H (1.3-7.7) k/uL Lymphocytes # 0.5 L (1.0-4.8) k/uL APTT 30.1 H (22.0-30.0) sec VBG pH (7.31-7.41) VBG pCO2 (37-51) mmHg VBG HCO3 (24-28) mmol/L Carbon Dioxide (22-30) mmol/L BUN (7-17) mg/dL Creatinine (0.52-1.04) mg/dL Glucose (74-99) mg/dL POC Glucose (mg/dL) 129 H (70-110) mg/dL AST (14-36) U/L ALT (4-34) U/L Total Protein (6.3-8.2) g/dL Albumin (3.5-5.0) g/dL Urine Appearance (Clear) Urine Protein (Negative) Urine Blood (Negative) Urine RBC (0-5) /hpf Urine Bacteria (None) /hpf Urine Mucus (None) /hpf U Tricyclic Antidepress (NotDetected) Influenza Type A (PCR) (Not Detectd) 09/08/24 09/08/24 09/08/24 Range/Units 12:30 12:30 12:38 RBC (3.80-5.40) m/uL Hgb (11.4-16.0) gm/dL Hct (34.0-46.0) % Neutrophils # (1.3-7.7) k/uL Lymphocytes # (1.0-4.8) k/uL APTT (22.0-30.0) sec VBG pH 7.46 H (7.31-7.41) VBG pCO2 54 H (37-51) mmHg VBG HCO3 38 H (24-28) mmol/L Carbon Dioxide 36 H (22-30) mmol/L BUN 62 H (7-17) mg/dL Creatinine 1.42 H (0.52-1.04) mg/dL Glucose 115 H (74-99) mg/dL POC Glucose (mg/dL) (70-110) mg/dL AST 47 H (14-36) U/L ALT 52 H (4-34) U/L Total Protein 6.1 L (6.3-8.2) g/dL Albumin 3.1 L (3.5-5.0) g/dL Urine Appearance (Clear) Urine Protein (Negative) Urine Blood (Negative) Urine RBC (0-5) /hpf Urine Bacteria (None) /hpf Urine Mucus (None) /hpf U Tricyclic Antidepress (NotDetected) Influenza Type A (PCR) Detected A (Not Detectd) 09/08/24 Range/Units 13:27 RBC (3.80-5.40) m/uL Hgb (11.4-16.0) gm/dL Hct (34.0-46.0) % Neutrophils # (1.3-7.7) k/uL Lymphocytes # (1.0-4.8) k/uL APTT (22.0-30.0) sec VBG pH (7.31-7.41) VBG pCO2 (37-51) mmHg VBG HCO3 (24-28) mmol/L Carbon Dioxide (22-30) mmol/L BUN (7-17) mg/dL Creatinine (0.52-1.04) mg/dL Glucose (74-99) mg/dL POC Glucose (mg/dL) (70-110) mg/dL AST (14-36) U/L ALT (4-34) U/L Total Protein (6.3-8.2) g/dL Albumin (3.5-5.0) g/dL Urine Appearance Cloudy H (Clear) Urine Protein 1+ H (Negative) Urine Blood Trace H (Negative) Urine RBC 10 H (0-5) /hpf Urine Bacteria Few H (None) /hpf Urine Mucus Rare H (None) /hpf U Tricyclic Antidepress Detected H (NotDetected) Influenza Type A (PCR) (Not Detectd) Assessment and Plan Assessment: Altered mental status most likely metabolic/toxic encephalopathy, thought secondary to pain medication and infection Possible bibasilar pneumonia Possible acute CHF exacerbation A-fib and RVR Acute hypoxic respiratory failure Influenza A Dementia Chronic kidney disease stage III Plan: Patient was started on antibiotic Levaquin and Flagyl Also past started on IV Solu-Medrol Discontinue Ringer lactate at 75 mL/h Continue with Tamiflu Pulmonary team consult Cardiology team consult Will consult infectious disease team Follow-up culture results Increase metoprolol to 50 mg twice daily Continue with Bumex 1 mg twice daily Labs and medication were reviewed.. Continue same treatment. Continue with symptomatic treatment. Resume home medication. Monitor labs and vitals. DVT and GI prophylaxis. Further recommendations as per clinical course of the patient DVT prophylaxis: Subcutaneous heparin GI Prophylaxis: Pepcid Prognosis is guarded CODE STATUS: DNR, confirmed with her advocate and friend
[2024-09-09] MEDS: BUMETANIDE 1 MG TAB PO SCH (07:43)
[2024-09-09] MEDS: LEVOTHYROXINE 75 MCG TAB PO SCH (07:44)
--- NOTE | 2024-09-09 08:56 | P.CRDCN ---
History of Present Illness Consult date: 09/09/24 History of present illness: The patient is a 74-year-old female patient with a past medical history significant for history of COPD as well as history of baseline confusi on/underlying dementia where the patient currently is a resident at [facility] who was admitted to the hospital with flulike symptoms consistent of cough and congestions and she was diagnosed with influenza A after she was tested positive. We consulted to see the patient because of atrial fibrillation with RVR. Initial EKG when she presented to the hospital showed sinus mechanism with diffuse nonspecific ST and T wave abnormalities but subsequently she went into A-fib with RVR and then she converted to normal sinus mechanism with no history of atrial fibrillation and no other cardiovascular history from before. She is extremely poor historian and she is extremely confused. No indication of any chest pain or chest discomfort. She underwent further evaluation including chest x-ray did not show any acute abnormalities and she is currently receiving treatment for influenza A. An echocardiogram still pending. The physical examination is remarkable for change in mental status/confusion with regular rate and rhythm and soft systolic murmur and bilateral expiratory wheezing was noted with mild bilateral lower extremities edema Assessment Confusion Influenza A infection A-fib of acute illness Multiple comorbid conditions including COPD Plan No need for anticoagulation giving the history of high risk of falling and bleeding Increase the dose of beta-henrietta with metoprolol Obtain an echocardiogram with Doppler Follow-up with the patient Past Medical History Past Medical History: COPD, Hyperlipidemia, Hypertension, Osteoarthritis (OA), Skin Disorder, Thyroid Disorder Additional Past Medical History / Comment(s): Lupus, Gout, rashes from Lupus when flared up. fluid retention per pt.,. FELL BEGINNING OF FEB-NO INJURY History of Any Multi-Drug Resistant Organisms: MRSA Date of last positivie culture/infection: 2022 MDRO Source:: lower extremities Past Surgical History: Hysterectomy, Joint Replacement, Orthopedic Surgery Additional Past Surgical History / Comment(s): Bilateral knee replacements, bilateral cataract surgery, right hip replacement with revision - multiple surgeries, bilateral wrist carpal tunnel surgery, pain clinic procedures. Past Anesthesia/Blood Transfusion Reactions: No Reported Reaction Additional Past Anesthesia/Blood Transfusion Reaction / Comment(s): Pt has never had a blood transfusion. Past Psychological History: No Psychological Hx Reported Smoking Status: Former smoker Past Alcohol Use History: None Reported Past Drug Use History: None Reported - Past Family History Mother Family Medical History: Hypertension Medications and Allergies Home Medications Medication Instructions Recorded Confirmed Type Levothyroxine Sodium 150 mcg PO DAILY@0500 02/15/17 09/08/24 History Metoprolol Tartrate [Lopressor] 25 mg PO BID #180 tablet 02/22/17 09/08/24 Rx Ascorbic Acid [Vitamin C] 1,000 mg PO DAILY 06/17/20 09/08/24 History Cholecalciferol [Vitamin D3 (25 125 mcg PO HS 06/17/20 09/08/24 History Mcg = 1000 Iu)] Multivitamins, Thera [Multivitamin 1 tab PO HS 06/17/20 09/08/24 History (formulary)] Ferrous Sulfate [Feosol] 325 mg PO DAILY 07/13/20 09/08/24 History hydrALAZINE HCL [Apresoline] 25 mg PO BID 01/12/22 09/08/24 History Atorvastatin [Lipitor] 80 mg PO HS 02/12/23 09/08/24 History Gabapentin [Neurontin] 100 mg PO BID #6 cap 02/14/23 09/08/24 Rx Acetaminophen Tab [Tylenol] 650 mg PO Q6H PRN 09/08/24 09/08/24 History Acetaminophen [Tylenol 8 Hour] 650 mg PO Q6H PRN 09/08/24 09/08/24 History Albuterol Sulfate [Ventolin HFA] 2 puff INHALATION RT-Q6H PRN 09/08/24 09/08/24 History Aspirin 81 mg PO HS 09/08/24 09/08/24 History Bumetanide [Bumex] 1 mg PO BID@0700,1600 09/08/24 09/08/24 History Calcium Carbonate/Vitamin D3 1 tab PO DAILY 09/08/24 09/08/24 History [Calcium 600 mg-Vit D3 5 mcg (200 unit)] Cold And Hot External Patch 5% 1 applic TOPICAL BID@0700,1900 09/08/24 09/08/24 History Cyclobenzaprine [Flexeril] 10 mg PO Q8H PRN 09/08/24 09/08/24 History Folic Acid 0.8 mg PO HS 09/08/24 09/08/24 History Ipratropium-Albuterol Nebulize 3 ml INHALATION RT-Q4H PRN 09/08/24 09/08/24 History [Duoneb 0.5 mg-3 mg/3 ml Soln] Isosorbide Mononitrate ER [Imdur] 30 mg PO BID 09/08/24 09/08/24 History Naloxone HCl 0.4 mg IM ONCE PRN 09/08/24 09/08/24 History Naloxone HCl [Narcan] 4 mg NASAL ONCE PRN 09/08/24 09/08/24 History Nutritional Juice 1 dose PO DAILY@0730 09/08/24 09/08/24 History Oseltamivir [Tamiflu] 30 mg PO Q2D 09/08/24 09/08/24 History Promethazine [Phenergan] 25 mg PO Q6H PRN 09/08/24 09/08/24 History Ranolazine [Ranexa] 1,000 mg PO Q12HR@0700,1900 09/08/24 09/08/24 History Sennosides [Senokot] 17.2 mg PO DAILY 09/08/24 09/08/24 History Vitamin B Complex 1 cap PO HS 09/08/24 09/08/24 History guaiFENesin [Mucinex] 600 mg PO BID PRN 09/08/24 09/08/24 History polyethylene glycoL 3350 [Miralax] 17 gm PO DAILY 09/08/24 09/08/24 History rOPINIRole HCL [Requip] 0.5 mg PO BID 09/08/24 09/08/24 History traMADol HCL 75 mg PO Q4H PRN 09/08/24 09/08/24 History Allergies Allergy/AdvReac Type Severity Reaction Status Date / Time adhesive Allergy skin peels Verified 09/08/24 12:50 cephalexin [From Keflex] Allergy Rash/Hives Verified 09/08/24 12:50 latex Allergy skin peels Verified 09/08/24 12:50 codeine AdvReac Hallucinati Verified 09/08/24 12:50 ons ketorolac [From Toradol] AdvReac Hallucinati Verified 09/08/24 12:50 ons morphine AdvReac Hallucinati Verified 09/08/24 12:50 ons Physical Exam Vitals: Vital Signs Temp Pulse Resp BP Pulse Ox 09/09/24 08:37 85 16 09/09/24 08:27 116 H 16 95 09/09/24 07:39 98.1 F 137 H 18 143/96 93 L 09/09/24 04:50 125 H 16 131/79 92 L 09/09/24 04:08 98.6 F 154 H 20 142/90 96 09/09/24 02:44 82 18 144/105 96 09/08/24 21:00 81 16 128/67 95 09/08/24 19:36 77 09/08/24 19:24 88 09/08/24 18:45 77 18 130/68 96 09/08/24 15:59 78 09/08/24 15:50 80 09/08/24 15:49 77 18 151/79 96 09/08/24 13:02 74 24 126/73 90 L 09/08/24 12:33 84 09/08/24 12:26 96 09/08/24 12:09 98.4 F 72 24 133/70 95 Results 09/08/24 12:30 09/08/24 12:30 Cardiac Enzymes 09/08/24 Range/Units 12:30 AST 47 H (14-36) U/L Coagulation 09/08/24 Range/Units 12:30 PT 10.9 (10.0-12.5) sec APTT 30.1 H (22.0-30.0) sec CBC 09/08/24 Range/Units 12:30 WBC 9.8 (3.8-10.6) k/uL RBC 2.88 L (3.80-5.40) m/uL Hgb 9.1 L (11.4-16.0) gm/dL Hct 27.5 L (34.0-46.0) % Plt Count 260 (150-450) k/uL Comprehensive Metabolic Panel 09/08/24 Range/Units 12:30 Sodium 142 (137-145) mmol/L Potassium 3.8 (3.5-5.1) mmol/L Chloride 98 (98-107) mmol/L Carbon Dioxide 36 H (22-30) mmol/L BUN 62 H (7-17) mg/dL Creatinine 1.42 H (0.52-1.04) mg/dL Glucose 115 H (74-99) mg/dL Calcium 8.7 (8.4-10.2) mg/dL AST 47 H (14-36) U/L ALT 52 H (4-34) U/L Alkaline Phosphatase 98 (38-126) U/L Total Protein 6.1 L (6.3-8.2) g/dL Albumin 3.1 L (3.5-5.0) g/dL Current Medications Generic Name Dose Route Start Last Admin Trade Name Freq PRN Reason Stop Dose Admin Acetaminophen 650 mg 09/08/24 18:55 Acetaminophen Tab 325 Mg Tab PO Q6H PRN Fever and/ or Pain Albuterol Sulfate 2.4 mg 09/08/24 18:55 Albuterol Nebulized 2.5 Mg/3 Ml INHALATION RT-Q6H PRN Shortness Of Breath Albuterol/Ipratropium 3 ml 09/08/24 16:36 Ipratropium-Albuterol 3 Ml Neb INHALATION RT-Q2H PRN Shortness Of Breath Or Wheezing Albuterol/Ipratropium 3 ml 09/08/24 20:00 09/09/24 08:25 Ipratropium-Albuterol 3 Ml Neb INHALATION 3 ml RT-QID YOHAN Administration Aspirin 81 mg 09/08/24 21:00 09/08/24 20:48 Aspirin 81 Mg PO 81 mg HS YOHAN Administration Atorvastatin Calcium 80 mg 09/08/24 21:00 09/08/24 20:49 Atorvastatin 80 Mg Tab PO 80 mg HS YOHAN Administration Bumetanide 1 mg 09/09/24 07:00 09/09/24 07:43 Bumetanide 1 Mg Tab PO 1 mg BID@0700,1600 YOHAN Administration Famotidine 10 mg 09/08/24 21:00 09/08/24 20:48 Famotidine 20 Mg/2 Ml Vial IV 10 mg Q12HR YOHAN Administration Guaifenesin 600 mg 09/08/24 18:55 Guaifenesin 600 Mg Tablet.Er PO BID PRN Congestion Heparin Sodium (Porcine) 5,000 unit 09/08/24 21:00 09/08/24 20:48 Heparin Sodium,Porcine 5,000 Unit/Ml 1 Ml Vial SQ 5,000 unit Q12HR YOHAN Administration Hydralazine HCl 25 mg 09/08/24 21:00 09/08/24 20:48 Hydralazine Hcl 25 Mg Tab PO 25 mg BID YOHAN Administration Metronidazole 500 mg/ IV 100 mls @ 100 mls/hr 09/08/24 16:00 09/09/24 00:31 Solution IVPB 100 mls/hr Q8HR YOHAN Administration Protocol Diltiazem HCl 125 mg/ Sodium 125 mls @ 10 mls/hr 09/09/24 04:15 09/09/24 04:24 Chloride IV 10 mg/hr .[id number] YOHAN 10 mls/hr Administration 10 MG/HR Isosorbide Mononitrate 30 mg 09/08/24 21:00 09/08/24 20:48 Isosorbide Mononitrate Er 30 Mg Tab.Er.24h PO 30 mg BID YOHAN Administration Levofloxacin 750 mg 09/09/24 09:00 Levofloxacin 750 Mg Tab PO 09/12/24 09:01 DAILY [facility] Protocol Levothyroxine Sodium 150 mcg 09/09/24 05:00 09/09/24 07:44 Levothyroxine 75 Mcg Tab PO 150 mcg DAILY@0500 YOHAN Administration Methylprednisolone Sodium Succinate 40 mg 09/09/24 00:00 09/09/24 00:31 Methylprednisolone Sod Succi 40 Mg/Ml 1 Ml Vial IV 40 mg Q8HR YOHAN Administration Metoprolol Tartrate 50 mg 09/09/24 09:00 Metoprolol Tartrate 50 Mg Tab PO TID [facility] Miscellaneous Information 1 each 09/08/24 12:59 Pneumonia Protocol Utilized 1 Each Misc PO ONCE PRN Per Protocol Naloxone HCl 0.2 mg 09/08/24 14:01 Naloxone 0.4 Mg/Ml 1 Ml Vial IV Q2M PRN Opioid Reversal Ondansetron HCl 4 mg 09/08/24 14:01 Ondansetron 4 Mg/2 Ml Vial IVP Q8HR PRN Nausea And Vomiting Oseltamivir Phosphate 30 mg 09/08/24 14:15 09/08/24 16:02 Oseltamivir 30 Mg Cap PO 09/12/24 09:01 30 mg Q24HR YOHAN Administration Protocol Senna 17.2 mg 09/08/24 18:55 Sennosides 8.6 Mg Tab PO DAILY PRN Constipation 09/08/24 12:30 09/08/24 12:30
[2024-09-09 09:29] LABS: ALT 43 U/L (4-34); AST 45 U/L (14-36); African American GFR (CKD) 55 (>60 ml/min/1.73 sqM); Alkaline Phosphatase 96 U/L (38-126); Anion Gap 8 mmol/L; Basophils % (A) 0 %; Blood Urea Nitrogen 44 mg/dL (7-17); Calcium 8.7 mg/dL (8.4-10.2); Carbon Dioxide 33 mmol/L (22-30); Chloride 101 mmol/L (98-107); Eosinophils % (A) 0 %; Globulin 2.9 g/dL; Glucose 145 mg/dL (74-99); HCT 26.8 % (34.0-46.0); HGB 8.8 gm/dL (11.4-16.0); Lymphocytes # (A) 0.4 k/uL (1.0-4.8); Lymphocytes % (A) 5 %; MCH 31.7 pg (25.0-35.0); MCV 96.2 fL (80.0-100.0); Monocytes # (A) 0.2 k/uL (0-1.0); Monocytes % (A) 3 %; Neutrophils # (A) 6.6 k/uL (1.3-7.7); Neutrophils % (A) 90 %; Non-African American GFR(CKD) 48 (>60 ml/min/1.73 sqM); Platelet Count 261 k/uL (150-450); Potassium 3.1 mmol/L (3.5-5.1); RBC 2.79 m/uL (3.80-5.40); RDW 12.8 % (11.5-15.5); Sodium 142 mmol/L (137-145); Total Bilirubin 0.8 mg/dL (0.2-1.3); Total Protein 5.9 g/dL (6.3-8.2); WBC 7.3 k/uL (3.8-10.6)
[2024-09-09 09:36] LABS: NT-Pro-B-Type Natriuretic Pept 8900 pg/mL
[2024-09-09] MEDS: LEVOFLOXACIN 750 MG TAB PO SCH (10:10)
[2024-09-09] MEDS: METOPROLOL TARTRATE 50 MG TAB PO SCH ×2 (10:10→10:24)
--- NOTE | 2024-09-09 13:18 | P.CNPUL ---
History of Present Illness Consult date: 09/09/24 Requesting physician: Madhav E Elissa Reason for consult: dyspnea, hypoxemia, other Chief complaint: Respiratory failure. History of present illness: Pulmonary consult dated September 09, 2024. 74-year-old female who presents to the emergency department, via EMS, on September 08, with mental status changes. The patient is seen by our group, in the emergency department, room 3. We see her on September 10, 2023, in the morning. The patient is very confused. She cannot provide any history whatsoever. She apparently was brought in from the facility, with mental status changes, and shortness of breath. She apparently has a history of COPD, hypertension, and hyperlipidemia. She was found to have atrial fibrillation in the emergency department, and placed on Cardizem drip at 10 mg an hour. She also tested positive for influenza A. She is currently on 3 L. She is not receiving any IV fluids. She is on Tamiflu, Levaquin, and Flagyl. Again, she cannot provide any history whatsoever. She does not appear to be in any distress whatsoever. According to the ER [facility], she has a history of COPD, hyperlipidemia, hypertension, osteoarthritis, hypothyroidism, lupus, gout, and previous MRSA infection. She is apparently a former smoker. Current laboratory data includes a white count of 7.3, hemoglobin 8.8, hematocrit 26.8, and a normal platelet count. PTT was 30.1. Venous blood gases showed a pCO2 of 54 and a pH of 7.46. Sodium 142, potassium 3.1, chlorides 101, CO2 33, BUN 44, creatinine 1.13. Glucose was 145. AST was 45. ALT was 43. N-terminal proBNP was elevated 8900. Urine was cloudy, with 1+ protein. There was trace blood. 10 RBCs, 3 WBCs, and few bacteria. Drug screen was positive for tricyclic antidepressants. Alcohol level was less than 10. She did test positive for influenza A. Chest x-ray in my opinion shows a pattern that is consistent with either pneumonia and/or CHF. Review of Systems REVIEW OF SYSTEMS: Confusion. CONSTITUTIONAL: [Negative.] NEUROLOGIC: [ Negative.] HEENT: [ Negative.] CARDIAC: [Negative.] PULMONARY: Questionable shortness of breath. GI: [Negative.] : [Negative.] RHEUMATOLOGIC: [ Negative.] IMMUNOLOGIC: [ Negative.] ENDOCRINE: [Negative. ] DERMATOLOGIC: [Negative.] Past Medical History Past Medical History: COPD, Hyperlipidemia, Hypertension, Osteoarthritis (OA), Skin Disorder, Thyroid Disorder Additional Past Medical History / Comment(s): Lupus, Gout, rashes from Lupus when flared up. fluid retention per pt.,. FELL BEGINNING OF FEB-NO INJURY History of Any Multi-Drug Resistant Organisms: MRSA Date of last positivie culture/infection: 2022 MDRO Source:: lower extremities Past Surgical History: Hysterectomy, Joint Replacement, Orthopedic Surgery Additional Past Surgical History / Comment(s): Bilateral knee replacements, bilateral cataract surgery, right hip replacement with revision - multiple surgeries, bilateral wrist carpal tunnel surgery, pain clinic procedures. Past Anesthesia/Blood Transfusion Reactions: No Reported Reaction Additional Past Anesthesia/Blood Transfusion Reaction / Comment(s): Pt has never had a blood transfusion. Past Psychological History: No Psychological Hx Reported Smoking Status: Former smoker Past Alcohol Use History: None Reported Past Drug Use History: None Reported - Past Family History Mother Family Medical History: Hypertension Medications and Allergies Home Medications Medication Instructions Recorded Confirmed Type Levothyroxine Sodium 150 mcg PO DAILY@0500 02/15/17 09/08/24 History Metoprolol Tartrate [Lopressor] 25 mg PO BID #180 tablet 02/22/17 09/08/24 Rx Ascorbic Acid [Vitamin C] 1,000 mg PO DAILY 06/17/20 09/08/24 History Cholecalciferol [Vitamin D3 (25 125 mcg PO HS 06/17/20 09/08/24 History Mcg = 1000 Iu)] Multivitamins, Thera [Multivitamin 1 tab PO HS 06/17/20 09/08/24 History (formulary)] Ferrous Sulfate [Feosol] 325 mg PO DAILY 07/13/20 09/08/24 History hydrALAZINE HCL [Apresoline] 25 mg PO BID 01/12/22 09/08/24 History Atorvastatin [Lipitor] 80 mg PO HS 02/12/23 09/08/24 History Gabapentin [Neurontin] 100 mg PO BID #6 cap 02/14/23 09/08/24 Rx Acetaminophen Tab [Tylenol] 650 mg PO Q6H PRN 09/08/24 09/08/24 History Acetaminophen [Tylenol 8 Hour] 650 mg PO Q6H PRN 09/08/24 09/08/24 History Albuterol Sulfate [Ventolin HFA] 2 puff INHALATION RT-Q6H PRN 09/08/24 09/08/24 History Aspirin 81 mg PO HS 09/08/24 09/08/24 History Bumetanide [Bumex] 1 mg PO BID@0700,1600 09/08/24 09/08/24 History Calcium Carbonate/Vitamin D3 1 tab PO DAILY 09/08/24 09/08/24 History [Calcium 600 mg-Vit D3 5 mcg (200 unit)] Cold And Hot External Patch 5% 1 applic TOPICAL BID@0700,1900 09/08/24 09/08/24 History Cyclobenzaprine [Flexeril] 10 mg PO Q8H PRN 09/08/24 09/08/24 History Folic Acid 0.8 mg PO HS 09/08/24 09/08/24 History Ipratropium-Albuterol Nebulize 3 ml INHALATION RT-Q4H PRN 09/08/24 09/08/24 History [Duoneb 0.5 mg-3 mg/3 ml Soln] Isosorbide Mononitrate ER [Imdur] 30 mg PO BID 09/08/24 09/08/24 History Naloxone HCl 0.4 mg IM ONCE PRN 09/08/24 09/08/24 History Naloxone HCl [Narcan] 4 mg NASAL ONCE PRN 09/08/24 09/08/24 History Nutritional Juice 1 dose PO DAILY@0730 09/08/24 09/08/24 History Oseltamivir [Tamiflu] 30 mg PO Q2D 09/08/24 09/08/24 History Promethazine [Phenergan] 25 mg PO Q6H PRN 09/08/24 09/08/24 History Ranolazine [Ranexa] 1,000 mg PO Q12HR@0700,1900 09/08/24 09/08/24 History Sennosides [Senokot] 17.2 mg PO DAILY 09/08/24 09/08/24 History Vitamin B Complex 1 cap PO HS 09/08/24 09/08/24 History guaiFENesin [Mucinex] 600 mg PO BID PRN 09/08/24 09/08/24 History polyethylene glycoL 3350 [Miralax] 17 gm PO DAILY 09/08/24 09/08/24 History rOPINIRole HCL [Requip] 0.5 mg PO BID 09/08/24 09/08/24 History traMADol HCL 75 mg PO Q4H PRN 09/08/24 09/08/24 History Allergies Allergy/AdvReac Type Severity Reaction Status Date / Time adhesive Allergy skin peels Verified 09/08/24 12:50 cephalexin [From Keflex] Allergy Rash/Hives Verified 09/08/24 12:50 latex Allergy skin peels Verified 09/08/24 12:50 codeine AdvReac Hallucinati Verified 09/08/24 12:50 ons ketorolac [From Toradol] AdvReac Hallucinati Verified 09/08/24 12:50 ons morphine AdvReac Hallucinati Verified 09/08/24 12:50 ons Physical Exam Osteopathic Statement: *. No significant issues noted on an osteopathic structural exam other than those noted in the History and Physical/Consult. Vitals: Vital Signs Temp Pulse Resp BP Pulse Ox 09/09/24 12:22 70 18 09/09/24 12:15 71 16 09/09/24 10:07 85 L 09/09/24 08:37 85 16 09/09/24 08:27 116 H 16 95 09/09/24 07:39 98.1 F 137 H 18 143/96 93 L 09/09/24 04:50 125 H 16 131/79 92 L 09/09/24 04:08 98.6 F 154 H 20 142/90 96 09/09/24 02:44 82 18 144/105 96 09/08/24 21:00 81 16 128/67 95 09/08/24 19:36 77 09/08/24 19:24 88 09/08/24 18:45 77 18 130/68 96 09/08/24 15:59 78 09/08/24 15:50 80 09/08/24 15:49 77 18 151/79 96 No acute distress, very confused, unable to provide any history. HEENT examination is grossly unremarkable. Mucous membranes are moist. No oral lesions. Neck supple. Full range of motion. No adenopathy thyromegaly or neck vein distention. Cardiovascular examination reveals an irregular rhythm and rate. S1-S2 normal. No S3 or S4. No discernible murmur noted. Lungs reveal scattered rhonchi and crackles. Breath sounds equal bilaterally. No wheezes. Abdomen soft bowel sounds are heard. No masses or tenderness. Extremities are intact. No cyanosis clubbing or edema. Skin is without rash or lesion. Neurologic examination is brief but nonfocal. Results - Laboratory Findings CBC and BMP: 09/09/24 08:54 09/09/24 08:54 PT/INR, D-dimer PT 10.9 sec (10.0-12.5) 09/08/24 12:30 INR 1.0 (<1.2) 09/08/24 12:30 Abnormal lab findings: Abnormal Labs 09/08/24 09/08/24 09/08/24 12:27 12:30 12:30 RBC 2.88 L Hgb 9.1 L Hct 27.5 L Neutrophils # 8.7 H Lymphocytes # 0.5 L APTT 30.1 H VBG pH VBG pCO2 VBG HCO3 Potassium Carbon Dioxide BUN Creatinine Glucose POC Glucose (mg/dL) 129 H AST ALT Total Protein Albumin Urine Appearance Urine Protein Urine Blood Urine RBC Urine Bacteria Urine Mucus U Tricyclic Antidepress Influenza Type A (PCR) 09/08/24 09/08/24 09/08/24 12:30 12:30 12:38 RBC Hgb Hct Neutrophils # Lymphocytes # APTT VBG pH 7.46 H VBG pCO2 54 H VBG HCO3 38 H Potassium Carbon Dioxide 36 H BUN 62 H Creatinine 1.42 H Glucose 115 H POC Glucose (mg/dL) AST 47 H ALT 52 H Total Protein 6.1 L Albumin 3.1 L Urine Appearance Urine Protein Urine Blood Urine RBC Urine Bacteria Urine Mucus U Tricyclic Antidepress Influenza Type A (PCR) Detected A 09/08/24 09/09/24 09/09/24 13:27 08:54 08:54 RBC 2.79 L Hgb 8.8 L Hct 26.8 L Neutrophils # Lymphocytes # 0.4 L APTT VBG pH VBG pCO2 VBG HCO3 Potassium 3.1 L Carbon Dioxide 33 H BUN 44 H Creatinine 1.13 H Glucose 145 H POC Glucose (mg/dL) AST 45 H ALT 43 H Total Protein 5.9 L Albumin 3.0 L Urine Appearance Cloudy H Urine Protein 1+ H Urine Blood Trace H Urine RBC 10 H Urine Bacteria Few H Urine Mucus Rare H U Tricyclic Antidepress Detected H Influenza Type A (PCR) - Diagnostic Findings Chest x-ray: image reviewed Assessment and Plan Assessment: Acute hypoxemic respiratory failure, likely multifactorial, in part related to atrial fibrillation/RVR, influenza A infection, congestive heart failure and COPD exacerbation. New onset atrial fibrillation/RVR. History of COPD from previous tobacco use. Significant confusion and disorientation, likely not new. History of hyperlipidemia. History of hypertension. History of osteoarthritis. Hypothyroidism. History of lupus. History of gout. Plan: Plan dated September 09, 2024. The patient is seen in the emergency department, room 3. She is very confused, and can give no history. She was admitted with confusion, and shortness of breath. She was found to have atrial fibrillation/RVR, as well as likely COPD exacerbation, CHF, possibly pneumonia. She is on Cardizem at 10 mg an hour, and nasal O2 at 3 L. We did order a procalcitonin level which is currently pending. N-terminal proBNP was elevated at 8900. She is on Tamiflu, Levaquin, and Flagyl. Flagyl can likely be discontinued, and if the procalcitonin level is normal, so can Levaquin. She is already on the Tamiflu as mentioned above. Will make sure that she is on other appropriate medications. Prognosis is guarded. The patient is a DO NOT RESUSCITATE patient. Labs, x-rays, and all medications are reviewed. Dictation was produced using [employer] software. Please excuse any grammatical, word or spelling errors. Time with Patient: Greater than 30
[2024-09-09] MEDS ORDERED: Potassium Replacement Protocol 1 EACH MISC MISCELLANE PRN (18:05)
[2024-09-09] MEDS: POTASSIUM CHLORIDE ER 20 MEQ TAB.ER PO SCH (18:25)
--- NOTE | 2024-09-09 20:55 | P.CONS ---
History of Present Illness - Reason for Consult Consult date: 09/09/24 Influenza and question of pneumonia Requesting physician: Madhav E Sheet - Chief Complaint Mental status changes and hypoxemia x 1 day - History of Present Illness Patient is a 74-year-old female past medical history nephric and for COPD hypertension hyperlipidemia osteoarthritis presenting to the hospital for evaluation of mental status changes shortness of breath from a local halfway apparently the symptoms started the day patient has been brought to the hospital was recently diagnosed with influenza A at the halfway and has received 2 days of Tamiflu patient was noted to be hypoxic subsequent has been brought to the ER for further evaluation on presentation to the hospital the patient was afebrile patient was mildly tachycardic at 1 point but had hypotensive mildly hypoxic currently on 2 L nasal cannula oxygen patient did have white count of 9.8 with a left shift BUN and creatinine mildly elevated as well as liver enzymes UA has been negative urine drug screen positive for tricyclic tested positive for influenza A patient did have chest x-ray diminished inspiration with bibasilar acute infiltrate or atelectasis patient has been admitted to hospital started on Tamiflu infectious he was consulted for further management of antibiotic LP concerning for possible pneumonia, patient time evaluation was pleasantly confused and not a very good historian so most information has been extracted from review of the chart Review of Systems Positive point and negatives has been mentioned in the HPI, complete review of systems was performed and all other systems are negative Past Medical History Past Medical History: COPD, Hyperlipidemia, Hypertension, Osteoarthritis (OA), Skin Disorder, Thyroid Disorder Additional Past Medical History / Comment(s): Lupus, Gout, rashes from Lupus when flared up. fluid retention per pt.,. FELL BEGINNING OF FEB-NO INJURY History of Any Multi-Drug Resistant Organisms: MRSA Year Discovered:: 2022 MDRO Source:: lower extremities Past Surgical History: Hysterectomy, Joint Replacement, Orthopedic Surgery Additional Past Surgical History / Comment(s): Bilateral knee replacements, bi lateral cataract surgery, right hip replacement with revision - multiple surgeries, bilateral wrist carpal tunnel surgery, pain clinic procedures. Past Anesthesia/Blood Transfusion Reactions: No Reported Reaction Additional Past Anesthesia/Blood Transfusion Reaction / Comm: Pt has never had a blood transfusion. Past Psychological History: No Psychological Hx Reported Smoking Status: Former smoker Past Alcohol Use History: None Reported Past Drug Use History: None Reported - Past Family History Mother Family Medical History: Hypertension Medications and Allergies Home Medications Medication Instructions Recorded Confirmed Type Levothyroxine Sodium 150 mcg PO DAILY@0500 02/15/17 09/08/24 History Metoprolol Tartrate [Lopressor] 25 mg PO BID #180 tablet 02/22/17 09/08/24 Rx Ascorbic Acid [Vitamin C] 1,000 mg PO DAILY 06/17/20 09/08/24 History Cholecalciferol [Vitamin D3 (25 125 mcg PO HS 06/17/20 09/08/24 History Mcg = 1000 Iu)] Multivitamins, Thera [Multivitamin 1 tab PO HS 06/17/20 09/08/24 History (formulary)] Ferrous Sulfate [Feosol] 325 mg PO DAILY 07/13/20 09/08/24 History hydrALAZINE HCL [Apresoline] 25 mg PO BID 01/12/22 09/08/24 History Atorvastatin [Lipitor] 80 mg PO HS 02/12/23 09/08/24 History Gabapentin [Neurontin] 100 mg PO BID #6 cap 02/14/23 09/08/24 Rx Acetaminophen Tab [Tylenol] 650 mg PO Q6H PRN 09/08/24 09/08/24 History Acetaminophen [Tylenol 8 Hour] 650 mg PO Q6H PRN 09/08/24 09/08/24 History Albuterol Sulfate [Ventolin HFA] 2 puff INHALATION RT-Q6H PRN 09/08/24 09/08/24 History Aspirin 81 mg PO HS 09/08/24 09/08/24 History Bumetanide [Bumex] 1 mg PO BID@0700,1600 09/08/24 09/08/24 History Calcium Carbonate/Vitamin D3 1 tab PO DAILY 09/08/24 09/08/24 History [Calcium 600 mg-Vit D3 5 mcg (200 unit)] Cold And Hot External Patch 5% 1 applic TOPICAL BID@0700,1900 09/08/24 09/08/24 History Cyclobenzaprine [Flexeril] 10 mg PO Q8H PRN 09/08/24 09/08/24 History Folic Acid 0.8 mg PO HS 09/08/24 09/08/24 History Ipratropium-Albuterol Nebulize 3 ml INHALATION RT-Q4H PRN 09/08/24 09/08/24 History [Duoneb 0.5 mg-3 mg/3 ml Soln] Isosorbide Mononitrate ER [Imdur] 30 mg PO BID 09/08/24 09/08/24 History Naloxone HCl 0.4 mg IM ONCE PRN 09/08/24 09/08/24 History Naloxone HCl [Narcan] 4 mg NASAL ONCE PRN 09/08/24 09/08/24 History Nutritional Juice 1 dose PO DAILY@0730 09/08/24 09/08/24 History Oseltamivir [Tamiflu] 30 mg PO Q2D 09/08/24 09/08/24 History Promethazine [Phenergan] 25 mg PO Q6H PRN 09/08/24 09/08/24 History Ranolazine [Ranexa] 1,000 mg PO Q12HR@0700,1900 09/08/24 09/08/24 History Sennosides [Senokot] 17.2 mg PO DAILY 09/08/24 09/08/24 History Vitamin B Complex 1 cap PO HS 09/08/24 09/08/24 History guaiFENesin [Mucinex] 600 mg PO BID PRN 09/08/24 09/08/24 History polyethylene glycoL 3350 [Miralax] 17 gm PO DAILY 09/08/24 09/08/24 History rOPINIRole HCL [Requip] 0.5 mg PO BID 09/08/24 09/08/24 History traMADol HCL 75 mg PO Q4H PRN 09/08/24 09/08/24 History Allergies Allergy/AdvReac Type Severity Reaction Status Date / Time adhesive Allergy skin peels Verified 09/08/24 12:50 cephalexin [From Keflex] Allergy Rash/Hives Verified 09/08/24 12:50 latex Allergy skin peels Verified 09/08/24 12:50 codeine AdvReac Hallucinati Verified 09/08/24 12:50 ons ketorolac [From Toradol] AdvReac Hallucinati Verified 09/08/24 12:50 ons morphine AdvReac Hallucinati Verified 09/08/24 12:50 ons Physical Exam Vitals: Vital Signs Temp Pulse Resp BP Pulse Ox 09/09/24 10:07 85 L 09/09/24 08:37 85 16 09/09/24 08:27 116 H 16 95 09/09/24 07:39 98.1 F 137 H 18 143/96 93 L 09/09/24 04:50 125 H 16 131/79 92 L 09/09/24 04:08 98.6 F 154 H 20 142/90 96 09/09/24 02:44 82 18 144/105 96 09/08/24 21:00 81 16 128/67 95 09/08/24 19:36 77 09/08/24 19:24 88 09/08/24 18:45 77 18 130/68 96 09/08/24 15:59 78 09/08/24 15:50 80 09/08/24 15:49 77 18 151/79 96 09/08/24 13:02 74 24 126/73 90 L 09/08/24 12:33 84 09/08/24 12:26 96 09/08/24 12:09 98.4 F 72 24 133/70 95 GENERAL DESCRIPTION: Elderly female lying in bed, no distress. No tachypnea or accessory muscle of respiration use. HEENT: Shows Pallor , no scleral icterus. Oral mucous membrane is dry. NECK: Trachea central, no thyromegaly. LUNGS: Unlabored breathing. Decreased intensity breath sounds with HEART: S1, S2, regular rate and rhythm. No loud murmur ABDOMEN: Soft, no tenderness , EXTREMITIES: No edema of feet. SKIN: No rash, no masses palpable. NEUROLOGICAL: The patient is awake, pleasantly confused, Results CBC & Chem 7: 09/09/24 08:54 09/09/24 08:54 Labs: Abnormal Lab Results - Last 24 Hours (Table) 09/08/24 09/08/24 09/08/24 Range/Units 12:27 12:30 12:30 RBC 2.88 L (3.80-5.40) m/uL Hgb 9.1 L (11.4-16.0) gm/dL Hct 27.5 L (34.0-46.0) % Neutrophils # 8.7 H (1.3-7.7) k/uL Lymphocytes # 0.5 L (1.0-4.8) k/uL APTT 30.1 H (22.0-30.0) sec VBG pH (7.31-7.41) VBG pCO2 (37-51) mmHg VBG HCO3 (24-28) mmol/L Potassium (3.5-5.1) mmol/L Carbon Dioxide (22-30) mmol/L BUN (7-17) mg/dL Creatinine (0.52-1.04) mg/dL Glucose (74-99) mg/dL POC Glucose (mg/dL) 129 H (70-110) mg/dL AST (14-36) U/L ALT (4-34) U/L Total Protein (6.3-8.2) g/dL Albumin (3.5-5.0) g/dL Urine Appearance (Clear) Urine Protein (Negative) Urine Blood (Negative) Urine RBC (0-5) /hpf Urine Bacteria (None) /hpf Urine Mucus (None) /hpf U Tricyclic Antidepress (NotDetected) Influenza Type A (PCR) (Not Detectd) 09/08/24 09/08/24 09/08/24 Range/Units 12:30 12:30 12:38 RBC (3.80-5.40) m/uL Hgb (11.4-16.0) gm/dL Hct (34.0-46.0) % Neutrophils # (1.3-7.7) k/uL Lymphocytes # (1.0-4.8) k/uL APTT (22.0-30.0) sec VBG pH 7.46 H (7.31-7.41) VBG pCO2 54 H (37-51) mmHg VBG HCO3 38 H (24-28) mmol/L Potassium (3.5-5.1) mmol/L Carbon Dioxide 36 H (22-30) mmol/L BUN 62 H (7-17) mg/dL Creatinine 1.42 H (0.52-1.04) mg/dL Glucose 115 H (74-99) mg/dL POC Glucose (mg/dL) (70-110) mg/dL AST 47 H (14-36) U/L ALT 52 H (4-34) U/L Total Protein 6.1 L (6.3-8.2) g/dL Albumin 3.1 L (3.5-5.0) g/dL Urine Appearance (Clear) Urine Protein (Negative) Urine Blood (Negative) Urine RBC (0-5) /hpf Urine Bacteria (None) /hpf Urine Mucus (None) /hpf U Tricyclic Antidepress (NotDetected) Influenza Type A (PCR) Detected A (Not Detectd) 09/08/24 09/09/24 09/09/24 Range/Units 13:27 08:54 08:54 RBC 2.79 L (3.80-5.40) m/uL Hgb 8.8 L (11.4-16.0) gm/dL Hct 26.8 L (34.0-46.0) % Neutrophils # (1.3-7.7) k/uL Lymphocytes # 0.4 L (1.0-4.8) k/uL APTT (22.0-30.0) sec VBG pH (7.31-7.41) VBG pCO2 (37-51) mmHg VBG HCO3 (24-28) mmol/L Potassium 3.1 L (3.5-5.1) mmol/L Carbon Dioxide 33 H (22-30) mmol/L BUN 44 H (7-17) mg/dL Creatinine 1.13 H (0.52-1.04) mg/dL Glucose 145 H (74-99) mg/dL POC Glucose (mg/dL) (70-110) mg/dL AST 45 H (14-36) U/L ALT 43 H (4-34) U/L Total Protein 5.9 L (6.3-8.2) g/dL Albumin 3.0 L (3.5-5.0) g/dL Urine Appearance Cloudy H (Clear) Urine Protein 1+ H (Negative) Urine Blood Trace H (Negative) Urine RBC 10 H (0-5) /hpf Urine Bacteria Few H (None) /hpf Urine Mucus Rare H (None) /hpf U Tricyclic Antidepress Detected H (NotDetected) Influenza Type A (PCR) (Not Detectd) Assessment and Plan (1) Allergy to cephalosporin Current Visit: Yes Status: Acute Code(s): Z88.1 - ALLERGY STATUS TO OTHER ANTIBIOTIC AGENTS SNOMED Code(s): 103304762 (2) Altered mental status Current Visit: Yes Status: Acute Code(s): R41.82 - ALTERED MENTAL STATUS, UNSPECIFIED SNOMED Code(s): 229492966 (3) Influenza A Current Visit: Yes Status: Acute Code(s): J10.1 - FLU DUE TO OTH IDENT INFLUENZA VIRUS W OTH RESP MANIFEST SNOMED Code(s): 169088997 Plan: 1patient presented to the hospital with mental status changes and this patient has been recently diagnosed with influenza A at the halfway now with some hypoxemia mental status changes patient is currently not running any fever white count is normal clinically not behaving as secondary bacterial pneumonia x-ray finding could be mostly atelectasis 2-advise to finish a 5-day course of Tamiflu for influenza A 3-continue the steroid bronchodilator per pulmonary await procalcitonin if normal antibiotic can be discontinued We will follow on clinical condition and cultures to further adjust medication if needed Thank you for this consultation we will follow the patient along with you Dictation was produced using [employer] dictation software. please excuse any grammatical, word or spelling errors. Time with Patient: Greater than 30
[2024-09-09] MEDS: OSELTAMIVIR 30 MG CAP PO SCH (21:09)
[2024-09-09] MEDS: SYMBICORT 160-4.5 MCG INHALER INHALATION SCH (21:45)
--- NOTE | 2024-09-10 07:03 | P.PN ---
Subjective Progress Note Date: 09/10/24 The patient is a 74-year-old female patient with a past medical history significant for history of COPD as well as history of baseline confusion/underlying dementia where the patient currently is a [facility] who was admitted to the hospital with flulike symptoms consistent of cough and congestions and she was diagnosed with influenza A after she was tested positive. We consulted to see the patient because of atrial fibrillation with RVR. Initial EKG when she presented to the hospital showed sinus mechanism with diffuse nonspecific ST and T wave abnormalities but subsequently she went into A-fib with RVR and then she converted to normal sinus mechanism with no history of atrial fibrillation and no other cardiovascular history from before. She is extremely poor historian and she is extremely confused. No indication of any chest pain or chest discomfort. She underwent further evaluation including chest x-ray did not show any acute abnormalities and she is currently receiving treatment for influenza A. An echocardiogram still pending. The physical examination is remarkable for change in mental status/confusion with regular rate and rhythm and soft systolic murmur and bilateral expiratory wheezing was noted with mild bilateral lower extremities edema September 10, 2024 The patient was seen and evaluated this morning she is asymptomatic from a cardiovascular standpoint of view and she is hemodynamically stable as well which she has been maintaining normal sinus mechanism with the echo still pending. The pressure is elevated. The physical examination is remarkable for regular rhythm with a soft systolic murmur and diminished breathing sounds bilaterally and no edema was noted in the lower extremities Assessment Confusion Influenza A infection A-fib of acute illness Multiple comorbid conditions including COPD Plan Continue the current medical regimen Increase the dose of hydralazine Follow-up on the echocardiogram Possible discharge in the next 24 hours Objective - Vital Signs Vital signs: Vital Signs Temp 98.1 F 09/10/24 03:49 Pulse 88 09/10/24 03:49 Resp 16 09/10/24 03:49 BP 164/72 09/10/24 03:49 Pulse Ox 93 L 09/10/24 03:49 FiO2 Intake & Output 09/09/24 09/10/24 09/10/24 18:59 06:59 18:59 Intake Total 180 Output Total 300 Balance 180 -300 Weight 58.967 kg Intake: Oral 180 Output: Urine 300 Other: Voiding Method External Catheter External Catheter # Voids 0 # Bowel Movements 1 - Labs CBC & Chem 7: 09/09/24 08:54 09/09/24 08:54 Labs: Abnormal Lab Results - Last 24 Hours (Table) 09/08/24 09/09/24 09/09/24 Range/Units 12:30 08:54 08:54 RBC 2.79 L (3.80-5.40) m/uL Hgb 8.8 L (11.4-16.0) gm/dL Hct 26.8 L (34.0-46.0) % Lymphocytes # 0.4 L (1.0-4.8) k/uL Potassium 3.1 L (3.5-5.1) mmol/L Carbon Dioxide 33 H (22-30) mmol/L BUN 44 H (7-17) mg/dL Creatinine 1.13 H (0.52-1.04) mg/dL Glucose 145 H (74-99) mg/dL AST 45 H (14-36) U/L ALT 43 H (4-34) U/L Total Protein 5.9 L (6.3-8.2) g/dL Albumin 3.0 L (3.5-5.0) g/dL Procalcitonin 0.59 H (0.02-0.50) ng/mL Microbiology - Last 24 Hours (Table) 09/08/24 12:30 Blood Culture - Preliminary Blood
[2024-09-10] MEDS: ACETAMINOPHEN TAB 325 MG TAB PO PRN (08:28)
[2024-09-10] MEDS: hydrALAZINE HCL 25 MG TAB PO SCH (08:28)
--- NOTE | 2024-09-10 11:01 | XR ---
EXAMINATION TYPE: XR Hip Bilateral and AP pelvis DATE OF EXAM: 09/10/2024 COMPARISON: CT left hip February 12, 2023 CLINICAL INDICATION: Female, 74 years old with history of recent fall, hip pain; TECHNIQUE: A single AP view of the pelvis is obtained. Two views of the bilateral hips are obtained. FINDINGS: There is no acute fracture/dislocation evident in the pelvis or either hip. Osseous struct ures are demineralized and metallic prosthesis right hip is present. Pubic symphysis is intact. Mild- to-moderate axial joint space loss in the left hip. A Benitez catheter is present in the overlying soft tissue. IMPRESSION: There is no acute fracture or dislocation in the pelvis or either hip. [facility], , 09/10/2024 10:58 AM
--- NOTE | 2024-09-10 11:12 | P.PN ---
Subjective Progress Note Date: 09/10/24 Principal diagnosis: Respiratory distress. Pulmonary consult dated September 09, 2024. 74-year-old female who presents to the emergency department, via EMS, on September 08, with mental status changes. The patient is seen by our group, in the emergency department, room 3. We see her on September 10, 2023, in the morning. The patient is very confused. She cannot provide any history whatsoever. She apparently was brought in from the facility, with mental status changes, and shortness of breath. She apparently has a history of COPD, hypertension, and hyperlipidemia. She was found to have atrial fibrillation in the emergency department, and placed on Cardizem drip at 10 mg an hour. She also tested positive for influenza A. She is currently on 3 L. She is not receiving any IV fluids. She is on Tamiflu, Levaquin, and Flagyl. Again, she cannot provide any history whatsoever. She does not appear to be in any distress whatsoever. According to the ER [facility], she has a history of COPD, hyperlipidemia, hypertension, osteoarthritis, hypothyroidism, lupus, gout, and previous MRSA infection. She is apparently a former smoker. Current laboratory data includes a white count of 7.3, hemoglobin 8.8, hematocrit 26.8, and a normal platelet count. PTT was 30.1. Venous blood gases showed a pCO2 of 54 and a pH of 7.46. Sodium 142, potassium 3.1, chlorides 101, CO2 33, BUN 44, creatinine 1.13. Glucose was 145. AST was 45. ALT was 43. N-terminal proBNP was elevated 8900. Urine was cloudy, with 1+ protein. There was trace blood. 10 RBCs, 3 WBCs, and few bacteria. Drug screen was positive for tricyclic antidepressants. Alcohol level was less than 10. She did test positive for influenza A. Chest x-ray in my opinion shows a pattern that is consistent with either pneumonia and/or CHF. Progress note dated September 10, 2024. 74-year-old female seen yesterday emergency department. She apparently came in with a vague history of respiratory difficulty. She did test positive for influenza A. The patient is currently on 3 L of oxygen by nasal cannula. Saturations are 96%. She is not receiving any IV fluids. The patient's procalcitonin level was 0.32. The patient is very confused, and cannot really give any reliable history. She looks like she is not having any respiratory distress. No new labs today as yet. Blood cultures are negative. Initial proc alcitonin level was 0.59. Repeat level was 0.32. She remains on Levaquin for the time being. Objective - Vital Signs Vital signs: Vital Signs Temp 97.9 F 09/10/24 08:19 Pulse 94 09/10/24 08:59 Resp 16 09/10/24 08:59 BP 141/93 09/10/24 08:19 Pulse Ox 96 09/10/24 08:51 FiO2 Intake & Output 09/09/24 09/10/24 09/10/24 18:59 06:59 18:59 Intake Total 180 240 Output Total 300 Balance 180 -300 240 Weight 58.967 kg Intake: Oral 180 240 Output: Urine 300 Other: Voiding Method External Catheter External Catheter # Voids 0 # Bowel Movements 1 - Exam No acute distress, very confused, unable to provide any history. The patient is on 3 L of oxygen. HEENT examination is grossly unremarkable. Mucous membranes are moist. No oral lesions. Neck supple. Full range of motion. No adenopathy thyromegaly or neck vein distention. Cardiovascular examination reveals a regular rhythm and rate. S1-S2 normal. No S3 or S4. No discernible murmur noted. Lungs reveal scattered rhonchi and crackles. Breath sounds equal bilaterally. No wheezes. Abdomen soft bowel sounds are heard. No masses or tenderness. Extremities are intact. No cyanosis clubbing or edema. Skin is without rash or lesion. Neurologic examination is brief but nonfocal. - Labs CBC & Chem 7: 09/09/24 08:54 09/09/24 08:54 Labs: Abnormal Lab Results - Last 24 Hours (Table) 09/08/24 Range/Units 12:30 Procalcitonin 0.59 H (0.02-0.50) ng/mL Microbiology - Last 24 Hours (Table) 09/08/24 12:30 Blood Culture - Preliminary Blood Assessment and Plan Assessment: Acute hypoxemic respiratory failure, likely multifactorial, in part related to atrial fibrillation/RVR, influenza A infection, congestive heart failure and COPD exacerbation. New onset atrial fibrillation/RVR. History of COPD from previous tobacco use. Significant confusion and disorientation, likely not new. History of hyperlipidemia. History of hypertension. History of osteoarthritis. Hypothyroidism. History of lupus. History of gout. Plan: Plan dated September 09, 2024. The patient is seen in the emergency department, room 3. She is very confused, and can give no history. She was admitted with confusion, and shortness of breath. She was found to have atrial fibrillation/RVR, as well as likely COPD exacerbation, CHF, possibly pneumonia. She is on Cardizem at 10 mg an hour, and nasal O2 at 3 L. We did order a procalcitonin level which is currently pending. N-terminal proBNP was elevated at 8900. She is on Tamiflu, Levaquin, and [place] gyl. Flagyl can likely be discontinued, and if the procalcitonin level is normal, so can Levaquin. She is already on the Tamiflu as mentioned above. Will make sure that she is on other appropriate medications. Prognosis is guarded. The patient is a DO NOT RESUSCITATE patient. Labs, x-rays, and all medications are reviewed. Dictation was produced using [employer] software. Please excuse any grammatical, word or spelling errors. Plan dated September 10, 2024. The patient is seen today in room 352. The patient continues on oxygen by nasal cannula at 3 L. No IV fluids. She continues on Levaquin. Most recent procalcitonin level was down in the normal range at 0.32. Initial procalcitonin level was abnormal. The patient is receiving Tamiflu for influenza A. All labs, x-rays, medications are reviewed. The patient is still very confused, and cannot give any reliable history. She does not appear to be in any distress. The patient is a DO NOT RESUSCITATE patient. We will continue to follow make recommendations along the way. Dictation was produced using [employer] software. Please excuse any grammatical, word or spelling errors. Time with Patient: Less than 30
--- NOTE | 2024-09-10 11:35 | P.PN ---
Subjective This is a pleasant 74 years old female who presents from [facility]. Patient currently nonverbal, not waking up to verbal or tactile stimuli Information were obtained from her friend and her advocate at bedside Ms. Andrew with the phone number of [phone] Patient had 2 falls in August 02 associated with hip fracture and problems hence she went to rehab. She has been complaining from pain in her right hip for a while since then and has been taking several pain medication and narcotics. Her friend and advocate thinks excessive pain medication contributed to her presentation. Patient has been confused over the last 4 to 5 days since last Sunday. She sleeps a lot she is weak and she was getting worse so she was transferred to the hospital Patient hemodynamically stable and afebrile Labs showing hemoglobin 9.1, WBC elevated slightly above baseline but still within the reference range, creatinine at baseline of 1.4, baseline 1.3-1.7, INR is within the reference range Urinalysis no suspicion of infection Influenza test is positive while COVID test is negative pH is 7.4 and pCO2 is 24 CT of the brain is negative for acute process Chest x-ray showing new bibasilar infiltrate versus atelectasis Urine drug screen is positive for TCA serum alcohol is less than 10 EKG showing sinus rhythm with PVC 09/09 Patient is more awake and alert today, she is still pleasantly confused, she can recognize the hospital once reminded. But she is still disoriented to time and person. She follows command and she has little insight into her illness. She complained from little shortness of breath and coughing but no chest pain No abdominal pain or vomiting. She has some dark greenish stool, occult blood test was requested No specific urinary complaint. No headache or dizziness or weakness or numbness. No skin rashes or pressure ulcer Patient developed A-fib and RVR overnight with heart rate 154 and currently 125 while she is on Cardizem drip She is already on metoprolol 25 mg will increase the dose to 50 mg She is currently on aspirin and subcutaneous heparin Also she is on antibiotic with Levaquin and Flagyl and Tamiflu We will discontinue Ringer lactate. Continue on Bumex 1 mg twice daily 09/10 Patient awake alert Her mentation is improving she knows she is in the hospital or that she could not tell which she knows 2024 although she could not tell the exact date and month but she did not know the president name. She has also mild insight to her illness and follow commands and looks pleasant and relaxed Per family she is more confused at baseline and she fell few days or weeks prior. She was complaining from pain in her right hip area, her right lower ext remity is not shortened or externally rotated, x-ray of the right hip and pelvis was negative for fracture, I reviewed the x-rays by myself and agree with these findings Her vitals look stable. Tachycardia is improving. She is saturating 96% on 3 L oxygen via nasal cannula Hemoglobin stable 8.9 creatinine improved down to 1.23. She is continued with Levaquin 500 mg for 4 more days for her pneumonia. Active Medications Generic Name Dose Route Start Last Admin Trade Name Freq PRN Reason Stop Dose Admin Acetaminophen 650 mg 09/08/24 18:55 09/10/24 08:28 Acetaminophen Tab 325 Mg Tab PO 650 mg Q6H PRN Administration Fever and/ or Pain Albuterol/Ipratropium 3 ml 09/08/24 16:36 Ipratropium-Albuterol 3 Ml Neb INHALATION RT-Q2H PRN Shortness Of Breath Or Wheezing Albuterol/Ipratropium 3 ml 09/08/24 20:00 09/10/24 08:50 Ipratropium-Albuterol 3 Ml Neb INHALATION 3 ml RT-QID YOHAN Administration Aspirin 81 mg 09/08/24 21:00 09/09/24 21:09 Aspirin 81 Mg PO 81 mg HS YOHAN Administration Atorvastatin Calcium 80 mg 09/08/24 21:00 09/09/24 21:09 Atorvastatin 80 Mg Tab PO 80 mg HS YOHAN Administration Budesonide/Formoterol Fumarate 2 puff 09/09/24 20:00 09/10/24 08:51 Symbicort 160-4.5 Mcg Inhaler INHALATION 2 puff RT-BID YOHAN Administration Bumetanide 1 mg 09/09/24 07:00 09/10/24 05:57 Bumetanide 1 Mg Tab PO 1 mg BID@0700,1600 YOHAN Administration Famotidine 10 mg 09/08/24 21:00 09/10/24 08:29 Famotidine 20 Mg/2 Ml Vial IV 10 mg Q12HR YOHAN Administration Guaifenesin 600 mg 09/08/24 18:55 Guaifenesin 600 Mg Tablet.Er PO BID PRN Congestion Heparin Sodium (Porcine) 5,000 unit 09/08/24 21:00 09/10/24 08:29 Heparin Sodium,Porcine 5,000 Unit/Ml 1 Ml Vial SQ 5,000 unit Q12HR YOHAN Administration Hydralazine HCl 25 mg 09/10/24 09:00 09/10/24 08:28 Hydralazine Hcl 25 Mg Tab PO 25 mg TID YOHAN Administration Diltiazem HCl 125 mg/ Sodium 125 mls @ 10 mls/hr 09/09/24 04:15 09/10/24 05:59 Chloride IV Not Given .[id number] YOHAN 10 MG/HR Isosorbide Mononitrate 30 mg 09/08/24 21:00 09/10/24 08:28 Isosorbide Mononitrate Er 30 Mg Tab.Er.24h PO 30 mg BID YOHAN Administration Levofloxacin 50 mg 09/10/24 11:45 Levofloxacin 750 Mg Tab PO 09/13/24 09:01 DAILY YOHAN Protocol Levothyroxine Sodium 150 mcg 09/09/24 05:00 09/10/24 05:58 Levothyroxine 75 Mcg Tab PO 150 mcg DAILY@0500 YOHAN Administration Methylprednisolone Sodium Succinate 40 mg 09/09/24 00:00 09/10/24 08:29 Methylprednisolone Sod Succi 40 Mg/Ml 1 Ml Vial IV 40 mg Q8HR YOHAN Administration Metoprolol Tartrate 50 mg 09/09/24 09:00 09/10/24 08:29 Metoprolol Tartrate 50 Mg Tab PO 50 mg TID YOHAN Administration Miscellaneous Information 1 each 09/08/24 12:59 Pneumonia Protocol Utilized 1 Each Misc PO ONCE PRN Per Protocol Miscellaneous Information 1 each 09/09/24 18:05 Potassium Replacement Protocol 1 Each Misc MISCELLANE DAILY PRN Per Protocol Protocol Naloxone HCl 0.2 mg 09/08/24 14:01 Naloxone 0.4 Mg/Ml 1 Ml Vial IV Q2M PRN Opioid Reversal Ondansetron HCl 4 mg 09/08/24 14:01 Ondansetron 4 Mg/2 Ml Vial IVP Q8HR PRN Nausea And Vomiting Oseltamivir Phosphate 30 mg 09/09/24 21:00 09/10/24 08:28 Oseltamivir 30 Mg Cap PO 09/12/24 21:01 30 mg Q12HR YOHAN Administration Protocol Senna 17.2 mg 09/08/24 18:55 Sennosides 8.6 Mg Tab PO DAILY PRN Constipation Objective - Vital Signs Vital signs: Vital Signs Temp 97.9 F 09/10/24 08:19 Pulse 94 09/10/24 08:59 Resp 16 09/10/24 08:59 BP 141/93 09/10/24 08:19 Pulse Ox 96 09/10/24 08:51 FiO2 Intake & Output 09/09/24 09/10/24 09/10/24 18:59 06:59 18:59 Intake Total 180 240 Output Total 300 Balance 180 -300 240 Weight 58.967 kg Intake: Oral 180 240 Output: Urine 300 Other: Voiding Method External Catheter External Catheter External Catheter # Voids 0 # Bowel Movements 1 - Exam -GENERAL: The patient is alert and oriented x0-1, which looks her baseline of dementia, not in any acute distress. Well developed, well nourished. HEENT: Pupils are round and equally reacting to light. EOMI. No scleral icterus. No conjunctival pallor. Normocephalic, atraumatic. No pharyngeal erythema. No thyromegaly. CARDIOVASCULAR: S1 and S2 present. No murmurs, rubs, or gallops. -PULMONARY: Chest is clear to auscultation, no wheezing , bilateral basal crackles. ABDOMEN: Soft, nontender, nondistended, normoactive bowel sounds. No palpable organomegaly. MUSCULOSKELETAL: No joint swelling or deformity. EXTREMITIES: No cyanosis, clubbing, or pedal edema. NEUROLOGICAL: Gross neurological examination did not reveal any focal deficits. SKIN: No rashes. no petechiae. - Labs CBC & Chem 7: 09/09/24 08:54 09/09/24 08:54 Labs: Abnormal Lab Results - Last 24 Hours (Table) 09/08/24 Range/Units 12:30 Procalcitonin 0.59 H (0.02-0.50) ng/mL Microbiology - Last 24 Hours (Table) 09/08/24 12:30 Blood Culture - Preliminary Blood Assessment and Plan Assessment: Altered mental status most likely metabolic/toxic encephalopathy, thought secondary to pain medication and infection Possible bibasilar pneumonia Possible acute CHF exacerbation A-fib and RVR Acute hypoxic respiratory failure Influenza A Dementia Chronic kidney disease stage III Plan: Patient was started on antibiotic Levaquin and Flagyl Also past started on IV Solu-Medrol Continue with Tamiflu Pulmonary team consult Cardiology team consult Will consult infectious disease team Follow-up culture results Increase metoprolol to 50 mg twice daily Continue with Bumex 1 mg twice daily Labs and medication were reviewed.. Continue same treatment. Continue with symptomatic treatment. Resume home medication. Monitor labs and vitals. DVT and GI prophylaxis. Further recommendations as per clinical course of the patient DVT prophylaxis: Subcutaneous heparin GI Prophylaxis: Pepcid Prognosis is guarded CODE STATUS: DNR, confirmed with her advocate and friend
[2024-09-10] MEDS: POTASSIUM CHLORIDE ER 20 MEQ TAB.ER PO STA (12:42)
--- NOTE | 2024-09-10 16:58 | P.PN ---
Subjective Progress Note Date: 09/10/24 Principal diagnosis: Reason for follow-up is influenza and pneumonia Patient is a 74-year-old female past medical history nephric and for COPD hypertension hyperlipidemia osteoarthritis presenting to the hospital for evaluation of mental status changes shortness of breath from a local [facility] with a diagnosis of influenza with concern for possible pneumonia. On today's evaluation that is 09/10/2024,the patient denies any fever or any chills, patient is breathing comfortably on 3 L nasal oxygen, the patient denies chest pain shortness of breath and no worsening cough, patient denies abdominal pain, no nausea vomiting or diarrhea. Patient white count 7.3 creatinine 1.13 as of yesterday no lab draw today procalcitonin 0.59 Objective - Vital Signs Vital signs: Vital Signs Temp 97.9 F 09/10/24 08:19 Pulse 82 09/10/24 12:11 Resp 16 09/10/24 12:11 BP 141/93 09/10/24 08:19 Pulse Ox 96 09/10/24 08:51 FiO2 Intake & Output 09/09/24 09/10/24 09/10/24 18:59 06:59 18:59 Intake Total 180 240 Output Total 300 Balance 180 -300 240 Weight 58.967 kg Intake: Oral 180 240 Output: Urine 300 Other: Voiding Method External Catheter External Catheter External Catheter # Voids 0 # Bowel Movements 1 - Exam GENERAL DESCRIPTION: An elderly female lying in bed in no distress RESPIRATORY SYSTEM: Unlabored breathing , decreased breath sounds at bases HEART: S1 S2 regular rate and rhythm , ABDOMEN: Soft , no tenderness EXTREMITIES: No edema feet - Labs CBC & Chem 7: 09/09/24 08:54 09/10/24 12:14 Labs: Abnormal Lab Results - Last 24 Hours (Table) 09/08/24 Range/Units 12:30 Procalcitonin 0.59 H (0.02-0.50) ng/mL Microbiology - Last 24 Hours (Table) 09/08/24 12:30 Blood Culture - Preliminary Blood Assessment and Plan (1) Allergy to cephalosporin Current Visit: Yes Status: Acute Code(s): Z88.1 - ALLERGY STATUS TO OTHER ANTIBIOTIC AGENTS SNOMED Code(s): 265361608 (2) Altered mental status Current Visit: Yes Status: Acute Code(s): R41.82 - ALTERED MENTAL STATUS, UNSPECIFIED SNOMED Code(s): 129867876 (3) Influenza A Current Visit: Yes Status: Acute Code(s): J10.1 - FLU DUE TO OTH IDENT INF LUENZA VIRUS W OTH RESP MANIFEST SNOMED Code(s): 453270606 Plan: 1patient presented to the hospital with mental status changes and this patient has been recently diagnosed with influenza A at the [facility] now with some hypoxemia mental status changes patient is currently not running any fever white count is normal clinically not behaving as secondary bacterial pneumonia x-ray finding could be mostly atelectasis 2-patient to finish a 5-day course of Tamiflu for influenza A 3-patient did have elevated procalcitonin 0.59 did have Keflex allergy to continue Levaquin try to obtain a sputum Dictation was produced using [employer] dictation software. please excuse any grammatical, word or spelling errors. Time with Patient: Less than 30
--- NOTE | 2024-09-11 07:20 | P.PN ---
Subjective Progress Note Date: 09/11/24 The patient is a 74-year-old female patient with a past medical history significant for history of COPD as well as history of baseline confusion/underlying dementia where the patient currently is a resident at [facility] [place] who was admitted to the hospital with flulike symptoms consistent of cough and congestions and she was diagnosed with influenza A after she was tested positive. We consulted to see the patient because of atrial fibrillation with RVR. Initial EKG when she presented to the hospital showed sinus mechanism with diffuse nonspecific ST and T wave abnormalities but subsequently she went into A-fib with RVR and then she converted to normal sinus mechanism with no history of atrial fibrillation and no other cardiovascular history from before. She is extremely poor historian and she is extremely confused. No indication of any chest pain or chest discomfort. She underwent further evaluation including chest x-ray did not show any acute abnormalities and she is currently receiving treatment for influenza A. An echocardiogram still pending. The physical examination is remarkable for change in mental status/confusion with regular rate and rhythm and soft systolic murmur and bilateral expiratory wheezing was noted with mild bilateral lower extremities edema September 10, 2024 The patient was seen and evaluated this morning she is asymptomatic from a cardiovascular standpoint of view and she is hemodynamically stable as well which she has been maintaining normal sinus mechanism with the echo still pending. The pressure is elevated. The physical examination is remarkable for regular rhythm with a soft systolic murmur and diminished breathing sounds bilaterally and no edema was noted in the lower extremities September 11, 2024 The patient was seen and evaluated this morning. She went into atrial fibrillation with RVR yesterday and subsequently she was converted to normal sinus mechanism after she was started on Cardizem IV. I am going to start the patient on oral Cardizem and DC Cardizem IVP the echo still pending. If she maintaining sinus mechanism she potentially can be discharged home later on today. Physical examination is remarkable for regular rhythm with a soft systolic murmur and clear breathing sounds bilaterally and no edema was noted in the lower extremities Assessment Confusion Influenza A infection A-fib of acute illness Multiple comorbid conditions including COPD Plan Continue the current medical regimen Start the patient on oral Cardizem Follow-up on the echocardiogram Possible discharge later on today Objective - Vital Signs Vital signs: Vital Signs Temp 97.8 F 09/11/24 04:36 Pulse 80 09/11/24 04:36 Resp 17 09/11/24 04:36 BP 142/77 09/11/24 04:36 Pulse Ox 93 L 09/11/24 04:36 FiO2 Intake & Output 09/10/24 09/11/24 09/11/24 18:59 06:59 18:59 Intake Total 476 Output Total 400 350 Balance 76 -350 Intake: Oral 476 Output: Urine 400 350 Other: Voiding Method External Catheter External Catheter - Labs CBC & Chem 7: 09/09/24 08:54 09/10/24 12:14 Labs: Microbiology - Last 24 Hours (Table) 09/08/24 12:30 Blood Culture - Preliminary Blood
[2024-09-11] MEDS: LEVOFLOXACIN 750 MG TAB PO SCH (08:44)
[2024-09-11] MEDS: DILTIAZEM ORAL 30 MG TAB PO SCH (08:44)
[2024-09-11] MEDS ORDERED: LEVOFLOXACIN 750 MG TAB PO SCH (09:00)
--- NOTE | 2024-09-11 12:44 | P.PN ---
Subjective Progress Note Date: 09/11/24 Principal diagnosis: Respiratory distress. Pulmonary consult dated September 09, 2024. 74-year-old female who presents to the emergency department, via EMS, on September 08, with mental status changes. The patient is seen by our group, in the emergency department, room 3. We see her on September 10, 2023, in the morning. The patient is very confused. She cannot provide any history whatsoever. She apparently was brought in from the facility, with mental status changes, and shortness of breath. She apparently has a history of COPD, hypertension, and hyperlipidemia. She was found to have atrial fibrillation in the emergency department, and placed on Cardizem drip at 10 mg an hour. She also tested positive for influenza A. She is currently on 3 L. She is not receiving any IV fluids. She is on Tamiflu, Levaquin, and Flagyl. Again, she cannot provide any history whatsoever. She does not appear to be in any distress whatsoever. According to the ER [facility], she has a history of COPD, hyperlipidemia, hypertension, osteoarthritis, hypothyroidism, lupus, gout, and previous MRSA infection. She is apparently a former smoker. Current laboratory data includes a white count of 7.3, hemoglobin 8.8, hematocrit 26.8, and a normal platelet count. PTT was 30.1. Venous blood gases showed a pCO2 of 54 and a pH of 7.46. Sodium 142, potassium 3.1, chlorides 101, CO2 33, BUN 44, creatinine 1.13. Glucose was 145. AST was 45. ALT was 43. N-terminal proBNP was elevated 8900. Urine was cloudy, with 1+ protein. There was trace blood. 10 RBCs, 3 WBCs, and few bacteria. Drug screen was positive for tricyclic antidepressants. Alcohol level was less than 10. She did test positive for influenza A. Chest x-ray in my opinion shows a pattern that is consistent with either pneumonia and/or CHF. Progress note dated September 10, 2024. 74-year-old female seen yesterday emergency department. She apparently came in with a vague history of respiratory difficulty. She did test positive for influenza A. The patient is currently on 3 L of oxygen by nasal cannula. Saturations are 96%. She is not receiving any IV fluids. The patient's procalcitonin level was 0.32. The patient is very confused, and cannot really give any reliable history. She looks like she is not having any respiratory distress. No new labs today as yet. Blood cultures are negative. Initial proc alcitonin level was 0.59. Repeat level was 0.32. She remains on Levaquin for the time being. Progress note dated September 11, 2024. A 74-year-old female seen in the emergency department, 2 days ago. She came in with complaints of respiratory difficulty, and unfortunately, was a very poor historian. She did test positive for influenza A. She is seen today in room 352. She is on 2 L. She is got a Cardizem drip running at 5 mg an hour, but it will be turned off shortly, because she was transitioned to oral Cardizem. The patient appears in no distress. She is on 2 L. No new labs today. Objective - Vital Signs Vital signs: Vital Signs Temp 97.6 F 09/11/24 11:34 Pulse 73 09/11/24 11:34 Resp 18 09/11/24 11:34 BP 129/76 09/11/24 11:34 Pulse Ox 92 L 09/11/24 11:34 FiO2 Intake & Output 09/10/24 09/11/24 09/11/24 18:59 06:59 18:59 Intake Total 476 190.25 Output Total 400 350 Balance 76 -350 190.25 Intake: Intake, IV Titration 72.25 Amount Diltiazem 125 mg In 72.25 Sodium Chloride 0.9% 100 ml @ 10 MG/HR 10 mls/hr IV .[id number] [facility] Rx#: [id number] Oral 476 118 Output: Urine 400 350 Other: Voiding Method External Catheter External Catheter External Catheter - Exam No acute distress, very confused, unable to provide any history. The patient is on 2 L of oxygen. HEENT examination is grossly unremarkable. Mucous membranes are moist. No oral lesions. Neck supple. Full range of motion. No adenopathy thyromegaly or neck vein distention. Cardiovascular examination reveals a regular rhythm and rate. S1-S2 normal. No S3 or S4. No discernible murmur noted. Lungs reveal scattered rhonchi and crackles. Breath sounds equal bilaterally. No wheezes. Abdomen soft bowel sounds are heard. No masses or tenderness. Extremities are intact. No cyanosis clubbing or edema. Skin is without rash or lesion. Neurologic examination is brief but nonfocal. - Labs CBC & Chem 7: 09/09/24 08:54 09/10/24 12:14 Labs: Microbiology - Last 24 Hours (Table) 09/08/24 12:30 Blood Culture - Preliminary Blood Assessment and Plan Assessment: Acute hypoxemic respiratory failure, likely multifactorial, in part related to atrial fibrillation/RVR, influenza A infection, congestive heart failure and COPD exacerbation. New onset atrial fibrillation/RVR. History of COPD from previous tobacco use. Significant confusion and disorientation, likely not new. History of hyperlipidemia. History of hypertension. History of osteoarthritis. Hypothyroidism. History of lupus. History of gout. Plan: Plan dated September 09, 2024. The patient is seen in the emergency department, room 3. She is very confused, and can give no history. She was admitted with confusion, and shortness of breath. She was found to have atrial fibrillation/RVR, as well as likely COPD exacerbation, CHF, possibly pneumonia. She is on Cardizem at 10 mg an hour, and nasal O2 at 3 L. We did order a procalcitonin level which is currently pending. N-terminal proBNP was elevated at 8900. She is on Tamiflu, Levaquin, and Flagyl. Flagyl can likely be discontinued, and if the procalcitonin level is normal, so can Levaquin. She is already on the Tamiflu as mentioned above. Will make sure that she is on other appropriate medications. Prognosis is guarded. The patient is a DO NOT RESUSCITATE patient. Labs, x-rays, and all medications are reviewed. Dictation was produced using [employer] dictation software. Please excuse any grammatical, word or spelling errors. Plan dated September 10, 2024. The patient is seen today in room 352. The patient continues on oxygen by nasal cannula at 3 L. No IV fluids. She continues on Levaquin. Most recent procalcitonin level was down in the normal range at 0.32. Initial procalcitonin level was abnormal. The patient is receiving Tamiflu for influenza A. All labs, x-rays, medications are reviewed. The patient is still very confused, and cannot give any reliable history. She does not appear to be in any distress. The patient is a DO NOT RESUSCITATE patient. We will continue to follow make recommendations along the way. Dictation was produced using [employer] software. Please excuse any grammatical, word or spelling errors. Plan dated September 11, 2024. The patient is seen today in room 352. The patient was on a Cardizem drip at 5 mg an hour. The nurse tells us, that the patient was transitioned to oral Cardizem, and the drip will be turned off in 1 hour. Clinically, the patient is feeling much better. She continues on oxygen at 2 L. The patient's initial procalcitonin level was 0.59. Repeat was 0.32. The patient continues on Levaquin, and Tamiflu. She needs to complete 5 days of Tamiflu. Labs, x-rays, and medications are reviewed. The patient is a DO NOT RESUSCITATE patient. Prognosis is guarded. Dictation was produced using [employer] software. Please excuse any grammatical, word or spelling errors. Time with Patient: Less than 30
--- NOTE | 2024-09-11 13:36 | P.PN ---
Subjective Progress Note Date: 09/11/24 Principal diagnosis: Reason for follow-up is influenza and pneumonia Patient is a 74-year-old female past medical history nephric and for COPD hypertension hyperlipidemia osteoarthritis presenting to the hospital for evaluation of mental status changes shortness of breath from a local shelter with a diagnosis of influenza with concern for possible pneumonia. On today's evaluation that is 09/11/2024,the patient remains to be afebrile, patient is on room air not requiring supplemental oxygen and denies any shortness of breath no chest pain and cough has decreased in intensity.Patient denies having any nausea or vomiting, no abdominal pain and no diarrhea, mention feeling better. No new lab has been obtained today creatinine has improved blood culture negat watson so far Objective - Vital Signs Vital signs: Vital Signs Temp 97.6 F 09/11/24 11:34 Pulse 73 09/11/24 11:34 Resp 18 09/11/24 11:34 BP 129/76 09/11/24 11:34 Pulse Ox 92 L 09/11/24 11:34 FiO2 Intake & Output 09/10/24 09/11/24 09/11/24 18:59 06:59 18:59 Intake Total 476 190.25 Output Total 400 350 Balance 76 -350 190.25 Intake: Intake, IV Titration 72.25 Amount Diltiazem 125 mg In 72.25 Sodium Chloride 0.9% 100 ml @ 10 MG/HR 10 mls/hr IV .[id number] [facility] Rx#: [id number] Oral 476 118 Output: Urine 400 350 Other: Voiding Method External Catheter External Catheter External Catheter - Exam GENERAL DESCRIPTION: An elderly female lying in bed in no distress RESPIRATORY SYSTEM: Unlabored breathing , decreased breath sounds at bases HEART: S1 S2 regular rate and rhythm , ABDOMEN: Soft , no tenderness EXTREMITIES: No edema feet - Labs CBC & Chem 7: 09/09/24 08:54 09/10/24 12:14 Labs: Microbiology - Last 24 Hours (Table) 09/08/24 12:30 Blood Culture - Preliminary Blood Assessment and Plan (1) Allergy to cephalosporin Current Visit: Yes Status: Acute Code(s): Z88.1 - ALLERGY STATUS TO OTHER ANTIBIOTIC AGENTS SNOMED Code(s): 049740633 (2) Altered mental status Current Visit: Yes Status: Acute Code(s): R41.82 - ALTERED MENTAL STATUS, UNSPECIFIED SNOMED Code(s): 500203913 (3) Influenza A Current Visit: Yes Status: Acute Code(s): J10.1 - FLU DUE TO OTH IDENT INFLUENZA VIRUS W OTH RESP MANIFEST SNOMED Code(s): 561189478 Plan: 1patient presented to the hospital with mental status changes and this patient has been recently diagnosed with influenza A at the shelter now with some hypoxemia mental status changes patient is currently not running any fever white count is normal clinically not behaving as secondary bacterial pneumonia x-ray finding could be mostly atelectasis 2-patient currently being treated with Tamiflu for influenza A 3-patient did have elevated procalcitonin 0.59 did have Keflex allergy in view of improvement with the Levaquin we will suggest a short course of Levaquin on discharge does confirm with the pharmacy Dictation was produced using [employer] dictation software. please excuse any grammatical, word or spelling errors.
[2024-09-11] MEDS: DILTIAZEM 125 MG in SODIUM CHLORIDE 0.9% 100 ML IV SCH (14:12)
--- NOTE | 2024-09-11 20:53 | P.PN ---
Subjective This is a pleasant 74 years old female who presents from halfway. Patient currently nonverbal, not waking up to verbal or tactile stimuli Information were obtained from her friend and her advocate at bedside Ms. Andrew with the phone number of [phone] Patient had 2 falls in August 02 associated with hip fracture and problems hence she went to rehab. She has been complaining from pain in her right hip for a while since then and has been taking several pain medication and narcotics. Her friend and advocate thinks excessive pain medication contributed to her presentation. Patient has been confused over the last 4 to 5 days since last Sunday. She sleeps a lot she is weak and she was getting worse so she was transferred to the hospital Patient hemodynamically stable and afebrile Labs showing hemoglobin 9.1, WBC elevated slightly above baseline but still within the reference range, creatinine at baseline of 1.4, baseline 1.3-1.7, INR is within the reference range Urinalysis no suspicion of infection Influenza test is positive while COVID test is negative pH is 7.4 and pCO2 is 24 CT of the brain is negative for acute process Chest x-ray showing new bibasilar infiltrate versus atelectasis Urine drug screen is positive for TCA serum alcohol is less than 10 EKG showing sinus rhythm with PVC 09/09 Patient is more awake and alert today, she is still pleasantly confused, she can recognize the hospital once reminded. But she is still disoriented to time and person. She follows command and she has little insight into her illness. She complained from little shortness of breath and coughing but no chest pain No abdominal pain or vomiting. She has some dark greenish stool, occult blood test was requested No specific urinary complaint. No headache or dizziness or weakness or numbness. No skin rashes or pressure ulcer Patient developed A-fib and RVR overnight with heart rate 154 and currently 125 while she is on Cardizem drip She is already on metoprolol 25 mg will increase the dose to 50 mg She is currently on aspirin and subcutaneous heparin Also she is on antibiotic with Levaquin and Flagyl and Tamiflu We will discontinue Ringer lactate. Continue on Bumex 1 mg twice daily 09/10 Patient awake alert Her mentation is improving she knows she is in the hospital or that she could not tell which she knows 2024 although she could not tell the exact date and month but she did not know the president name. She has also mild insight to her illness and follow commands and looks pleasant and relaxed Per family she is more confused at baseline and she fell few days or weeks prior. She was complaining from pain in her right hip area, her right lower ext remity is not shortened or externally rotated, x-ray of the right hip and pelvis was negative for fracture, I reviewed the x-rays by myself and agree with these findings Her vitals look stable. Tachycardia is improving. She is saturating 96% on 3 L oxygen via nasal cannula Hemoglobin stable 8.9 creatinine improved down to 1.23. She is continued with Levaquin 500 mg for 4 more days for her pneumonia. 09/11 Patient was doing well clinically she was alert awake oriented to time place person, she knows she in the hospital and the date and the name of the president also she had insight. However by the afternoon she developed A-fib and RVR again and she had to be placed back on Cardizem drip at 10 mg/h. Heart rate improved from 150 down to 68 Will check electrolytes and labs in the morning. Will place on a small dose of magnesium for short course In the meantime continue with antibiotics. Continue IV Solu-Medrol. Continue with Tamiflu for 3 more doses Active Medications Generic Name Dose Route Start Last Admin Trade Name Brittanie PRN Reason Stop Dose Admin Acetaminophen 650 mg 09/08/24 18:55 09/10/24 08:28 Acetaminophen Tab 325 Mg Tab PO 650 mg Q6H PRN Administration Fever and/ or Pain Albuterol/Ipratropium 3 ml 09/08/24 16:36 Ipratropium-Albuterol 3 Ml Neb INHALATION RT-Q2H PRN Shortness Of Breath Or Wheezing Albuterol/Ipratropium 3 ml 09/08/24 20:00 09/11/24 16:34 Ipratropium-Albuterol 3 Ml Neb INHALATION 3 ml RT-QID [facility] Administration Aspirin 81 mg 09/08/24 21:00 09/10/24 20:28 Aspirin 81 Mg PO 81 mg HS [facility]AN Administration Atorvastatin Calcium 80 mg 09/08/24 21:00 09/10/24 20:28 Atorvastatin 80 Mg Tab PO 80 mg HS [facility] Administration Budesonide/Formoterol Fumarate 2 puff 09/09/24 20:00 09/11/24 09:07 Symbicort 160-4.5 Mcg Inhaler INHALATION 2 puff RT-BID [facility] Administration Bumetanide 1 mg 09/09/24 07:00 09/11/24 16:55 Bumetanide 1 Mg Tab PO 1 mg BID@0700,1600 [facility] Administration Famotidine 10 mg 09/08/24 21:00 09/11/24 08:44 Famotidine 20 Mg/2 Ml Vial IV 10 mg Q12HR [facility] Administration Guaifenesin 600 mg 09/08/24 18:55 Guaifenesin 600 Mg Tablet.Er PO BID PRN Congestion Heparin Sodium (Porcine) 5,000 unit 09/08/24 21:00 09/11/24 08:44 Heparin Sodium,Porcine 5,000 Unit/Ml 1 Ml Vial SQ 5,000 unit Q12HR [facility] Administration Hydralazine HCl 25 mg 09/10/24 09:00 09/11/24 16:55 Hydralazine Hcl 25 Mg Tab PO 25 mg TID [facility] Administration Diltiazem HCl 125 mg/ Sodium 125 mls @ 10 mls/hr 09/11/24 14:00 09/11/24 18:30 Chloride IV 10 mg/hr .[id number] [facility] 10 mls/hr Infusion 10 MG/HR Isosorbide Mononitrate 30 mg 09/08/24 21:00 09/11/24 08:43 Isosorbide Mononitrate Er 30 Mg Tab.Er.24h PO 30 mg BID [facility] Administration Levofloxacin 750 mg 09/11/24 09:00 09/11/24 08:44 Levofloxacin 750 Mg Tab PO 09/13/24 09:01 750 mg Q48H [facility] Administration Protocol Levothyroxine Sodium 150 mcg 09/09/24 05:00 09/11/24 06:11 Levothyroxine 75 Mcg Tab PO 150 mcg DAILY@0500 [facility] Administration Methylprednisolone Sodium Succinate 40 mg 09/09/24 00:00 09/11/24 16:55 Methylprednisolone Sod Succi 40 Mg/Ml 1 Ml Vial IV 40 mg Q8HR [facility] Administration Metoprolol Tartrate 50 mg 09/09/24 09:00 09/11/24 16:55 Metoprolol Tartrate 50 Mg Tab PO 50 mg TID [facility] Administration Miscellaneous Information 1 each 09/08/24 12:59 Pneumonia Protocol Utilized 1 Each Misc PO ONCE PRN Per Protocol Miscellaneous Information 1 each 09/09/24 18:05 Potassium Replacement Protocol 1 Each Misc MISCELLANE DAILY PRN Per Protocol Protocol Naloxone HCl 0.2 mg 09/08/24 14:01 Naloxone 0.4 Mg/Ml 1 Ml Vial IV Q2M PRN Opioid Reversal Ondansetron HCl 4 mg 09/08/24 14:01 Ondansetron 4 Mg/2 Ml Vial IVP Q8HR PRN Nausea And Vomiting Oseltamivir Phosphate 30 mg 09/09/24 21:00 09/11/24 08:44 Oseltamivir 30 Mg Cap PO 09/12/24 21:01 30 mg Q12HR [facility] Administration Protocol Senna 17.2 mg 09/08/24 18:55 Sennosides 8.6 Mg Tab PO DAILY PRN Constipation Objective - Vital Signs Vital signs: Vital Signs Temp 97.5 F L 09/11/24 19:55 Pulse 68 09/11/24 19:55 Resp 19 09/11/24 19:55 BP 140/58 09/11/24 19:55 Pulse Ox 94 L 09/11/24 19:55 FiO2 Intake & Output 09/11/24 09/11/24 09/12/24 06:59 18:59 06:59 Intake Total 211.75 Output Total 350 200 Balance -350 11.75 Intake: Intake, IV Titration 93.75 Amount Diltiazem 125 mg In 72.25 Sodium Chloride 0.9% 100 ml @ 10 MG/HR 10 mls/hr IV .[id number] [facility] Rx#: [id number] Diltiazem 125 mg In 21.5 Sodium Chloride 0.9% 100 ml @ 5 MG/HR 5 mls/hr IV .Q24H [facility] Rx#:[id number] Oral 118 Output: Urine 350 200 Other: Voiding Method External Catheter Diaper # Bowel Movements 1 - Exam -GENERAL: The patient is alert and oriented x0-1, which looks her baseline of dementia, not in any acute distress. Well developed, well nourished. HEENT: Pupils are round and equally reacting to light. EOMI. No scleral icterus. No conjunctival pallor. Normocephalic, atraumatic. No pharyngeal erythema. No thyromegaly. CARDIOVASCULAR: S1 and S2 present. No murmurs, rubs, or gallops. -PULMONARY: Chest is clear to auscultation, no wheezing , bilateral basal crackles. ABDOMEN: Soft, nontender, nondistended, normoactive bowel sounds. No palpable organomegaly. MUSCULOSKELETAL: No joint swelling or deformity. EXTREMITIES: No cyanosis, clubbing, or pedal edema. NEUROLOGICAL: Gross neurological examination did not reveal any focal deficits. SKIN: No rashes. no petechiae. - Labs CBC & Chem 7: 09/09/24 08:54 09/10/24 12:14 Labs: Microbiology - Last 24 Hours (Table) 09/08/24 12:30 Blood Culture - Preliminary Blood Assessment and Plan Assessment: Altered mental status most likely metabolic/toxic encephalopathy, thought secondary to pain medication and infection Possible bibasilar pneumonia Possible acute CHF exacerbation A-fib and RVR Acute hypoxic respiratory failure Influenza A Dementia Chronic kidney disease stage III Plan: Patient put back on Cardizem drip Patient was started on antibiotic Levaquin and Flagyl Also past started on IV Solu-Medrol Continue with Tamiflu Pulmonary team consult Cardiology team consult Will consult infectious disease team Follow-up culture results Increase metoprolol to 50 mg twice daily Continue with Bumex 1 mg twice daily Labs and medication were reviewed.. Continue same treatment. Continue with symptomatic treatment. Resume home medication. Monitor labs and vitals. DVT and GI prophylaxis. Further recommendations as per clinical course of the patient DVT prophylaxis: Subcutaneous heparin GI Prophylaxis: Pepcid Prognosis is guarded CODE STATUS: DNR, confirmed with her advocate and friend
[2024-09-11] MEDS: MAGNESIUM OXIDE 400 MG TAB PO SCH (21:56)
--- NOTE | 2024-09-12 07:21 | P.PN ---
Subjective Progress Note Date: 09/12/24 The patient is a 74-year-old female patient with a past medical history significant for history of COPD as well as history of baseline confusion/underlying dementia where the patient currently is a [facility] who was admitted to the hospital with flulike symptoms consistent of cough and congestions and she was diagnosed with influenza A after she was tested positive. We consulted to see the patient because of atrial fibrillation with RVR. Initial EKG when she presented to the hospital showed sinus mechanism with diffuse nonspecific ST and T wave abnormalities but subsequently she went into A-fib with RVR and then she converted to normal sinus mechanism with no history of atrial fibrillation and no other cardiovascular history from before. She is extremely poor historian and she is extremely confused. No indication of any chest pain or chest discomfort. She underwent further evaluation including chest x-ray did not show any acute abnormalities and she is currently receiving treatment for influenza A. An echocardiogram still pending. The physical examination is remarkable for change in mental status/confusion with regular rate and rhythm and soft systolic murmur and bilateral expiratory wheezing was noted with mild bilateral lower extremities edema September 10, 2024 The patient was seen and evaluated this morning she is asymptomatic from a cardiovascular standpoint of view and she is hemodynamically stable as well which she has been maintaining normal sinus mechanism with the echo still pending. The pressure is elevated. The physical examination is remarkable for regular rhythm with a soft systolic murmur and diminished breathing sounds bilaterally and no edema was noted in the lower extremities September 11, 2024 The patient was seen and evaluated this morning. She went into atrial fibrillation with RVR yesterday and subsequently she was converted to normal sinus mechanism after she was started on Cardizem IV. I am going to start the patient on oral Cardizem and DC Cardizem IVP the echo still pending. If she maintaining sinus mechanism she potentially can be discharged home later on today. Physical examination is remarkable for regular rhythm with a soft systolic murmur and clear breathing sounds bilaterally and no edema was noted in the lower extremities September 12, 2024 The patient was seen and evaluated this morning which she is back in normal sinus mechanism. She is on Cardizem IV. I am going to increase the dose of beta-henrietta and restart back her on oral Cardizem and try to wean her from Cardizem IV. Otherwise if she remains asymptomatic and remains hemodynamically stable with the physical examination appears to be overall unremarkable. Assessment Confusion Influenza A infection A-fib of acute illness Multiple comorbid conditions including COPD Plan Increase the dose of beta-henrietta with metoprolol Restart the patient back on oral Cardizem Wean the patient from Cardizem IV Follow-up with the patient Objective - Vital Signs Vital signs: Vital Signs Temp 97.5 F L 09/11/24 19:55 Pulse 67 09/12/24 03:53 Resp 16 09/12/24 03:53 BP 127/72 09/12/24 03:53 Pulse Ox 90 L 09/12/24 03:53 FiO2 Intake & Output 09/11/24 09/12/24 09/12/24 18:59 06:59 18:59 Intake Total 211.75 72.833 Output Total 200 Balance 11.75 72.833 Intake: Intake, IV Titration 93.75 72.833 Amount Diltiazem 125 mg In 72.25 Sodium Chloride 0.9% 100 ml @ 10 MG/HR 10 mls/hr IV .[id number] [facility] Rx#: [id number] Diltiazem 125 mg In 21.5 72.833 Sodium Chloride 0.9% 100 ml @ 10 MG/HR 10 mls/hr IV .[id number] [facility] Rx#: [id number] Oral 118 Output: Urine 200 Other: Voiding Method Diaper Diaper # Voids 1 # Bowel Movements 1 1 - Labs CBC & Chem 7: 09/09/24 08:54 09/10/24 12:14 Labs: Microbiology - Last 24 Hours (Table) 09/08/24 12:30 Blood Culture - Preliminary Blood
[2024-09-12 08:04] LABS: Basophils % (A) 0 %; Eosinophils % (A) 0 %; HGB 9.5 gm/dL (11.4-16.0); Lymphocytes # (A) 0.5 k/uL (1.0-4.8); Lymphocytes % (A) 5 %; MCH 31.3 pg (25.0-35.0); MCHC 32.6 g/dL (31.0-37.0); MCV 95.9 fL (80.0-100.0); Mean Platelet Volume 7.6; Monocytes # (A) 0.3 k/uL (0-1.0); Monocytes % (A) 3 %; Neutrophils # (A) 8.9 k/uL (1.3-7.7); Neutrophils % (A) 91 %; Platelet Count 378 k/uL (150-450); RBC 3.03 m/uL (3.80-5.40); RDW 12.8 % (11.5-15.5); WBC 9.9 k/uL (3.8-10.6)
[2024-09-12 08:17] LABS: African American GFR (CKD) 55 (>60 ml/min/1.73 sqM); Anion Gap 6 mmol/L; Blood Urea Nitrogen 42 mg/dL (7-17); Calcium 8.1 mg/dL (8.4-10.2); Carbon Dioxide 35 mmol/L (22-30); Chloride 98 mmol/L (98-107); Glucose 125 mg/dL (74-99); Magnesium 2.2 mg/dL (1.6-2.3); Non-African American GFR(CKD) 47 (>60 ml/min/1.73 sqM); Potassium 3.2 mmol/L (3.5-5.1); Sodium 139 mmol/L (137-145)
[2024-09-12] MEDS: DILTIAZEM ORAL 30 MG TAB PO SCH (08:41)
[2024-09-12] MEDS: METOPROLOL TARTRATE 50 MG TAB PO SCH (08:41)
--- NOTE | 2024-09-12 08:53 | P.PN ---
Subjective This is a pleasant 74 years old female who presents from intermediate. Patient currently nonverbal, not waking up to verbal or tactile stimuli Information were obtained from her friend and her advocate at bedside Ms. Andrew with the phone number of [phone] Patient had 2 falls in August 02 associated with hip fracture and problems hence she went to rehab. She has been complaining from pain in her right hip for a while since then and has been taking several pain medication and narcotics. Her friend and advocate thinks excessive pain medication contributed to her presentation. Patient has been confused over the last 4 to 5 days since last Sunday. She sleeps a lot she is weak and she was getting worse so she was transferred to the hospital Patient hemodynamically stable and afebrile Labs showing hemoglobin 9.1, WBC elevated slightly above baseline but still within the reference range, creatinine at baseline of 1.4, baseline 1.3-1.7, INR is within the reference range Urinalysis no suspicion of infection Influenza test is positive while COVID test is negative pH is 7.4 and pCO2 is 24 [address] of the brain is negative for acute process Chest x-ray showing new bibasilar infiltrate versus atelectasis Urine drug screen is positive for TCA serum alcohol is less than 10 EKG showing sinus rhythm with PVC 09/09 Patient is more awake and alert today, she is still pleasantly confused, she can recognize the hospital once reminded. But she is still disoriented to time and person. She follows command and she has little insight into her illness. She complained from little shortness of breath and coughing but no chest pain No abdominal pain or vomiting. She has some dark greenish stool, occult blood test was requested No specific urinary complaint. No headache or dizziness or weakness or numbness. No skin rashes or pressure ulcer Patient developed A-fib and RVR overnight with heart rate 154 and currently 125 while she is on Cardizem drip She is already on metoprolol 25 mg will increase the dose to 50 mg She is currently on aspirin and subcutaneous heparin Also she is on antibiotic with Levaquin and Flagyl and Tamiflu We will discontinue Ringer lactate. Continue on Bumex 1 mg twice daily 09/10 Patient awake alert Her mentation is improving she knows she is in the hospital or that she could not tell which she knows 2024 although she could not tell the exact date and month but she did not know the president name. She has also mild insight to her illness and follow commands and looks pleasant and relaxed Per family she is more confused at baseline and she fell few days or weeks prior. She was complaining from pain in her right hip area, her right lower ext remity is not shortened or externally rotated, x-ray of the right hip and pelvis was negative for fracture, I reviewed the x-rays by myself and agree with these findings Her vitals look stable. Tachycardia is improving. She is saturating 96% on 3 L oxygen via nasal cannula Hemoglobin stable 8.9 creatinine improved down to 1.23. She is continued with Levaquin 500 mg for 4 more days for her pneumonia. 09/11 Patient was doing well clinically she was alert awake oriented to time place person, she knows she in the hospital and the date and the name of the president also she had insight. However by the afternoon she developed A-fib and RVR again and she had to be placed back on Cardizem drip at 10 mg/h. Heart rate improved from 150 down to 68 Will check electrolytes and labs in the morning. Will place on a small dose of magnesium for short course In the meantime continue with antibiotics. Continue IV Solu-Medrol. Continue with Tamiflu for 3 more doses 09/12 Patient clinically doing well today. Mentation is at baseline She denies chest pain or dyspnea No other new complaints Heart rate is controlled today, metoprolol dose which was 25 on admission increase later to 50 because of yesterday it was increased to 100 mg twice daily now and Cardizem 30 mg 3 times daily was added. As per staff her heart rate was still up and down overnight but currently controlled we will keep monitoring. Once heart rate controlled patient may be considered for discharge within 24 hours Objective - Vital Signs Vital signs: Vital Signs Temp 97.5 F L 09/11/24 19:55 Pulse 96 09/12/24 08:12 Resp 16 09/12/24 03:53 BP 127/72 09/12/24 03:53 Pulse Ox 90 L 09/12/24 03:53 FiO2 Intake & Output 09/11/24 09/12/24 09/12/24 18:59 06:59 18:59 Intake Total 211.75 72.833 69.167 Output Total 200 Balance 11.75 72.833 69.167 Intake: Intake, IV Titration 93.75 72.833 69.167 Amount Diltiazem 125 mg In 72.25 Sodium Chloride 0.9% 100 ml @ 10 MG/HR 10 mls/hr IV .[id number] [facility] Rx#: [id number] Diltiazem 125 mg In 21.5 72.833 69.167 Sodium Chloride 0.9% 100 ml @ 10 MG/HR 10 mls/hr IV .[id number] [facility] Rx#: [id number] Oral 118 Output: Urine 200 Other: Voiding Method Diaper Diaper # Voids 1 # Bowel Movements 1 1 - Exam -GENERAL: The patient is alert and oriented x0-1, which looks her baseline of dementia, not in any acute distress. Well developed, well nourished. HEENT: Pupils are round and equally reacting to light. EOMI. No scleral icterus. No conjunctival pallor. Normocephalic, atraumatic. No pharyngeal erythema. No thyromegaly. CARDIOVASCULAR: S1 and S2 present. No murmurs, rubs, or gallops. -PULMONARY: Chest is clear to auscultation, no wheezing , bilateral basal crackles. ABDOMEN: Soft, nontender, nondistended, normoactive bowel sounds. No palpable organomegaly. MUSCULOSKELETAL: No joint swelling or deformity. EXTREMITIES: No cyanosis, clubbing, or pedal edema. NEUROLOGICAL: Gross neurological examination did not reveal any focal deficits. SKIN: No rashes. no petechiae. - Labs CBC & Chem 7: 09/12/24 06:52 09/12/24 06:52 Labs: Abnormal Lab Results - Last 24 Hours (Table) 09/12/24 09/12/24 Range/Units 06:52 06:52 RBC 3.03 L (3.80-5.40) m/uL Hgb 9.5 L (11.4-16.0) gm/dL Hct 29.0 L (34.0-46.0) % Neutrophils # 8.9 H (1.3-7.7) k/uL Lymphocytes # 0.5 L (1.0-4.8) k/uL Potassium 3.2 L (3.5-5.1) mmol/L Carbon Dioxide 35 H (22-30) mmol/L BUN 42 H (7-17) mg/dL Creatinine 1.14 H (0.52-1.04) mg/dL Glucose 125 H (74-99) mg/dL Calcium 8.1 L (8.4-10.2) mg/dL Microbiology - Last 24 Hours (Table) 09/08/24 12:30 Blood Culture - Preliminary Blood Assessment and Plan Assessment: Altered mental status most likely metabolic/toxic encephalopathy, thought secondary to pain medication and infection Possible bibasilar pneumonia Possible acute CHF exacerbation A-fib and RVR Acute hypoxic respiratory failure Influenza A Dementia Chronic kidney disease stage III Plan: Patient currently on metoprolol 100 mg and Cardizem 30 mg and heart rate tachycardia improved Patient was started on antibiotic Levaquin and Flagyl Also past started on IV Solu-Medrol Continue with Tamiflu Pulmonary team consult Cardiology team consult Will consult infectious disease team Follow-up culture results Increase metoprolol to 50 mg twice daily Continue with Bumex 1 mg twice daily Labs and medication were reviewed.. Continue same treatment. Continue with symptomatic treatment. Resume home medication. Monitor labs and vitals. DVT and GI prophylaxis. Further recommendations as per clinical course of the patient DVT prophylaxis: Subcutaneous heparin GI Prophylaxis: Pepcid Prognosis is guarded CODE STATUS: DNR, confirmed with her advocate and friend
[2024-09-12] MEDS: POTASSIUM CHLORIDE ER 20 MEQ TAB.ER PO SCH (09:02)
--- NOTE | 2024-09-12 11:17 | CA ---
Transthoracic Echo Report Name: Bella Ellis Age: 74 Gender: F : 1950 Exam Date: 09/11/2024 11:44 Exam Location: [facility] Ht (in): 60 Wt (lb): 130 Ordering Physician: Michael Gomez MD ([id number]) Attending/Referring Phys: Wireless Internet Installer Priya Thomas RDCS Procedure CPT: Indications: Assess LV Function Cardiac Hx: Technical Quality: Good Contrast 1: Total Dose (mL): Contrast 2: Total Dose (mL): MEASUREMENTS (Male / Female) Normal Values 2D ECHO LVOT Diameter 2.1 cm LV Diastolic Volume MOD BP 77.8 cm??? 67 - 155 / 56 - 104 cm??? LV Systolic Volume MOD BP 28.9 cm??? 22 - 58 / 19 - 49 cm??? LV Ejection Fraction MOD BP 62.8 % >= 55 % LV Cardiac Index MOD BP 2512.6 cm???/min???m??? LV Diastolic Volume MOD 4C 78.7 cm??? LV Systolic Volume MOD 4C 31.2 cm??? LV Ejection Fraction MOD 4C 60.4 % LV Cardiac Index MOD 4C 2443.8 cm???/min???m??? LV Diastolic Length 4C 7.7 cm LV Systolic Length 4C 6.3 cm LV Diastolic Volume MOD 2C 73.7 cm??? LV Systolic Volume MOD 2C 26.3 cm??? LV Ejection Fraction MOD 2C 64.3 % LV Cardiac Index MOD 2C 2435.3 cm???/min???m??? LV Diastolic Length 2C 7.3 cm LV Systolic Length 2C 6.1 cm LA Volume 31.8 cm??? 18 - 58 / 22 - 52 cm??? LA Volume Index 19.9 cm???/m??? 16 - 28 cm???/m??? DOPPLER AV Peak Velocity 119.1 cm/s AV Peak Gradient 5.7 mmHg AV Mean Velocity 84.2 cm/s AV Mean Gradient 3.1 mmHg AV Velocity Time Integral 25.6 cm LVOT Peak Velocity 106.5 cm/s LVOT Peak Gradient 4.5 mmHg LVOT Velocity Time Integral 22.4 cm LVOT Stroke Volume 78.1 cm??? LVOT Stroke Volume Index 50.3 ml/m??? LVOT Cardiac Index 4018.5 cm???/min???m??? AV Area Cont Eq vti 3.0 cm??? AV Area Cont Eq pk 3.1 cm??? MV Area PHT 2.5 cm??? Mitral E Point Velocity 72.3 cm/s Mitral A Point Velocity 97.4 cm/s Mitral E to A Ratio 0.7 MV Deceleration Time 298.3 ms TR Peak Velocity 307.3 cm/s TR Peak Gradient 37.8 mmHg Right Atrial Pressure 10.0 mmHg Pulmonary Artery Systolic Pressu 47.8 mmHg Right Ventricular Systolic Press 47.8 mmHg FINDINGS Left Ventricle Left ventricular ejection fraction is estimated at 60 %. Left ventricular cavity size normal. Left ventricular wall thickness normal. No obvious regional wall motion abnormalities. Right Ventricle Normal right ventricular size and function. Moderate pulmonary hypertension. Right Atrium Normal right atrial size. Left Atrium Normal left atrial size. Mitral Valve Mitral valve thickened. Mitral annular calcification. No evidence for mitral valve prolapse. No mitral stenosis. Trace mitral regurgitation. Aortic Valve Trileaflet aortic valve. No aortic valve stenosis or regurgitation. Tricuspid Valve Structurally normal tricuspid valve. No tricuspid stenosis. Mild tricuspid regurgitation. Pulmonic Valve Pulmonic valve not well visualized. Pericardium No pericardial effusion. Aorta Aortic annulus normal. Ascending aorta not well visualized. CONCLUSIONS Normal LV function Moderate pulmonary hypertension Mild tricuspid regurgitation Previewed by: Dr. Syd Ordonez MD (Electronically Signed) Final Date: 12 September 2024 11:16
--- NOTE | 2024-09-12 11:18 | P.PN ---
Subjective Progress Note Date: 09/12/24 Principal diagnosis: Respiratory distress. Pulmonary consult dated September 09, 2024. 74-year-old female who presents to the emergency department, via EMS, on September 08, with mental status changes. The patient is seen by our group, in the emergency department, room 3. We see her on September 10, 2023, in the morning. The patient is very confused. She cannot provide any history whatsoever. She apparently was brought in from the facility, with mental status changes, and shortness of breath. She apparently has a history of COPD, hypertension, and hyperlipidemia. She was found to have atrial fibrillation in the emergency department, and placed on Cardizem drip at 10 mg an hour. She also tested positive for influenza A. She is currently on 3 L. She is not receiving any IV fluids. She is on Tamiflu, Levaquin, and Flagyl. Again, she cannot provide any history whatsoever. She does not appear to be in any distress whatsoever. According to the ER [facility], she has a history of COPD, hyperlipidemia, hypertension, osteoarthritis, hypothyroidism, lupus, gout, and previous MRSA infection. She is apparently a former smoker. Current laboratory data includes a white count of 7.3, hemoglobin 8.8, hematocrit 26.8, and a normal platelet count. PTT was 30.1. Venous blood gases showed a pCO2 of 54 and a pH of 7.46. Sodium 142, potassium 3.1, chlorides 101, CO2 33, BUN 44, creatinine 1.13. Glucose was 145. AST was 45. ALT was 43. N-terminal proBNP was elevated 8900. Urine was cloudy, with 1+ protein. There was trace blood. 10 RBCs, 3 WBCs, and few bacteria. Drug screen was positive for tricyclic antidepressants. Alcohol level was less than 10. She did test positive for influenza A. Chest x-ray in my opinion shows a pattern that is consistent with either pneumonia and/or CHF. Progress note dated September 10, 2024. 74-year-old female seen yesterday emergency department. She apparently came in with a vague history of respiratory difficulty. She did test positive for influenza A. The patient is currently on 3 L of oxygen by nasal cannula. Saturations are 96%. She is not receiving any IV fluids. The patient's procalcitonin level was 0.32. The patient is very confused, and cannot really give any reliable history. She looks like she is not having any respiratory distress. No new labs today as yet. Blood cultures are negative. Initial proc alcitonin level was 0.59. Repeat level was 0.32. She remains on Levaquin for the time being. Progress note dated September 11, 2024. A 74-year-old female seen in the emergency department, 2 days ago. She came in with complaints of respiratory difficulty, and unfortunately, was a very poor historian. She did test positive for influenza A. She is seen today in room 352. She is on 2 L. She is got a Cardizem drip running at 5 mg an hour, but it will be turned off shortly, because she was transitioned to oral Cardizem. The patient appears in no distress. She is on 2 L. No new labs today. Progress note dated September 12, 2024. 74-year-old female seen again today in room 352. Currently, the patient is resting comfortably in bed. She is laying flat. She is on 2 L of oxygen. For atrial fibrillation, the patient is receiving Cardizem 5 mg an hour. Currently though, she is in normal sinus rhythm. White count 9.9, hemoglobin 9.5, hematocrit 29, and platelet count normal. Sodium 139, potassium 3.2, chlorides 98, CO2 35, anion gap 6, BUN 42, and creatinine 1.14. Glucose is 125. Calcium is 8.2. Magnesium is normal. Objective - Vital Signs Vital signs: Vital Signs Temp 97.8 F 09/12/24 08:27 Pulse 71 09/12/24 11:10 Resp 20 09/12/24 08:30 BP 124/59 09/12/24 08:27 Pulse Ox 92 L 09/12/24 08:30 FiO2 Intake & Output 09/11/24 09/12/24 09/12/24 18:59 06:59 18:59 Intake Total 211.75 72.833 320.084 Output Total 200 Balance 11.75 72.833 320.084 Intake: Intake, IV Titration 93.75 72.833 80.084 Amount Diltiazem 125 mg In 72.25 Sodium Chloride 0.9% 100 ml @ 10 MG/HR 10 mls/hr IV .[id number] [facility] Rx#: [id number] Diltiazem 125 mg In 21.5 72.833 80.084 Sodium Chloride 0.9% 100 ml @ 10 MG/HR 10 mls/hr IV .[id number] [facility] Rx#: [id number] Oral 118 240 Output: Urine 200 Other: Voiding Method Diaper Diaper Diaper # Voids 1 # Bowel Movements 1 1 - Exam No acute distress, very confused, unable to provide any history. The patient is on 2 L of oxygen. HEENT examination is grossly unremarkable. Mucous membranes are moist. No oral lesions. Neck supple. Full range of motion. No adenopathy thyromegaly or neck vein distention. Cardiovascular examination reveals a regular rhythm and rate. S1-S2 normal. No S3 or S4. No discernible murmur noted. Lungs reveal scattered rhonchi and crackles. Breath sounds equal bilaterally. No wheezes. Abdomen soft bowel sounds are heard. No masses or tenderness. Extremities are intact. No cyanosis clubbing or edema. Skin is without rash or lesion. Neurologic examination is brief but nonfocal. - Labs CBC & Chem 7: 09/12/24 06:52 09/12/24 06:52 Labs: Abnormal Lab Results - Last 24 Hours (Table) 09/12/24 09/12/24 Range/Units 06:52 06:52 RBC 3.03 L (3.80-5.40) m/uL Hgb 9.5 L (11.4-16.0) gm/dL Hct 29.0 L (34.0-46.0) % Neutrophils # 8.9 H (1.3-7.7) k/uL Lymphocytes # 0.5 L (1.0-4.8) k/uL Potassium 3.2 L (3.5-5.1) mmol/L Carbon Dioxide 35 H (22-30) mmol/L BUN 42 H (7-17) mg/dL Creatinine 1.14 H (0.52-1.04) mg/dL Glucose 125 H (74-99) mg/dL Calcium 8.1 L (8.4-10.2) mg/dL Microbiology - Last 24 Hours (Table) 09/08/24 12:30 Blood Culture - Preliminary Blood Assessment and Plan Assessment: Acute hypoxemic respiratory failure, likely multifactorial, in part related to atrial fibrillation/RVR, influenza A infection, congestive heart failure and COPD exacerbation. New onset atrial fibrillation/RVR. History of COPD from previous tobacco use. Significant confusion and disorientation, likely not new. History of hyperlipidemia. History of hypertension. History of osteoarthritis. Hypothyroidism. History of lupus. History of gout. Plan: Plan dated September 09, 2024. The patient is seen in the emergency department, room 3. She is very confused, and can give no history. She was admitted with confusion, and shortness of breath. She was found to have atrial fibrillation/RVR, as well as likely COPD exacerbation, CHF, possibly pneumonia. She is on Cardizem at 10 mg an hour, and nasal O2 at 3 L. We did order a procalcitonin level which is currently pending. N-terminal proBNP was elevated at 8900. She is on Tamiflu, Levaquin, and Flagyl. Flagyl can likely be discontinued, and if the procalcitonin level is normal, so can Levaquin. She is already on the Tamiflu as mentioned above. Will make sure that she is on other appropriate medications. Prognosis is guarded. The patient is a DO NOT RESUSCITATE patient. Labs, x-rays, and all medications are reviewed. Dictation was produced using [employer] software. Please excuse any grammatical, word or spelling errors. Plan dated September 10, 2024. The patient is seen today in room 352. The patient continues on oxygen by nasal cannula at 3 L. No IV fluids. She continues on Levaquin. Most recent procalcitonin level was down in the normal range at 0.32. Initial procalcitonin level was abnormal. The patient is receiving Tamiflu for influenza A. All labs, x-rays, medications are reviewed. The patient is still very confused, and cannot give any reliable history. She does not appear to be in any distress. The patient is a DO NOT RESUSCITATE patient. We will continue to follow make recommendations along the way. Dictation was produced using [employer] software. Please excuse any grammatical, word or spelling errors. Plan dated September 11, 2024. The patient is seen today in room 352. The patient was on a Cardizem drip at 5 mg an hour. The nurse tells us, that the patient was transitioned to oral Cardizem, and the drip will be turned off in 1 hour. Clinically, the patient is feeling much better. She continues on oxygen at 2 L. The patient's initial procalcitonin level was 0.59. Repeat was 0.32. The patient continues on Levaquin, and Tamiflu. She needs to complete 5 days of Tamiflu. Labs, x-rays, and medications are reviewed. The patient is a DO NOT RESUSCITATE patient. Prognosis is guarded. Dictation was produced using [employer] software. Please excuse any grammatical, word or spelling errors. Plan dated September 12, 2024. The patient is seen today in room 352. The patient is on 2 L of oxygen. She continues on Cardizem for atrial fibrillation, 5 mg an hour. Currently, the patient is in normal sinus rhythm. Labs, x-rays, and all medications are review ed. The patient's overall prognosis remains guarded. She still is quite confused. She is a DO NOT RESUSCITATE patient. We will continue to follow. She did test positive for influenza, and was given Tamiflu, for 5 days, twice a day. Dictation was produced using [employer] software. Please excuse any grammatical, word or spelling errors. Time with Patient: Less than 30
--- NOTE | 2024-09-12 14:47 | P.PN ---
Subjective Progress Note Date: 09/12/24 Principal diagnosis: Reason for follow-up is influenza and pneumonia Patient is a 74-year-old female past medical history nephric and for COPD hypertension hyperlipidemia osteoarthritis presenting to the hospital for evaluation of mental status changes shortness of breath from a local [facility] with a diagnosis of influenza with concern for possible pneumonia. On today's evaluation that is 09/12/2024, the patient continues to be afebrile, the patient is on 2 L current oxygen and breathing comfortably, the Pt denies having any chest pain and cough is decreased intensity, the patient denies having any abdominal pain no vomiting or any diarrhea, mention feeling better. Patient white count is 9.9, creatinine is 1.14 Objective - Vital Signs Vital signs: Vital Signs Temp 98.2 F 09/12/24 12:08 Pulse 64 09/12/24 12:08 Resp 18 09/12/24 12:08 BP 131/65 09/12/24 12:08 Pulse Ox 96 09/12/24 12:08 FiO2 Intake & Output 09/11/24 09/12/24 09/12/24 18:59 06:59 18:59 Intake Total 211.75 72.833 320.084 Output Total 200 Balance 11.75 72.833 320.084 Intake: Intake, IV Titration 93.75 72.833 80.084 Amount Diltiazem 125 mg In 72.25 Sodium Chloride 0.9% 100 ml @ 10 MG/HR 10 mls/hr IV .[id number] [facility] Rx#: [id number] Diltiazem 125 mg In 21.5 72.833 80.084 Sodium Chloride 0.9% 100 ml @ 10 MG/HR 10 mls/hr IV .[id number] [facility] Rx#: [id number] Oral 118 240 Output: Urine 200 Other: Voiding Method Diaper Diaper Diaper # Voids 1 # Bowel Movements 1 1 - Exam GENERAL DESCRIPTION: An elderly female lying in bed in no distress RESPIRATORY SYSTEM: Unlabored breathing , decreased breath sounds at bases HEART: S1 S2 regular rate and rhythm , ABDOMEN: Soft , no tenderness EXTREMITIES: No edema feet - Labs CBC & Chem 7: 09/12/24 06:52 09/12/24 06:52 Labs: Abnormal Lab Results - Last 24 Hours (Table) 09/12/24 09/12/24 Range/Units 06:52 06:52 RBC 3.03 L (3.80-5.40) m/uL Hgb 9.5 L (11.4-16.0) gm/dL Hct 29.0 L (34.0-46.0) % Neutrophils # 8.9 H (1.3-7.7) k/uL Lymphocytes # 0.5 L (1.0-4.8) k/uL Potassium 3.2 L (3.5-5.1) mmol/L Carbon Dioxide 35 H (22-30) mmol/L BUN 42 H (7-17) mg/dL Creatinine 1.14 H (0.52-1.04) mg/dL Glucose 125 H (74-99) mg/dL Calcium 8.1 L (8.4-10.2) mg/dL Microbiology - Last 24 Hours (Table) 09/08/24 12:30 Blood Culture - Preliminary Blood Assessment and Plan (1) Allergy to cephalosporin Current Visit: Yes Status: Acute Code(s): Z88.1 - ALLERGY STATUS TO OTHER ANTIBIOTIC AGENTS SNOMED Code(s): 989718589 (2) Altered mental status Current Visit: Yes Status: Acute Code(s): R41.82 - ALTERED MENTAL STATUS, UNSPECIFIED SNOMED Code(s): 455418004 (3) Influenza A Current Visit: Yes Status: Acute Code(s): J10.1 - FLU DUE TO OTH IDENT INFLUENZA VIRUS W OTH RESP MANIFEST SNOMED Code(s): 331344353 Plan: 1patient presented to the hospital with mental status changes and this patient has been recently diagnosed with [facility] the [facility] now with some hypoxemia mental status changes patient is currently not running any fever white count is normal clinically not behaving as secondary bacterial pneumonia x-ray finding could be mostly atelectasis 2-patient to continue with Tamiflu for influenza A finish a 5-day course of therapy 3-patient did have elevated procalcitonin 0.59 did have Keflex allergy in view of improvement with the Levaquin, patient has been continuing Levaquin and will monitor clinical course closely. Dictation was produced using [employer] dictation software. please excuse any grammatical, word or spelling errors.
--- NOTE | 2024-09-13 06:19 | P.PN ---
Subjective Progress Note Date: 09/13/24 The patient is a 74-year-old female patient with a past medical history significant for history of COPD as well as history of baseline confusion/underlying dementia where the patient currently is a resident at [facility] who was admitted to the hospital with flulike symptoms consistent of cough and congestions and she was diagnosed with influenza A after she was tested positive. We consulted to see the patient because of atrial fibrillation with RVR. Initial EKG when she presented to the hospital showed sinus mechanism with diffuse nonspecific ST and T wave abnormalities but subsequently she went into A-fib with RVR and then she converted to normal sinus mechanism with no history of atrial fibrillation and no other cardiovascular history from before. She is extremely poor historian and she is extremely confused. No indication of any chest pain or chest discomfort. She underwent further evaluation including chest x-ray did not show any acute abnormalities and she is currently receiving treatment for influenza A. An echocardiogram still pending. The physical examination is remarkable for change in mental status/confusion with regular rate and rhythm and soft systolic murmur and bilateral expiratory wheezing was noted with mild bilateral lower extremities edema September 10, 2024 The patient was seen and evaluated this morning she is asymptomatic from a cardiovascular standpoint of view and she is hemodynamically stable as well which she has been maintaining normal sinus mechanism with the echo still pending. The pressure is elevated. The physical examination is remarkable for regular rhythm with a soft systolic murmur and diminished breathing sounds bilaterally and no edema was noted in the lower extremities September 11, 2024 The patient was seen and evaluated this morning. She went into atrial fibrillation with RVR yesterday and subsequently she was converted to normal sinus mechanism after she was started on Cardizem IV. I am going to start the patient on oral Cardizem and DC Cardizem IVP the echo still pending. If she maintaining sinus mechanism she potentially can be discharged home later on today. Physical examination is remarkable for regular rhythm with a soft systolic murmur and clear breathing sounds bilaterally and no edema was noted in the lower extremities September 12, 2024 The patient was seen and evaluated this morning which she is back in normal sinus mechanism. She is on Cardizem IV. I am going to increase the dose of beta-henrietta and restart back her on oral Cardizem and try to wean her from Cardizem IV. Otherwise if she remains asymptomatic and remains hemodynamically stable with the physical examination appears to be overall unremarkable. September 13, 2024 The patient was seen and evaluated this morning. She went back into atrial fibrillation and she continues to be in atrial fibrillation with tachycardia. I am going to add amiodarone IV to the current medical regimen and switch her to oral amiodarone down the line with continue the current medical regimen including beta-henrietta and calcium channel henrietta. Assessment Confusion Influenza A infection A-fib of acute illness Multiple comorbid conditions including COPD Plan Continue the current medical regimen Add amiodarone IV to the current medical regimen and consider switch her to oral amiodarone Follow-up with the patient Objective - Vital Signs Vital signs: Vital Signs Temp 97.7 F 09/13/24 04:00 Pulse 76 09/13/24 04:00 Resp 18 09/13/24 04:00 BP 144/76 09/13/24 04:00 Pulse Ox 95 09/13/24 04:00 FiO2 Intake & Output 09/12/24 09/12/24 09/13/24 06:59 18:59 06:59 Intake Total 72.833 542.084 Balance 72.833 542.084 Intake: Intake, IV Titration 72.833 80.084 Amount Diltiazem 125 mg In 72.833 80.084 Sodium Chloride 0.9% 100 ml @ 10 MG/HR 10 mls/hr IV .[id number] [facility] Rx#: [id number] Oral 462 Other: Voiding Method Diaper Diaper Diaper # Voids 1 1 2 # Bowel Movements 1 1 1 - Labs CBC & Chem 7: 09/12/24 06:52 09/12/24 06:52 Labs: Abnormal Lab Results - Last 24 Hours (Table) 09/12/24 09/12/24 Range/Units 06:52 06:52 RBC 3.03 L (3.80-5.40) m/uL Hgb 9.5 L (11.4-16.0) gm/dL Hct 29.0 L (34.0-46.0) % Neutrophils # 8.9 H (1.3-7.7) k/uL Lymphocytes # 0.5 L (1.0-4.8) k/uL Potassium 3.2 L (3.5-5.1) mmol/L Carbon Dioxide 35 H (22-30) mmol/L BUN 42 H (7-17) mg/dL Creatinine 1.14 H (0.52-1.04) mg/dL Glucose 125 H (74-99) mg/dL Calcium 8.1 L (8.4-10.2) mg/dL
[2024-09-13] MEDS: DEXTROSE 5% IN WATER 100 ML with AMIODARONE 150 MG IV ONE (07:01)
[2024-09-13] MEDS: AMIODARONE 360 MG in DEXTROSE 5% IN WATER 200 ML IV ONE (07:29)
--- NOTE | 2024-09-13 08:34 | P.PN ---
Subjective This is a pleasant 74 years old female who presents from care home. Patient currently nonverbal, not waking up to verbal or tactile stimuli Information were obtained from her friend and her advocate at bedside Ms. Andrew with the phone number of [phone] Patient had 2 falls in August 02 associated with hip fracture and problems hence she went to rehab. She has been complaining from pain in her right hip for a while since then and has been taking several pain medication and narcotics. Her friend and advocate thinks excessive pain medication contributed to her presentation. Patient has been confused over the last 4 to 5 days since last Sunday. She sleeps a lot she is weak and she was getting worse so she was transferred to the hospital Patient hemodynamically stable and afebrile Labs showing hemoglobin 9.1, WBC elevated slightly above baseline but still within the reference range, creatinine at baseline of 1.4, baseline 1.3-1.7, INR is within the reference range Urinalysis no suspicion of infection Influenza test is positive while COVID test is negative pH is 7.4 and pCO2 is 24 CT of the brain is negative for acute process Chest x-ray showing new bibasilar infiltrate versus atelectasis Urine drug screen is positive for TCA serum alcohol is less than 10 EKG showing sinus rhythm with PVC 09/09 Patient is more awake and alert today, she is still pleasantly confused, she can recognize the hospital once reminded. But she is still disoriented to time and person. She follows command and she has little insight into her illness. She complained from little shortness of breath and coughing but no chest pain No abdominal pain or vomiting. She has some dark greenish stool, occult blood test was requested No specific urinary complaint. No headache or dizziness or weakness or numbness. No skin rashes or pressure ulcer Patient developed A-fib and RVR overnight with heart rate 154 and currently 125 while she is on Cardizem drip She is already on metoprolol 25 mg will increase the dose to 50 mg She is currently on aspirin and subcutaneous heparin Also she is on antibiotic with Levaquin and Flagyl and Tamiflu We will discontinue Ringer lactate. Continue on Bumex 1 mg twice daily 09/10 Patient awake alert Her mentation is improving she knows she is in the hospital or that she could not tell which she knows 2024 although she could not tell the exact date and month but she did not know the president name. She has also mild insight to her illness and follow commands and looks pleasant and relaxed Per family she is more confused at baseline and she fell few days or weeks prior. She was complaining from pain in her right hip area, her right lower ext remity is not shortened or externally rotated, x-ray of the right hip and pelvis was negative for fracture, I reviewed the x-rays by myself and agree with these findings Her vitals look stable. Tachycardia is improving. She is saturating 96% on 3 L oxygen via nasal cannula Hemoglobin stable 8.9 creatinine improved down to 1.23. She is continued with Levaquin 500 mg for 4 more days for her pneumonia. 09/11 Patient was doing well clinically she was alert awake oriented to time place person, she knows she in the hospital and the date and the name of the president also she had insight. However by the afternoon she developed A-fib and RVR again and she had to be placed back on Cardizem drip at 10 mg/h. Heart rate improved from 150 down to 68 Will check electrolytes and labs in the morning. Will place on a small dose of magnesium for short course In the meantime continue with antibiotics. Continue IV Solu-Medrol. Continue with Tamiflu for 3 more doses 09/12 Patient clinically doing well today. Mentation is at baseline She denies chest pain or dyspnea No other new complaints Heart rate is controlled today, metoprolol dose which was 25 on admission increase later to 50 because of yesterday it was increased to 100 mg twice daily now and Cardizem 30 mg 3 times daily was added. As per staff her heart rate was still up and down overnight but currently controlled we will keep monitoring. Once heart rate controlled patient may be considered for discharge within 24 hours 09/13 Patient states she is doing fine Her heart rate been controlled in the 60s and 70s since yesterday She remains on amiodarone drip with plan to switch her to oral. No other complaint, Objective - Vital Signs Vital signs: Vital Signs Temp 97.7 F 09/13/24 04:00 Pulse 72 09/13/24 07:48 Resp 18 09/13/24 04:00 BP 144/76 09/13/24 04:00 Pulse Ox 95 09/13/24 07:40 FiO2 Intake & Output 09/12/24 09/13/24 09/13/24 18:59 06:59 18:59 Intake Total 542.084 Balance 542.084 Intake: Intake, IV Titration 80.084 Amount Diltiazem 125 mg In 80.084 Sodium Chloride 0.9% 100 ml @ 10 MG/HR 10 mls/hr IV .[id number] [facility] Rx#: [id number] Oral 462 Other: Voiding Method Diaper Diaper # Voids 1 2 # Bowel Movements 1 1 - Exam -GENERAL: The patient is alert and oriented x0-1, which looks her baseline of dementia, not in any acute distress. Well developed, well nourished. HEENT: Pupils are round and equally reacting to light. EOMI. No scleral icterus. No conjunctival pallor. Normocephalic, atraumatic. No pharyngeal erythema. No thyromegaly. CARDIOVASCULAR: S1 and S2 present. No murmurs, rubs, or gallops. -PULMONARY: Chest is clear to auscultation, no wheezing , bilateral basal crackles. ABDOMEN: Soft, nontender, nondistended, normoactive bowel sounds. No palpable organomegaly. MUSCULOSKELETAL: No joint swelling or deformity. EXTREMITIES: No cyanosis, clubbing, or pedal edema. NEUROLOGICAL: Gross neurological examination did not reveal any focal deficits. SKIN: No rashes. no petechiae. 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 Continue same treatment. Continue with symptomatic treatment. Resume home medication. Monitor labs and vitals. DVT and GI prophylaxis. Further recommendations as per clinical course of the patient DVT prophylaxis: Subcutaneous heparin GI Prophylaxis: Pepcid Prognosis is guarded CODE STATUS: DNR, confirmed with her advocate and friend
--- NOTE | 2024-09-13 10:32 | P.PN ---
Subjective Progress Note Date: 09/13/24 Principal diagnosis: Respiratory distress. Pulmonary consult dated September 09, 2024. 74-year-old female who presents to the emergency department, via EMS, on September 08, with mental status changes. The patient is seen by our group, in the emergency department, room 3. We see her on September 10, 2023, in the morning. The patient is very confused. She cannot provide any history whatsoever. She apparently was brought in from the facility, with mental status changes, and shortness of breath. She apparently has a history of COPD, hypertension, and hyperlipidemia. She was found to have atrial fibrillation in the emergency department, and placed on Cardizem drip at 10 mg an hour. She also tested positive for influenza A. She is currently on 3 L. She is not receiving any IV fluids. She is on Tamiflu, Levaquin, and Flagyl. Again, she cannot provide any history whatsoever. She does not appear to be in any distress whatsoever. According to the ER saida, she has a history of COPD, hyperlipidemia, hypertension, osteoarthritis, hypothyroidism, lupus, gout, and previous MRSA infection. She is apparently a former smoker. Current laboratory data includes a white count of 7.3, hemoglobin 8.8, hematocrit 26.8, and a normal platelet count. PTT was 30.1. Venous blood gases showed a pCO2 of 54 and a pH of 7.46. Sodium 142, potassium 3.1, chlorides 101, CO2 33, BUN 44, creatinine 1.13. Glucose was 145. AST was 45. ALT was 43. N-terminal proBNP was elevated 8900. Urine was cloudy, with 1+ protein. There was trace blood. 10 RBCs, 3 WBCs, and few bacteria. Drug screen was positive for tricyclic antidepressants. Alcohol level was less than 10. She did test positive for influenza A. Chest x-ray in my opinion shows a pattern that is consistent with either pneumonia and/or CHF. Progress note dated September 10, 2024. 74-year-old female seen yesterday emergency department. She apparently came in with a vague history of respiratory difficulty. She did test positive for influenza A. The patient is currently on 3 L of oxygen by nasal cannula. Saturations are 96%. She is not receiving any IV fluids. The patient's procalcitonin level was 0.32. The patient is very confused, and cannot really give any reliable history. She looks like she is not having any respiratory distress. No new labs today as yet. Blood cultures are negative. Initial proc alcitonin level was 0.59. Repeat level was 0.32. She remains on Levaquin for the time being. Progress note dated September 11, 2024. A 74-year-old female seen in the emergency department, 2 days ago. She came in with complaints of respiratory difficulty, and unfortunately, was a very poor historian. She did test positive for influenza A. She is seen today in room 352. She is on 2 L. She is got a Cardizem drip running at 5 mg an hour, but it will be turned off shortly, because she was transitioned to oral Cardizem. The patient appears in no distress. She is on 2 L. No new labs today. Progress note dated September 12, 2024. 74-year-old female seen again today in room 352. Currently, the patient is resting comfortably in bed. She is laying flat. She is on 2 L of oxygen. For atrial fibrillation, the patient is receiving Cardizem 5 mg an hour. Currently though, she is in normal sinus rhythm. White count 9.9, hemoglobin 9.5, hematocrit 29, and platelet count normal. Sodium 139, potassium 3.2, chlorides 98, CO2 35, anion gap 6, BUN 42, and creatinine 1.14. Glucose is 125. Calcium is 8.2. Magnesium is normal. Progress note dated September 13, 2024. 74-year-old female seen in room 352. Currently she is on room air. She is getting amiodarone at 1 mg/min. She is currently in normal sinus rhythm. She appears in no distress. No respiratory distress. No audible wheezing or use of accessory muscles. No conversational dyspnea. White count 9.9, hemoglobin 9.5, hematocrit 29, platelet count 378,000. Sodium 139, potassium 3.2, chlorides 98, CO2 35, BUN 42, creatinine 1.14. Glucose is 125. Calcium is 8.1. Magnesium is 2.2. Procalcitonin level was 0.32. Objective - Vital Signs Vital signs: Vital Signs Temp 97.5 F L 09/13/24 08:40 Pulse 82 09/13/24 08:40 Resp 18 09/13/24 08:40 BP 164/73 09/13/24 08:40 Pulse Ox 93 L 09/13/24 08:40 FiO2 Intake & Output 09/12/24 09/13/24 09/13/24 18:59 06:59 18:59 Intake Total 542.084 Balance 542.084 Intake: Intake, IV Titration 80.084 Amount Diltiazem 125 mg In 80.084 Sodium Chloride 0.9% 100 ml @ 10 MG/HR 10 mls/hr IV .[id number] [facility] Rx#: [id number] Oral 462 Other: Voiding Method Diaper Diaper Diaper # Voids 1 2 # Bowel Movements 1 1 - Exam No acute distress, very confused, unable to provide any history. The patient is on room air. HEENT examination is grossly unremarkable. Mucous membranes are moist. No oral lesions. Neck supple. Full range of motion. No adenopathy thyromegaly or neck vein distention. Cardiovascular examination reveals a regular rhythm and rate. S1-S2 normal. No S3 or S4. No discernible murmur noted. Lungs reveal scattered rhonchi and crackles. Breath sounds equal bilaterally. No wheezes. Abdomen soft bowel sounds are heard. No masses or tenderness. Extremities are intact. No cyanosis clubbing or edema. Skin is without rash or lesion. Neurologic examination is brief but nonfocal. - Labs CBC & Chem 7: 09/12/24 06:52 09/12/24 06:52 Assessment and Plan Assessment: Acute hypoxemic respiratory failure, likely multifactorial, in part related to atrial fibrillation/RVR, influenza A infection, congestive heart failure and COPD exacerbation. New onset atrial fibrillation/RVR. History of COPD from previous tobacco use. Significant confusion and disorientation, likely not new. History of hyperlipidemia. History of hypertension. History of osteoarthritis. Hypothyroidism. History of lupus. History of gout. Plan: Plan dated September 09, 2024. The patient is seen in the emergency department, room 3. She is very confused, and can give no history. She was admitted with confusion, and shortness of breath. She was found to have atrial fibrillation/RVR, as well as likely COPD exacerbation, CHF, possibly pneumonia. She is on Cardizem at 10 mg an hour, and nasal O2 at 3 L. We did order a procalcitonin level which is currently pending. N-terminal proBNP was elevated at 8900. She is on Tamiflu, Levaquin, and Flagyl. Flagyl can likely be discontinued, and if the procalcitonin level is normal, so can Levaquin. She is already on the Tamiflu as mentioned above. Will make sure that she is on other appropriate medications. Prognosis is guarded. The patient is a DO NOT RESUSCITATE patient. Labs, x-rays, and all medications are reviewed. Dictation was produced using [employer] software. Please excuse any grammatical, word or spelling errors. Plan dated September 10, 2024. The patient is seen today in room 352. The patient continues on oxygen by nasal cannula at 3 L. No IV fluids. She continues on Levaquin. Most recent procalcitonin level was down in the normal range at 0.32. Initial procalcitonin level was abnormal. The patient is receiving Tamiflu for influenza A. All labs , x-rays, medications are reviewed. The patient is still very confused, and cannot give any reliable history. She does not appear to be in any distress. The patient is a DO NOT RESUSCITATE patient. We will continue to follow make recommendations along the way. Dictation was produced using [employer] software. Please excuse any grammatical, word or spelling errors. Plan dated September 11, 2024. The patient is seen today in room 352. The patient was on a Cardizem drip at 5 mg an hour. The nurse tells us, that the patient was transitioned to oral Cardizem, and the drip will be turned off in 1 hour. Clinically, the patient is feeling much better. She continues on oxygen at 2 L. The patient's initial procalcitonin level was 0.59. Repeat was 0.32. The patient continues on Levaq uin, and Tamiflu. She needs to complete 5 days of Tamiflu. Labs, x-rays, and medications are reviewed. The patient is a DO NOT RESUSCITATE patient. Prognosis is guarded. Dictation was produced using [employer] software. Please excuse any grammatical, word or spelling errors. Plan dated September 12, 2024. The patient is seen today in room 352. The patient is on 2 L of oxygen. She continues on Cardizem for atrial fibrillation, 5 mg an hour. Currently, the patient is in normal sinus rhythm. Labs, x-rays, and all medications are reviewed. The patient's overall prognosis remains guarded. She still is quite confused. She is a DO NOT RESUSCITATE patient. We will continue to follow. She did test positive for influenza, and was given Tamiflu, for 5 days, twice a day. Dictation was produced using [employer] software. Please excuse any grammatical, word or spelling errors. Plan dated September 13, 2024. The patient is seen today in room 352. The patient has been transitioned to room air. She is getting amiodarone at 1 mg/min. Yesterday she was on Cardizem at 5 mg an hour. The patient is currently in sinus rhythm. No acute distress. She denies any shortness of breath, cough, wheezing, chest tightness, or phlegm production. All labs, x-rays, and medications are reviewed. We will continue to follow make recommendations along the way. Prognosis is thought to be generally good. Patient has completed her Tamiflu. Dictation was produced using [employer] software. Please excuse any grammatical, word or spelling errors. Time with Patient: Less than 30
[2024-09-13] MEDS: AMIODARONE 450 MG in DEXTROSE 5% IN WATER 250 ML IV SCH (13:04)
--- NOTE | 2024-09-13 15:58 | P.PN ---
Subjective Progress Note Date: 09/13/24 Principal diagnosis: Reason for follow-up is influenza and pneumonia Patient is a 74-year-old female past medical history nephric and for COPD hypertension hyperlipidemia osteoarthritis presenting to the hospital for evaluation of mental status changes shortness of breath from a local custodial with a diagnosis of influenza with concern for possible pneumonia. On today's evaluation that is 09/13/2024, patient did not have any fever and denies any chills, patient is breathing comfortably on room air, patient with no chest pain or any worsening cough patient did not have any abdominal pain nausea vomiting or any loose stools. Patient did not have a lab draw today blood cultures so far negative Objective - Vital Signs Vital signs: Vital Signs Temp 97.6 F 09/13/24 12:10 Pulse 74 09/13/24 15:16 Resp 18 09/13/24 12:10 BP 153/70 09/13/24 12:10 Pulse Ox 92 L 09/13/24 12:10 FiO2 Intake & Output 09/12/24 09/13/24 09/13/24 18:59 06:59 18:59 Intake Total 542.084 240 Balance 542.084 240 Intake: Intake, IV Titration 80.084 Amount Diltiazem 125 mg In 80.084 Sodium Chloride 0.9% 100 ml @ 10 MG/HR 10 mls/hr IV .[id number] [facility] Rx#: [id number] Oral 462 240 Other: Voiding Method Diaper Diaper Diaper # Voids 1 2 # Bowel Movements 1 1 1 - Exam GENERAL DESCRIPTION: An elderly female lying in bed in no distress RESPIRATORY SYSTEM: Unlabored breathing , decreased breath sounds at bases HEART: S1 S2 regular rate and rhythm , ABDOMEN: Soft , no tenderness EXTREMITIES: No edema feet - Labs CBC & Chem 7: 09/12/24 06:52 09/12/24 06:52 Assessment and Plan (1) Allergy to cephalosporin Current Visit: Yes Status: Acute Code(s): Z88.1 - ALLERGY STATUS TO OTHER ANTIBIOTIC AGENTS SNOMED Code(s): 604280553 (2) Altered mental status Current Visit: Yes Status: Acute Code(s): R41.82 - ALTERED MENTAL STATUS, UNSPECIFIED SNOMED Code(s): 827006619 (3) Influenza A Current Visit: Yes Status: Acute Code(s): J10.1 - FLU DUE TO OTH IDENT INFLUENZA VIRUS W OTH RESP MANIFEST SNOMED Code(s): 238335206 Plan: 1patient presented to the hospital with mental status changes and this patient has been recently diagnosed with influenza A at the custodial now with some hypoxemia mental status changes patient is currently not running any fever white count is normal clinically not behaving as secondary bacterial pneumonia x-ray finding could be mostly atelectasis 2-patient has completed 5-day course of Tamiflu for influenza 3-patient did have elevated procalcitonin 0.59 did have Keflex allergy 4-patient Levaquin discontinued by admitting this morning will monitor closely off antibiotic Dictation was produced using [employer] dictation software. please excuse any grammatical, word or spelling errors.
--- NOTE | 2024-09-14 06:44 | P.PN ---
Subjective Progress Note Date: 09/14/24 The patient is a 74-year-old female patient with a past medical history significant for history of COPD as well as history of baseline confusion/underlying dementia where the patient [facility] who was admitted to the hospital with flulike symptoms consistent of cough and congestions and she was diagnosed with influenza A after she was tested positive. We consulted to see the patient because of atrial fibrillation with RVR. Initial EKG when she presented to the hospital showed sinus mechanism with diffuse nonspecific ST and T wave abnormalities but subsequently she went into A-fib with RVR and then she converted to normal sinus mechanism with no history of atrial fibrillation and no other cardiovascular history from before. She is extremely poor historian and she is extremely confused. No indication of any chest pain or chest discomfort. She underwent further evaluation including chest x-ray did not show any acute abnormalities and she is currently receiving treatment for influenza A. An echocardiogram still pending. The physical examination is remarkable for change in mental status/confusion with regular rate and rhythm and soft systolic murmur and bilateral expiratory wheezing was noted with mild bilateral lower extremities edema September 10, 2024 The patient was seen and evaluated this morning she is asymptomatic from a cardiovascular standpoint of view and she is hemodynamically stable as well which she has been maintaining normal sinus mechanism with the echo still pending. The pressure is elevated. The physical examination is remarkable for regular rhythm with a soft systolic murmur and diminished breathing sounds bilaterally and no edema was noted in the lower extremities September 11, 2024 The patient was seen and evaluated this morning. She went into atrial fibrillation with RVR yesterday and subsequently she was converted to normal sinus mechanism after she was started on Cardizem IV. I am going to start the patient on oral Cardizem and DC Cardizem IVP the echo still pending. If she maintaining sinus mechanism she potentially can be discharged home later on today. Physical examination is remarkable for regular rhythm with a soft systolic murmur and clear breathing sounds bilaterally and no edema was noted in the lower extremities September 12, 2024 The patient was seen and evaluated this morning which she is back in normal sinus mechanism. She is on Cardizem IV. I am going to increase the dose of beta-henrietta and restart back her on oral Cardizem and try to wean her from Cardizem IV. Otherwise if she remains asymptomatic and remains hemodynamically stable with the physical examination appears to be overall unremarkable. September 13, 2024 The patient was seen and evaluated this morning. She went back into atrial fibrillation and she continues to be in atrial fibrillation with tachycardia. I am going to add amiodarone IV to the current medical regimen and switch her to oral amiodarone down the line with continue the current medical regimen including beta-henrietta and calcium channel henrietta. September 14, 2024 The patient was seen and evaluated this morning which she has been in sinus mechanism most of the night. I am going to DC amiodarone IV and start the patient on oral amiodarone and also increase the dose of Cardizem to 60 mg p.o. 3 times daily and start the patient on small dose of oral anticoagulation given her history of possible falling and bleeding. The physical examination appears to be consistent with regular rhythm with a distant heart sounds and soft systolic murmur and clear breathing sounds bilaterally and no edema was noted in the lower extremities Assessment Confusion Influenza A infection A-fib of acute illness Multiple comorbid conditions including COPD Plan Continue the current medical regimen Increase the dose of Cardizem DC amiodarone IV and start the patient on amiodarone orally Add oral anticoagulation Objective - Vital Signs Vital signs: Vital Signs Temp 97.5 F L 09/14/24 04:00 Pulse 78 09/14/24 04:00 Resp 18 09/14/24 04:00 BP 152/77 09/14/24 04:00 Pulse Ox 92 L 09/14/24 04:00 FiO2 Intake & Output 09/13/24 09/13/24 09/14/24 06:59 18:59 06:59 Intake Total 240 240.005 Balance 240 240.005 Intake: Intake, IV Titration 240.005 Amount Amiodarone 450 mg In 240.005 Dextrose 5% in Water 250 ml @ 0.5 MG/MIN 16.667 mls/hr IV .[id number] [facility] Rx#: [id number] Oral 240 Other: Voiding Method Diaper Diaper Diaper # Voids 2 1 # Bowel Movements 1 1 - Labs CBC & Chem 7: 09/12/24 06:52 09/12/24 06:52 Labs: Microbiology - Last 24 Hours (Table) 09/08/24 12:30 Blood Culture - Final Blood
[2024-09-14] MEDS: APIXABAN 2.5 MG TABLET PO SCH (08:04)
[2024-09-14] MEDS: AMIODARONE 200 MG TAB PO SCH (08:04)
[2024-09-14] MEDS: DILTIAZEM ORAL 60 MG TAB PO SCH (08:04)
--- NOTE | 2024-09-14 10:57 | P.PN ---
Subjective Progress Note Date: 09/14/24 Principal diagnosis: Respiratory distress. Pulmonary consult dated September 09, 2024. 74-year-old female who presents to the emergency department, via EMS, on September 08, with mental status changes. The patient is seen by our group, in the emergency department, room 3. We see her on September 10, 2023, in the morning. The patient is very confused. She cannot provide any history whatsoever. She apparently was brought in from the facility, with mental status changes, and shortness of breath. She apparently has a history of COPD, hypertension, and hyperlipidemia. She was found to have atrial fibrillation in the emergency department, and placed on Cardizem drip at 10 mg an hour. She also tested positive for influenza A. She is currently on 3 L. She is not receiving any IV fluids. She is on Tamiflu, Levaquin, and Flagyl. Again, she cannot provide any history whatsoever. She does not appear to be in any distress whatsoever. According to the ER [facility], she has a history of COPD, hyperlipidemia, hypertension, osteoarthritis, hypothyroidism, lupus, gout, and previous MRSA infection. She is apparently a former smoker. Current laboratory data includes a white count of 7.3, hemoglobin 8.8, hematocrit 26.8, and a normal platelet count. PTT was 30.1. Venous blood gases showed a pCO2 of 54 and a pH of 7.46. Sodium 142, potassium 3.1, chlorides 101, CO2 33, BUN 44, creatinine 1.13. Glucose was 145. AST was 45. ALT was 43. N-terminal proBNP was elevated 8900. Urine was cloudy, with 1+ protein. There was trace blood. 10 RBCs, 3 WBCs, and few bacteria. Drug screen was positive for tricyclic antidepressants. Alcohol level was less than 10. She did test positive for influenza A. Chest x-ray in my opinion shows a pattern that is consistent with either pneumonia and/or CHF. Progress note dated September 10, 2024. 74-year-old female seen yesterday emergency department. She apparently came in with a vague history of respiratory difficulty. She did test positive for influenza A. The patient is currently on 3 L of oxygen by nasal cannula. Saturations are 96%. She is not receiving any IV fluids. The patient's procalcitonin level was 0.32. The patient is very confused, and cannot really give any reliable history. She looks like she is not having any respiratory distress. No new labs today as yet. Blood cultures are negative. Initial proc alcitonin level was 0.59. Repeat level was 0.32. She remains on Levaquin for the time being. Progress note dated September 11, 2024. A 74-year-old female seen in the emergency department, 2 days ago. She came in with complaints of respiratory difficulty, and unfortunately, was a very poor historian. She did test positive for influenza A. She is seen today in room 352. She is on 2 L. She is got a Cardizem drip running at 5 mg an hour, but it will be turned off shortly, because she was transitioned to oral Cardizem. The patient appears in no distress. She is on 2 L. No new labs today. Progress note dated September 12, 2024. 74-year-old female seen again today in room 352. Currently, the patient is resting comfortably in bed. She is laying flat. She is on 2 L of oxygen. For atrial fibrillation, the patient is receiving Cardizem 5 mg an hour. Currently though, she is in normal sinus rhythm. White count 9.9, hemoglobin 9.5, hematocrit 29, and platelet count normal. Sodium 139, potassium 3.2, chlorides 98, CO2 35, anion gap 6, BUN 42, and creatinine 1.14. Glucose is 125. Calcium is 8.2. Magnesium is normal. Progress note dated September 13, 2024. 74-year-old female seen in room 352. Currently she is on room air. She is getting amiodarone at 1 mg/min. She is currently in normal sinus rhythm. She appears in no distress. No respiratory distress. No audible wheezing or use of accessory muscles. No conversational dyspnea. White count 9.9, hemoglobin 9.5, hematocrit 29, platelet count 378,000. Sodium 139, potassium 3.2, chlorides 98, CO2 35, BUN 42, creatinine 1.14. Glucose is 125. Calcium is 8.1. Magnesium is 2.2. Procalcitonin level was 0.32. Progress note dated September 14, 2024. 74-year-old female seen in room 352. The patient is feeling better today. She continues on room air. She is not receiving any IV fluids. The patient states that she is feeling better. She is still in atrial fibrillation. Yesterday, she was on amiodarone IV. No new labs today. Objective - Vital Signs Vital signs: Vital Signs Temp 97.8 F 09/14/24 08:00 Pulse 77 09/14/24 08:56 Resp 17 09/14/24 08:00 BP 168/86 09/14/24 08:00 Pulse Ox 93 L 09/14/24 08:56 FiO2 Intake & Output 09/13/24 09/14/24 09/14/24 18:59 06:59 18:59 Intake Total 240 240.005 0 Balance 240 240.005 0 Intake: Intake, IV Titration 240.005 Amount Amiodarone 450 mg In 240.005 Dextrose 5% in Water 250 ml @ 0.5 MG/MIN 16.667 mls/hr IV .Q15H [facility] Rx#: [id number] Oral 240 0 Other: Voiding Method Diaper Diaper Diaper # Voids 1 # Bowel Movements 1 - Exam No acute distress, very confused, unable to provide any history. The patient is on room air. HEENT examination is grossly unremarkable. Mucous membranes are moist. No oral lesions. Neck supple. Full range of motion. No adenopathy thyromegaly or neck vein distention. Cardiovascular examination reveals an irregular rhythm and rate. S1-S2 normal. No S3 or S4. No discernible murmur noted. Lungs reveal scattered rhonchi and crackles. Breath sounds equal bilaterally. No wheezes. Abdomen soft bowel sounds are heard. No masses or tenderness. Extremities are intact. No cyanosis clubbing or edema. Skin is without rash or lesion. Neurologic examination is brief but nonfocal. - Labs CBC & Chem 7: 09/12/24 06:52 09/12/24 06:52 Labs: Microbiology - Last 24 Hours (Table) 09/08/24 12:30 Blood Culture - Final Blood Assessment and Plan Assessment: Acute hypoxemic respiratory failure, likely multifactorial, in part related to atrial fibrillation/RVR, influenza A infection, congestive heart failure and COPD exacerbation. New onset atrial fibrillation/RVR. History of COPD from previous tobacco use. Significant confusion and disorientation, likely not new. History of hyperlipidemia. History of hypertension. History of osteoarthritis. Hypothyroidism. History of lupus. History of gout. Plan: Plan dated September 09, 2024. The patient is seen in the emergency department, room 3. She is very confused, and can give no history. She was admitted with confusion, and shortness of breath. She was found to have atrial fibrillation/RVR, as well as likely COPD exacerbation, CHF, possibly pneumonia. She is on Cardizem at 10 mg an hour, and nasal O2 at 3 L. We did order a procalcitonin level which is currently pending. N-terminal proBNP was elevated at 8900. She is on Tamiflu, Levaquin, and Flagyl. Flagyl can likely be discontinued, and if the procalcitonin level is normal, so can Levaquin. She is already on the Tamiflu as mentioned above. Will make sure that she is on other appropriate medications. Prognosis is guarded. The patient is a DO NOT RESUSCITATE patient. Labs, x-rays, and all medications are reviewed. Dictation was produced using [employer] software. Please excuse any grammatical, word or spelling errors. Plan dated September 10, 2024. The patient is seen today in room 352. The patient continues on oxygen by nasal cannula at 3 L. No IV fluids. She continues on Levaquin. Most recent procalcitonin level was down in the normal range at 0.32. Initial procalcitonin level was abnormal. The patient is receiving Tamiflu for influenza A. All labs, x-rays, medications are reviewed. The patient is still very confused, and cannot give any reliable history. She does not appear to be in any distress. The patient is a DO NOT RESUSCITATE patient. We will continue to follow make recommendations along the way. Dictation was produced using [employer] software. Please excuse any grammatical, word or spelling errors. Plan dated September 11, 2024. The patient is seen today in room 352. The patient was on a Cardizem drip at 5 mg an hour. The nurse tells us, that the patient was transitioned to oral Cardizem, and the drip will be turned off in 1 hour. Clinically, the patient is feeling much better. She continues on oxygen at 2 L. The patient's initial procalcitonin level was 0.59. Repeat was 0.32. The patient continues on Levaquin, and Tamiflu. She needs to complete 5 days of Tamiflu. Labs, x-rays, and medications are reviewed. The patient is a DO NOT RESUSCITATE patient. Prognosis is guarded. Dictation was produced using [employer] software. Please excuse any grammatical, word or spelling errors. Plan dated September 12, 2024. The patient is seen today in room 352. The patient is on 2 L of oxygen. She continues on Cardizem for atrial fibrillation, 5 mg an hour. Currently, the patient is in normal sinus rhythm. Labs, x-rays, and all medications are reviewed. The patient's overall prognosis remains guarded. She still is quite confused. She is a DO NOT RESUSCITATE patient. We will continue to follow. She did test positive for influenza, and was given Tamiflu, for 5 days, twice a day. Dictation was produced using [employer] software. Please excuse any grammatical, word or spelling errors. Plan dated September 13, 2024. The patient is seen today in room 352. The patient has been transitioned to room air. She is getting amiodarone at 1 mg/min. Yesterday she was on Cardizem at 5 mg an hour. The patient is currently in sinus rhythm. No acute distress. She denies any shortness of breath, cough, wheezing, chest tightness, or phlegm production. All labs, x-rays, and medications are reviewed. We will continue to follow make recommendations along the way. Prognosis is thought to be generally good. Patient has completed her Tamiflu. Dictation was produced using [employer] software. Please excuse any grammatical, word or spelling errors. Plan dated September 14, 2024. The patient is seen today in room 352. She remains on room air. No IV fluids or drips. She was initially on Cardizem IV, and then amiodarone IV. Currently, the patient states that she is not having any significant shortness of breath, c ough, wheezing, chest tightness, or phlegm production. She also denies any chest pain or pressure. She is not a reliable historian though. No new labs today. We will continue to follow. Prognosis is guarded. Dictation was produced using [employer] software. Please excuse any grammatical, word or spelling errors. Time with Patient: Less than 30
--- NOTE | 2024-09-14 11:13 | P.PN ---
Subjective This is a pleasant 74 years old female who presents from residential. Patient currently nonverbal, not waking up to verbal or tactile stimuli Information were obtained from her friend and her advocate at bedside Ms. Andrew with the phone number of [phone] Patient had 2 falls in August 02 associated with hip fracture and problems hence she went to rehab. She has been complaining from pain in her right hip for a while since then and has been taking several pain medication and narcotics. Her friend and advocate thinks excessive pain medication contributed to her presentation. Patient has been confused over the last 4 to 5 days since last Sunday. She sleeps a lot she is weak and she was getting worse so she was transferred to the hospital Patient hemodynamically stable and afebrile Labs showing hemoglobin 9.1, WBC elevated slightly above baseline but still within the reference range, creatinine at baseline of 1.4, baseline 1.3-1.7, INR is within the reference range Urinalysis no suspicion of infection Influenza test is positive while COVID test is negative pH is 7.4 and pCO2 is 24 [address] of the brain is negative for acute process Chest x-ray showing new bibasilar infiltrate versus atelectasis Urine drug screen is positive for TCA serum alcohol is less than 10 EKG showing sinus rhythm with PVC 09/09 Patient is more awake and alert today, she is still pleasantly confused, she can recognize the hospital once reminded. But she is still disoriented to time and person. She follows command and she has little insight into her illness. She complained from little shortness of breath and coughing but no chest pain No abdominal pain or vomiting. She has some dark greenish stool, occult blood test was requested No specific urinary complaint. No headache or dizziness or weakness or numbness. No skin rashes or pressure ulcer Patient developed A-fib and RVR overnight with heart rate 154 and currently 125 while she is on Cardizem drip She is already on metoprolol 25 mg will increase the dose to 50 mg She is currently on aspirin and subcutaneous heparin Also she is on antibiotic with Levaquin and Flagyl and Tamiflu We will discontinue Ringer lactate. Continue on Bumex 1 mg twice daily 09/10 Patient awake alert Her mentation is improving she knows she is in the hospital or that she could not tell which she knows 2024 although she could not tell the exact date and month but she did not know the president name. She has also mild insight to her illness and follow commands and looks pleasant and relaxed Per family she is more confused at baseline and she fell few days or weeks prior. She was complaining from pain in her right hip area, her right lower ext remity is not shortened or externally rotated, x-ray of the right hip and pelvis was negative for fracture, I reviewed the x-rays by myself and agree with these findings Her vitals look stable. Tachycardia is improving. She is saturating 96% on 3 L oxygen via nasal cannula Hemoglobin stable 8.9 creatinine improved down to 1.23. She is continued with Levaquin 500 mg for 4 more days for her pneumonia. 09/11 Patient was doing well clinically she was alert awake oriented to time place person, she knows she in the hospital and the date and the name of the president also she had insight. However by the afternoon she developed A-fib and RVR again and she had to be placed back on Cardizem drip at 10 mg/h. Heart rate improved from 150 down to 68 Will check electrolytes and labs in the morning. Will place on a small dose of magnesium for short course In the meantime continue with antibiotics. Continue IV Solu-Medrol. Continue with Tamiflu for 3 more doses 09/12 Patient clinically doing well today. Mentation is at baseline She denies chest pain or dyspnea No other new complaints Heart rate is controlled today, metoprolol dose which was 25 on admission increase later to 50 because of yesterday it was increased to 100 mg twice daily now and Cardizem 30 mg 3 times daily was added. As per staff her heart rate was still up and down overnight but currently controlled we will keep monitoring. Once heart rate controlled patient may be considered for discharge within 24 hours 09/13 Patient states she is doing fine Her heart rate been controlled in the 60s and 70s since yesterday She remains on amiodarone drip with plan to switch her to oral. No other complaint, 09/14 Patient heart rate is better controlled after stopping amiodarone drip and switch to amiodarone oral dose 400 twice daily. Also patient on metoprolol 100 mg twice daily and Cardizem 60 mg 3 times daily Also she was started on Eliquis 2.5 mg. Patient remains on IV Solu-Medrol 40 mg. Patient is not getting antibiotic currently. Possible discharge 24 to 48 hours Objective - Vital Signs Vital signs: Vital Signs Temp 97.8 F 09/14/24 08:00 Pulse 64 09/14/24 11:11 Resp 15 09/14/24 11:11 BP 123/61 09/14/24 11:11 Pulse Ox 92 L 09/14/24 11:11 FiO2 Intake & Output 09/13/24 09/14/24 09/14/24 18:59 06:59 18:59 Intake Total 240 240.005 0 Balance 240 240.005 0 Intake: Intake, IV Titration 240.005 Amount Amiodarone 450 mg In 240.005 Dextrose 5% in Water 250 ml @ 0.5 MG/MIN 16.667 mls/hr IV .Q15H [facility] Rx#: [id number] Oral 240 0 Other: Voiding Method Diaper Diaper Diaper # Voids 1 # Bowel Movements 1 - Exam -GENERAL: The patient is alert and oriented x0-1, which looks her baseline of dementia, not in any acute distress. Well developed, well nourished. HEENT: Pupils are round and equally reacting to light. EOMI. No scleral icterus. No conjunctival pallor. Normocephalic, atraumatic. No pharyngeal erythema. No thyromegaly. CARDIOVASCULAR: S1 and S2 present. No murmurs, rubs, or gallops. -PULMONARY: Chest is clear to auscultation, no wheezing , bilateral basal crackles. ABDOMEN: Soft, nontender, nondistended, normoactive bowel sounds. No palpable organomegaly. MUSCULOSKELETAL: No joint swelling or deformity. EXTREMITIES: No cyanosis, clubbing, or pedal edema. NEUROLOGICAL: Gross neurological examination did not reveal any focal deficits. SKIN: No rashes. no petechiae. - Labs CBC & Chem 7: 09/12/24 06:52 09/12/24 06:52 Labs: Microbiology - Last 24 Hours (Table) 09/08/24 12:30 Blood Culture - Final Blood Assessment and Plan Assessment: Altered mental status most likely metabolic/toxic encephalopathy, thought secondary to pain medication and infection Possible bibasilar pneumonia Possible acute CHF exacerbation A-fib and RVR Acute hypoxic respiratory failure Influenza A Dementia Chronic kidney disease stage III Plan: Patient currently on metoprolol 100 mg and Cardizem 60 mg and oral amiodarone antibiotic Levaquin is discontinued now Also past started on IV Solu-Medrol Continue with Tamiflu Pulmonary team consult Cardiology team consult Will consult infectious disease team Follow-up culture results Increase metoprolol to 50 mg twice daily Continue with Bumex 1 mg twice daily Labs and medication were reviewed.. Continue same treatment. Continue with symptomatic treatment. Resume home medication. Monitor labs and vitals. DVT and GI prophylaxis. Further recommendations as per clinical course of the patient DVT prophylaxis: S on Eliquis GI Prophylaxis: Pepcid Prognosis is guarded CODE STATUS: DNR, confirmed with her advocate and friend
--- NOTE | 2024-09-14 13:10 | P.PN ---
Subjective Progress Note Date: 09/14/24 Principal diagnosis: Reason for follow-up is influenza and pneumonia Patient is a 74-year-old female past medical history nephric and for COPD hypertension hyperlipidemia osteoarthritis presenting to the hospital for evaluation of mental status changes shortness of breath from a local group home with a diagnosis of influenza with concern for possible pneumonia. On today's evaluation that is 09/14/2024, Patient is afebrile patient is currently on room air and breathing comfortably did have some cough no worsening no vomiting or diarrhea. No new lab has been repeated today blood culture has been negative Objective - Vital Signs Vital signs: Vital Signs Temp 97.8 F 09/14/24 08:00 Pulse 64 09/14/24 11:44 Resp 15 09/14/24 11:11 BP 123/61 09/14/24 11:11 Pulse Ox 92 L 09/14/24 11:11 FiO2 Intake & Output 09/13/24 09/14/24 09/14/24 18:59 06:59 18:59 Intake Total 240 240.005 0 Balance 240 240.005 0 Intake: Intake, IV Titration 240.005 Amount Amiodarone 450 mg In 240.005 Dextrose 5% in Water 250 ml @ 0.5 MG/MIN 16.667 mls/hr IV .Q15H [facility] Rx#: [id number] Oral 240 0 Other: Voiding Method Diaper Diaper Diaper # Voids 1 # Bowel Movements 1 - Exam GENERAL DESCRIPTION: An elderly female lying in bed in no distress RESPIRATORY SYSTEM: Unlabored breathing , decreased breath sounds at bases HEART: S1 S2 regular rate and rhythm , ABDOMEN: Soft , no tenderness EXTREMITIES: No edema feet - Labs CBC & Chem 7: 09/12/24 06:52 09/12/24 06:52 Labs: Microbiology - Last 24 Hours (Table) 09/08/24 12:30 Blood Culture - Final Blood Assessment and Plan (1) Allergy to cephalosporin Current Visit: Yes Status: Acute Code(s): Z88.1 - ALLERGY STATUS TO OTHER AN TIBIOTIC AGENTS SNOMED Code(s): 633030581 (2) Altered mental status Current Visit: Yes Status: Acute Code(s): R41.82 - ALTERED MENTAL STATUS, UNSPECIFIED SNOMED Code(s): 234525166 (3) Influenza A Current Visit: Yes Status: Acute Code(s): J10.1 - FLU DUE TO OTH IDENT INFLUENZA VIRUS W OTH RESP MANIFEST SNOMED Code(s): 685708710 Plan: 1patient presented to the hospital with mental status changes and this patient has been recently diagnosed with influenza A at the group home now with some hypoxemia mental status changes patient is currently not running any fever white count is normal clinically not behaving as secondary bacterial pneumonia x-ray finding could be mostly atelectasis 2-patient has completed 5-day course of Tamiflu for influenza 3-patient did have elevated procalcitonin 0.59 did have Keflex allergy 4-patient completed a course of Levaquin currently being monitored closely off antibiotic therapy Dictation was produced using [employer] dictation software. please excuse any grammatical, word or spelling errors.
[2024-09-15 06:37] LABS: Basophils % (A) 0 %; Eosinophils % (A) 0 %; HCT 31.8 % (34.0-46.0); HGB 9.7 gm/dL (11.4-16.0); Lymphocytes # (A) 0.4 k/uL (1.0-4.8); Lymphocytes % (A) 3 %; MCH 29.7 pg (25.0-35.0); MCHC 30.5 g/dL (31.0-37.0); MCV 97.3 fL (80.0-100.0); Mean Platelet Volume 7.6; Monocytes # (A) 0.3 k/uL (0-1.0); Monocytes % (A) 2 %; Neutrophils % (A) 95 %; Platelet Count 435 k/uL (150-450); RBC 3.27 m/uL (3.80-5.40); RDW 13.5 % (11.5-15.5); WBC 15.8 k/uL (3.8-10.6)
[2024-09-15 07:23] LABS: African American GFR (CKD) 58 (>60 ml/min/1.73 sqM); Anion Gap 4 mmol/L; Blood Urea Nitrogen 41 mg/dL (7-17); Calcium 8.1 mg/dL (8.4-10.2); Carbon Dioxide 38 mmol/L (22-30); Chloride 95 mmol/L (98-107); Glucose 106 mg/dL (74-99); Magnesium 2.6 mg/dL (1.6-2.3); Non-African American GFR(CKD) 50 (>60 ml/min/1.73 sqM); Potassium 3.4 mmol/L (3.5-5.1); Sodium 137 mmol/L (137-145)
[2024-09-15] MEDS: FAMOTIDINE 20 MG TAB PO SCH (09:23)
[2024-09-15 10:26] VITALS: BMI 25.4
[2024-09-15] MEDS: POTASSIUM CHLORIDE ER 20 MEQ TAB.ER PO STA (12:14)
--- NOTE | 2024-09-15 14:18 | P.PN ---
Subjective Progress Note Date: 09/15/24 The patient is a 74-year-old female patient with a past medical history significant for history of COPD as well as history of baseline confusion/underlying dementia where the patient currently is a resident at [facility] who was admitted to the hospital with flulike symptoms consistent of cough and congestions and she was diagnosed with influenza A after she was tested positive. We consulted to see the patient because of atrial fibrillation with RVR. Initial EKG when she presented to the hospital showed sinus mechanism with diffuse nonspecific ST and T wave abnormalities but subsequently she went into A-fib with RVR and then she converted to normal sinus mechanism with no history of atrial fibrillation and no other cardiovascular history from before. She is extremely poor historian and she is extremely confused. No indication of any chest pain or chest discomfort. She underwent further evaluation including chest x-ray did not show any acute abnormalities and she is currently receiving treatment for influenza A. An echocardiogram still pending. The physical examination is remarkable for change in mental status/confusion with regular rate and rhythm and soft systolic murmur and bilateral expiratory wheezing was noted with mild bilateral lower extremities edema September 10, 2024 The patient was seen and evaluated this morning she is asymptomatic from a cardiovascular standpoint of view and she is hemodynamically stable as well which she has been maintaining normal sinus mechanism with the echo still pending. The pressure is elevated. The physical examination is remarkable for regular rhythm with a soft systolic murmur and diminished breathing sounds bilaterally and no edema was noted in the lower extremities September 11, 2024 The patient was seen and evaluated this morning. She went into atrial fibrillation with RVR yesterday and subsequently she was converted to normal sinus mechanism after she was started on Cardizem IV. I am going to start the patient on oral Cardizem and DC Cardizem IVP the echo still pending. If she maintaining sinus mechanism she potentially can be discharged home later on today. Physical examination is remarkable for regular rhythm with a soft systolic murmur and clear breathing sounds bilaterally and no edema was noted in the lower extremities September 12, 2024 The patient was seen and evaluated this morning which she is back in normal sinus mechanism. She is on Cardizem IV. I am going to increase the dose of beta-henrietta and restart back her on oral Cardizem and try to wean her from Cardizem IV. Otherwise if she remains asymptomatic and remains hemodynamically stable with the physical examination appears to be overall unremarkable. September 13, 2024 The patient was seen and evaluated this morning. She went back into atrial fibrillation and she continues to be in atrial fibrillation with tachycardia. I am going to add amiodarone IV to the current medical regimen and switch her to oral amiodarone down the line with continue the current medical regimen including beta-henrietta and calcium channel henrietta. September 14, 2024 The patient was seen and evaluated this morning which she has been in sinus mechanism most of the night. I am going to DC amiodarone IV and start the patient on oral amiodarone and also increase the dose of Cardizem to 60 mg p.o. 3 times daily and start the patient on small dose of oral anticoagulation given her history of possible falling and bleeding. The physical examination appears to be consistent with regular rhythm with a distant heart sounds and soft systolic murmur and clear breathing sounds bilaterally and no edema was noted in the lower extremities 09/15/2024 Patient is seen and examined at bedside this a.m. Patient's heart rate is around 65 bpm while the patient is resting. She is in sinus rhythm. Patient denies any chest pain chest pressure appears euvolemic on exam On today's evaluation blood pressure is noticed to be elevated in 190s before the morning meds. On today's visit I have optimized her medications, jesus would recommend holding her for a day for 24-hour of hemodynamic monitoring, if blood pressure and heart rate is good tomorrow, consider discharging On exam S1-S2 is audible, no significant murmurs appreciated Lungs are clear to auscultate with no crackles wheezing or rhonchi JVP is not elevated No swelling in the bilateral legs No focal neurological deficit, declined exam was not performed Abdomen is nondistended, bowel sounds are present Assessment Metabolic encephalopathy Influenza A infection A-fib, paroxysmal, currently in sinus rhythm Multiple comorbid conditions including COPD Plan Eliquis 2.5 mg twice daily. Discontinue aspirin Decrease Cardizem to 30 mg every 6 hours. Continue amiodarone 400 mg twice daily Start losartan 25 mg daily Continue metoprolol 100 mg twice daily Increase hydralazine to 25 mg 4 times a day, discontinue Imdur Obtain labs tomorrow, if blood pressure and heart rate is stable, change Cardizem to long-acting Anticipate discharge in next 24 to 48 hours Consider a 7-day extended Holter monitor at the time of discharge to look for heart rate trends Recommend outpatient follow-up with cardiology Objective - Vital Signs Vital signs: Vital Signs Temp 97.8 F 09/15/24 09:20 Pulse 61 09/15/24 12:00 Resp 17 09/15/24 12:00 BP 157/69 09/15/24 12:00 Pulse Ox 94 L 09/15/24 12:00 FiO2 Intake & Output 09/14/24 09/15/24 09/15/24 18:59 06:59 18:59 Intake Total 240 360 Output Total 750 Balance 240 -750 360 Weight 58.967 kg Intake: Oral 240 360 Output: Urine 750 Other: Voiding Method Diaper Diaper Diaper External Catheter External Catheter External Catheter - Labs CBC & Chem 7: 09/15/24 05:32 09/15/24 05:32 Labs: Abnormal Lab Results - Last 24 Hours (Table) 09/15/24 09/15/24 Range/Units 05:32 05:32 WBC 15.8 H (3.8-10.6) k/uL RBC 3.27 L (3.80-5.40) m/uL Hgb 9.7 L (11.4-16.0) gm/dL Hct 31.8 L (34.0-46.0) % MCHC 30.5 L (31.0-37.0) g/dL Neutrophils # 15.0 H (1.3-7.7) k/uL Lymphocytes # 0.4 L (1.0-4.8) k/uL Potassium 3.4 L (3.5-5.1) mmol/L Chloride 95 L (98-107) mmol/L Carbon Dioxide 38 H (22-30) mmol/L BUN 41 H (7-17) mg/dL Creatinine 1.09 H (0.52-1.04) mg/dL Glucose 106 H (74-99) mg/dL Calcium 8.1 L (8.4-10.2) mg/dL Magnesium 2.6 H (1.6-2.3) mg/dL
[2024-09-15] MEDS: hydrALAZINE HCL 25 MG TAB PO SCH (15:20)
[2024-09-15] MEDS: LOSARTAN 25 MG TAB PO SCH (15:20)
--- NOTE | 2024-09-15 15:34 | P.PN ---
Subjective Progress Note Date: 09/15/24 74-year-old female who presents to the emergency department, via EMS, on September 08, with mental status changes. The patient is seen by our group, in the emergency department, room 3. We see her on September 10, 2023, in the morning. The patient is very confused. She cannot provide any history whatsoever. She apparently was brought in from the facility, with mental status changes, and shortness of breath. She apparently has a history of COPD, hypertension, and hyperlipidemia. She was found to have atrial fibrillation in the emergency department, and placed on Cardizem drip at 10 mg an hour. She also tested positive for influenza A. On today's evaluation of 09/15/2024, the patient is being seen for a follow-up. Patient is doing well. No specific complaints. She is currently on room air o xygen with a pulse ox of 94%. Calm and comfortable. Remains on DuoNeb nebulized treatments [id number]. She is on Symbicort. She is also completing a prednisone burst taper. No other significant events overnight. The patient's cardiac rhythm is sinus. The patient remains on amiodarone 4 mg p.o. twice a day. The patient is also on Cardizem 30 mg p.o. 4 times daily and metoprolol 100 mg p.o. twice a day. The patient remains on anticoagulation with Eliquis. Echocardiogram was done 09/11/2024 and it showed a preserved LV function with moderate degree of pulm hypertension and estimated right ventricular systolic pressure was around 47. Objective - Vital Signs Vital signs: Vital Signs Temp 97.8 F 09/15/24 09:20 Pulse 69 09/15/24 09:20 Resp 18 09/15/24 09:20 BP 190/82 09/15/24 09:20 Pulse Ox 93 L 09/15/24 09:20 FiO2 Intake & Output 09/14/24 09/15/24 09/15/24 18:59 06:59 18:59 Intake Total 240 240 Output Total 750 Balance 240 -750 240 Weight 58.967 kg Intake: Oral 240 240 Output: Urine 750 Other: Voiding Method Diaper Diaper Diaper External Catheter External Catheter External Catheter - Exam No acute distress, very confused, unable to provide any history. The patient is on room air. HEENT examination is grossly unremarkable. Mucous membranes are moist. No oral lesions. Neck supple. Full range of motion. No adenopathy thyromegaly or neck vein distention. Cardiovascular examination reveals an irregular consistent with cardiac rhythm there is sinus. S1-S2 normal. No S3 or S4. No discernible murmur noted. Lungs reveal scattered rhonchi and crackles. Breath sounds equal bilaterally. No wheezes. Abdomen soft bowel sounds are heard. No masses or tenderness. Extremities are intact. No cyanosis clubbing or edema. Skin is without rash or lesion. Neurologic examination is brief but nonfocal. - Labs CBC & Chem 7: 09/15/24 05:32 09/15/24 05:32 Labs: Abnormal Lab Results - Last 24 Hours (Table) 09/15/24 09/15/24 Range/Units 05:32 05:32 WBC 15.8 H (3.8-10.6) k/uL RBC 3.27 L (3.80-5.40) m/uL Hgb 9.7 L (11.4-16.0) gm/dL Hct 31.8 L (34.0-46.0) % MCHC 30.5 L (31.0-37.0) g/dL Neutrophils # 15.0 H (1.3-7.7) k/uL Lymphocytes # 0.4 L (1.0-4.8) k/uL Potassium 3.4 L (3.5-5.1) mmol/L Chloride 95 L (98-107) mmol/L Carbon Dioxide 38 H (22-30) mmol/L BUN 41 H (7-17) mg/dL Creatinine 1.09 H (0.52-1.04) mg/dL Glucose 106 H (74-99) mg/dL Calcium 8.1 L (8.4-10.2) mg/dL Magnesium 2.6 H (1.6-2.3) mg/dL Assessment and Plan Plan: Acute hypoxemic respiratory failure, likely multifactorial, in part related to atrial fibrillation/RVR, influenza A infection, congestive heart failure and COPD exacerbation. She has completed Tamiflu patient is currently on prednisone burst taper. The patient is also on room air oxygen. New onset atrial fibrillation/RVR, recovered and she is in NSR, echocardiogram from 09/11/2024 showed a normal LV without any significant valvular abnormalities. The patient converted to normal sinus rhythm. Currently on a combination of metoprolol, Cardizem and amiodarone. The patient remains on anticoagulation with Eliquis History of COPD from previous tobacco use. Significant confusion and disorientation, likely not new, recovered History of hyperlipidemia. History of hypertension. History of osteoarthritis. Hypothyroidism. History of lupus. History of gout Plan: Patient currently on room air oxygen Continue bronchodilators Continue prednisone burst taper Completed the course of Tamiflu Continue anticoagulation with Eliquis Continue amiodarone, metoprolol and Cardizem Echocardiogram was noted and the patient has a preserved LV function with moderate degree of pulm hypertension. Will continue to follow. Time with Patient: Greater than 30
[2024-09-15 16:32] VITALS: RESP 18
[2024-09-15] MEDS: DILTIAZEM ORAL 30 MG TAB PO SCH (17:19)
--- NOTE | 2024-09-15 22:38 | P.PN ---
Subjective Progress Note Date: 09/15/24 Principal diagnosis: Reason for follow-up is influenza and pneumonia Patient is a 74-year-old female past medical history nephric and for COPD hypertension hyperlipidemia osteoarthritis presenting to the hospital for evaluation of mental status changes shortness of breath from a local [facility] with a diagnosis of influenza with concern for possible pneumonia. On today's evaluation that is 09/15/2024, patient has been afebrile, patient is breathing comfortably and is currently on room air, patient denies having any worsening cough no chest pain, patient denies nausea vomiting or diarrhea and no abdominal pain. Patient white count is 15.8 creatinine 1.09 Objective - Vital Signs Vital signs: Vital Signs Temp 97.8 F 09/15/24 09:20 Pulse 61 09/15/24 12:00 Resp 17 09/15/24 12:00 BP 157/69 09/15/24 12:00 Pulse Ox 94 L 09/15/24 12:00 FiO2 Intake & Output 09/14/24 09/15/24 09/15/24 18:59 06:59 18:59 Intake Total 240 360 Output Total 750 Balance 240 -750 360 Weight 58.967 kg Intake: Oral 240 360 Output: Urine 750 Other: Voiding Method Diaper Diaper Diaper External Catheter External Catheter External Catheter - Exam GENERAL DESCRIPTION: An elderly female lying in bed in no distress RESPIRATORY SYSTEM: Unlabored breathing , decreased breath sounds at bases HEART: S1 S2 regular rate and rhythm , ABDOMEN: Soft , no tenderness EXTREMITIES: No edema feet - Labs CBC & Chem 7: 09/15/24 05:32 09/15/24 05:32 Labs: Abnormal Lab Results - Last 24 Hours (Table) 09/15/24 09/15/24 Range/Units 05:32 05:32 WBC 15.8 H (3.8-10.6) k/uL RBC 3.27 L (3.80-5.40) m/uL Hgb 9.7 L (11.4-16.0) gm/dL Hct 31.8 L (34.0-46.0) % MCHC 30.5 L (31.0-37.0) g/dL Neutrophils # 15.0 H (1.3-7.7) k/uL Lymphocytes # 0.4 L (1.0-4.8) k/uL Potassium 3.4 L (3.5-5.1) mmol/L Chloride 95 L (98-107) mmol/L Carbon Dioxide 38 H (22-30) mmol/L BUN 41 H (7-17) mg/dL Creatinine 1.09 H (0.52-1.04) mg/dL Glucose 106 H (74-99) mg/dL Calcium 8.1 L (8.4-10.2) mg/dL Magnesium 2.6 H (1.6-2.3) mg/dL Assessment and Plan (1) Allergy to cephalosporin Current Visit: Yes Status: Acute Code(s): Z88.1 - ALLERGY STATUS TO OTHER ANTIBIOTIC AGENTS SNOMED Code(s): 541465493 (2) Altered mental status Current Visit: Yes Status: Acute Code(s): R41.82 - ALTERED MENTAL STATUS, UNSPECIFIED SNOMED Code(s): 643223623 (3) Influenza A Current Visit: Yes Status: Acute Code(s): J10.1 - FLU DUE TO OTH IDENT INFLUENZA VIRUS W OTH RESP MANIFEST SNOMED Code(s): 776460413 (4) Leukocytosis Current Visit: Yes Status: Acute Code(s): D72.829 - ELEVATED WHITE BLOOD CELL COUNT, UNSPECIFIED SNOMED Code(s): 285839800 Plan: 1patient presented to the hospital with mental status changes and this patient has been recently diagnosed with influenza A at the [facility] now with some hypoxemia mental status changes patient is currently not running any fever white count is normal clinically not behaving as secondary bacterial pneumonia x-ray finding could be mostly atelectasis 2-patient has completed 5-day course of Tamiflu for influenza 3-patient did have elevated procalcitonin 0.59 did have Keflex allergy 4-patient completed a course of Levaquin currently being monitored closely off antibiotic therapy 5leukocytosis more likely steroid related and will monitor closely Dictation was produced using [employer] dictation software. please excuse any grammatical, word or spelling errors. Time with Patient: Less than 30
--- NOTE | 2024-09-16 03:33 | P.DS ---
Providers Date of admission: 09/08/24 14:04 Attending physician: Madhav Bowers MD Consults: 09/08/24 14:01 Consult Physician Routine Consulting Provider: Zeus Jiménez Consult Reason/Comments: copd, pneumonia, influenza, hypoxic resp failure Do you want consulting provider notified?: Yes 09/08/24 18:57 Consult Physician Routine Consulting Provider: Melissa Fletcher Consult Reason/Comments: influenza, possible pna Do you want consulting provider notified?: Yes 09/09/24 04:06 Consult Physician Routine Consulting Provider: Demetrice Noel Consult Reason/Comments: Afib RvR Do you want consulting provider notified?: Yes, Notify in am Primary care physician: Liz Gagnon DO Hospital Course: Diagnoses: A-fib and RVR Altered mental status most likely metabolic/toxic encephalopathy, thought secondary to pain medication and infection bibasilar pneumonia, finished antibiotic treatment acute CHF exacerbation Acute hypoxic respiratory failure Influenza A Dementia Chronic kidney disease stage III: She Hospital course: This is a pleasant 74 years old female who [facility]. She was confused and with metabolic encephalopathy on the top of her dementia, currently is improved and mentation at baseline over the last 3 to 4 days. She was admitted with multiple medical problems including pneumonia, acute hypoxic respiratory failure, influenza A and A-fib with RVR. Patient was evaluated by multiple consultants including pulmonary, cardiology and infectious disease team. She was treated with Cardizem drip IV antibiotics Flagyl and Levaquin, IV fluid IV Solu-Medrol and Tamiflu. Also she received amiodarone and Cardizem and metoprolol. Patient showed interval improvement and her heart and lung function improved. Patient currently on room air, not tachypneic denies chest pain or dyspnea. No other new complaint. Patient [facility] Patient currently off antibiotic, no more need for antibiotics upon discharge. She almost finished her Tamiflu and her steroids switched to oral prednisone with pulmonary clearing her for discharge as well as infectious disease team. She was about to be discharged 3 days ago when she developed another episode of A-fib RVR and currently heart rate is controlled for more than 48 hours on amiodarone orally as well as oral Cardizem and metoprolol. Patient also started on Eliquis 2.5 mg for her A-fib Patient was cleared for discharge by all consultants including pulmonary, cardiology and infectious disease team. Problems and management plan were discussed with the patient and he verbalized understanding and acceptance Physical exam Gen: patient is a AAOx3, no distress CVS: S1-S2, RRR, no murmur Lungs: B/L CTA, no wheezing Abdomen: soft, no distention, no tenderness, positive bowel sounds Extremity: no leg edema or induration Time spent more than 35 minutes Patient Condition at Discharge: Serious Plan - Discharge Summary Discharge Rx Participant: No New Discharge Prescriptions: New hydrALAZINE HCL [Apresoline] 25 mg PO TID tab predniSONE 10 mg PO DIRECTED #30 tab Diltiazem Oral [Cardizem*] 60 mg PO TID #0 tab Amiodarone [Cordarone] 400 mg PO BID tab Apixaban [Eliquis] 2.5 mg PO BID tab Metoprolol Tartrate [Lopressor] 100 mg PO BID tab Famotidine [Pepcid] 20 mg PO DAILY tab Continue Levothyroxine Sodium 150 mcg PO DAILY@0500 Cholecalciferol [Vitamin D3 (25 Mcg = 1000 Iu)] 125 mcg PO HS Ascorbic Acid [Vitamin C] 1,000 mg PO DAILY Multivitamins, Thera [Multivitamin (formulary)] 1 tab PO HS Ferrous Sulfate [Feosol] 325 mg PO DAILY Atorvastatin [Lipitor] 80 mg PO HS Gabapentin [Neurontin] 100 mg PO BID #6 cap Promethazine [Phenergan] 25 mg PO Q6H PRN PRN Reason: Nausea And Vomiting Naloxone HCl [Narcan] 4 mg NASAL ONCE PRN PRN Reason: opiod overdose guaiFENesin [Mucinex] 600 mg PO BID PRN PRN Reason: Congestion Cyclobenzaprine [Flexeril] 10 mg PO Q8H PRN PRN Reason: Muscle Spasm Albuterol Sulfate [Ventolin HFA] 2 puff INHALATION RT-Q6H PRN PRN Reason: Shortness Of Breath Acetaminophen [Tylenol 8 Hour] 650 mg PO Q6H PRN PRN Reason: pain/fever Isosorbide Mononitrate ER [Imdur] 30 mg PO BID Sennosides [Senokot] 17.2 mg PO DAILY Nutritional Juice 1 dose PO DAILY@0730 Calcium Carbonate/Vitamin D3 [Calcium 600 mg-Vit D3 5 mcg (200 unit)] 1 tab PO DAILY Vitamin B Complex 1 cap PO HS Aspirin 81 mg PO HS Naloxone HCl 0.4 mg IM ONCE PRN PRN Reason: opiod overdose Acetaminophen Tab [Tylenol] 650 mg PO Q6H PRN PRN Reason: Fever And/ Or Pain Ipratropium-Albuterol Nebulize [Duoneb 0.5 mg-3 mg/3 ml Soln] 3 ml INHALATION RT-Q4H PRN PRN Reason: Shortness Of Breath rOPINIRole HCL [Requip] 0.5 mg PO BID Cold And Hot External Patch 5% 1 applic TOPICAL BID@0700,1900 Bumetanide [BUMEX] 1 mg PO BID@0700,1600 polyethylene glycoL 3350 [Miralax] 17 gm PO DAILY Folic Acid 0.8 mg PO HS Discontinued Metoprolol Tartrate [Lopressor] 25 mg PO BID #180 tablet traMADol HCL 75 mg PO Q4H PRN PRN Reason: Pain hydrALAZINE HCL [Apresoline] 25 mg PO BID Ranolazine [Ranexa] 1,000 mg PO Q12HR@0700,1900 Oseltamivir [Tamiflu] 30 mg PO Q2D Discharge Medication List Levothyroxine Sodium 150 mcg PO DAILY@0500 02/15/17 [History] Ascorbic Acid [Vitamin C] 1,000 mg PO DAILY 06/17/20 [History] Cholecalciferol [Vitamin D3 (25 Mcg = 1000 Iu)] 125 mcg PO HS 06/17/20 [History] Multivitamins, Thera [Multivitamin (formulary)] 1 tab PO HS 06/17/20 [History] Ferrous Sulfate [Feosol] 325 mg PO DAILY 07/13/20 [History] Atorvastatin [Lipitor] 80 mg PO HS 02/12/23 [History] Gabapentin [Neurontin] 100 mg PO BID #6 cap 02/14/23 [Rx] Acetaminophen Tab [Tylenol] 650 mg PO Q6H PRN 09/08/24 [History] Acetaminophen [Tylenol 8 Hour] 650 mg PO Q6H PRN 09/08/24 [History] Albuterol Sulfate [Ventolin HFA] 2 puff INHALATION RT-Q6H PRN 09/08/24 [History] Aspirin 81 mg PO HS 09/08/24 [History] Bumetanide [BUMEX] 1 mg PO BID@0700,1600 09/08/24 [History] Calcium Carbonate/Vitamin D3 [Calcium 600 mg-Vit D3 5 mcg (200 unit)] 1 tab PO DAILY 09/08/24 [History] Cold And Hot External Patch 5% 1 applic TOPICAL BID@0700,1900 09/08/24 [History] Cyclobenzaprine [Flexeril] 10 mg PO Q8H PRN 09/08/24 [History] Folic Acid 0.8 mg PO HS 09/08/24 [History] Ipratropium-Albuterol Nebulize [Duoneb 0.5 mg-3 mg/3 ml Soln] 3 ml INHALATION RT-Q4H PRN 09/08/24 [History] Isosorbide Mononitrate ER [Imdur] 30 mg PO BID 09/08/24 [History] Naloxone HCl 0.4 mg IM ONCE PRN 09/08/24 [History] Naloxone HCl [Narcan] 4 mg NASAL ONCE PRN 09/08/24 [History] Nutritional Juice 1 dose PO DAILY@0730 09/08/24 [History] Promethazine [Phenergan] 25 mg PO Q6H PRN 09/08/24 [History] Sennosides [Senokot] 17.2 mg PO DAILY 09/08/24 [History] Vitamin B Complex 1 cap PO HS 09/08/24 [History] guaiFENesin [Mucinex] 600 mg PO BID PRN 09/08/24 [History] polyethylene glycoL 3350 [Miralax] 17 gm PO DAILY 09/08/24 [History] rOPINIRole HCL [Requip] 0.5 mg PO BID 09/08/24 [History] hydrALAZINE HCL [Apresoline] 25 mg PO TID tab 09/11/24 [Rx] predniSONE 10 mg PO DIRECTED #30 tab 09/11/24 [Rx] Amiodarone [Cordarone] 400 mg PO BID tab 09/15/24 [Rx] Apixaban [Eliquis] 2.5 mg PO BID tab 09/15/24 [Rx] Diltiazem Oral [Cardizem*] 60 mg PO TID #0 tab 09/15/24 [Rx] Famotidine [Pepcid] 20 mg PO DAILY tab 09/15/24 [Rx] Metoprolol Tartrate [Lopressor] 100 mg PO BID tab 09/15/24 [Rx] Follow up Appointment(s)/Referral(s): Demetrice Noel MD [STAFF PHYSICIAN] - 2 Weeks Liz Gagnon DO [Primary Care Provider] - 1-2 days Zeus Jiménez DO [Doctor of Osteopathic Medicine] - 2 Weeks Activity/Diet/Wound Care/Special Instructions: Heart healthy diet Activity as tolerated Discharge Disposition: TRANSFER TO SNF/ECF
[2024-09-16 04:13] VITALS: TEMP 97.3
[2024-09-16 08:45] LABS: T4, Free (Free Thyroxine) 1.27 ng/dL (0.78-2.19)
[2024-09-16] MEDS: predniSONE 20 MG TAB PO SCH (09:15)
[2024-09-16 11:04] VITALS: PULSE 64
--- NOTE | 2024-09-16 11:38 | P.PN ---
Subjective Progress Note Date: 09/16/24 The patient is a 74-year-old female patient with a past medical history significant for history of COPD as well as history of baseline confusion/underlying dementia where the patient currently is a resident at [facility] who was admitted to the hospital with flulike symptoms consistent of cough and congestions and she was diagnosed with influenza A after she was tested positive. We consulted to see the patient because of atrial fibrillation with RVR. Initial EKG when she presented to the hospital showed sinus mechanism with diffuse nonspecific ST and T wave abnormalities but subsequently she went into A-fib with RVR and then she converted to normal sinus mechanism with no history of atrial fibrillation and no other cardiovascular history from before. She is extremely poor historian and she is extremely confused. No indication of any chest pain or chest discomfort. She underwent further evaluation including chest x-ray did not show any acute abnormalities and she is currently receiving treatment for influenza A. An echocardiogram still pending. The physical examination is remarkable for change in mental status/confusion with regular rate and rhythm and soft systolic murmur and bilateral expiratory wheezing was noted with mild bilateral lower extremities edema September 10, 2024 The patient was seen and evaluated this morning she is asymptomatic from a cardiovascular standpoint of view and she is hemodynamically stable as well which she has been maintaining normal sinus mechanism with the echo still pending. The pressure is elevated. The physical examination is remarkable for regular rhythm with a soft systolic murmur and diminished breathing sounds bilaterally and no edema was noted in the lower extremities September 11, 2024 The patient was seen and evaluated this morning. She went into atrial fibrillation with RVR yesterday and subsequently she was converted to normal sinus mechanism after she was started on Cardizem IV. I am going to start the patient on oral Cardizem and DC Cardizem IVP the echo still pending. If she maintaining sinus mechanism she potentially can be discharged home later on today. Physical examination is remarkable for regular rhythm with a soft systolic murmur and clear breathing sounds bilaterally and no edema was noted in the lower extremities September 12, 2024 The patient was seen and evaluated this morning which she is back in normal sinus mechanism. She is on Cardizem IV. I am going to increase the dose of beta-henrietta and restart back her on oral Cardizem and try to wean her from Cardizem IV. Otherwise if she remains asymptomatic and remains hemodynamically stable with the physical examination appears to be overall unremarkable. September 13, 2024 The patient was seen and evaluated this morning. She went back into atrial fibrillation and she continues to be in atrial fibrillation with tachycardia. I am going to add amiodarone IV to the current medical regimen and switch her to oral amiodarone down the line with continue the current medical regimen including beta-henrietta and calcium channel henrietta. September 14, 2024 The patient was seen and evaluated this morning which she has been in sinus mechanism most of the night. I am going to DC amiodarone IV and start the patient on oral amiodarone and also increase the dose of Cardizem to 60 mg p.o. 3 times daily and start the patient on small dose of oral anticoagulation given her history of possible falling and bleeding. The physical examination appears to be consistent with regular rhythm with a distant heart sounds and soft systolic murmur and clear breathing sounds bilaterally and no edema was noted in the lower extremities 09/15/2024 Patient is seen and examined at bedside this a.m. Patient's heart rate is around 65 bpm while the patient is resting. She is in sinus rhythm. Patient denies any chest pain chest pressure appears euvolemic on exam On today's evaluation blood pressure is noticed to be elevated in 190s before the morning meds. On today's visit I have optimized her medications, jesus would recommend holding her for a day for 24-hour of hemodynamic monitoring, if blood pressure and heart rate is good tomorrow, consider discharging 09/16/2024 Patient is seen in the bedside this a.m. Blood pressure still elevated with SBP around 160s to 170s. Heart rate is controlled sinus rhythm. Appears euvolemic On exam S1-S2 is audible, no significant murmurs appreciated Lungs are clear to auscultate with no crackles wheezing or rhonchi JVP is not elevated No swelling in the bilateral legs No focal neurological deficit, declined exam was not performed Abdomen is nondistended, bowel sounds are present Assessment Metabolic encephalopathy Influenza A infection A-fib, paroxysmal, currently in sinus rhythm Essential hypertension Multiple comorbid conditions including COPD Plan Eliquis 2.5 mg twice daily. Discontinue aspirin Reduce amiodarone to 200 mg twice daily. Continued for next 7 days until 09/23/2024. Thereafter reduce it to 200 mg p.o. daily Increase losartan to 50 mg daily Continue metoprolol 100 mg twice daily Discontinue Cardizem. Start amlodipine 5 mg daily instead hydralazine to 25 mg 4 times a day, discontinue Imdur Patient is cleared from cardiovascular standpoint. Recommend outpatient follow- up with cardiology Cardiology team will sign off Objective - Vital Signs Vital signs: Vital Signs Temp 97.3 F L 09/16/24 09:10 Pulse 64 09/16/24 11:04 Resp 18 09/16/24 09:10 BP 171/74 09/16/24 09:10 Pulse Ox 93 L 09/16/24 09:10 FiO2 Intake & Output 09/15/24 09/16/24 09/16/24 18:59 06:59 18:59 Intake Total 600 Output Total 300 100 Balance 300 -100 Weight 58.967 kg 59 kg Intake: Oral 600 Output: Urine 300 100 Other: Voiding Method Diaper Diaper Diaper External Catheter External Catheter External Catheter # Voids 1 - Labs CBC & Chem 7: 09/15/24 05:32 09/15/24 05:32 Labs: Abnormal Lab Results - Last 24 Hours (Table) 09/16/24 Range/Units 06:26 TSH 0.079 L (0.465-4.680) mIU/L
[2024-09-16 12:06] VITALS: BP 151/67
[2024-09-16] MEDS: LOSARTAN 25 MG TAB PO STA (12:35)
[2024-09-16] MEDS: amLODIPine 5 MG TAB PO SCH (12:35)
--- NOTE | 2024-09-16 14:40 | P.DS ---
Providers Date of admission: 09/08/24 14:04 Expected date of discharge: 09/16/24 Attending physician: Madhav Bowers MD Consults: 09/08/24 14:01 Consult Physician Routine Consulting Provider: Zeus Jiménez Consult Reason/Comments: copd, pneumonia, influenza, hypoxic resp failure Do you want consulting provider notified?: Yes 09/08/24 18:57 Consult Physician Routine Consulting Provider: Melissa Fletcher Consult Reason/Comments: influenza, possible pna Do you want consulting provider notified?: Yes Primary care physician: Liz Gagnon, Hospital Course: Final diagnosis A-fib and RVR, currently rate controlled Altered mental status most likely metabolic/toxic encephalopathy, likely secondary to pain medication and infection bibasilar pneumonia, present on admission, finished antibiotic treatment and will not require antibiotics on discharge acute CHF exacerbation Acute hypoxic respiratory failure, multifactorial secondary to acute influenza A as well as CHF exacerbation Influenza A Dementia Chronic kidney disease stage III GI prophylaxis DVT prophylaxis No code Discharge disposition Patient is being discharged in a stable condition with guarded prognosis to [facility]. Patient will follow-up with Dr. Gagnon in the outpatient setting upon discharge. Patient is to continue with current cardiac medications and close outpatient follow-up with cardiology as scheduled. Patient to follow- up with pulmonary as well outpatient. Total time taken is greater than 35 minutes. Hospital course Hospital course: This is a pleasant 74 years old female who presents from retirement. She was confused and with metabolic encephalopathy on the top of her dementia, currently is improved and mentation at baseline over the last 3 to 4 days. She was admitted with multiple medical problems including pneumonia, acute hypoxic respiratory failure, influenza A and A-fib with RVR. Patient was evaluated by multiple consultants including pulmonary, cardiology and infectious disease team. She was treated with Cardizem drip IV antibiotics Flagyl and Levaquin, IV fluid IV Solu-Medrol and Tamiflu. Also she received amiodarone and Cardizem and metop rolol. Patient showed interval improvement and her heart and lung function improved. Patient currently on room air, not tachypneic denies chest pain or dyspnea. No other new complaint. Patient eager to go back to her retirement. Patient currently off antibiotic, no more need for antibiotics upon discharge. She almost finished her Tamiflu and her steroids switched to oral prednisone with pulmonary clearing her for discharge as well as infectious disease team. Patient was recently reevaluated by cardiology as she was found to be in atrial fibrillation with RVR. Adjustments to medications being made and has been cleared by cardiology with medication changes as mentioned below. Patient will continue amiodarone taper of 200 mg twice daily for the next 7 days and then after 09/23/2024, decrease dose to 200 mg daily per cardiology and recommends close outpatient follow-up with cardiology and pulmonary. Please refer to other consultation notes for further HPI. Currently patient denies any chest pain, shortness of breath, or palpitations. Patient is afebrile and will not be going on antibiotics as infectious disease recommends monitoring off antibiotic therapy. Patient has received adequate amount of antibiotics prior to discharge. Patient has also completed Tamiflu during hospitalization. Patient has been cleared by consultations. Physical exam: Gen: This is a 74-year-old female who is awake, alert and oriented x 2, baseline, thin build, elderly appearing HEENT: Head is atraumatic, normocephalic. Pupils equal, round. Sclerae is anicteric. NECK: Supple. No JVD. No lymphadenopathy. No thyromegaly. LUNGS: Diminished breath sounds bilaterally otherwise clear to auscultation. No wheezes or rhonchi. No intercostal retractions. HEART: S1, S2 are muffled, irregular ABDOMEN: Soft. Thin. Bowel sounds are present. No masses. No tenderness. EXTREMITIES: No pedal edema. No calf tenderness. NEUROLOGICAL: Patient is awake, alert and oriented x2. Cranial nerves 2 through 12 are grossly intact. Diffusely weak Please refer to medication reconciliation sheet for a list of medications. The impression and plan of care has been dictated by Madyson Salvador, Nurse Practitioner as directed. Cesar Blank MD I have performed a history and examination and MDM of this patient, discussed the same with the dictator, and agree with the dictator's assessment and plan as written ,documented as a scribe. Based on total visit time, I have performed more than 50% of the visit. Patient Condition at Discharge: Fair Plan - Discharge Summary Discharge Rx Participant: No New Discharge Prescriptions: New predniSONE 10 mg PO DIRECTED #30 tab Apixaban [Eliquis] 2.5 mg PO BID tab Metoprolol Tartrate [Lopressor] 100 mg PO BID tab hydrALAZINE HCL [Apresoline] 25 mg PO QID tab Ipratropium-Albuterol Nebulize [Duoneb 0.5 mg-3 mg/3 ml Soln] 3 ml INHALATION RT-QID each Budesonide-Formot 160-4.5 Mcg [Symbicort 160-4.5 Mcg Inhaler] 2 puff INHALATION RT-BID each Famotidine [Pepcid] 20 mg PO DAILY tab Amiodarone [Cordarone] 200 mg PO BID tab Losartan [Cozaar] 50 mg PO DAILY tab Ipratropium-Albuterol Nebulize [Duoneb 0.5 mg-3 mg/3 ml Soln] 3 ml INHALATION RT-Q2H PRN each PRN Reason: Shortness Of Breath Or Wheezing amLODIPine [Norvasc] 5 mg PO DAILY tab Continue Levothyroxine Sodium 150 mcg PO DAILY@0500 Cholecalciferol [Vitamin D3 (25 Mcg = 1000 Iu)] 125 mcg PO HS Ascorbic Acid [Vitamin C] 1,000 mg PO DAILY Multivitamins, Thera [Multivitamin (formulary)] 1 tab PO HS Atorvastatin [Lipitor] 80 mg PO HS Promethazine [Phenergan] 25 mg PO Q6H PRN PRN Reason: Nausea And Vomiting Naloxone HCl [Narcan] 4 mg NASAL ONCE PRN PRN Reason: opiod overdose guaiFENesin [Mucinex] 600 mg PO BID PRN PRN Reason: Congestion Cyclobenzaprine [Flexeril] 10 mg PO Q8H PRN PRN Reason: Muscle Spasm Albuterol Sulfate [Ventolin HFA] 2 puff INHALATION RT-Q6H PRN PRN Reason: Shortness Of Breath Acetaminophen [Tylenol 8 Hour] 650 mg PO Q6H PRN PRN Reason: pain/fever Sennosides [Senokot] 17.2 mg PO DAILY Nutritional Juice 1 dose PO DAILY@0730 Calcium Carbonate/Vitamin D3 [Calcium 600 mg-Vit D3 5 mcg (200 unit)] 1 tab PO DAILY Vitamin B Complex 1 cap PO HS Naloxone HCl 0.4 mg IM ONCE PRN PRN Reason: opiod overdose Acetaminophen Tab [Tylenol] 650 mg PO Q6H PRN PRN Reason: Fever And/ Or Pain Cold And Hot External Patch 5% 1 applic TOPICAL BID@0700,1900 Bumetanide [BUMEX] 1 mg PO BID@0700,1600 Folic Acid 0.8 mg PO HS Changed polyethylene glycoL 3350 [Miralax] 17 gm PO DAILY PRN #0 PRN Reason: Constipation Discontinued Metoprolol Tartrate [Lopressor] 25 mg PO BID #180 tablet Ferrous Sulfate [Feosol] 325 mg PO DAILY Gabapentin [Neurontin] 100 mg PO BID #6 cap traMADol HCL 75 mg PO Q4H PRN PRN Reason: Pain Isosorbide Mononitrate ER [Imdur] 30 mg PO BID Aspirin 81 mg PO HS hydrALAZINE HCL [Apresoline] 25 mg PO BID Ipratropium-Albuterol Nebulize [Duoneb 0.5 mg-3 mg/3 ml Soln] 3 ml INHALATION RT-Q4H PRN PRN Reason: Shortness Of Breath rOPINIRole HCL [Requip] 0.5 mg PO BID Ranolazine [Ranexa] 1,000 mg PO Q12HR@0700,1900 Oseltamivir [Tamiflu] 30 mg PO Q2D Discharge Medication List Levothyroxine Sodium 150 mcg PO DAILY@0500 02/15/17 [History] Ascorbic Acid [Vitamin C] 1,000 mg PO DAILY 06/17/20 [History] Cholecalciferol [Vitamin D3 (25 Mcg = 1000 Iu)] 125 mcg PO HS 06/17/20 [History] Multivitamins, Thera [Multivitamin (formulary)] 1 tab PO HS 06/17/20 [History] Atorvastatin [Lipitor] 80 mg PO HS 02/12/23 [History] Acetaminophen Tab [Tylenol] 650 mg PO Q6H PRN 09/08/24 [History] Acetaminophen [Tylenol 8 Hour] 650 mg PO Q6H PRN 09/08/24 [History] Albuterol Sulfate [Ventolin HFA] 2 puff INHALATION RT-Q6H PRN 09/08/24 [History] Bumetanide [BUMEX] 1 mg PO BID@0700,1600 09/08/24 [History] Calcium Carbonate/Vitamin D3 [Calcium 600 mg-Vit D3 5 mcg (200 unit)] 1 tab PO DAILY 09/08/24 [History] Cold And Hot External Patch 5% 1 applic TOPICAL BID@0700,1900 09/08/24 [History] Cyclobenzaprine [Flexeril] 10 mg PO Q8H PRN 09/08/24 [History] Folic Acid 0.8 mg PO HS 09/08/24 [History] Naloxone HCl 0.4 mg IM ONCE PRN 09/08/24 [History] Naloxone HCl [Narcan] 4 mg NASAL ONCE PRN 09/08/24 [History] Nutritional Juice 1 dose PO DAILY@0730 09/08/24 [History] Promethazine [Phenergan] 25 mg PO Q6H PRN 09/08/24 [History] Sennosides [Senokot] 17.2 mg PO DAILY 09/08/24 [History] Vitamin B Complex 1 cap PO HS 09/08/24 [History] guaiFENesin [Mucinex] 600 mg PO BID PRN 09/08/24 [History] predniSONE 10 mg PO DIRECTED #30 tab 09/11/24 [Rx] Apixaban [Eliquis] 2.5 mg PO BID tab 09/15/24 [Rx] Famotidine [Pepcid] 20 mg PO DAILY tab 09/15/24 [Rx] Metoprolol Tartrate [Lopressor] 100 mg PO BID tab 09/15/24 [Rx] Amiodarone [Cordarone] 200 mg PO BID tab 09/16/24 [Rx] Budesonide-Formot 160-4.5 Mcg [Symbicort 160-4.5 Mcg Inhaler] 2 puff INHALATION RT-BID each 09/16/24 [Rx] Ipratropium-Albuterol Nebulize [Duoneb 0.5 mg-3 mg/3 ml Soln] 3 ml INHALATION RT-Q2H PRN each 09/16/24 [Rx] Ipratropium-Albuterol Nebulize [Duoneb 0.5 mg-3 mg/3 ml Soln] 3 ml INHALATION RT-QID each 09/16/24 [Rx] Losartan [Cozaar] 50 mg PO DAILY tab 09/16/24 [Rx] amLODIPine [Norvasc] 5 mg PO DAILY tab 09/16/24 [Rx] hydrALAZINE HCL [Apresoline] 25 mg PO QID tab 09/16/24 [Rx] polyethylene glycoL 3350 [Miralax] 17 gm PO DAILY PRN #0 09/16/24 [Rx] Follow up Appointment(s)/Referral(s): Demetrice Noel MD [STAFF PHYSICIAN] - 2 Weeks Liz Gagnon DO [Primary Care Provider] - 1-2 days Zeus Jiménez DO [Doctor of Osteopathic Medicine] - 2 Weeks Activity/Diet/Wound Care/Special Instructions: Heart healthy diet Activity as tolerated Patient is returning to [facility] Continue taking medications as prescribed per cardiology Recommend cardiology follow-up outpatient Patient is to continue on amiodarone 200 mg twice daily for 1 week until 09/23/2024 and then decrease the dose to 200 mg daily thereafter Discharge Disposition: TRANSFER TO SNF/ECF
--- NOTE | 2024-09-16 14:44 | P.PN ---
Subjective Progress Note Date: 09/16/24 74-year-old female who presents to the emergency department, via EMS, on September 08, with mental status changes. The patient is seen by our group, in the emergency department, room 3. We see her on September 10, 2023, in the morning. The patient is very confused. She cannot provide any history whatsoever. She apparently was brought in from the facility, with mental status changes, and shortness of breath. She apparently has a history of COPD, hypertension, and hyperlipidemia. She was found to have atrial fibrillation in the emergency department, and placed on Cardizem drip at 10 mg an hour. She also tested positive for influenza A. On today's evaluation of 09/15/2024, the patient is being seen for a follow-up. Patient is doing well. No specific complaints. She is currently on room air o xygen with a pulse ox of 94%. Calm and comfortable. Remains on DuoNeb nebulized treatments [id number]. She is on Symbicort. She is also completing a prednisone burst taper. No other significant events overnight. The patient's cardiac rhythm is sinus. The patient remains on amiodarone 4 mg p.o. twice a day. The patient is also on Cardizem 30 mg p.o. 4 times daily and metoprolol 100 mg p.o. twice a day. The patient remains on anticoagulation with Eliquis. Echocardiogram was done 09/11/2024 and it showed a preserved LV function with moderate degree of pulm hypertension and estimated right ventricular systolic pressure was around 47. On 09/16/2024, the patient is calm and comfortable. She is resting comfortably in bed and the patient has been transitioned to room air oxygen. No significant cough or sputum production. No chest pain. No other significant events overnight. For now, the patient is on DuoNeb nebulized meds on the clock. The patient remains on Symbicort. The patient is on a prednisone burst taper starting with 40 mg p.o. daily. The patient is on Bumex 1 mg p.o. twice daily. She remains on long-term anticoagulation with Eliquis in addition to a combina tion of metoprolol and amiodarone. Her current cardiac rhythm is sinus and rate is controlled. Objective - Vital Signs Vital signs: Vital Signs Temp 97.3 F L 09/16/24 09:10 Pulse 68 09/16/24 09:10 Resp 18 09/16/24 09:10 BP 171/74 09/16/24 09:10 Pulse Ox 93 L 09/16/24 09:10 FiO2 Intake & Output 09/15/24 09/16/24 09/16/24 18:59 06:59 18:59 Intake Total 600 Output Total 300 100 Balance 300 -100 Weight 58.967 kg 59 kg Intake: Oral 600 Output: Urine 300 100 Other: Voiding Method Diaper Diaper Diaper External Catheter External Catheter External Catheter # Voids 1 - Exam No acute distress, very confused, unable to provide any history. The patient is on room air. HEENT examination is grossly unremarkable. Mucous membranes are moist. No oral lesions. Neck supple. Full range of motion. No adenopathy thyromegaly or neck vein distention. Cardiovascular examination reveals an irregular consistent with cardiac rhythm there is sinus. S1-S2 normal. No S3 or S4. No discernible murmur noted. Lungs reveal scattered rhonchi and crackles. Breath sounds equal bilaterally. No wheezes. Abdomen soft bowel sounds are heard. No masses or tenderness. Extremities are intact. No cyanosis clubbing or edema. Skin is without rash or lesion. Neurologic examination is brief but nonfocal. - Labs CBC & Chem 7: 09/15/24 05:32 09/15/24 05:32 Labs: Abnormal Lab Results - Last 24 Hours (Table) 09/16/24 Range/Units 06:26 TSH 0.079 L (0.465-4.680) mIU/L Assessment and Plan Plan: Acute hypoxemic respiratory failure, likely multifactorial, in part related to atrial fibrillation/RVR, influenza A infection, congestive heart failure and COPD exacerbation. She has completed Tamiflu patient is currently on prednisone burst taper. The patient is also on room air oxygen. Clinically stable and no significant changes compared to yesterday. New onset atrial fibrillation/RVR, recovered and she is in NSR, echocardiogram from 09/11/2024 showed a normal LV without any significant valvular abnormalities. The patient converted to normal sinus rhythm. Currently on a combination of metoprolol, Cardizem and amiodarone. The patient remains on anticoagulation with Eliquis History of COPD from previous tobacco use. Significant confusion and disorientation, likely not new, recovered History of hyperlipidemia. History of hypertension. History of osteoarthritis. Hypothyroidism. History of lupus. History of gout Plan: Patient currently on room air oxygen Continue bronchodilators Continue prednisone burst taper Completed the course of Tamiflu Continue anticoagulation with Eliquis Continue amiodarone, metoprolol and Cardizem Echocardiogram was noted and the patient has a preserved LV function with moderate degree of pulm hypertension. The patient would like to be discharged home today. Will continue to follow an outpatient basis.
--- NOTE | 2024-09-16 15:08 | P.PN ---
Subjective Progress Note Date: 09/16/24 Principal diagnosis: Reason for follow-up is influenza and pneumonia Patient is a 74-year-old female past medical history nephric and for COPD hypertension hyperlipidemia osteoarthritis presenting to the hospital for evaluation of mental status changes shortness of breath from a local care home with a diagnosis of influenza with concern for possible pneumonia. On today's evaluation that is 09/15/2024, patient has been afebrile, patient is breathing comfortably and is currently on room air, patient denies having chest pain still have above but no sputum, patient denies nausea vomiting or diarrhea and no abdominal pain. Patient did not have any CBC done today blood culture has been negative Objective - Vital Signs Vital signs: Vital Signs Temp 97.3 F L 09/16/24 09:10 Pulse 64 09/16/24 11:04 Resp 18 09/16/24 14:00 BP 151/67 09/16/24 12:00 Pulse Ox 94 L 09/16/24 12:00 FiO2 Intake & Output 09/15/24 09/16/24 09/16/24 18:59 06:59 18:59 Intake Total 600 Output Total 300 100 Balance 300 -100 Weight 58.967 kg 59 kg Intake: Oral 600 Output: Urine 300 100 Other: Voiding Method Diaper Diaper Diaper External Catheter External Catheter External Catheter # Voids 1 - Exam GENERAL DESCRIPTION: An elderly female lying in bed in no distress RESPIRATORY SYSTEM: Unlabored breathing , decreased breath sounds at bases HEART: S1 S2 regular rate and rhythm , ABDOMEN: Soft , no tenderness EXTREMITIES: No edema feet - Labs CBC & Chem 7: 09/15/24 05:32 09/15/24 05:32 Labs: Abnormal Lab Results - Last 24 Hours (Table) 09/16/24 Range/Units 06:26 TSH 0.079 L (0.465-4.680) mIU/L Assessment and Plan (1) Allergy to cephalosporin Current Visit: Yes Status: Acute Code(s): Z88.1 - ALLERGY STATUS TO OTHER ANTIBIOTIC AGENTS SNOMED Code(s): 227181121 (2) Altered mental status Current Visit: Yes Status: Acute Code(s): R41.82 - ALTERED MENTAL STATUS, UNSPECIFIED SNOMED Code(s): 713486697 (3) Influenza A Current Visit: Yes Status: Acute Code(s): J10.1 - FLU DUE TO OTH IDENT INFLUENZA VIRUS W OTH RESP MANIFEST SNOMED Code(s): 296123139 (4) Leukocytosis Current Visit: Yes Status: Acute Code(s): D72.829 - ELEVATED WHITE BLOOD CELL COUNT, UNSPECIFIED SNOMED Code(s): 141427748 Plan: 1patient presented to the hospital with mental status changes and this patient has been recently diagnosed with influenza A at the care home now with some hypoxemia mental status changes patient is currently not running any fever white count is normal clinically not behaving as secondary bacterial pneumonia x-ray finding could be mostly atelectasis 2-patient has completed 5-day course of Tamiflu for influenza 3-patient did have elevated procalcitonin 0.59 did have Keflex allergy 4-patient completed a course of Levaquin and doing well off antibiotic therapy hence no need for antibiotic on discharge Dictation was produced using [employer] dictation software. please excuse any grammatical, word or spelling errors. Time with Patient: Less than 30
[2024-09-16] MEDS ORDERED: AMIODARONE 200 MG TAB PO SCH (21:00)
[2024-09-17] MEDS ORDERED: LOSARTAN 50 MG TAB PO SCH (09:00)
--- NOTE | 2024-09-17 20:40 | CDI ---
Documentation Clarification Form Date: 09/17/24 From: GRACE Lozada Admit Date: 09/08/2024 02:04:00 PM Patient Name: Bella Ellis Visit Number: [id number] Discharge Date: 09/16/2024 04:20:00 PM ATTENTION: The Clinical Documentation Specialists (CDI) and [facility] Coding Staff appreciate your assistance in clarifying documentation. Please respond to the clarification below the line at the bottom and electronically sign. The CDI & [facility] Coding staff will review the response and follow-up if needed. Please note: Queries are made part of the Legal Health Record. If you have any questions, please contact the author of this message via ITS. Doctor/Provider: Michael Gomez Your patient has the documented diagnosis of acute CHF exacerbation throughout the progress notes and discharge summary. Additional information regarding the type and acuity of CHF is requested. History/Risk Factors: Patient is admitted for treatment of influena A, acute hypoxic respiratory failure, pneumonia, atrial fibrillation with RVR, metabolic encephalopathy. Discharge Summary states acute CHF exacerbation. BNP: 8900 on 09/09 Echocardiogram Results: EF 60% Chest X Ray: Cardiac silhouette size is stable and upper limits of normal Treatment: Bumex, Cardizem dripIV antibioticsFlagyl and Levaquin, IV fluid IV Solu-Medrol and Tamiflu.Also she received amiodarone and Cardizem and metop rolol. In your professional opinion, can you please clarify the acuity and type of CHF if known? [ x ] Acute Systolic Heart Failure (reduced EF) [ ] Chronic Systolic Heart Failure (reduced EF) [ ] Acute on Chronic Systolic Heart Failure (reduced EF) [ ] Acute Diastolic Heart Failure (preserved EF) [ ] Chronic Diastolic Heart Failure (preserved EF) [ ] Acute on Chronic Diastolic Heart Failure (preserved EF) [ ] Acute Systolic & Diastolic Heart Failure [ ] Chronic Systolic & Diastolic Heart Failure [ ] Acute on Chronic Heart Failure Systolic & Diastolic Heart Failure [ ] Other, please specify [ ] Unable to determine MTDD
== END 2024-09-16 16:20 | DRG 193 ==
LOC: EC 12:00 → 4SSUR 14:04 → 3SCARD 09-09 04:44
PROVIDERS: ADMIT Internal Medicine; ATTEND Internal Medicine
DX: J10.01 Influenza due to other identified influenza virus with the same other identified influenza virus pneumonia (principal); G92.8 Other toxic encephalopathy; J96.01 Acute respiratory failure with hypoxia; I50.21 Acute systolic (congestive) heart failure; I27.20 Pulmonary hypertension, unspecified; I13.0 Hypertensive heart and chronic kidney disease with heart failure and stage 1 through stage 4 chronic kidney disease, or unspecified chronic kidney disease; J44.0 Chronic obstructive pulmonary disease with (acute) lower respiratory infection; N18.30 Chronic kidney disease, stage 3 unspecified; F03.90 Unspecified dementia, unspecified severity, without behavioral disturbance, psychotic disturbance, mood disturbance, and anxiety; M32.9 Systemic lupus erythematosus, unspecified; E03.9 Hypothyroidism, unspecified; J44.1 Chronic obstructive pulmonary disease with (acute) exacerbation; I48.0 Paroxysmal atrial fibrillation; M10.9 Gout, unspecified; E78.5 Hyperlipidemia, unspecified; K59.00 Constipation, unspecified; Z66 Do not resuscitate; Z79.01 Long term (current) use of anticoagulants; Z79.51 Long term (current) use of inhaled steroids; Z79.82 Long term (current) use of aspirin; Z79.890 Hormone replacement therapy; Z79.899 Other long term (current) drug therapy; Z87.891 Personal history of nicotine dependence; Z86.14 Personal history of Methicillin resistant Staphylococcus aureus infection
CPT/HCPCS: 36415; 70450; 71045; 73521; 80048; 80053; 80306; 80320; 81001; 82140; 82272; 82803; 83605; 83735; 83880; 84132; 84145; 84439; 84443; 85025; 85610; 85730; 87040; 87449; 87636; 93005; 93306; 94640; 94760; 96361; 96365; 96366; 96367; 96368; 96372; 96375; 96376; 99291